=== PATIENT | female | born 1950 | race Two or more races ===

== ENCOUNTER 2020-05-17 08:48 | Outpatient (REF) | payer MEDICARE, SELFPAY ==
[2020-05-17 09:44] LABS: Alanine Aminotransferase 17 U/L (0-31); Albumin Level 4.3 g/dL (3.5-5.0); Alkaline Phosphatase 97 U/L (39-117); Anion Gap 10 (12-20); Aspartate Amino Transferase 22 U/L (5-31); Bilirubin Total 0.9 mg/dL (0.0-1.0); Blood Urea Nitrogen 25 mg/dL (9-16); Calcium 9.1 mg/dL (8.4-10.2); Carbon Dioxide 29 mmol/L (22-29); Chloride 104 mmol/L (96-108); Cholesterol 158 mg/dL; Estimated Glomerular Filt Rate > 60; Glucose Fasting 97 mg/dL (60-99); HDL Cholesterol 57 mg/dL; LDL Cholesterol Calculated 83 mg/dl; Potassium 4.1 mmol/L (3.3-5.1); Sodium 139 mmol/L (135-145); Total Protein 6.8 g/dL (6.5-8.0); Triglycerides 92 mg/dL
[2020-05-17 10:06] LABS: TSH reflex Free T4 0.95 uIU/mL (0.32-4.0)
== END 2020-05-17 08:49 | disposition home or self-care (01) ==
LOC: HO.LAB 08:48
PROVIDERS: PCP Internal Medicine; Visit Provider Internal Medicine
DX: E03.9 Hypothyroidism, unspecified (principal); E78.5 Hyperlipidemia, unspecified; E78.00 Pure hypercholesterolemia, unspecified
CPT/HCPCS: 36415; 80053; 80061; 84443

== ENCOUNTER → 2020-06-19 11:56 | Outpatient (BNVA) | payer MEDICARE, SELFPAY | PROVIDERS: PCP Internal Medicine; Visit Provider Nurse Practitioner Gerontology | DX: E03.9 Hypothyroidism, unspecified (principal) | CPT/HCPCS: 99212 ==

== ENCOUNTER 2020-06-27 11:45 | Outpatient (REF) | payer MEDICARE, SELFPAY ==
--- NOTE | ~2020-06-27 | MM_ITS ---
EXAMINATION: MM SCREENING DIGITAL BREAST TOMOSYNTHESIS, BILATERAL CLINICAL INFORMATION: Screening. Asymptomatic. The lifetime risk of breast cancer based on the Tyrer-Cuzick Model is 3%. COMPARISON: Mammography: 11/09/2018, 10/31/2018, 09/19/2017 (new baseline). TECHNIQUE: Digital breast tomosynthesis is performed in both the craniocaudal and mediolateral oblique views along with computer-aided detection (CAD). Synthesized 2D images are generated from the tomosynthesis. FINDINGS: There are scattered areas of fibroglandular density (ACR BI-RADS breast composition Category b). There are no significant masses, abnormal calcifications, or other abnormalities. Parenchymal pattern is similar to prior exams. No developing density. The skin contours are smooth. No significant changes. MM/MM tomosynthesis screening BI IMPRESSION: No mammographic evidence of malignancy. ASSESSMENT: BI-RADS 1: Negative RECOMMENDATION: Routine annual mammography screening. This patient's information was entered into a reminder system with a target due date for their next mammogram.
== END 2020-06-27 11:46 | disposition home or self-care (01) ==
LOC: HO.MAMMO 11:45
PROVIDERS: PCP Internal Medicine; Visit Provider Internal Medicine
DX: Z12.31 Encounter for screening mammogram for malignant neoplasm of breast (principal)
CPT/HCPCS: 77063; 77067

== ENCOUNTER 2020-09-09 08:45 | Outpatient (REF) | payer MEDICARE, OTHER, SELFPAY ==
--- NOTE | ~2020-09-09 | US_ITS ---
EXAMINATION: US ABDOMEN COMPLETE CLINICAL INFORMATION: Abdominal pain. COMPARISON: Previous exam August 2018 TECHNIQUE: Real-time imaging of the abdominal viscera. FINDINGS: PANCREAS: Not well visualized due to bowel gas. ABDOMINAL AORTA: The proximal, mid, and distal segments are normal in caliber. INFERIOR VENA CAVA: Visualized portions are normal. LIVER: Normal. The liver is normal in size. The liver contour is normal. Parenchymal echogenicity is normal. No focal hepatic lesion. There is no intrahepatic biliary duct dilatation seen. GALLBLADDER: Normal. The gallbladder is physiologically distended without evidence of stones, sludge, polyps, wall thickening or pericholecystic fluid. COMMON BILE DUCT: Not well visualized. RIGHT KIDNEY: Normal. No hydronephrosis. No renal calculi or focal parenchymal lesions. The kidney measures 8.7 cm in maximum dimension. LEFT KIDNEY: Normal. No hydronephrosis. No renal calculi or focal parenchymal lesions. The kidney measures 7.7 cm in maximum dimension. SPLEEN: Normal. The spleen measures 7.1 cm in maximum dimension. FREE FLUID: None. US/US abdomen complete IMPRESSION: Limited visualization of the pancreas and common bile duct. Otherwise unremarkable exam.
== END 2020-09-09 08:46 | disposition home or self-care (01) ==
LOC: HO.US 08:45
PROVIDERS: Visit Provider Internal Medicine
DX: R10.9 Unspecified abdominal pain (principal)
CPT/HCPCS: 76700

== ENCOUNTER 2021-01-13 08:24 | Outpatient (REF) | payer MEDICARE, MEDICAID, SELFPAY ==
[2021-01-13 08:41] LABS: MANUAL DIFF FLAG NO
[2021-01-13 09:21] LABS: Basophils Percent Auto 0.6 % (0-2); Eosinophils Absolute Auto 0.2 X10*3/uL (0.0-0.4); Eosinophils Percent Auto 3.1 % (0-4); Hematocrit 44.8 % (37.0-47.0); Hemoglobin 14.4 g/dl (12.0-16.0); Imm Gran Abs Auto 0.03 X10*3/uL (0.00-0.03); Imm Gran Pct Auto 0.5 % (0.0-0.4); Lymphocytes Absolute Auto 3.3 X10*3/uL (1.2-4.9); Lymphocytes Percent Auto 52.3 % (20-40); Mean Corpuscular HGB Conc 32.1 g/dl (31.0-35.0); Mean Corpuscular Hemoglobin 25.5 pg (27.0-33.0); Mean Corpuscular Volume 79.4 fL (80.0-98.0); Mean Platelet Volume 10.6 fL (9.4-12.3); Monocytes Absolute Auto 0.5 X10*3/uL (0.1-1.2); Monocytes Percent Auto 7.6 % (2-11); Neutrophils Absolute Auto 2.3 x10*3/uL (2.0-8.3); Neutrophils Percent Auto 35.9 % (45-73); Platelet Count 295 X10*3/uL (160-400); Red Blood Count 5.64 X10*6/uL (4.20-5.50); White Blood Count 6.4 X10*3/uL (4.8-10.8)
[2021-01-13 09:58] LABS: Alanine Aminotransferase 22 U/L (0-31); Albumin Level 4.1 g/dL (3.5-5.0); Alkaline Phosphatase 86 U/L (39-117); Anion Gap 11 (12-20); Aspartate Amino Transferase 25 U/L (5-31); Blood Urea Nitrogen 22 mg/dL (9-16); Calcium 9.7 mg/dL (8.4-10.2); Carbon Dioxide 27 mmol/L (22-29); Chloride 105 mmol/L (96-108); Cholesterol 157 mg/dL; Estimated Glomerular Filt Rate > 60; Glucose Fasting 95 mg/dL (60-99); HDL Cholesterol 62 mg/dL; LDL Cholesterol Calculated 83 mg/dl; Potassium 4.3 mmol/L (3.3-5.1); Sodium 139 mmol/L (135-145); Total Protein 6.5 g/dL (6.5-8.0); Triglycerides 64 mg/dL
[2021-01-13 10:10] LABS: Free T4 (Free Thyroxine) 1.13 ng/dL (0.71-1.85); Thyroid Stimulating Hormone 2.02 uIU/mL (0.32-4.0)
[2021-01-17 14:56] LABS: Vitamin D 25-OH, D2 <4 ng/mL; Vitamin D 25-OH, D3 30 ng/mL; Vitamin D 25-OH, Total 30 ng/mL (30-100)
== END 2021-01-13 08:25 | disposition home or self-care (01) ==
LOC: HO.LAB 08:24
PROVIDERS: Nurse Practitioner Gerontology; PCP Internal Medicine; Visit Provider Internal Medicine
DX: E03.9 Hypothyroidism, unspecified (principal); D64.9 Anemia, unspecified; J30.9 Allergic rhinitis, unspecified; E55.9 Vitamin D deficiency, unspecified; E78.00 Pure hypercholesterolemia, unspecified; E78.5 Hyperlipidemia, unspecified
CPT/HCPCS: 36415; 80053; 80061; 82306; 84439; 84443; 85025

== ENCOUNTER 2021-01-16 09:53 | Outpatient (REF) | payer MEDICARE, MEDICAID, SELFPAY ==
--- NOTE | ~2021-01-16 | XR_ITS ---
EXAMINATION: XR SINUSES CLINICAL INFORMATION: Chronic sinusitis COMPARISON: CT 02/27/2019 TECHNIQUE: 4 views of the paranasal sinuses. FINDINGS: There appears to be partial opacification of the left maxillary sinus, possibly associated with mucous retention cyst. There is also partial opacification of the right sphenoid sinus. Paranasal sinuses appear otherwise clear without air-fluid levels. No fractures are identified. No radiodense foreign bodies. XR/XR sinus min 3V IMPRESSION: Possible mucous retention cyst of the left maxillary sinus. Partial opacification of the right sphenoid sinus, likely similar to previous CT. The paranasal sinuses appear otherwise clear.
== END 2021-01-16 09:54 | disposition home or self-care (01) ==
LOC: HO.XRAY 09:53
PROVIDERS: PCP Internal Medicine; Visit Provider Internal Medicine
DX: J32.9 Chronic sinusitis, unspecified (principal)
CPT/HCPCS: 70220

== ENCOUNTER 2021-02-17 10:19 | Outpatient (REF) | payer MEDICARE, MEDICAID, SELFPAY ==
--- NOTE | ~2021-02-17 | MM_ITS ---
EXAMINATION: BONE DENSITOMETRY CLINICAL INDICATION: Asymptomatic menopausal state. COMPARISON: None (current study represents initial baseline exam). TECHNIQUE: Using a [employer] DXA System (software version: 13.1) manufactured by [employer], dual-energy x-ray absorptiometry was performed of the lumbar spine and left hip. The images are of good technical quality. Summary results are attached. FINDINGS: AP SPINE L1-L4: BMD 0.930 g/cm2, Z-score -0.1, T-score -2.1, osteopenia. LEFT FEMUR, NECK: BMD 0.732 g/cm2, Z-score -0.4, T-score -2.2, osteopenia. LEFT FEMUR, TOTAL: BMD 0.851 g/cm2, Z-score 0.4, T-score -1.2, osteopenia. IDENTIFIED RISK FACTORS: Menopause, glucocorticoids (chronic). HISTORY OF FRACTURE: None listed. MEDICATIONS: None listed. MM/XR DEXA axial skeleton IMPRESSION: 1. DIAGNOSIS: Osteopenia based on the lowest T-score value of -2.2 in the femoral neck applying World Health Organization criteria. 2. 10-YEAR FRACTURE RISK PREDICTION, FRAX: Major osteoporotic fracture (clinical spine, forearm, hip or shoulder) 7.4%. Hip fracture 1.5%. 3. Treatment Recommendations: NOF guidelines recommend consideration for treatment in postmenopausal women and men age 50 and older presenting with the following: -A hip or vertebral (clinical or morphometric) fracture. -T-score less than or equal to -2.5 at the femoral neck or spine after appropriate evaluation to exclude secondary causes. -Low bone mass at the hip or spine and a 10-year fracture probability by FRAX of greater than or equal to 3% for hip fracture or greater than or equal to 20% for major osteoporotic fracture based on the [place] adapted WHO algorithm. 4. Other Recommendations: All treatment decisions require clinical judgment and consideration of individual patient factors, including patient preferences, comorbidities, previous drug use, risk factors not captured in the FRAX model (e.g. frailty, falls, vitamin D deficiency, increased bone turnover, interval significant decline in bone density) and possible under or overestimation of fracture risk by FRAX. Additional medical evaluation for secondary cause of low bone mineral density may be appropriate. FUTURE SCAN RECOMMENDATION: People with diagnosed cases of osteoporosis or at high risk for fracture should have regular bone mineral density tests. For patients eligible for Medicare, routine testing is allowed once every 2 years. The testing frequency can be increased to one year for patients who have rapidly progressing disease, those who are receiving or discontinuing medical therapy to restore bone mass, or have additional risk factors.
== END 2021-02-17 10:20 | disposition home or self-care (01) ==
LOC: HO.MAMMO 10:19
PROVIDERS: Visit Provider Internal Medicine
DX: Z13.820 Encounter for screening for osteoporosis (principal); Z78.0 Asymptomatic menopausal state; Z79.52 Long term (current) use of systemic steroids
CPT/HCPCS: 77080

== ENCOUNTER → 2021-04-24 09:21 | Outpatient (REF) | payer MEDICARE, MEDICAID, SELFPAY ==
--- NOTE | 2021-04-24 09:25 | CA_ITS ---
Transthoracic Echocardiogram Patient (Last, First, Middle): Dayl Sethi, Gender: Female Date of : 1950 Age: 71 Procedure Date: 04/24/2021 Procedure Type: Transthoracic Echocardiogram Location: OP Height: 149.86 cm Weight: 55.79 kg BSA: 1.50 m2 Heart Rate: bpm BP: 130 / 75 mmHg Transplant Rn: SHAWN Referring MD: Shane Navarro MD Porter Head: Roland Gonzalez MD Symptoms: I36.1 - Nonrheumatic tricuspid (valve) insufficiency Study Quality: Good ECG Rhythm: Sinus Conclusions: - 1. Normal LV systolic function with impaired relaxation filling pattern 2. Mild mitral regurgitation 3. Normal RV systolic pressure 4. No pericardial effusion Findings Left Ventricle Normal left ventricular size, thickness, and systolic function. The visually estimated ejection fraction is between 60-65%. Spectral Doppler is indicative of an impaired relaxation filling pattern. E/E prime ratio is between 8 and 15 consistent with indeterminate filling pressures. measured peak global endocardial longitudinal strain is -17.3%, within normal limits Right Ventricle Normal right ventricular cavity size and systolic function. Atria Both atria are normal in size. There is no evidence of interatrial shunt. Aortic Valve Normal aortic valve structure and function. There is no aortic valve stenosis. There is no aortic valve regurgitation. Mitral Valve There is mild anterior and posterior mitral leaflet thickening. There is mild mitral valve regurgitation. There is no mitral valve stenosis. Pulmonic Valve The pulmonic valve was not well visualized. Tricuspid Valve Normal tricuspid valve structure. There is trace tricuspid valve regurgitation. The right ventricular systolic pressure is normal. The right ventricular systolic pressure is 23 mmHg. Normal right atrial pressure. There is no evidence of pulmonary hypertension. Great Vessels All visible segments of the aorta are normal in size. The pulmonary artery was not well visualized. Venous The inferior vena cava is normal in size and collapses greater than 50% with inspiration. Pericardium/Pleural There is no evidence of pericardial effusion. Prior Study Comparison No significant change compared to prior study dated: 03/20/2019. Measurements 2D Linear Measurements IVSd: 0.82 0.6-0.9/0.6-1.0 cm LVIDd: 3.77 3.9-5.3/4.2-5.9 cm LVIDd Index: 2.51 2.4-3.2/2.2-3.1 cm/m2 LVIDs: 2.67 2.0-3.6 cm LVPWd: 0.83 0.7-1.1 cm LA Diam: 3.30 2.7-3.8/3.0-4.0 cm LAIDs Index: 2.20 1.5-2.3 cm/m2 LV Mass: 109.31 67-162/88-224 g LV Mass Index: 72.88 43-95/49-115 g/m2 LVOT Diam: 2.00 3.0+(-)1.3 cm 2D Systolic Function EF 4C: 67.50 >55% EF 2C: 59.00 >55% EF BiP: 64.70 >55% Mitral Valve MV Pk E: 0.78 MV PK A: 0.96 MV Decel Time: 244.00 E/A: 0.80 E'Lateral: 9.14 E'Medial: 5.44 E/E' Med: 14.40 E/E' Lat: 8.60 PHT: 72.00 MVA PHT: 3.06 Decel [place]: 3.21 Aortic Valve AoV Pk Elio: 1.35 AoV Mn Elio: 0.89 AoV VTI: 0.31 AoV Pk Grad: 7.00 Aov Mn Grad: 4.00 REYMUNDO Cont.VTI: 2.33 LVOT LVOT Pk Elio: 0.92 LVOT Mn Elio: 0.61 LVOT VTI: 0.23 LVOT Pk Grad: 3.00 LVOT Mn Grad: 2.00 LVOT Diam: 2.00 LVOT Area: 3.14 Diastolic Function MV Pk E: 0.78 MV Pk A: 0.96 E/A: 0.80 E'Medial: 5.44 E/E' Med: 14.40 E' Laterial: 9.14 E/E' Lat: 8.60 Right Ventricle TAPSE (mm): 1.96 TVS' Elio: 10.30 Tricuspid Valve TR Pk Elio: 2.24 TR Pk Grad: 20.00 RA Press: 3.00 RVSP: 23.00 Great Vessels Aorta Sinus of Valsalva: 2.86 2.0-3.[address] [place]: 1.97 1.7-3.4 cm Ao Asc: 2.80 2.1-3.4 cm Ao Arch: 3.20 Updated in Other Vendor System with Status of Final Roland Gonzalez MD electronically signed on 04/26/2021 10:19:14 AM with status of Final
== END ==
LOC: HO.CARD 09:21
PROVIDERS: PCP Internal Medicine; Visit Provider Internal Medicine
DX: I36.1 Nonrheumatic tricuspid (valve) insufficiency (principal)
CPT/HCPCS: 93306

== ENCOUNTER → 2021-04-30 13:02 | Outpatient (BNVA) | payer MEDICARE, MEDICAID, SELFPAY | PROVIDERS: PCP Internal Medicine; Referring Provider Internal Medicine; Visit Provider Internal Medicine | DX: I34.0 Nonrheumatic mitral (valve) insufficiency (principal) | CPT/HCPCS: 93005; 99212 ==

== ENCOUNTER 2021-06-01 08:10 | Outpatient (REF) | payer MEDICARE, MEDICAID, SELFPAY ==
[2021-06-01 09:09] LABS: Alanine Aminotransferase 21 U/L (0-31); Albumin Level 4.1 g/dL (3.5-5.0); Alkaline Phosphatase 83 U/L (39-117); Anion Gap 9 (12-20); Aspartate Amino Transferase 25 U/L (5-31); Blood Urea Nitrogen 19 mg/dL (9-16); Calcium 9.6 mg/dL (8.4-10.2); Carbon Dioxide 28 mmol/L (22-29); Chloride 106 mmol/L (96-108); Cholesterol 143 mg/dL; Estimated Glomerular Filt Rate > 60; Glucose Fasting 90 mg/dL (60-99); HDL Cholesterol 62 mg/dL; LDL Cholesterol Calculated 72 mg/dl; Potassium 4.4 mmol/L (3.3-5.1); Sodium 139 mmol/L (135-145); Total Protein 6.5 g/dL (6.5-8.0); Triglycerides 47 mg/dL
[2021-06-01 09:28] LABS: Thyroid Stimulating Hormone 1.52 uIU/mL (0.32-4.0)
== END 2021-06-01 08:11 | disposition home or self-care (01) ==
LOC: HO.LAB 08:10
PROVIDERS: PCP Internal Medicine; Visit Provider Internal Medicine
DX: E78.5 Hyperlipidemia, unspecified (principal); E03.9 Hypothyroidism, unspecified; H81.13 Benign paroxysmal vertigo, bilateral
CPT/HCPCS: 36415; 80053; 80061; 84443

== ENCOUNTER 2021-06-06 11:21 | Emergency (ER) | payer MEDICARE, MEDICAID, SELFPAY ==
--- NOTE | ~2021-06-06 | XR_ITS ---
EXAMINATION: XR SOFT TISSUE NECK CLINICAL INDICATION: Anterior neck pain. COMPARISON: None TECHNIQUE: 2 views of the soft tissue neck were obtained. FINDINGS: Soft tissue films of the neck demonstrate a normal larynx, pharynx and upper trachea. No soft tissue swelling or opaque foreign body is demonstrated. Partially visualized cervical spine shows multilevel degenerative spondylosis at mid to lower cervical spine. XR/XR soft tissue neck IMPRESSION: Unremarkable radiographic appearance of the soft tissue neck. Incidental note is made of multilevel degenerative spondylosis at mid to lower cervical spine.
[2021-06-06 11:38] VITALS: BP 139/76; PULSE 78; RESP 20; TEMP 36.5; O2SAT 99; BMI 24.2
--- NOTE | 2021-06-06 13:27 | ED_ITS ---
HPI - General Adult General Chief complaint: General Medical Stated complaint: Thyroid problems Time Seen by Provider: 06/06/21 12:52 Source: patient Mode of arrival: ambulatory Limitations: no limitations History of Present Illness HPI narrative: this is a 71 years old female with history of thyroid disease presented to the emergency department complaining of anterior neck pain, denies any difficult to swallow denies any stridor , she can eat well, has no fever no chills no other complaints Onset (ago): day(s) (1) Location: neck Radiation: non-radiation Severity: mild Quality: burning Pain Consistency: constant Relieving factors: none Associated symptoms: denies other symptoms Related Data Home Medications Medication Instructions Recorded Confirmed aspirin 81 mg tablet,delayed 81 mg PO DAILY 02/05/20 06/03/21 release (Adult Aspirin Regimen) vitamins-lipotropics 200 mg-100 mg tab PO 04/30/21 06/03/21 tablet (Lipo-Flavonoid Plus) Previous Rx's Medication Instructions Recorded pravastatin 20 mg tablet 20 mg PO DAILY 90 Days #90 tab 11/13/20 Synthroid 50 mcg tablet 50 mcg PO DAILY #30 tab NS 11/26/20 (levothyroxine) fluticasone propionate 50 1 spray INTRANASAL DAILY 10 Days 12/30/20 mcg/actuation nasal #150 ml spray,suspension (Flonase Allergy Relief) meclizine 25 mg tablet 25 mg PO TID 90 Days #270 tab 01/15/21 Allergies Allergy/AdvReac Type Severity Reaction Status Date / Time Penicillins [PENICILLINS] Allergy Intermediate syncope Verified 06/03/21 13:09 Review of Systems Constitutional: Constitutional: Reports no additional constitutional complaints ENT: Reports system reviewed and no additional complaints, except as documented Cardiovascular: Cardiovascular: Reports no additional cardiovascular complaints Respiratory: Respiratory: Reports no additional respiratory complaints Integumentary/Breasts: Skin/Breast: Reports system reviewed and no additional complaints, except as docu PMFSH Past Medical History Medical History Abdominal pain Allergic rhinitis Anxiety Anxiety BPPV (benign paroxysmal positional vertigo) Chronic sinusitis Hypothyroidism Long-term use of aspirin therapy Mild depression Poor circulation Postmenopausal Pure hypercholesterolemia Sinusitis Surgical History History of 3 sections History of bilateral cataract extraction History of mastoidectomy Family History Family History Father No problems noted. Mother Vaginal cancer Brother Cancer Sister Skin cancer Son No problems noted. Son No problems noted. Daughter No problems noted. Social History Social History Housing: Apartment Alcohol intake: never Patient Tobacco Use Status: Never used Tobacco e-Cigarette/Vaping Use: Never Used Second Hand Smoke Exposure: No Advance Directives: No Advance Directives Information Provided: No service: No Current occupational status: retired Cognitive needs: No Hearing needs: No Vision needs: No Physical Exam ED Vital Signs: Vital Signs - 24 hr 06/06/21 11:38 Temperature 97.7 F Pulse Rate 78 Respiratory Rate 20 Blood Pressure 139/76 Pulse Oximetry 99 BMI result Body Mass Index 24.2 Const General: cooperative, healthy appearing, comfortable and no acute distress Nutritional Appearance: average body habitus and well nourished HENAR Head: Yes normal to inspection and Yes No palpable skull fracture present Ears: hearing grossly normal bilaterally General nose exam: Normal external nose present and Normal nares present Face and sinus: Yes normal facial exam Mouth: Normal oral and palatal mucosa present Throat: Yes posterior oropharynx normal Neck Neck: Yes normal visual inspection, Yes full ROM and Yes no lymphadenopathy Lymphatic: no lymphadenopathy noted Chest Chest palpation & inspection: normal inspection of the chest Resp Effort & Inspection: normal respiratory effort Auscultation: clear to auscultation bilaterally Cardio Jugular venous distension: no JVD Rate: regular rate Rhythm: regular rhythm GI Inspection: Yes normal to inspection Palpation (GI): Soft to palpation, not firm and nontender Auscultation: normal bowel sounds General: Yes no CVA tenderness Back/Spine/Pelvis Back: no CVA tenderness Course Course Course Narrative: I re-examined the patient this time she is doing much better, x-rays negative labs are salvador,l she can be discharged home and follow-up with primary care physician Reevaluation(s) Reevaluation #1: Asyntomatic 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7 (2-11) % Eos % (Auto) 0.4 (0-4) % Baso % (Auto) 0.6 (0-2) % Lymph # (Auto) 2.2 (1.2-4.9) X10*3/uL [place] # (Auto) 0.5 (0.1-1.2) X10*3/uL Eos # (Auto) 0.0 (0.0-0.4) X10*3/uL Baso # (Auto) 0.1 (0.0-0.2) X10*3/uL Abs Immat Gran (auto) 0.02 (0.00-0.03) X10*3/uL Absolute Neuts (auto) 5.0 (2.0-8.3) x10*3/uL Absolute Nucleated RBC 0.000 (0.0-0.012) X10*3/uL Nucleated RBC % (auto) 0.0 (0.0-0.2) /100WBC Sodium 137 (135-145) mmol/L Potassium 4.5 (3.3-5.1) mmol/L Chloride 102 (96-108) mmol/L Carbon Dioxide 29 (22-29) mmol/L Anion Gap 11 L (12-20) BUN 20 H (9-16) mg/dL Creatinine 0.83 (0.5-1.4) mg/dL Estim Creat Clear Calc 48.1 Estimated GFR > 60 Random Glucose 98 (60-115) mg/dL Calcium 10.0 (8.4-10.2) mg/dL Total Bilirubin 1.3 H (0.0-1.0) mg/dL AST 24 (5-31) U/L ALT 19 (0-31) U/L Alkaline Phosphatase 88 (39-117) U/L Total Protein 7.2 (6.5-8.0) g/dL Albumin 4.6 (3.5-5.0) g/dL Imaging Data soft tissue neck: Radiologist's impression: CLINICAL INDICATION: Anterior neck pain. COMPARISON: None TECHNIQUE: 2 views of the soft tissue neck were obtained.? FINDINGS: Soft tissue films of the neck demonstrate a normal larynx, pharynx and upper trachea. No soft tissue swelling or opaque foreign body is demonstrated. Partially visualized cervical spine shows multilevel degenerative spondylosis at mid to lower cervical spine. XR/XR soft tissue neck IMPRESSION: Unremarkable radiographic appearance of the soft tissue neck. Incidental note is made of multilevel degenerative spondylosis at mid to lower cervical spine. Dictated By: Debora Cook MD Signed By: <Electronically signed by Debora Cook MD in OV> 06/06/21 1349 DD/ 1333 TD/TT:? Foreign Language Interpreter: PK Discharge Plan Discharge Clinical Impression: Neck pain Patient Disposition: Home, Self-Care Instructions: Neck Pain (ED) Prescriptions: No Action pravastatin 20 mg tablet 20 mg PO DAILY 90 Days Qty: 90 2RF levothyroxine [Synthroid] 50 mcg tablet 50 mcg PO DAILY Qty: 30 11RF meclizine 25 mg tablet 25 mg PO TID 90 Days Qty: 270 1RF aspirin [Adult Aspirin Regimen] 81 mg tablet,delayed release (DR/EC) 81 mg PO DAILY 0RF fluticasone propionate [Flonase Allergy Relief] 50 mcg/actuation spray,suspension 1 spray intranasal DAILY 10 Days Qty: 150 0RF Rx Instructions: administer into each nostril Lipo-Flavonoid Plus 200-100 mg tablet PO 0RF Referrals: Terry Hastings [Physician] - 2 days Interventions: LWBS Worksheet Last Done: 06/06/21 12:57
[2021-06-06 14:05] LABS: MANUAL DIFF FLAG NO
[2021-06-06 14:07] LABS: Basophils Absolute Auto 0.1 X10*3/uL (0.0-0.2); Basophils Percent Auto 0.6 % (0-2); Eosinophils Percent Auto 0.4 % (0-4); Hematocrit 45.8 % (37.0-47.0); Hemoglobin 14.9 g/dl (12.0-16.0); Imm Gran Abs Auto 0.02 X10*3/uL (0.00-0.03); Imm Gran Pct Auto 0.3 % (0.0-0.4); Lymphocytes Absolute Auto 2.2 X10*3/uL (1.2-4.9); Lymphocytes Percent Auto 27.9 % (20-40); Mean Corpuscular HGB Conc 32.5 g/dl (31.0-35.0); Mean Corpuscular Hemoglobin 25.7 pg (27.0-33.0); Mean Platelet Volume 10.1 fL (9.4-12.3); Monocytes Absolute Auto 0.5 X10*3/uL (0.1-1.2); Monocytes Percent Auto 6.7 % (2-11); Neutrophils Percent Auto 64.1 % (45-73); Platelet Count 255 X10*3/uL (160-400); Red Cell Distribution Width 14.3 % (11.0-16.0); White Blood Count 7.8 X10*3/uL (4.8-10.8)
[2021-06-06 14:35] LABS: Alanine Aminotransferase 19 U/L (0-31); Albumin Level 4.6 g/dL (3.5-5.0); Alkaline Phosphatase 88 U/L (39-117); Anion Gap 11 (12-20); Aspartate Amino Transferase 24 U/L (5-31); Bilirubin Total 1.3 mg/dL (0.0-1.0); Blood Urea Nitrogen 20 mg/dL (9-16); Carbon Dioxide 29 mmol/L (22-29); Chloride 102 mmol/L (96-108); Creatinine Clr Calc Pharmacy 48.1; Estimated Glomerular Filt Rate > 60; Glucose Random 98 mg/dL (60-115); Potassium 4.5 mmol/L (3.3-5.1); Sodium 137 mmol/L (135-145); Total Protein 7.2 g/dL (6.5-8.0)
[2021-06-06 14:56] LABS: Thyroid Stimulating Hormone 0.82 uIU/mL (0.32-4.0)
[2021-06-06 15:11] VITALS: BP 134/70; PULSE 77; RESP 19; O2SAT 98
== END 2021-06-06 15:12 | disposition home or self-care (01) ==
PROVIDERS: Emergency Provider Emergency Medicine; PCP Internal Medicine
DX: M54.2 Cervicalgia (principal); Z79.899 Other long term (current) drug therapy; Z79.82 Long term (current) use of aspirin
CPT/HCPCS: 36415; 70360; 80053; 84443; 85025; 99283

== ENCOUNTER → 2021-06-16 08:13 | Outpatient (BNVA) | payer MEDICARE, SELFPAY | PROVIDERS: PCP Internal Medicine; Visit Provider Nurse Practitioner Gerontology | DX: E03.9 Hypothyroidism, unspecified (principal); Z79.899 Other long term (current) drug therapy | CPT/HCPCS: 99212 ==

== ENCOUNTER 2021-06-29 09:05 | Outpatient (REF) | payer MEDICARE, MEDICAID, SELFPAY ==
--- NOTE | ~2021-06-29 | MM_ITS ---
EXAMINATION: MM SCREENING DIGITAL BREAST TOMOSYNTHESIS, BILATERAL CLINICAL INFORMATION: Screening. Asymptomatic. The lifetime risk of breast cancer based on the Tyrer-Cuzick Model is 4%. COMPARISON: Mammography: 06/27/2020, 11/09/2018, 10/31/2018, 09/19/2017 (new baseline) TECHNIQUE: Digital breast tomosynthesis is performed in both the craniocaudal and mediolateral oblique views along with computer-aided detection (CAD). Synthesized 2D images are generated from the tomosynthesis. FINDINGS: There are scattered areas of fibroglandular density (ACR BI-RADS breast composition Category b). There are no significant masses, abnormal calcifications, or other abnormalities. Parenchymal pattern is similar to prior exams. No developing density or architectural abnormality. Skin contours are smooth. MM/MM tomosynthesis screening BI IMPRESSION: No mammographic evidence of malignancy. ASSESSMENT: BI-RADS 1: Negative RECOMMENDATION: Routine annual mammography screening. This patient's information was entered into a reminder system with a target due date for their next mammogram.
== END 2021-06-29 09:06 | disposition home or self-care (01) ==
LOC: HO.MAMMO 09:05
PROVIDERS: Visit Provider Internal Medicine
DX: Z12.31 Encounter for screening mammogram for malignant neoplasm of breast (principal)
CPT/HCPCS: 77063; 77067

== ENCOUNTER 2021-06-29 10:10 | Emergency (ER) | payer MEDICARE, OTHER, SELFPAY ==
[2021-06-29 11:21] VITALS: BP 175/70; PULSE 80; RESP 18; TEMP 36.4; O2SAT 99; BMI 23.8
== END 2021-06-29 18:48 | disposition left against medical advice (07) ==
LOC: HO.ED 18:47
PROVIDERS: Emergency Provider Emergency Medicine
DX: R07.89 Other chest pain (principal); M25.562 Pain in left knee; M25.561 Pain in right knee; R51.9 Headache, unspecified
CPT/HCPCS: 99281

== ENCOUNTER → 2021-07-14 13:19 | Outpatient (BNVA) | payer MEDICARE, MEDICAID, SELFPAY | PROVIDERS: PCP Internal Medicine; Visit Provider Surgery Vascular Surgery | DX: M79.606 Pain in leg, unspecified (principal) | CPT/HCPCS: 99202 ==

== ENCOUNTER 2021-08-04 10:00 | Outpatient (RCR) | payer MEDICARE, OTHER, SELFPAY ==
[2021-07-21 10:07] VITALS: BP 140/80
--- NOTE | 2021-07-21 12:44 | MHC.PT.EP ---
[facility] [place] Office [place] Office [place] Office [address] Farhat Collins [address] [phone] F: [phone] F: [phone] F: [phone] F: [phone] Physical Therapy Plan of Care Date of Evaluation: Date of Surgery: Diagnosis: BPPV, B Assessment: 71 y/o F referred to PT with BPPV, B. She reports 'vertigo' for several years. Describes dizziness as the floor moves and her head moving; everything moves around me; It is like spinning. The dizziness is always there and constant, she cannot think of aggravating factors. She reports imaging has been negative in the past but unclear on what type of w/u she has had previously. She has also had a recent fall one month ago. Examination shows normal saccades/ smooth pursuits, normal seated VBI, static balance on/off foam was WNL however noted increase in pt anxiety reporting nausea and fear, DGI was not completed and unable to assess for BPPV due to time constraints. Phone park interpreter utilized. At this time, will complete evaluation and then complete POC. Recommend PT for 2 more visits to assess for BPPV and for hypofunction. Frequency and Duration: The patient will be seen 2x/week for 2 weeks Short Term Goals: Assess for BPPV Director Process Improvement Goals: Pt will be (-) for nystagmus of reports of vertigo in all diagnostic directions B to resolutions of BPPV in 4 weeks Tolerate position changes without complaints vertigo to improve safety and return to pre-onset level Pt to be able to functionally move in all planes without provocation of dizziness and return to PLOF in 4 weeks Pt to be educated on sx and indications to return to therapy when needed in 4 weeks -Eliminate BPPV in order to reduce risk of falls Treatment Plan: Modalities to reduce pain, spasms and effusion. Manual therapy to restore motion and function. Therapeutic exercise to improve strength and flexibility. Neuromuscular re-education for posture and balance. Therapeutic activities to return to functional activities of daily living. Electronically signed by: Jennifer Haider PT Please sign and return to therapist. Thank you for your referral.
--- NOTE | 2021-09-08 12:03 | MHC.PT.DC ---
[facility] [place] Office [place] Office [place] Office [address] Farhat Collins [address] [phone] F: [phone] F: [phone] F: [phone] F: [phone] Physical Therapy Discharge Report Diagnosis: BPPV, B Date of Surgery: Date of Evaluation: 07/21/21 Date of Discharge: 09/08/21 Treatments to Date: 3 Cancellations to Date: 0 No Shows to Date: 0 Discharge Status: Recommend MD Follow-up Discharge Summary: Pt grandson present to assist with interpreting and pt requests this therapist call MD as no one calls her back. Most of session spent seated in supported chair, but pt would have intermittent waves of dizziness (my head is moving) while static sitting. Re-checked oculomotor and was WNL, no increase in sx. With VOR, pt needed significant cues to perform correctly but eventually able to maintain focus on target but increase in dizziness. Dizziness episodes would last 5 sec - 5 minutes throughout session. Pt agreed to BPPV assessment however with supine position (head on 2 pillows) pt became increasinly anxious and wanted to return to seated position. In sitting, pt holding on firmly to therapist and cues for breathing. No nystagmus seen and pt reports feeling better after 5 minutes wtih cool compress. States she is afraid of the dizziness and it makes her nervous/ anxious. Upon leaving, pt reports feeling better and left with her grandson ambulating. However grandson returns and states pt dizzy again in waiting room. Pt given water, cool compresses and vitals taken (see above). She reports dizziness, no nausea but also reports anxious. She declines ED, however did take w/c down to entrance of hospital. Dizziness etiology unclear as pt unclear historian and increased anxiety with all testing; will place call to Dr. Hall office re pt concerns and wonder if she would benefit from imaging of cervical spine and/or brain. Electronically signed by: Jennifer Haider PT Please sign and return to therapist. Thank you for your referral.
== END 2021-09-08 12:04 | disposition home or self-care (01) ==
LOC: HO.PT 10:00
PROVIDERS: PCP Internal Medicine; Visit Provider Internal Medicine
DX: H81.13 Benign paroxysmal vertigo, bilateral (principal)
CPT/HCPCS: 95992; 97112; 97162

== ENCOUNTER → 2021-09-07 11:00 | Outpatient (BNVA) | payer MEDICARE, MEDICAID, SELFPAY | PROVIDERS: PCP Internal Medicine; Visit Provider Physician Assistant | DX: Z12.11 Encounter for screening for malignant neoplasm of colon (principal) | CPT/HCPCS: 99202 ==

== ENCOUNTER 2021-09-22 15:01 | Outpatient (REF) | payer MEDICARE, MEDICAID, SELFPAY ==
--- NOTE | ~2021-09-22 | MR_ITS ---
EXAMINATION: MR BRAIN WITHOUT AND WITH CONTRAST CLINICAL INFORMATION: Vertigo, tinnitus, and deafness. COMPARISON: Head CT 02/21/2017. TECHNIQUE: Multiplanar, multisequence imaging of the brain was performed before and after the intravenous administration of 5 mL of Gadavist. FINDINGS: The inner ear structures including the cochlea, vestibules, and semicircular canals exhibit preserved CSF signal intensity with no pathologic enhancement. The vestibular aqueducts are not enlarged. Cranial nerves VII and VIII complexes are normal in morphology. No enhancing cerebellopontine angle/retrocochlear lesion. There is no intracranial mass or abnormal intracranial enhancement. There is no acute infarction. There is no intracranial hemorrhage or extra axial collection. The ventricles, sulci, and basilar cisterns are normal in size and configuration. Mild scattered foci of T2/FLAIR hyperintensity are seen within the cerebral white matter. The orbital contents appear normal. There is moderate inflammatory change within the right sphenoid sinus. MR/MR head/brain wo/w con IMPRESSION: - No vestibular schwannoma or retrocochlear lesion. - No mass lesion, acute infarction, or abnormal intracranial enhancement. - Moderate inflammatory changes in the right sphenoid sinus.
== END 2021-09-22 15:02 | disposition home or self-care (01) ==
LOC: HO.MRI 15:01
PROVIDERS: Visit Provider Psychiatry & Neurology Neurology
DX: R42 Dizziness and giddiness (principal); H93.19 Tinnitus, unspecified ear; H91.90 Unspecified hearing loss, unspecified ear
CPT/HCPCS: 70553; A9585

== ENCOUNTER 2021-10-02 07:59 | Outpatient (REF) | payer MEDICARE, MEDICAID, SELFPAY ==
[2021-10-02 09:22] LABS: Thyroid Stimulating Hormone 2.03 uIU/mL (0.32-4.0)
== END 2021-10-02 08:00 | disposition home or self-care (01) ==
LOC: HO.LAB 07:59
PROVIDERS: Nurse Practitioner Gerontology; PCP Internal Medicine; Visit Provider Internal Medicine
DX: E03.9 Hypothyroidism, unspecified (principal)
CPT/HCPCS: 36415; 84443

== ENCOUNTER 2021-10-29 10:09 | Emergency (ER) | payer MEDICARE, SELFPAY ==
--- NOTE | ~2021-10-29 | XR_ITS ---
EXAMINATION: XR CHEST CLINICAL INFORMATION: Dizziness COMPARISON: 03/19/2017 TECHNIQUE: Frontal view of the chest was obtained. FINDINGS: No significant abnormality is noted involving the heart, lungs, mediastinum, bony thorax or soft tissues. XR/XR chest 1V IMPRESSION: Unremarkable examination.
--- NOTE | ~2021-10-29 | CT_ITS ---
EXAMINATION: CT HEAD WITHOUT CONTRAST CLINICAL INFORMATION: Dizziness COMPARISON: MRI head from 09/22/2021. Head CT from 02/21/2017. TECHNIQUE: Contiguous axial imaging was performed from the skull base to vertex without intravenous administration of contrast. This CT examination was performed using dose optimization techniques as appropriate, variously including the following: *Automated exposure control *Adjustment of mA and/or kV according to patient size (this includes techniques or standardized protocols for targeted exams where dose is matched to indication/reason for exam; i.e. extremities or head) *Use of iterative reconstruction technique DLP: 526 mGy-cm FINDINGS: No intracranial hemorrhage, extra-axial fluid collection, focal mass effect or midline shift. The mallory-white matter differentiation is maintained. No evidence of an acute major vascular territory infarction. 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 The brainstem and cerebellum are unremarkable. The white matter changes of mild microangiopathy were better depicted on the brain MRI of 09/22/2021. Surgical changes from prior right mastoidectomy. The left mastoid air cells and bilateral middle ear cavities are well aerated. Chronic mucoperiosteal thickening of the right sphenoid sinus. The orbits and globes remain symmetric. The temporomandibular joints are unremarkable. CT/CT head/brain wo IV con IMPRESSION: * No acute intracranial pathology compared to 09/22/2021. * Chronic right sphenoid sinusitis.
[2021-10-29 10:14] VITALS: BP 158/76; BP 184/90; PULSE 90; PULSE 94; RESP 18; TEMP 36.8; O2SAT 99; BMI 22.2
--- NOTE | 2021-10-29 10:46 | ECG_ITS ---
Test Reason : vertigo Blood Pressure : / mmHG Vent. Rate : 075 BPM Atrial Rate : 075 BPM P-R Int : 144 ms QRS Dur : 076 ms QT Int : 388 ms P-R-T Axes : 036 051 054 degrees QTc Int : 433 ms Normal sinus rhythm Normal ECG When compared with ECG of 10-AUG-2016 23:31, No significant change was found Referred By: Kanwal Acevedo Electronically Signed By:CUCO SUÁREZ
--- NOTE | 2021-10-29 10:57 | ED.DIZZY ---
HPI - Dizziness General Chief Complaint: Dizziness Stated Complaint: DIZZINESS W/DIFF AMB PE REMS Time Seen by Provider: 10/29/21 10:30 Source: patient Mode of arrival: ambulatory Limitations: language barrier ([place] Speaking) History of Present Illness HPI Narrative: 71-year-old female with a past medical history of benign paroxysmal positional vertigo currently on meclizine p.r.n. reports she did not take this morning, anxiety disorder, depression, hypothyroidism, chronic sinusitis, and hyperlipidemia who is presenting to the ER with her son at bedside with complaints of sudden onset of dizziness while she was driving dropping off her son at an appointment prior to arrival. She reports that she turned her head to the left and since then she has been having dizziness. She reports that this is worse than her normal dizziness. She reports that it is worse when she stands up or turns her head. She feels like she is spinning. She reports she intermittently has episodes of vertigo this is why she does not take the meclizine daily only p.r.n. she reports she recently had an MRI due to her dizziness on 09/22/2021 and she reports it was within normal limits per the patient. She denies any fevers, chills, headaches, change in vision, ear drainage, sore throat, nausea/vomiting, jaw pain, paresthesias, chest pain, shortness of breath, dyspnea on exertion, orthopnea, palpitations, paresthesias, abdominal pain, back pain, dysuria, hematuria, diarrhea, abnormal vaginal discharge, black or bloody stools, lower extremity edema or calf tenderness, recent travel or recent falls, others with similar symptoms or any other symptoms complaints or concerns at this time. MD elicited complaint: dizziness Pertinent past history: inner ear problems Onset (ago): hour(s) (started [id number] [employer]) Timing: sudden onset Severity: moderate Description: sense of movement and difficulty walking Context: change in body position History of similar symptoms: Yes Exacerbating factors: movement/ambulation, change in body position, exertion and standing Relieving factors: remaining still and rest Associated symptoms: nasal congestion (chronic per patient ) and ear discomfort (chronic right ear pain ) Related Data Home Medications Medication Instructions Recorded Confirmed aspirin 81 mg tablet,delayed 81 mg PO DAILY 02/05/20 10/05/21 release (Adult Aspirin Regimen) Previous Rx's Medication Instructions Recorded fluticasone propionate 50 1 spray intranasal DAILY 10 days 12/30/20 mcg/actuation nasal #150 mL spray,suspension (Flonase Allergy Relief) meclizine 25 mg tablet 25 mg PO TID 90 days #270 tabs 01/15/21 Synthroid 50 mcg tablet 50 mcg PO DAILY #90 tabs 06/16/21 (levothyroxine) pravastatin 20 mg tablet 20 mg PO DAILY 90 days #90 tabs 08/09/21 bisacodyl 5 mg tablet,delayed 10 mg PO ONCE colonoscopy prep 1 09/07/21 release (Dulcolax (bisacodyl)) day #2 tabs polyethylene glycol 3350 17 238 g PO ONCE 1 day #238 grams 09/07/21 gram/dose oral powder (Miralax) doxycycline monohydrate 100 mg 100 mg PO BID 10 days #20 tabs 10/29/21 tablet lorazepam 0.5 mg tablet (Ativan) 0.5 mg PO DAILY PRN anxiety #10 10/29/21 tabs Allergies Allergy/AdvReac Type Severity Reaction Status Date / Time Penicillins [PENICILLINS] Allergy Intermediate syncope Verified 10/05/21 09:26 Review of Systems Review of Systems: Constitutional : No Fever, No Chills, No Night Sweats, No Fatigue, No Malaise ENT/Mouth : No Ear Pain, No Nasal Congestion, No Sinus Pain, No sore throat, No Rhinorrhea Eyes: No Eye Pain, No Swelling, No Redness, No Foreign Body, No Discharge, No Vision Changes Cardiovascular : No Chest Pain, No SOB, No Dyspnea on Exertion, No Orthopnea, No Palpitations Respiratory : No Cough, No Sputum, No Wheezing, No Dyspnea Gastrointestinal : No Nausea, No Vomiting, No Diarrhea, No Constipation, No abdominal Pain, No Hematochezia, No Melena Genitourinary : No Dysuria, No Urinary Frequency, No Urinary Incontinence, No Urgency, No Flank Pain Musculoskeletal : No joint pain, No Myalgias Skin : No lacerations Neuro : +Dizziness, No Focal weakness, no general weakness, No Numbness, No Paresthesias, No Loss of Consciousness, No Dizziness, No Headache Yes all other systems are reviewed and are negative [facility] Past Medical History Attestation statement: The following information was validated with the patient. Source: old records reviewed, obtained from family and nursing notes reviewed Medical History Abdominal pain Allergic rhinitis Anxiety Anxiety BPPV (benign paroxysmal positional vertigo) Chronic sinusitis Hypothyroidism Long-term use of aspirin therapy Mild depression Poor circulation Postmenopausal Pure hypercholesterolemia Sinusitis Surgical History History of 3 sections History of bilateral cataract extraction History of esophagogastroduodenoscopy (EGD) History of mastoidectomy Family History Family History Father No problems noted. Mother Vaginal cancer Brother Cancer Sister Skin cancer Son No problems noted. Son No problems noted. Daughter No problems noted. Social History Social History Housing: Apartment Alcohol intake: never Patient Tobacco Use Status: Never used Tobacco e-Cigarette/Vaping Use: Never Used Second Hand Smoke Exposure: No Advance Directives: No Advance Directives Information Provided: No service: No Current occupational status: retired Cognitive needs: No Hearing needs: No Vision needs: Yes Physical Exam Vital Signs: Vital Signs: Last Vital Signs Temp 98.2 F 10/29/21 10:14 Pulse 90 10/29/21 12:03 Resp 16 10/29/21 12:00 BP 198/84 H 10/29/21 12:03 Pulse Ox 96 10/29/21 12:00 O2 Del Method 10/29/21 12:00 BMI result Body Mass Index 22.2 Vital signs have been reviewed as normal and appeared to be correct. Blood pressure 158/76. Heart rate normal. Respiration rate normal. Temperature normal. Oxygen saturation normal. Appearance: Alert. Oriented X3. No acute distress. Head: Normal external exam. Normocephalic. Atraumatic. Able to rotate head bilaterally. Eyes: PERRLA. EOMI. No nystagmus noted. Conjunctiva and sclera normal. Eyelids normal. Corneal reflex normal. ENT: EAC normal. TM's Normal. Hearing normal. Pharynx normal. Uvula midline. tongue midline. Moist mucous membranes. No trismus noted. No drooling noted. No muffled voice noted. No nystagmus noted. Neck: Normal inspection. Neck supple. FROM. No adenopathy. Trachea midline. Thyroid Normal. No meningeal signs. No neck mass noted. CVS: Normal heart rate and rhythm. Heart sound normal. No murmurs noted. Pulses normal throughout. Respiratory: No respiratory distress. Painless inspiration. Breath sounds normal. No wheezes/rales/rhonchi noted. Chest nontender. No accessory muscle usage noted or decreased air movement noted. Abdomen: Soft and nontender. Bowel sounds normal in all 4 quadrants. No distention noted. No organomegaly noted. No visible injury noted. Back: No CVA tenderness. Full range of motion noted. Skin: Skin warm and dry. Normal skin color. Normal skin turgor. No rashes/lesions/lacerations noted. Extremities: No lower extremity edema. Extremities exhibit normal range of motion. Extremities nontender. Able to shrug shoulders bilaterally and keep up against resistance. Neuro: Oriented X 3. No motor deficit. No sensory deficit. Reflexes normal. Moving all extremities. No focal motor deficits. Cranial nerves II-XI intact bilaterally. Facial strength normal. Normal cognition. Speech normal. Gait normal. Strength 5/5 throughout. No pronator drift. No tremor noted. No fasciculations noted. No rigidity noted. Muscle tone normal throughout. No asterixis noted. [id number] test normal. Heel to lala test normal. Tandem gait normal. Does not sway with eyes open. Romberg test negative. Rapid alternating movement upper extremity normal. Rapid alternating movement lower extremity normal. Hand drop from overhead Misses face. NIHSS score 0. Course Course Course Narrative: 10:45am - 71-year-old female with a past medical history of benign paroxysmal positional vertigo currently on meclizine p.r.n. reports she did not take this morning, anxiety disorder, depression, hypothyroidism, chronic sinusitis, and hyperlipidemia who is presenting to the ER with her son at bedside with complaints of sudden onset of dizziness while she was driving dropping off her son at an appointment prior to arrival. She reports that she turned her head to the left and since then she has been having dizziness. She reports that this is worse than her normal dizziness. She reports that it is worse when she stands up or turns her head. She feels like she is spinning. She reports she intermittently has episodes of vertigo this is why she does not take the meclizine daily only p.r.n. she reports she recently had an MRI due to her dizziness on 09/22/2021 and she reports it was within normal limits per the patient. On exam patient is alert and oriented x3. Not in any acute distress. No focal neuro deficits are noted. Not a tPA candidate as patient has non disabling symptoms. She has a normal steady gait without any assistive devices although reports she feels very dizzy when she is ambulating. Plan: Labs, EKG, CT scan of brain without contrast, orthostatic vitals, COVID swab, UA. Provide a L of IV fluids, 50 mg of meclizine and 4 mg of Zofran and re-evaluate. Reevaluation(s) Reevaluation #1: - patient mild baseline anemia similar compared to prior. Potassium 5.3. BUN 23. Otherwise all other labs are within normal limits. UA within normal limits no evidence of UTI. Patient negative for COVID. - CT scan of brain/cervical spine without contrast revealed chronic changes such as chronic right sphenoid sinusitis otherwise no other acute processes. Similar compared to MRI on 09/22/2021. - chest x-ray within normal limits no acute processes noted. - when I reviewed the patient's MRI on 09/22/2021 it revealed chronic changes no acute processes and there was no evidence of any blockages. Therefore not consistent with TIA versus CVA today. - patient's blood pressure went from 175/74 supine to 198/84 standing with orthostatic vitals therefore negative for orthostatics. - patient blood pressure elevated to 198/84 after a L of IV fluids. I recheck the patient's blood pressure after a little while from the IV fluids and given the Ativan and her blood pressure is now back at 160/76. She reports her dizziness is completely resolved. Will DC home with antibiotics for her chronic sinusitis and instructions return if any new or worsening symptoms follow up with primary care provider. Patient with daughter at bedside understand agree this plan. Time: 12:45 [facility] - Dizziness Medical Records Attestation: I reviewed the patient's medical records. Lab Data Attestation: I reviewed the patient's lab results. Result diagrams: 10/29/21 11:24 10/29/21 11:24 Labs: Lab Results 10/29/21 10/29/21 10/29/21 Range/Units 11:24 11:24 11:24 WBC 8.2 (4.8-10.8) X10*3/uL RBC 5.68 H (4.20-5.50) X10*6/uL Hgb 14.6 (12.0-16.0) g/dl Hct 44.4 (37.0-47.0) % MCV 78.2 L (80.0-98.0) fL MCH 25.7 L (27.0-33.0) pg MCHC 32.9 (31.0-35.0) g/dl RDW 15.3 (11.0-16.0) % Plt Count 251 (160-400) X10*3/uL MPV 10.5 (9.4-12.3) fL Immature Gran % (Auto) 0.5 H (0.0-0.4) % Neut % (Auto) 68.5 (45-73) % Lymph % (Auto) 23.3 (20-40) % [place] % (Auto) 6.0 (2-11) % Eos % (Auto) 1.1 (0-4) % Baso % (Auto) 0.6 (0-2) % Lymph # (Auto) 1.9 (1.2-4.9) X10*3/uL [place] # (Auto) 0.5 (0.1-1.2) X10*3/uL Eos # (Auto) 0.1 (0.0-0.4) X10*3/uL Baso # (Auto) 0.1 (0.0-0.2) X10*3/uL Abs Immat Gran (auto) 0.04 H (0.00-0.03) X10*3/uL Absolute Neuts (auto) 5.6 (2.0-8.3) x10*3/uL Absolute Nucleated RBC 0.000 (0.0-0.012) X10*3/uL Nucleated RBC % (auto) 0.0 (0.0-0.2) /100WBC PT 10.5 (10.0-13.1) SEC INR 0.9 (0.9-1.1) Sodium 142 (135-145) mmol/L Potassium 5.3 H (3.3-5.1) mmol/L Chloride 106 (96-108) mmol/L Carbon Dioxide 27 (22-29) mmol/L Anion Gap 14 (12-20) BUN 23 H (9-16) mg/dL Creatinine 0.93 (0.5-1.4) mg/dL Estim Creat Clear Calc 38.9 Estimated GFR 60 Random Glucose 106 (60-115) mg/dL Calcium 10.0 (8.4-10.2) mg/dL Magnesium 2.1 (1.6-2.6) mg/dL Total Bilirubin 0.9 (0.0-1.0) mg/dL AST 24 (5-31) U/L ALT 20 (0-31) U/L Alkaline Phosphatase 93 (39-117) U/L Troponin I High Sens (<3.5-17.0) ng/L Total Protein 6.8 (6.5-8.0) g/dL Albumin 4.3 (3.5-5.0) g/dL Urine Color Urine Appearance Urine pH (5.0-9.0) Ur Specific [place] (1.005-1.025) Urine Protein (Neg-Trace) mg/dL Urine Glucose (UA) (Negative) mg/dL Urine Ketones (Negative) mg/dL Urine Blood (Negative) Urine Nitrite (Negative) Ur Leukocyte Esterase (Negative) COVID-19 (FARHAD) (Negative) COVID-19 Clin Com Influenza Type A (PCR) Influenza Type B (PCR) RSV RNA Qual (PCR) SARS-CoV-2 RNA (RT-PCR) 10/29/21 10/29/21 10/29/21 Range/Units 11:24 11:24 11:24 WBC (4.8-10.8) X10*3/uL RBC (4.20-5.50) X10*6/uL Hgb (12.0-16.0) g/dl Hct (37.0-47.0) % MCV (80.0-98.0) fL MCH (27.0-33.0) pg MCHC (31.0-35.0) g/dl RDW (11.0-16.0) % Plt Count (160-400) X10*3/uL MPV (9.4-12.3) fL Immature Gran % (Auto) (0.0-0.4) % Neut % (Auto) (45-73) % Lymph % (Auto) (20-40) % [place] % (Auto) (2-11) % Eos % (Auto) (0-4) % Baso % (Auto) (0-2) % Lymph # (Auto) (1.2-4.9) X10*3/uL [place] # (Auto) (0.1-1.2) X10*3/uL Eos # (Auto) (0.0-0.4) X10*3/uL Baso # (Auto) (0.0-0.2) X10*3/uL Abs Immat Gran (auto) (0.00-0.03) X10*3/uL Absolute Neuts (auto) (2.0-8.3) x10*3/uL Absolute Nucleated RBC (0.0-0.012) X10*3/uL Nucleated RBC % (auto) (0.0-0.2) /100WBC PT (10.0-13.1) SEC INR (0.9-1.1) Sodium (135-145) mmol/L Potassium (3.3-5.1) mmol/L Chloride (96-108) mmol/L Carbon Dioxide (22-29) mmol/L Anion Gap (12-20) BUN (9-16) mg/dL Creatinine (0.5-1.4) mg/dL Estim Creat Clear Calc Estimated GFR Random Glucose (60-115) mg/dL Calcium (8.4-10.2) mg/dL Magnesium (1.6-2.6) mg/dL Total Bilirubin (0.0-1.0) mg/dL AST (5-31) U/L ALT (0-31) U/L Alkaline Phosphatase (39-117) U/L Troponin I High Sens < 3.5 (<3.5-17.0) ng/L Total Protein (6.5-8.0) g/dL Albumin (3.5-5.0) g/dL Urine Color Urine Appearance Urine pH (5.0-9.0) Ur Specific [place] (1.005-1.025) Urine Protein (Neg-Trace) mg/dL Urine Glucose (UA) (Negative) mg/dL Urine Ketones (Negative) mg/dL Urine Blood (Negative) Urine Nitrite (Negative) Ur Leukocyte Esterase (Negative) COVID-19 (FARHAD) Negative (Negative) COVID-19 Clin Com See Note Influenza Type A (PCR) Cancelled Influenza Type B (PCR) Cancelled RSV RNA Qual (PCR) Cancelled SARS-CoV-2 RNA (RT-PCR) Cancelled 10/29/21 Range/Units 12:29 WBC (4.8-10.8) X10*3/uL RBC (4.20-5.50) X10*6/uL Hgb (12.0-16.0) g/dl Hct (37.0-47.0) % MCV (80.0-98.0) fL MCH (27.0-33.0) pg MCHC (31.0-35.0) g/dl RDW (11.0-16.0) % Plt Count (160-400) X10*3/uL MPV (9.4-12.3) fL Immature Gran % (Auto) (0.0-0.4) % Neut % (Auto) (45-73) % Lymph % (Auto) (20-40) % [place] % (Auto) (2-11) % Eos % (Auto) (0-4) % Baso % (Auto) (0-2) % Lymph # (Auto) (1.2-4.9) X10*3/uL [place] # (Auto) (0.1-1.2) X10*3/uL Eos # (Auto) (0.0-0.4) X10*3/uL Baso # (Auto) (0.0-0.2) X10*3/uL Abs Immat Gran (auto) (0.00-0.03) X10*3/uL Absolute Neuts (auto) (2.0-8.3) x10*3/uL Absolute Nucleated RBC (0.0-0.012) X10*3/uL Nucleated RBC % (auto) (0.0-0.2) /100WBC PT (10.0-13.1) SEC INR (0.9-1.1) Sodium (135-145) mmol/L Potassium (3.3-5.1) mmol/L Chloride (96-108) mmol/L Carbon Dioxide (22-29) mmol/L Anion Gap (12-20) BUN (9-16) mg/dL Creatinine (0.5-1.4) mg/dL Estim Creat Clear Calc Estimated GFR Random Glucose (60-115) mg/dL Calcium (8.4-10.2) mg/dL Magnesium (1.6-2.6) mg/dL Total Bilirubin (0.0-1.0) mg/dL AST (5-31) U/L ALT (0-31) U/L Alkaline Phosphatase (39-117) U/L Troponin I High Sens (<3.5-17.0) ng/L Total Protein (6.5-8.0) g/dL Albumin (3.5-5.0) g/dL Urine Color Yellow Urine Appearance Clear Urine pH 6.5 (5.0-9.0) Ur Specific [place] <= 1.005 (1.005-1.025) Urine Protein Negative (Neg-Trace) mg/dL Urine Glucose (UA) Negative (Negative) mg/dL Urine Ketones Negative (Negative) mg/dL Urine Blood Negative (Negative) Urine Nitrite Negative (Negative) Ur Leukocyte Esterase Negative (Negative) COVID-19 (FARHAD) (Negative) COVID-19 Clin Com Influenza Type A (PCR) Influenza Type B (PCR) RSV RNA Qual (PCR) SARS-CoV-2 RNA (RT-PCR) Imaging Data Chest x-ray: Attestation: I personally reviewed and interpreted this imaging study as follows: Radiologist's impression: FINDINGS: No significant abnormality is noted involving the heart, lungs, mediastinum, bony thorax or soft tissues. XR/XR chest 1V IMPRESSION: Unremarkable examination. CT scan - head: Attestation: I personally reviewed and interpreted this imaging study as follows: Radiologist's impression: FINDINGS: No intracranial hemorrhage, extra-axial fluid collection, focal mass effect or midline shift. The mallory-white matter differentiation is maintained. No evidence of an acute major vascular territory infarction. 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 The brainstem and cerebellum are unremarkable. The white matter changes of mild microangiopathy were better depicted on the brain MRI of 09/22/2021. Surgical changes from prior right mastoidectomy. The left mastoid air cells and bilateral middle ear cavities are well aerated. Chronic mucoperiosteal thickening of the right sphenoid sinus. The orbits and globes remain symmetric. The temporomandibular joints are unremarkable. ? CT/CT head/brain wo IV con IMPRESSION: *? No acute intracranial pathology compared to 09/22/2021. *? Chronic right sphenoid sinusitis. MRI of brain on 09/22/2021: Attestation: I personally reviewed and interpreted this imaging study as follows: Radiologist's impression: FINDINGS: The inner ear structures including the cochlea, vestibules, and semicircular canals exhibit preserved CSF signal intensity with no pathologic enhancement. The vestibular aqueducts are not enlarged. Cranial nerves VII and VIII complexes are normal in morphology. No enhancing cerebellopontine angle/retrocochlear lesion. There is no intracranial mass or abnormal intracranial enhancement. There is no acute infarction.? There is no intracranial hemorrhage or extra axial collection. The ventricles, sulci, and basilar cisterns are normal in size and configuration. Mild scattered foci of T2/FLAIR hyperintensity are seen within the cerebral white matter. The orbital contents appear normal. There is moderate inflammatory change within the right sphenoid sinus. MR/MR head/brain wo/w con IMPRESSION: - No vestibular schwannoma or retrocochlear lesion. - No mass lesion, acute infarction, or abnormal intracranial enhancement. - Moderate inflammatory changes in the right sphenoid sinus. ECG Data Attestation: I personally reviewed and interpreted this ECG as follows: ECG interpretation date: 10/29/21 ECG interpretation time: 11:07 Interpretation: Normal sinus rhythm with ventricular rate of 75 with a normal SD interval normal QRS duration normal QT/QTC interval. No acute ischemic change are noted. Similar when compared to prior EKG 08/10/2016. Critical Care Time Critical Care Time Critical Care Time: Yes Total Critical Care Time: 60 Attestation: I personally attest to this time spent taking care of the patient Discharge Plan Discharge Clinical Impression: BPPV (benign paroxysmal positional vertigo), Chronic sinusitis Patient Disposition: Home, Self-Care Instructions: Sinusitis (ED), Benign Paroxysmal Positional Vertigo (ED) Prescriptions: New doxycycline monohydrate 100 mg tablet 100 mg PO BID 10 Days Qty: 20 0RF lorazepam [Ativan] 0.5 mg tablet 0.5 mg PO DAILY PRN (Reason: anxiety ) Qty: 10 0RF No Action pravastatin 20 mg tablet 20 mg PO DAILY 90 Days Qty: 90 2RF meclizine 25 mg tablet 25 mg PO TID 90 Days Qty: 270 1RF aspirin [Adult Aspirin Regimen] 81 mg tablet,delayed release (DR/EC) 81 mg PO DAILY fluticasone propionate [Flonase Allergy Relief] 50 mcg/actuation spray,suspension 1 spray intranasal DAILY 10 Days Qty: 150 0RF Rx Instructions: administer into each nostril levothyroxine [Synthroid] 50 mcg tablet 50 mcg PO DAILY Qty: 90 3RF Rx Instructions: Dispense as written. Brand name medically necessary. No substitutions. bisacodyl [Dulcolax (bisacodyl)] 5 mg tablet,delayed release (DR/EC) 10 mg PO ONCE 1 Days Qty: 2 0RF Rx Instructions: Take 2 tablets by mouth at 12:00pm the day before your procedure. polyethylene glycol 3350 [Miralax] 17 gram/dose powder 238 g PO ONCE 1 Days Qty: 238 0RF Rx Instructions: Take as directed by mouth the day before your procedure. Referrals: Shania Hancock MD [Primary Care Provider] - 2 days Print Language: Luxembourgish
[2021-10-29] MEDS: 0.9 % Sodium Chloride 1,000 ML 999 ML IVCONT (11:25)
[2021-10-29] MEDS: Meclizine HCl 25 MG TABLET 50 MG PO (11:29)
[2021-10-29] MEDS: Ondansetron ODT 4 MG TAB.RAPDIS TRANSLINGU (11:29)
--- NOTE | 2021-10-29 11:30 | PC.NURSE ---
alert, skin wpd, nad, medicated for dizziness, ct complete, family at bedside
[2021-10-29 11:44] LABS: MANUAL DIFF FLAG NO
[2021-10-29 11:47] LABS: Basophils Absolute Auto 0.1 X10*3/uL (0.0-0.2); Basophils Percent Auto 0.6 % (0-2); Eosinophils Absolute Auto 0.1 X10*3/uL (0.0-0.4); Eosinophils Percent Auto 1.1 % (0-4); Hematocrit 44.4 % (37.0-47.0); Hemoglobin 14.6 g/dl (12.0-16.0); Imm Gran Abs Auto 0.04 X10*3/uL (0.00-0.03); Imm Gran Pct Auto 0.5 % (0.0-0.4); Lymphocytes Absolute Auto 1.9 X10*3/uL (1.2-4.9); Lymphocytes Percent Auto 23.3 % (20-40); Mean Corpuscular HGB Conc 32.9 g/dl (31.0-35.0); Mean Corpuscular Hemoglobin 25.7 pg (27.0-33.0); Mean Corpuscular Volume 78.2 fL (80.0-98.0); Mean Platelet Volume 10.5 fL (9.4-12.3); Monocytes Absolute Auto 0.5 X10*3/uL (0.1-1.2); Neutrophils Absolute Auto 5.6 x10*3/uL (2.0-8.3); Neutrophils Percent Auto 68.5 % (45-73); Platelet Count 251 X10*3/uL (160-400); Red Blood Count 5.68 X10*6/uL (4.20-5.50); Red Cell Distribution Width 15.3 % (11.0-16.0); White Blood Count 8.2 X10*3/uL (4.8-10.8)
[2021-10-29 11:57] LABS: INTERNATIONAL NORM RATIO 0.9 (0.9-1.1); Prothrombin Time 10.5 SEC (10.0-13.1)
[2021-10-29 12:00] VITALS: BP 175/74; PULSE 75; PULSE 85; RESP 16; O2SAT 96
[2021-10-29 12:02] VITALS: BP 186/82; PULSE 93
[2021-10-29 12:02] LABS: Alanine Aminotransferase 20 U/L (0-31); Albumin Level 4.3 g/dL (3.5-5.0); Alkaline Phosphatase 93 U/L (39-117); Anion Gap 14 (12-20); Aspartate Amino Transferase 24 U/L (5-31); Bilirubin Total 0.9 mg/dL (0.0-1.0); Blood Urea Nitrogen 23 mg/dL (9-16); Carbon Dioxide 27 mmol/L (22-29); Chloride 106 mmol/L (96-108); Creatinine Clr Calc Pharmacy 38.9; Estimated Glomerular Filt Rate 60; Glucose Random 106 mg/dL (60-115); Magnesium 2.1 mg/dL (1.6-2.6); Potassium 5.3 mmol/L (3.3-5.1); Sodium 142 mmol/L (135-145); Total Protein 6.8 g/dL (6.5-8.0)
[2021-10-29 12:03] VITALS: BP 198/84; PULSE 90
[2021-10-29 12:08] LABS: Troponin-I High Sensitivity < 3.5 ng/L (<3.5-17.0)
[2021-10-29 12:16] LABS: COVID-19 Test Negative (Negative); IDNOW Serial# 16C4AD1C
[2021-10-29 12:40] LABS: Appearance Urine Clear; Color Urine Yellow; Glucose Urine UA Negative (Negative); Leukocyte Esterase Urine Negative (Negative); Nitrite Urine Negative (Negative); PH 6.5 (5.0-9.0); Specific Gravity - Urine <= 1.005 (1.005-1.025); Urine Blood Negative (Negative); Urine Ketones Negative (Negative); Urine Protein Negative (Neg-Trace)
[2021-10-29] MEDS: LORazepam 0.5 MG TABLET PO (12:47)
== END 2021-10-29 13:12 | disposition home or self-care (01) ==
PROVIDERS: Physician Assistant Medical; Emergency Provider Emergency Medicine; PCP Internal Medicine
DX: H81.11 Benign paroxysmal vertigo, right ear (principal); J32.9 Chronic sinusitis, unspecified; Z20.822 Contact with and (suspected) exposure to COVID-19; Z79.899 Other long term (current) drug therapy
CPT/HCPCS: 0241U; 36415; 70450; 71045; 80053; 81003; 83735; 84484; 85025; 85610; 87635; 93005; 96360; 99284

== ENCOUNTER 2021-12-03 09:07 | Outpatient (REF) | payer MEDICARE, SELFPAY ==
[2021-12-03 11:21] LABS: Alanine Aminotransferase 19 U/L (0-31); Albumin Level 4.4 g/dL (3.5-5.0); Alkaline Phosphatase 94 U/L (39-117); Anion Gap 14 (12-20); Aspartate Amino Transferase 23 U/L (5-31); Bilirubin Total 0.9 mg/dL (0.0-1.0); Blood Urea Nitrogen 18 mg/dL (9-16); Calcium 9.9 mg/dL (8.4-10.2); Carbon Dioxide 28 mmol/L (22-29); Chloride 103 mmol/L (96-108); Cholesterol 164 mg/dL; Estimated Glomerular Filt Rate > 60; Glucose Fasting 87 mg/dL (60-99); HDL Cholesterol 68 mg/dL; LDL Cholesterol Calculated 85 mg/dl; Potassium 4.9 mmol/L (3.3-5.1); Sodium 140 mmol/L (135-145); Total Protein 6.8 g/dL (6.5-8.0); Triglycerides 58 mg/dL
[2021-12-03 11:44] LABS: Thyroid Stimulating Hormone 1.08 uIU/mL (0.32-4.0)
== END 2021-12-03 09:08 | disposition home or self-care (01) ==
LOC: HO.LAB 09:07
PROVIDERS: PCP Internal Medicine; Visit Provider Internal Medicine
DX: E03.9 Hypothyroidism, unspecified (principal); E78.5 Hyperlipidemia, unspecified; E78.00 Pure hypercholesterolemia, unspecified
CPT/HCPCS: 36415; 80053; 80061; 84443

== ENCOUNTER 2021-12-24 12:17 | Outpatient (REF) | payer MEDICARE, MEDICAID, SELFPAY ==
[2021-12-24 12:52] LABS: Binax Internal Control QC Valid; Binax Now Covid-19 Ag Negative (Negative)
== END 2021-12-24 12:18 | disposition home or self-care (01) ==
LOC: HO.HMGCLDS 12:17
PROVIDERS: PCP Internal Medicine
DX: J02.9 Acute pharyngitis, unspecified (principal); Z20.822 Contact with and (suspected) exposure to COVID-19
CPT/HCPCS: 87811; C9803

== ENCOUNTER 2022-01-26 09:11 | Outpatient (REF) | payer MEDICARE, MEDICAID, SELFPAY ==
[2022-01-26 11:33] LABS: Alanine Aminotransferase 20 U/L (0-31); Albumin Level 3.9 g/dL (3.5-5.0); Alkaline Phosphatase 86 U/L (39-117); Anion Gap 11 (12-20); Aspartate Amino Transferase 25 U/L (5-31); Bilirubin Total 0.6 mg/dL (0.0-1.0); Blood Urea Nitrogen 16 mg/dL (9-16); Calcium 9.2 mg/dL (8.4-10.2); Carbon Dioxide 26 mmol/L (22-29); Chloride 109 mmol/L (96-108); Cholesterol 123 mg/dL; Estimated Glomerular Filt Rate > 60; Glucose Random 88 mg/dL (60-115); HDL Cholesterol 41 mg/dL; LDL Cholesterol Calculated 72 mg/dl; Potassium 4.4 mmol/L (3.3-5.1); Sodium 142 mmol/L (135-145); Total Protein 6.1 g/dL (6.5-8.0); Triglycerides 52 mg/dL
== END 2022-01-26 09:12 | disposition home or self-care (01) ==
LOC: HO.LAB 09:11
PROVIDERS: PCP Internal Medicine; Visit Provider Internal Medicine
DX: Z00.00 Encounter for general adult medical examination without abnormal findings (principal); E87.5 Hyperkalemia; E78.5 Hyperlipidemia, unspecified
CPT/HCPCS: 36415; 80053; 80061

== ENCOUNTER → 2022-03-18 11:00 | Outpatient (BNVA) | payer MEDICARE, MEDICAID, SELFPAY | PROVIDERS: PCP Internal Medicine; Visit Provider Physician Assistant | DX: Z12.11 Encounter for screening for malignant neoplasm of colon (principal); H91.90 Unspecified hearing loss, unspecified ear | CPT/HCPCS: 99212 ==

== ENCOUNTER → 2022-05-24 08:58 | Outpatient (BNVA) | payer MEDICARE, MEDICAID, SELFPAY | PROVIDERS: PCP Internal Medicine; Visit Provider Physician Assistant | DX: Z53.20 Procedure and treatment not carried out because of patient's decision for unspecified reasons (principal) | CPT/HCPCS: 99212 ==

== ENCOUNTER → 2022-05-28 13:33 | Outpatient (BNVA) | payer MEDICARE, MEDICAID, SELFPAY | PROVIDERS: PCP Internal Medicine; Visit Provider Student in an Organized Health Care Education/Training Program | DX: M19.041 Primary osteoarthritis, right hand (principal); M19.042 Primary osteoarthritis, left hand; M19.071 Primary osteoarthritis, right ankle and foot; M19.072 Primary osteoarthritis, left ankle and foot; Z79.82 Long term (current) use of aspirin | CPT/HCPCS: 99202 ==

== ENCOUNTER 2022-06-14 07:12 | Outpatient (REF) | payer MEDICARE, MEDICAID, SELFPAY ==
--- NOTE | ~2022-06-14 | XR_ITS ---
EXAMINATION: XR WRIST, LEFT XR HAND, LEFT CLINICAL INFORMATION: Primary osteoarthritis; pain without injury. COMPARISON: None available. TECHNIQUE: PA, lateral, and oblique views of the left wrist and PA, lateral, and oblique views of the left hand FINDINGS: Bony mineralization is normal. There is mild to moderate osteoarthritic change of the interphalangeal joint of the thumb and of the second through fifth proximal and distal interphalangeal joints. The proximal and distal carpal rows are intact. No fracture or dislocation is seen. There is no bony erosive change. There is no focal soft tissue swelling, gas or foreign body. XR/XR hand wrist LT IMPRESSION: There are are multi-focal mild to moderate osteoarthritic changes of the fingers, as detailed. No fracture or dislocation is seen. There is no abnormal bone erosion.
--- NOTE | ~2022-06-14 | XR_ITS ---
EXAMINATION: XR FOOT, BILATERAL CLINICAL INFORMATION: Bilateral toe pain. COMPARISON: None available. TECHNIQUE: 3 views of each foot. FINDINGS: LEFT: Bone alignment is normal. No fracture or dislocation. There is mild osteoarthritis at the IP joints, particularly the DIP joint of the 2nd and 3rd toes. Joint spaces are otherwise normal. Small calcaneal spur at the Achilles tendon insertion. There are radiopaque soft tissue densities over the nailbed of the 1st and 2nd toes. RIGHT: Bone alignment is normal. No fracture or dislocation. Osteoarthritis at the IP joints, greatest in the 3rd and 4th toes. Joint spaces are otherwise normal. Small calcaneal spur at the Achilles tendon insertion. Radiopaque density over the nailbed of the 1st toe. XR/XR foot RT min 3V IMPRESSION: Arthritis at the IP joints of the toes.
--- NOTE | ~2022-06-14 | XR_ITS ---
EXAMINATION: XR HAND/WRIST, RIGHT CLINICAL INFORMATION: Primary osteoarthritis; pain without injury. COMPARISON: Right finger radiographs dated 05/25/2018. TECHNIQUE: PA, lateral, and oblique views of the right hand and wrist. FINDINGS: Bony alignment and mineralization are normal. There is a mild ulnar positive variance. There is mild peripheral osteophyte formation of the interphalangeal joint of the thumb. There is moderate peripheral osteophyte formation of the second distal interphalangeal joint. There is marked degenerative change of the fourth and fifth interphalangeal joints, with central erosions noted. There is mild osteoarthritic change of the third and fifth proximal interphalangeal joints. There is mild ulnar deviation noted at the third proximal interphalangeal joint. No fracture or dislocation is seen. The proximal and distal carpal rows are intact. No focal soft tissue swelling, gas or foreign body is seen. XR/XR hand wrist RT IMPRESSION: There are osteoarthritic changes of the right hand. These changes are most severe of the fourth and fifth distal interphalangeal joints, where there are central erosions noted. This raises the possibility of erosive osteoarthritis, psoriasis and rheumatoid arthritis. Please correlate clinically.
--- NOTE | ~2022-06-14 | XR_ITS ---
EXAMINATION: XR FOOT, BILATERAL CLINICAL INFORMATION: Bilateral toe pain. COMPARISON: None available. TECHNIQUE: 3 views of each foot. FINDINGS: LEFT: Bone alignment is normal. No fracture or dislocation. There is mild osteoarthritis at the IP joints, particularly the DIP joint of the 2nd and 3rd toes. Joint spaces are otherwise normal. Small calcaneal spur at the Achilles tendon insertion. There are radiopaque soft tissue densities over the nailbed of the 1st and 2nd toes. RIGHT: Bone alignment is normal. No fracture or dislocation. Osteoarthritis at the IP joints, greatest in the 3rd and 4th toes. Joint spaces are otherwise normal. Small calcaneal spur at the Achilles tendon insertion. Radiopaque density over the nailbed of the 1st toe. XR/XR foot LT min 3V IMPRESSION: Arthritis at the IP joints of the toes.
== END 2022-06-14 07:13 | disposition home or self-care (01) ==
LOC: HO.XRAY 07:12
PROVIDERS: PCP Internal Medicine; Visit Provider Student in an Organized Health Care Education/Training Program
DX: M19.071 Primary osteoarthritis, right ankle and foot (principal); M19.072 Primary osteoarthritis, left ankle and foot; M19.041 Primary osteoarthritis, right hand; M19.042 Primary osteoarthritis, left hand
CPT/HCPCS: 73110; 73130; 73630

== ENCOUNTER 2022-07-15 08:32 | Outpatient (REF) | payer MEDICARE, SELFPAY ==
[2022-07-15 10:34] LABS: Alanine Aminotransferase 25 U/L (0-31); Alkaline Phosphatase 89 U/L (39-117); Anion Gap 12 (12-20); Aspartate Amino Transferase 25 U/L (5-31); Bilirubin Total 1.2 mg/dL (0.0-1.0); Blood Urea Nitrogen 22 mg/dL (9-16); Calcium 9.7 mg/dL (8.4-10.2); Carbon Dioxide 27 mmol/L (22-29); Chloride 107 mmol/L (96-108); Estimated Glomerular Filt Rate > 60; Glucose Fasting 81 mg/dL (60-99); Potassium 5.1 mmol/L (3.3-5.1); Sodium 141 mmol/L (135-145); Total Protein 6.5 g/dL (6.5-8.0)
== END 2022-07-15 08:33 | disposition home or self-care (01) ==
LOC: HO.LAB 08:32
PROVIDERS: PCP Internal Medicine; Visit Provider Internal Medicine
DX: Z00.00 Encounter for general adult medical examination without abnormal findings (principal)
CPT/HCPCS: 36415; 80053

== ENCOUNTER 2022-07-21 12:38 | Outpatient (REF) | payer MEDICARE, SELFPAY ==
--- NOTE | ~2022-07-21 | MM_ITS ---
EXAMINATION: MM SCREENING DIGITAL BREAST TOMOSYNTHESIS, BILATERAL CLINICAL INFORMATION: Screening. Asymptomatic. The lifetime risk of breast cancer based on the Tyrer-Cuzick Model is 4%. COMPARISON: Mammography: 06/29/2021, 06/27/2020, 11/09/2018, 10/31/2018 TECHNIQUE: Digital breast tomosynthesis is performed in both the craniocaudal and mediolateral oblique views along with computer-aided detection (CAD). Synthesized 2D images are generated from the tomosynthesis. FINDINGS: There are scattered areas of fibroglandular density (ACR BI-RADS breast composition Category b). There is fine fibronodular parenchymal pattern, right breast stable from prior studies. No developing density or architectural abnormality or abnormal. The bilateral axilla and skin contours are unremarkable. Left CC view demonstrates fine calcifications posterior outer breast 11 cm from nipple. No definite grouped calcifications on MLO view suggesting possible superimposed digital processing artifact pseudocalcification. The left CC view also has an asymmetric density anterior breast just medial to midline 3.7 cm from nipple likely summation artifact or incompletely compressed glandular tissue. Patient will be recalled for additional imaging. MM/MM tomosynthesis screening BI IMPRESSION: Left: -Question fine calcifications posterior outer breast CC view, 11 cm from nipple on view versus superimposed digital processing artifact pseudocalcification. -Small asymmetric density anterior breast just medial to midline CC view, suspect summation artifact or incompletely compressed glandular tissue. Right: -No mammographic evidence of malignancy. ASSESSMENT: BI-RADS 0: Incomplete - Need Additional Imaging Evaluation RECOMMENDATION: 1. Additional views left breast (magnification CC, magnification ML, spot CC). 2. Targeted ultrasound if warranted after review of the additional views. 3. Radiology department staff will contact the patient for additional imaging. This patient's information was entered into a reminder system with a target due date for their next mammogram.
== END 2022-07-21 12:39 | disposition home or self-care (01) ==
LOC: HO.MAMMO 12:38
PROVIDERS: PCP Internal Medicine; Visit Provider Internal Medicine
DX: Z12.31 Encounter for screening mammogram for malignant neoplasm of breast (principal)
CPT/HCPCS: 77063; 77067

== ENCOUNTER 2022-08-05 13:24 | Outpatient (REF) | payer MEDICARE, SELFPAY ==
--- NOTE | ~2022-08-05 | MM_ITS ---
EXAMINATION: MM DIAGNOSTIC DIGITAL BREAST TOMOSYNTHESIS, LEFT CLINICAL INFORMATION: Recall from screening for 2 separate findings left breast: Fine calcifications posterior outer, and small asymmetric density central anterior breast. COMPARISON: Prior mammography exams including most recent 07/21/2022. TECHNIQUE: Digital breast tomosynthesis is performed. 2D images are generated from the tomosynthesis. The following views are obtained: Spot CC, rolled CC x2; magnification CC, magnification ML x2. FINDINGS: There are scattered areas of fibroglandular density (ACR BI-RADS breast composition Category b). The additional views for the asymmetric density demonstrate no persistent parenchymal asymmetry is no developing density or architectural abnormality from prior exams. Finding is considered to have been summation artifact as suspected. Additional magnification views for the fine calcifications suggested a few probable vascular calcifications posterior outer left breast. Calcifications will be reassessed again in 6 months to include magnification views. Results are discussed with the patient at time of visit, using an slot machine repairer. MM/MM tomosynthesis added views L IMPRESSION: -Calcifications: Probable benign calcifications posterior outer left breast, possibly vascular. -Density: Additional views anterior breast show no persistent asymmetric density, resolved. ASSESSMENT: BI-RADS 3: Probably Benign RECOMMENDATION: Diagnostic left mammography in 6 months to include magnification views. This patient's information was entered into a reminder system with a target due date for their next mammogram.
== END 2022-08-05 13:25 | disposition home or self-care (01) ==
LOC: HO.MAMMO 13:24
PROVIDERS: PCP Internal Medicine; Visit Provider Internal Medicine
DX: R92.2 Inconclusive mammogram (principal)
CPT/HCPCS: 77061; 77065

== ENCOUNTER 2022-08-09 08:12 | Outpatient (REF) | payer MEDICARE, SELFPAY ==
[2022-08-09 10:24] LABS: Thyroid Stimulating Hormone 1.87 uIU/mL (0.32-4.0)
== END 2022-08-09 08:13 | disposition home or self-care (01) ==
LOC: HO.LAB 08:12
PROVIDERS: PCP Internal Medicine; Visit Provider Internal Medicine
DX: F41.9 Anxiety disorder, unspecified (principal)
CPT/HCPCS: 36415; 84443

== ENCOUNTER 2022-08-09 10:00 | Outpatient (RCR) | payer MEDICARE, SELFPAY ==
--- NOTE | 2022-07-13 13:44 | MHC.OT.EP ---
[address] [phone] Occupational Therapy Plan of Care Patient Name: Daly Sethi Date of Evaluation: 07/13/22 Diagnosis: Bilateral hand arthritis Pain Location: Pain in bilateral hands, mostly middle fingers at PIP joints Pain Score: 8 Pain Scale Used: Numeric (0 - 10) Aggravating Factors: Forceful grasp Alleviating Factors: Heat, cold, Tylenol Assessment: Pt is a 72 y/o female referred to OT for bilateral hand OA. Pt presents with decreased hand strength, pain limiting function and arthritic changes in DIP/PIP joints. A 54% limitation is reported per the Quick DASH assessment. Pt. would benefit from skilled OT services to address noted barriers and assist in return to PLOF. Frequency and Duration: The patient will be seen 2x/wk for 4 weeks Short Term Goals: IND with joint protection and activity modification techniques Pt. will be educated on AE for increased ease with ADL's/IADL's IND with thermal modalities for pain mgt Care Home Goals: Pain free with BALDs/IADL's IND with HEP Improve B gross grasp strength by 5# each Treatment Plan: Therapeutic Exercise Therapeutic Activity Home Exercise Program Splinting Patient Education Edema Control Ultrasound Paraffin Fluidotherapy MHP Joint Mobilization Soft Tissue Mobilization Electronically Signed By: Alisha Sandoval MS OTR/L Please Sign and return to therapist. Thank you once again for your referral.
--- NOTE | 2022-08-09 11:36 | MHC.OT.DC ---
[address] [phone] F: [phone] Occupational Therapy Discharge Note Patient Name: Daly Sethi Provider: Zoie Panda Diagnosis: Bilateral hand arthritis Date of Surgery: Date of Evaluation: 07/13/22 Date of Discharge: 08/09/22 Treatments to Date: 7 Cancellations to Date: No Shows to Date: Discharge Status: Achieved Goals Improved Function Discharge Summary: Pt reports low pain at right MF and SF with mopping and heavy activity. Pt is indep with joint protection and HEP. Junior Php Developer strength is improved. Decreased jt effusion noted at right MF PIPj and SF DIPj Goals met Electronically Signed By: Afshan Owens OT CHT CLT Reviewed/agree with student documentation: Therapist: Please Sign and return to therapist, thank you for your referral.
== END 2022-08-09 11:37 | disposition home or self-care (01) ==
LOC: HO.OT 10:00
PROVIDERS: Visit Provider Student in an Organized Health Care Education/Training Program
DX: M19.041 Primary osteoarthritis, right hand (principal); M19.042 Primary osteoarthritis, left hand
CPT/HCPCS: 97018; 97035; 97110; 97165; 97760

== ENCOUNTER 2022-10-11 08:24 | Outpatient (AMB) | payer MEDICARE, MEDICAID, SELFPAY ==
--- NOTE | 2022-10-11 08:28 | MHC.PC.OV ---
Vital Signs 10/11/22 08:30 Height 4 ft 11 in Weight 120 lb BMI 24.2 BP 126/68 Blood Pressure Location Lt brachial Position Sitting Intake Visit Reasons: Physical Exam Intake Note: Patient here for a physical exam, sinusitis Family And Marriage Counsellor Required: No Accompanied by: Self / Same As Patient Allergies Penicillins [PENICILLINS] Allergy (Intermediate, Verified 10/11/22 08:39) syncope Medication List - Last Reconciled 10/11/22 by Shania Howell MD acetaminophen ER (Tylenol Arthritis Pain) 1,300 mg (2 x 650 mg) PO Q12H PRN aspirin (Adult Aspirin Regimen) 81 mg PO DAILY diclofenac sodium 1% 2 grams topical QID meclizine 25 mg PO TID 90 days pravastatin 20 mg PO DAILY 90 days Synthroid (levothyroxine) 50 mcg PO DAILY NS Tobacco use date assessed: 10/11/22 Fall risk assessment: No Falls in past year Last assessed Fall Risk: 10/11/22 Dental Screening Dental Screen Date: 10/11/22 Did you have a dental visit in the last 12 months?: Yes Did you have a dental problem in the last 6 months where you did not have access to dental care?: No Was dental information given to patient?: Patient has dentist HPI HPI Comments History of Present Illness Details This is a 72-year-old female that comes for her physical exam. Last mammogram was July 2022. Had Cologuard are 2022 which was negative. No need for Pap smears due to age. No chest pain or shortness of breath. Compliant with medications. PFSH Medical History Abdominal pain Allergic rhinitis Anxiety Anxiety BPPV (benign paroxysmal positional vertigo) (~03/2021) Chronic sinusitis Colon cancer screening declined [place] (hard of hearing) Hypothyroidism Long-term use of aspirin therapy Mild depression Pharyngitis Poor circulation Postmenopausal Pure hypercholesterolemia Sinusitis Surgical History History of 3 sections History of bilateral cataract extraction History of esophagogastroduodenoscopy (EGD) History of mastoidectomy Family History Father No problems noted. Mother Vaginal cancer Brother Cancer Sister Skin cancer Son No problems noted. Son No problems noted. Daughter No problems noted. 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 1. Little interest or pleasure in doing things: several days 2. Feeling down, depressed, or hopeless: several days 3. Trouble falling or staying asleep, or sleeping too much: not at all 4. Feeling tired or having little energy: several days 5. Poor appetite or overeating: not at all 6. Feeling bad about yourself - or that you are a failure or have let yourself or your family down: not at all 7. Trouble concentrating on things, such as reading the newspaper or watching television: not at all 8. Moving or speaking so slowly that other people could have noticed. Or the opposite - being so fidgety or restless that you have been moving around a lot more than usual: not at all 9. Thoughts that you would be better off or of hurting yourself in some way: not at all Total score: 3 Depression Screening Interpretation: Positive Depression Screening Follow-up: Existing condition 68442 - PHQ-9 Billing: Yes Source: Developed by Drs. Kalen Herring, Cristiana Garcia, Boyd Hubbard and colleagues, with an educational obinna from [employer]. Thrive Questionnaire Date Thrive assessed: 10/11/22 I am a: Patient What is your living situation today?: I have a steady place to live Within the past 12 months, did the food you bought not last and you didn't have the money to get more?: Never true Within the past 12 months, did you worry whether your food would run out before you got money to buy more?: Never true Do you have trouble paying for medicines?: No Do you have trouble getting transportation to medical appointments?: No Do you have trouble paying your heating and electricity bill?: No Do you have trouble taking care of your child, family member or friend?: No Do you have trouble with day-to-day activities such as bathing, preparing meals, shopping, managing finances, etc.?: No Are you currently unemployed and looking for a job?: No Are you interested in more education?: No Please select the resources that you would like help with: None Currently or been in a relationship where the following occur: no concerns reported AUDIT C Alcohol Use Questionnaire (AUDIT-C) 1. How often do you have a drink containing alcohol?: Never Total Score: 0 Score Reviewed/Action Taken: No JORDAN-7 AMB Questionnaire JORDAN-7 Date JORDAN - 7 assessed: 10/11/22 Feeling nervous, anxious, or on edge: 0 = Not at all Not being able to stop or control worryin = Not at all Worrying too much about different things: 0 = Not at all Trouble relaxin = Not at all Being so restless that it is hard to sit still: 0 = Not at all Becoming easily annoyed or irritable: 0 = Not at all Feeling afraid as if something awful might happen: 0 = Not at all Total JORDAN-7 score (0-4 normal; 5-9 mild; 10-14 moderate; 15-21 severe): 0 Source: Developed by Drs. Kalen Herring, Cristiana Garcia, Boyd Hubbard and colleagues, with an educational obinna from [employer]. JORDAN-7 Assessment Billing JORDAN-7 Assessment Tool: JORDAN-7 Assessment 76277 Review of Systems Const All systems reviewed & are unremarkable except as noted in HPI and below Eyes Reports no additional complaints, Denies change in vision and Denies other visual disturbances Card Denies chest pain at rest, Denies chest pain with activity, Denies edema, Denies irregular heart rhythm, Denies claudication, Denies dyspnea, Denies dyspnea on exertion, Denies orthopnea, Denies paroxysmal nocturnal dyspnea and Denies slow heart rate Resp Denies cough, Denies dyspnea and Denies dyspnea on exertion GI Denies abdominal pain, Denies change in bowel habits, Denies excessive flatus, Denies nausea and Denies vomiting Denies urinary incontinence, Denies urinary hesitancy and Denies urinary urgency Musc Denies abnormal gait, Denies atrophy, Denies deformity and Denies limited range of motion Skin/Breast Denies bleeding lesions, Denies changing lesions and Denies rash Neuro Denies abnormal gait, Denies behavioral changes, Denies confusion and Denies lack of coordination Psych Denies behavioral changes and Denies confusion Physical exam (Primary Care) Vital Signs: Last Vital Signs BP 126/68 10/11/22 08:30 BMI result Body Mass Index 24.2 Tobacco/Smoking Status: Tobacco use Status Tobacco use date assessed 10/11/22 10/11/22 08:35 Patient Tobacco Use Status Never used Tobacco 10/11/22 08:35 e-Cigarette/Vaping Use Never Used 10/11/22 08:35 PHQ-9: PHQ-9 Score PHQ-9: Total score 3 10/11/22 08:45 Depression Screening Interpretation: Positive Depression Screening Follow-up: Existing condition Thrive Assessment: Date of Thrive Assessment Date Thrive assessed 10/11/22 10/11/22 08:35 Currently or been in a relationship where the following occur: no concerns reported Const General: No confusion Orientation/consciousness: patient oriented x3 and No confusion HENMT Head: Yes normal to inspection, Yes normocephalic and Yes atraumatic Ears: external ears normal and hearing grossly impaired Eyes General: appearance normal, both eyes and all related structures Eyelids: Yes eyelids normal Conjunctivae: conjunctivae normal Neck Neck: Yes normal visual inspection and Yes supple Resp Effort & Inspection: normal respiratory effort Auscultation: clear to auscultation bilaterally Cardio Jugular venous distension: no JVD Rate: regular rate Rhythm: regular rhythm Heart sounds: S1 normal heart sound present and S2 normal heart sound present GI Inspection: Yes normal to inspection Palpation (GI): Soft to palpation and nontender Auscultation: normal bowel sounds Skin General skin exam: no rashes or lesions noted Neuro General: patient oriented x3, no focal motor deficits and No confusion Extrem General: Yes full ROM Psych Appearance: grossly normal Assessment and Plan Assessment & Plan (1) Physical exam: Code(s): Z00.00 - Encounter for general adult medical examination without abnormal findings Plan: Repeat in a year. Orders: Orders Comprehensive Harrison. Panel Fast Today Z00.00 - Encounter for general adult medical examination without abnormal findings IRON PROFILE Today D64.9 - Anemia, unspecified Lipid Panel Today E78.5 - Hyperlipidemia, unspecified Thyroid Stimulating Hormone Today E03.9 - Hypothyroidism, unspecified Complete Blood Count Auto Diff Today D64.9 - Anemia, unspecified Referrals Speech and Hearing Referral H91.90 - Unspecified hearing loss, unspecified ear Coding Level of Care Code Est Pt Prev Care 40-64y(32232) Diagnoses Physical exam Z00.00 Additional Codes JORDAN-7 Assessment Billing - JORDAN-7 Assessment Tool: JORDAN-7 Assessment 45794 ([id number]) Time Spent (min) 33
[2022-10-11 08:30] VITALS: BP 126/68; BMI 24.2
== END 2022-10-11 08:48 | disposition home or self-care (01) ==
PROVIDERS: PCP Internal Medicine; Visit Provider Internal Medicine
DX: Z00.00 Encounter for general adult medical examination without abnormal findings (principal)
CPT/HCPCS: 99397

== ENCOUNTER 2022-11-30 09:37 | Outpatient (AMB) | payer MEDICARE, MEDICAID, SELFPAY ==
[2022-11-30 09:41] VITALS: BP 144/72; PULSE 78; TEMP 36.3; O2SAT 97; BMI 25.1
--- NOTE | 2022-11-30 09:41 | MHC.OFFVIS ---
Intake Vital Signs 11/30/22 09:41 Height 4 ft 11 in Weight 124 lb 1.924 oz BMI 25.1 BP 144/72 H Blood Pressure Location Rt brachial Position Sitting Pulse 78 Pulse Source Pulse Oximeter Temp 97.3 F Temp Source Skin Pulse Oximetry (%) 97 Intake Visit Reasons: hand OA Intake Note: Pt presents today for follow up and x-ray results. Managing OA with tylenol and diclofenac gel. Did OT about 6 sessions and was told she did not need further treatment, doing home exercises. States diclofenac provided relief, requesting refill Clinical Researcher Required: Yes Clinical Researcher Name: Flora [id number] Accompanied by: Self / Same As Patient Allergies Penicillins [PENICILLINS] Allergy (Intermediate, Verified 11/30/22 09:48) syncope Medication List - Last Reconciled 11/30/22 by Zoie Panda MD acetaminophen ER (Tylenol Arthritis Pain) 1,300 mg (2 x 650 mg) PO Q12H PRN aspirin (Adult Aspirin Regimen) 81 mg PO DAILY cetirizine 10 mg (10 mL) PO DAILY PRN 30 days diclofenac sodium 1% 2 grams topical QID meclizine 25 mg PO TID 90 days pravastatin 20 mg PO DAILY 90 days Synthroid (levothyroxine) 50 mcg PO DAILY NS HPI HPI Comments History of Present Illness Details 72-year-old female with bilateral hand OA returns for follow-up. Did OT about 6 sessions and was told she did not need further treatment, doing home exercises. States diclofenac provided relief, requesting refill. She was using it 3 times a day. States that her symptoms are little worse now that it is getting colder. Initial history: 72-year-old female presents for pain and deformity of her fingers and pain of her toes. She has noticed pain in her fingers for the last 4 years. She has pain and morning stiffness lasting 5-10 minutes. She does not take anything for the pain. She also has pain in her toes. She is unaware of any family history of autoimmune rheumatic disease. No history of psoriasis. [facility] Medical History Colon cancer screening declined [place] (hard of hearing) Pharyngitis Poor circulation Postmenopausal Chronic sinusitis Anxiety Abdominal pain BPPV (benign paroxysmal positional vertigo) (~03/2021) Anxiety Mild depression Sinusitis Long-term use of aspirin therapy Pure hypercholesterolemia Allergic rhinitis Hypothyroidism Surgical History History of esophagogastroduodenoscopy (EGD) History of bilateral cataract extraction History of mastoidectomy History of 3 sections Family History Father No problems noted. Mother Vaginal cancer Brother Cancer Sister Skin cancer Son No problems noted. Son No problems noted. Daughter No problems noted. 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 Cognitive needs: No Hearing needs: No Vision needs: Yes Review of Systems Musc Reports arthralgias Physical Exam Vital Signs: Last Vital Signs Temp 97.3 F 11/30/22 09:41 Pulse 78 11/30/22 09:41 BP 144/72 H 11/30/22 09:41 Pulse Ox 97 11/30/22 09:41 BMI result Body Mass Index 25.1 Const Other: A little hard of hearing General: cooperative, healthy appearing and comfortable Nutritional Appearance: average body habitus Orientation/consciousness: patient oriented x3 Limitations: no limitations HEENT Other: Hard of hearing Head: Yes normocephalic and Yes atraumatic Resp Effort & Inspection: normal respiratory effort and able to speak in complete sentences Neuro General: patient oriented x3 Extrem Other: Bilateral osteoarthritic changes of both hands with prominent Heberden's and Serge's nodes. Most prominent is the right 3rd Serge's nodes. Patient has Heberden's and Serge's nodes are tender to palpation No MCP swelling or tenderness. Negative MCP squeeze test bilaterally No elbow pain or swelling osteoarthritic changes of her toes bilaterally with tender PIP is in the DIPs. No MTP tenderness Results Reviewed Results Reviewed: XR/XR hand wrist LT IMPRESSION: There are are multi-focal mild to moderate osteoarthritic changes of the fingers, as detailed. No fracture or dislocation is seen. There is no abnormal bone erosion. XR/XR hand wrist RT IMPRESSION: There are osteoarthritic changes of the right hand. These changes are most severe of the fourth and fifth distal interphalangeal joints, where there are central erosions noted. This raises the possibility of erosive osteoarthritis, psoriasis and rheumatoid arthritis. Please correlate clinically. ? Assessment & Plan Assessment & Plan (1) Osteoarthritis of hands, bilateral: Code(s): M19.041 - Primary osteoarthritis, right hand; M19.042 - Primary osteoarthritis, left hand Qualifiers: Osteoarthritis type: primary Qualified Code(s): M19.041 - Primary osteoarthritis, right hand; M19.042 - Primary osteoarthritis, left hand Plan: This is a 72-year-old female with bilateral hand osteoarthritis returns for follow-up. Symptoms much better with hand OT. Voltaren gel helpful. Refilled. Follow-up in 1 year Plan I spent 16 minutes reviewing patient's chart, evaluating patient, counseling patient and documenting in the chart Medications: Refilled diclofenac sodium 1% apply to single elbow, wrist or hand; for hand includes palm/fingers/back of hand 2 grams topical QID 100 grams 5RF Coding Level of Care Code Est Pt Level 3 (53738) Diagnoses Primary osteoarthritis of both hands M19.041; M19.042 Osteoarthritis type: primary
== END 2022-11-30 09:59 | disposition home or self-care (01) ==
PROVIDERS: PCP Internal Medicine; Visit Provider Student in an Organized Health Care Education/Training Program
DX: M19.041 Primary osteoarthritis, right hand (principal); M19.042 Primary osteoarthritis, left hand
CPT/HCPCS: 99213

== ENCOUNTER → 2022-11-30 09:37 | Outpatient (BNVA) | payer MEDICARE, MEDICAID, SELFPAY | PROVIDERS: PCP Internal Medicine; Visit Provider Student in an Organized Health Care Education/Training Program | DX: M19.041 Primary osteoarthritis, right hand (principal); M19.042 Primary osteoarthritis, left hand | CPT/HCPCS: 99212 ==

== ENCOUNTER 2023-01-17 16:17 | Outpatient (AMB) | payer MEDICARE, MEDICAID, SELFPAY ==
--- NOTE | 2023-01-17 16:20 | A.OFFPC_ITS ---
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 Required: No Accompanied by: Self / Same As Patient Allergies Penicillins [PENICILLINS] Allergy (Intermediate, Verified 01/17/23 16:28) syncope Medication List - Last Reconciled 01/17/23 by Shania Howell MD acetaminophen ER (Tylenol Arthritis Pain) 1,300 mg (2 x 650 mg) PO Q12H PRN aspirin (Adult Aspirin Regimen) 81 mg PO DAILY cetirizine 10 mg (10 mL) PO DAILY PRN 30 days diclofenac sodium 1% 2 grams topical QID meclizine 25 mg PO TID 90 days pravastatin 20 mg PO DAILY 90 days Synthroid (levothyroxine) 50 mcg PO DAILY NS Tobacco use date assessed: 10/11/22 Fall risk assessment: No Falls in past year Last assessed Fall Risk: 01/17/23 Dental Screening Dental Screen Date: 01/17/23 Did you have a dental visit in the last 12 months?: Yes Did you have a dental problem in the last 6 months where you did not have access to dental care?: No Was dental information given to patient?: Patient has dentist HPI HPI Comments History of Present Illness Details This is a 72-year-old female with hypothyroidism, allergic rhinitis and pure hypercholesterolemia that comes today complaining of difficulty swallowing pills. This started few weeks ago. She is able to eat and drink. Has not been taking levothyroxine for the past 2 weeks. TSH will be order. Allergic rhinitis stable with antihistamines as needed. On statins for her cholesterol. [facility] Medical History (Updated 01/17/23 @ 16:33 by Shania Howell MD) Colon cancer screening declined [place] (hard of hearing) Pharyngitis Poor circulation Postmenopausal Chronic sinusitis Anxiety Abdominal pain BPPV (benign paroxysmal positional vertigo) (~03/2021) Anxiety Mild depression Sinusitis Long-term use of aspirin therapy Pure hypercholesterolemia Allergic rhinitis Hypothyroidism Surgical History History of esophagogastroduodenoscopy (EGD) History of bilateral cataract extraction History of mastoidectomy History of 3 sections Family History Father No problems noted. Mother Vaginal cancer Brother Cancer Sister Skin cancer Son No problems noted. Son No problems noted. Daughter No problems noted. 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 Kalen Herring, Cristiana Garcia, Boyd Hubbard and colleagues, with an educational obinna from [employer]. Review of Systems Const All systems reviewed & are unremarkable except as noted in HPI and below Eyes Reports no additional complaints, Denies change in vision and Denies other visual disturbances ENT Reports dysphagia Card Denies chest pain at rest, Denies chest pain with activity, Denies edema, Denies irregular heart rhythm, Denies claudication, Denies dyspnea, Denies dyspnea on exertion, Denies orthopnea, Denies paroxysmal nocturnal dyspnea and Denies slow heart rate Resp Denies cough, Denies dyspnea and Denies dyspnea on exertion GI Denies abdominal pain, Denies change in bowel habits, Reports dysphagia, Denies excessive flatus, Denies nausea and Denies vomiting Denies urinary incontinence, Denies urinary hesitancy and Denies urinary urgency Musc Denies abnormal gait, Denies atrophy, Denies deformity and Denies limited range of motion Skin/Breast Denies bleeding lesions, Denies changing lesions and Denies rash Neuro Denies abnormal gait and Denies lack of coordination Physical exam (Primary Care) Vital Signs: Last Vital Signs BP 136/80 01/17/23 16:21 BMI result Body Mass Index 24.8 Tobacco/Smoking Status: Tobacco use Status Tobacco use date assessed 10/11/22 01/17/23 16:24 Patient Tobacco Use Status Never used Tobacco 01/17/23 16:24 e-Cigarette/Vaping Use Never Used 12/04/23 16:24 Thrive Assessment: Date of Thrive Assessment Date Thrive assessed 10/11/22 01/17/23 16:24 Eyes General: appearance normal, both eyes and all related structures Eyelids: Yes eyelids normal Conjunctivae: conjunctivae normal Neck Neck: Yes normal visual inspection and Yes supple Resp Effort & Inspection: normal respiratory effort Auscultation: clear to auscultation bilaterally Cardio Jugular venous distension: no JVD Rate: regular rate Rhythm: regular rhythm Heart sounds: S1 normal heart sound present and S2 normal heart sound present Extrem General: Yes full ROM Office Procedures Flu Questionnaire Does the patient have a severe egg allergy?: No Immunizations flu vacc [id number] 6mos up(PF) 60 mcg(15 mcgx4)/0.5 mL IM syringe Performing Provider: Shania Howell MD Performing Location: [facility] Documented (not given) by: MCKENZIE Bains on 01/17/23 16:25 Reason Not Given: Patient Refused Assessment and Plan Assessment & Plan (1) Hypothyroidism: Code(s): E03.9 - Hypothyroidism, unspecified Qualifiers: Hypothyroidism type: unspecified Qualified Code(s): E03.9 - Hypothyroidism, unspecified Plan: Repeat TSH. Continue levothyroxine. (2) Pure hypercholesterolemia: Code(s): E78.00 - Pure hypercholesterolemia, unspecified Plan: Continue statins. (3) Allergic rhinitis: Code(s): J30.9 - Allergic rhinitis, unspecified Plan: Continue antihistamines as needed. (4) Pill dysphagia: Code(s): R13.10 - Dysphagia, unspecified Plan: Variance wall order. Orders: Orders Thyroid Stimulating Hormone Today E03.9 - Hypothyroidism, unspecified Influenza [id number] Immunization Today Z23 - Encounter for immunization [place] barium swallow Today R13.10 - Dysphagia, unspecified US thyroid Today E04.9 - Nontoxic goiter, unspecified Referrals Gastroenterology Referral R13.10 - Dysphagia, unspecified Coding Level of Care Code Est Pt Level 4 (54690) Diagnoses Hypothyroidism, unspecified type E03.9 Hypothyroidism type: unspecified Pure hypercholesterolemia E78.00 Allergic rhinitis J30.9 Pill dysphagia R13.10 Time Spent (min) 22
[2023-01-17 16:21] VITALS: BP 136/80; BMI 24.8
== END 2023-01-17 16:38 | disposition home or self-care (01) ==
PROVIDERS: PCP Internal Medicine; Visit Provider Internal Medicine
DX: E03.9 Hypothyroidism, unspecified (principal); E78.00 Pure hypercholesterolemia, unspecified; J30.9 Allergic rhinitis, unspecified; R13.10 Dysphagia, unspecified
CPT/HCPCS: 99214

== ENCOUNTER 2023-02-09 12:41 | Outpatient (REF) | payer MEDICARE, SELFPAY ==
--- NOTE | ~2023-02-09 | MM_ITS ---
EXAMINATION: MM DIAGNOSTIC DIGITAL BREAST TOMOSYNTHESIS, LEFT CLINICAL INFORMATION: 6 month (first) Follow-up left breast probably benign calcifications in the upper outer quadrant, middle to posterior depth. COMPARISON: Mammography: 08/05/2022, 07/21/2022, 06/29/2021, 06/27/2020. TECHNIQUE: Digital breast tomosynthesis is performed in the following views: 2-D spot magnification left CC and mediolateral views, full-field 3-D left cc view, and 3-D full-field left MLO view. FINDINGS: There are scattered areas of fibroglandular density (ACR BI-RADS breast composition Category b). Within the left breast, upper outer quadrant, there are unchanged vague appearing grouped smudgy calcifications, without any significant change in morphology or number since the prior examination. These remain probably benign, and six-month interval follow-up recommended to ensure stability, to include standard magnification views. No additional suspicious findings in the left breast. Parenchymal pattern is unchanged from priors. MM/MM tomosynthesis diagnostic LT IMPRESSION: There are no significant changes from prior study. Stable and unchanged calcifications left breast upper outer quadrant. Recommend additional 6 month follow-up standard magnification views left breast in 6 months to establish a one-year stability. ASSESSMENT: BI-RADS BI-RADS 3 - Probably benign finding(s) - 6 month follow-up suggested RECOMMENDATION: 6 Month F/U Results were provided to the patient at time of visit by the technologist. This patient's information was entered into a reminder system with a target due date for their next mammogram.
== END 2023-02-09 12:42 | disposition home or self-care (01) ==
LOC: HO.MAMMO 12:41
PROVIDERS: PCP Internal Medicine; Visit Provider Internal Medicine
DX: R92.1 Mammographic calcification found on diagnostic imaging of breast (principal)
CPT/HCPCS: 77061; 77065

== ENCOUNTER → 2023-02-09 13:00 | Outpatient (BNV) | payer MEDICARE, SELFPAY | PROVIDERS: PCP Internal Medicine; Visit Provider Radiology Diagnostic Radiology | DX: R92.1 Mammographic calcification found on diagnostic imaging of breast (principal) | CPT/HCPCS: 77061; 77065 ==

== ENCOUNTER 2023-02-10 13:04 | Outpatient (REF) | payer MEDICARE, SELFPAY ==
--- NOTE | ~2023-02-10 | US_ITS ---
EXAMINATION: US THYROID CLINICAL INFORMATION: Nontoxic goiter, unspecified COMPARISON: None. TECHNIQUE: Linear transducer grayscale and color Doppler examination with attention to the region of the thyroid. FINDINGS: SIZE: Measurements of the thyroid lobes and nodules are given in sagittal, anteroposterior and transverse dimensions respectively. Right Thyroid Lobe: 4.2 x 1.0 x 1.0 cm, volume 2.2 mL. Parenchyma: The gland echotexture is homogeneous. Thyroid vascularity is normal. Left Thyroid Lobe: 4.7 x 1.1 x 1.4 cm, volume 3.9 mL. Parenchyma: The gland echotexture is homogeneous. Thyroid vascularity is normal. Isthmus: 0.1 cm in maximum AP dimension. No focal thyroid nodule is seen. NODES: No lymphadenopathy is seen in the tissue surrounding the thyroid gland. US/US thyroid IMPRESSION: Nonenlarged thyroid gland with homogeneous echotexture and normal vascularity. No focal thyroid nodule.
== END 2023-02-10 13:05 | disposition home or self-care (01) ==
LOC: HO.US 13:04
PROVIDERS: PCP Internal Medicine; Visit Provider Internal Medicine
DX: E04.9 Nontoxic goiter, unspecified (principal)
CPT/HCPCS: 76536

== ENCOUNTER 2023-02-24 11:43 | Outpatient (AMB) | payer MEDICARE, SELFPAY ==
--- NOTE | 2023-02-24 11:47 | A.OFFVIS_ITS ---
Intake Vital Signs 02/24/23 11:50 Height 4 ft 11 in Weight 120 lb BMI 24.2 BP 142/63 H Blood Pressure Location Lt brachial Position Sitting Pulse 85 Intake Visit Reasons: dysphagia Intake Note: Patient follow up for dysphagia. Patient cc: chronic dysphagia with tablets and capsules and nighttime with reflex. Patient is deaf but will understand the sign language interpreter lips. Telemarketer Required: Yes Telemarketer Name: [place] Interpeter Accompanied by: Self / Same As Patient Allergies Penicillins [PENICILLINS] Allergy (Intermediate, Verified 02/24/23 11:47) syncope Medication List - Last Reconciled 02/24/23 by Latesha Nichole PA-C acetaminophen ER (Tylenol Arthritis Pain) 1,300 mg (2 x 650 mg) PO Q12H PRN aspirin (Adult Aspirin Regimen) 81 mg PO DAILY cetirizine 10 mg (10 mL) PO DAILY PRN 30 days diclofenac sodium 1% 2 grams topical QID doxycycline hyclate 100 mg PO BID 5 days meclizine 25 mg PO TID 90 days pravastatin 20 mg PO DAILY 90 days Synthroid (levothyroxine) 50 mcg PO DAILY NS HPI HPI Comments History of Present Illness Details A 73 y/o female seen last in May now referred with no problem- dysphagia to pills only not food or water-for the past couple months Appetite is good she has no issues with food or liquid she has nausea related to vertigo Thyroid U/S-she has not heard results Scheduled Barium Swallow for 04/01- Seen by us previously for Cologuard that was negative She has no vomiting, hematemesis, hematochezia fever chills PFSH Medical History Colon cancer screening declined [place] (hard of hearing) Pharyngitis Poor circulation Postmenopausal Chronic sinusitis Anxiety Abdominal pain BPPV (benign paroxysmal positional vertigo) (~03/2021) Anxiety Mild depression Sinusitis Long-term use of aspirin therapy Pure hypercholesterolemia Allergic rhinitis Hypothyroidism Surgical History History of esophagogastroduodenoscopy (EGD) History of bilateral cataract extraction History of mastoidectomy History of 3 sections Family History Father No problems noted. Mother Vaginal cancer Brother Cancer Sister Skin cancer Son No problems noted. Son No problems noted. Daughter No problems noted. 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 Cognitive needs: No Hearing needs: No Vision needs: Yes Review of Systems Const All systems reviewed & are unremarkable except as noted in HPI and below ENT Reports dysphagia GI Denies abdominal pain, Denies hematochezia, Denies change in bowel habits, Reports dysphagia, Denies dyspepsia, Denies heartburn, Denies nausea and Denies vomiting Physical Exam Vital Signs: Last Vital Signs Pulse 85 02/24/23 11:50 BP 142/63 H 02/24/23 11:50 BMI result Body Mass Index 24.2 [place]-lip read Const General: cooperative, healthy appearing, comfortable and no acute distress Orientation/consciousness: patient oriented x3 Limitations: language barrier and other limitations (Deafness) HEENT Ears: hearing grossly impaired Eyes Sclerae: sclerae normal Resp Effort & Inspection: normal respiratory effort and able to speak in complete sentences Auscultation: clear to auscultation bilaterally, no rales, no rhonchi and no wheezes Cardio Rate: regular rate Rhythm: regular rhythm Heart sounds: S1 normal heart sound present and S2 normal heart sound present Skin General skin exam: no rashes or lesions noted Neuro General: patient oriented x3 Extrem General: Yes full ROM Psych Appearance: grossly normal and well kempt Mental Status: mental status grossly normal Affect: normal affect Thought process: Normal thought process present Thought content: Normal thought content present Results Reviewed Results Reviewed: US/US thyroid IMPRESSION: Nonenlarged thyroid gland with homogeneous echotexture and normal vascularity. No focal thyroid nodule. Assessment & Plan Assessment & Plan (1) Pill dysphagia: Comment: Carefully take medications stay upright Code(s): R13.10 - Dysphagia, unspecified Plan: Await findings barium swallow that was ordered by PCP Will schedule EGD-r/o PUD, esophagitis other endoscopic findings to account for her sx Plan Follow through with barium swallow Schedule EGD, booking out, we will see her back prior to this for progress if not needed Orders: Orders EDG - GI Use Only Today R13.10 - Dysphagia, unspecified Patient Instructions: , eat slowly Chew Medications with plenty of fluids Follow through with barium swallow already scheduled by PCP Will follow-up with us prior to EGD Seen today with diplomatic interpreter/translator in person- Coding Level of Care Code New Pt Level 3 (90614) Diagnoses Pill dysphagia R13.10 Time Spent (min) 35 Comment diplomatic interpreter/translator, patient deaf
[2023-02-24 11:50] VITALS: BP 142/63; PULSE 85; BMI 24.2
== END 2023-02-24 13:46 | disposition home or self-care (01) ==
PROVIDERS: PCP Internal Medicine; Visit Provider Physician Assistant
DX: R13.10 Dysphagia, unspecified (principal)
CPT/HCPCS: 99214

== ENCOUNTER → 2023-02-24 11:43 | Outpatient (BNVA) | payer MEDICARE, SELFPAY | PROVIDERS: PCP Internal Medicine; Visit Provider Physician Assistant | DX: R13.10 Dysphagia, unspecified (principal) | CPT/HCPCS: 99212 ==

== ENCOUNTER 2023-04-01 08:37 | Outpatient (REF) | payer MEDICARE, SELFPAY ==
--- NOTE | ~2023-04-01 | FL_ITS ---
EXAMINATION: FL BARIUM SWALLOW CLINICAL INFORMATION: Dysphagia with pills only COMPARISON: None TECHNIQUE: Fluoroscopic air contrast upper GI examination was performed utilizing standard techniques with thin and thick barium and effervescent granules. Numerous spot images were obtained. FINDINGS: Lateral cine images of the oropharynx and hypopharynx demonstrate normal swallow mechanism with normal epiglottic inversion and soft palate elevation. No tracheal penetration, glottic or subglottic aspiration identified. No nasopharyngeal reflux present. Hypopharyngeal structures appear normal without evidence of mass or diverticulum. There was no significant cricopharyngeal achalasia. Dual and single contrast images of the esophagus demonstrate normal caliber, contour, and mucosal pattern. No evidence of stricture, mass, or ulcerations identified. Esophageal peristalsis was mildly disordered. The patient swallowed the barium tablet without any difficulty. The tablet passed into the stomach without any difficulty. No definite hiatus hernia. No significant gastroesophageal reflux was seen during the course of the examination and on reflux views. Incomplete evaluation of the stomach. FLUOROSCOPY TIME: 3 minutes 52 seconds Number of Spot Images: 3 Number of Cine: 9 DOSE AREA PRODUCT: 935 uGy-m2 (microgray-meter squared) FL/FL barium swallow IMPRESSION: 1. Mild to moderate esophageal dysmotility, otherwise normal esophagram. 13 mm barium tablet passed without difficulty. This procedure was performed by Danyel Burns PA-C, and supervised by Dr. Torres
== END 2023-04-01 08:38 | disposition home or self-care (01) ==
LOC: HO.XRAY 08:37
PROVIDERS: Visit Provider Internal Medicine
DX: R13.10 Dysphagia, unspecified (principal)
CPT/HCPCS: 74220

== ENCOUNTER → 2023-04-01 08:39 | Outpatient (BNV) | payer MEDICARE, SELFPAY | PROVIDERS: Visit Provider Physician Assistant Surgical | DX: R13.10 Dysphagia, unspecified (principal) | CPT/HCPCS: 74221 ==

== ENCOUNTER 2023-04-11 09:03 | Outpatient (REF) | payer MEDICARE, SELFPAY ==
[2023-04-11 09:24] LABS: MANUAL DIFF FLAG NO
[2023-04-11 09:51] LABS: Basophils Percent Auto 0.6 % (0-2); Eosinophils Absolute Auto 0.2 X10*3/uL (0.0-0.4); Eosinophils Percent Auto 2.5 % (0-4); Hemoglobin 14.9 g/dl (12.0-16.0); Imm Gran Abs Auto 0.01 X10*3/uL (0.00-0.03); Imm Gran Pct Auto 0.2 % (0.0-0.4); Lymphocytes Percent Auto 46.8 % (20-40); Mean Corpuscular HGB Conc 32.4 g/dl (31.0-35.0); Mean Corpuscular Hemoglobin 25.6 pg (27.0-33.0); Mean Corpuscular Volume 79.2 fL (80.0-98.0); Mean Platelet Volume 10.7 fL (9.4-12.3); Monocytes Absolute Auto 0.5 X10*3/uL (0.1-1.2); Neutrophils Absolute Auto 2.7 x10*3/uL (2.0-8.3); Neutrophils Percent Auto 41.9 % (45-73); Platelet Count 252 X10*3/uL (160-400); Red Blood Count 5.81 X10*6/uL (4.20-5.50); Red Cell Distribution Width 15.1 % (11.0-16.0); White Blood Count 6.5 X10*3/uL (4.8-10.8)
[2023-04-11 10:57] LABS: Alanine Aminotransferase 21 U/L (0-31); Albumin Level 4.1 g/dL (3.5-5.0); Alkaline Phosphatase 87 U/L (39-117); Anion Gap 9 (12-20); Aspartate Amino Transferase 24 U/L (5-31); Bilirubin Total 0.9 mg/dL (0.0-1.0); Blood Urea Nitrogen 26 mg/dL (9-16); Calcium 9.7 mg/dL (8.4-10.2); Carbon Dioxide 27 mmol/L (22-29); Chloride 108 mmol/L (96-108); Cholesterol 147 mg/dL (<200); Estimated Glomerular Filt Rate > 60; Glucose Fasting 93 mg/dL (60-99); HDL Cholesterol 58 mg/dL (>40); Iron 134 mcg/dL (30-160); LDL Cholesterol Calculated 76 mg/dL (<100); Percent Iron Saturation 43 % (15-50); Potassium 4.3 mmol/L (3.3-5.1); Sodium 140 mmol/L (135-145); Total Iron Binding Capacity 310 mcg/dL (228-428); Total Protein 6.8 g/dL (6.5-8.0); Triglycerides 65 mg/dL (<150); Unsaturated Iron Binding 176 ug/dL
[2023-04-11 11:11] LABS: Thyroid Stimulating Hormone 1.67 uIU/mL (0.32-4.0)
== END 2023-04-11 09:04 | disposition home or self-care (01) ==
LOC: HO.LAB 09:03
PROVIDERS: PCP Internal Medicine; Visit Provider Internal Medicine
DX: Z00.00 Encounter for general adult medical examination without abnormal findings (principal); E03.9 Hypothyroidism, unspecified; E78.5 Hyperlipidemia, unspecified; D64.9 Anemia, unspecified
CPT/HCPCS: 36415; 80053; 80061; 83540; 84443; 85025

== ENCOUNTER 2023-04-13 10:33 | Outpatient (AMB) | payer MEDICARE, MEDICAID, SELFPAY ==
--- NOTE | 2023-04-13 10:39 | A.OFFPC_ITS ---
Vital Signs 04/13/23 10:40 Height 4 ft 11 in Weight 123 lb BMI 24.8 BP 130/70 Blood Pressure Location Lt brachial Position Sitting Intake Visit Reasons: thyroid,lipids,dizziness Intake Note: Patient here for a follow up Thyroid, lipids, dizziness Job Service Specialist Required: No Accompanied by: Self / Same As Patient Allergies Penicillins [PENICILLINS] Allergy (Intermediate, Verified 04/13/23 10:57) syncope Medication List - Last Reconciled 04/13/23 by Shania Howell MD acetaminophen ER (Tylenol Arthritis Pain) 1,300 mg (2 x 650 mg) PO Q12H PRN aspirin (Adult Aspirin Regimen) 81 mg PO DAILY cetirizine 10 mg (10 mL) PO DAILY PRN 30 days diclofenac sodium 1% 2 grams topical QID meclizine 25 mg PO TID 90 days pravastatin 20 mg PO DAILY 90 days Synthroid (levothyroxine) 50 mcg PO DAILY NS Tobacco use date assessed: 04/13/23 Fall risk assessment: No Falls in past year Last assessed Fall Risk: 04/13/23 Dental Screening Dental Screen Date: 04/13/23 Did you have a dental visit in the last 12 months?: No Did you have a dental problem in the last 6 months where you did not have access to dental care?: No Was dental information given to patient?: Patient has dentist HPI HPI Comments History of Present Illness Details This is a 73-year-old female with mild depression in remission, pure hypercholesterolemia, hypothyroidism and allergic rhinitis that comes today for follow-up on her conditions. Had a barium swallow due to difficulty swallowing pills and has mild esophageal dysmotility. Will see Gastroenterology today for that matter. Depression is in remission. Cholesterol well controlled with statins. TSH normal. On cetirizine as needed for her allergic rhinitis. Has some eczema and would like to be referred to Dermatology. [facility] Medical History (Updated 04/13/23 @ 11:08 by Shania Howell MD) Colon cancer screening declined [place] (hard of hearing) Pharyngitis Poor circulation Postmenopausal Chronic sinusitis Anxiety Abdominal pain BPPV (benign paroxysmal positional vertigo) (~03/2021) Anxiety Mild depression Sinusitis Long-term use of aspirin therapy Pure hypercholesterolemia Allergic rhinitis Hypothyroidism Surgical History History of esophagogastroduodenoscopy (EGD) History of bilateral cataract extraction History of mastoidectomy History of 3 sections Family History Father No problems noted. Mother Vaginal cancer Brother Cancer Sister Skin cancer Son No problems noted. Son No problems noted. Daughter No problems noted. 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 1. Little interest or pleasure in doing things: not at all 2. Feeling down, depressed, or hopeless: not at all 3. Trouble falling or staying asleep, or sleeping too much: not at all 4. Feeling tired or having little energy: not at all 5. Poor appetite or overeating: not at all 6. Feeling bad about yourself - or that you are a failure or have let yourself or your family down: not at all 7. Trouble concentrating on things, such as reading the newspaper or watching television: not at all 8. Moving or speaking so slowly that other people could have noticed. Or the opposite - being so fidgety or restless that you have been moving around a lot more than usual: not at all 9. Thoughts that you would be better off or of hurting yourself in some way: not at all Total score: 0 Depression Screening Interpretation: Negative Depression Screening Done: Yes 94330 - PHQ-9 Billing: Yes Source: Developed by Drs. Kalen Herring, Cristiana Garcia, Boyd Hubbard and colleagues, with an educational obinna from [employer]. Thrive Questionnaire Date Thrive assessed: 04/13/23 I am a: Patient What is your living situation today?: I have a steady place to live Within the past 12 months, did the food you bought not last and you didn't have the money to get more?: Never true Within the past 12 months, did you worry whether your food would run out before you got money to buy more?: Never true Do you have trouble paying for medicines?: No Do you have trouble getting transportation to medical appointments?: No Do you have trouble paying your heating and electricity bill?: No Do you have trouble taking care of your child, family member or friend?: No Do you have trouble with day-to-day activities such as bathing, preparing meals, shopping, managing finances, etc.?: No Are you currently unemployed and looking for a job?: No Are you interested in more education?: No Please select the resources that you would like help with: None Currently or been in a relationship where the following occur: no concerns reported THRIVE Score: 0 AUDIT C Alcohol Use Questionnaire (AUDIT-C) 1. How often do you have a drink containing alcohol?: Never Total Score: 0 Score Reviewed/Action Taken: No JORDAN-7 AMB Questionnaire JORDAN-7 Date JORDAN - 7 assessed: 04/13/23 Feeling nervous, anxious, or on edge: 0 = Not at all Not being able to stop or control worryin = Not at all Worrying too much about different things: 0 = Not at all Trouble relaxin = Not at all Being so restless that it is hard to sit still: 0 = Not at all Becoming easily annoyed or irritable: 0 = Not at all Feeling afraid as if something awful might happen: 0 = Not at all Total JORDAN-7 score (0-4 normal; 5-9 mild; 10-14 moderate; 15-21 severe): 0 Source: Developed by Drs. Kalen Herring, Cristiana Garcia, Boyd Hubbard and colleagues, with an educational obinna from [employer]. JORDAN-7 Assessment Billing JORDAN-7 Assessment Tool: JORDAN-7 Assessment 62130 Review of Systems Const All systems reviewed & are unremarkable except as noted in HPI and below Eyes Reports no additional complaints, Denies change in vision and Denies other visual disturbances Card Denies chest pain at rest, Denies chest pain with activity, Denies edema, Denies irregular heart rhythm, Denies claudication, Denies dyspnea, Denies dyspnea on exertion, Denies orthopnea, Denies paroxysmal nocturnal dyspnea and Denies slow heart rate Resp Denies cough, Denies dyspnea and Denies dyspnea on exertion GI Denies abdominal pain, Denies change in bowel habits, Denies excessive flatus, Denies nausea and Denies vomiting Denies urinary incontinence, Denies urinary hesitancy and Denies urinary urgency Musc Denies abnormal gait, Denies atrophy, Denies deformity and Denies limited range of motion Skin/Breast Denies bleeding lesions, Denies changing lesions and Denies rash Neuro Denies abnormal gait and Denies lack of coordination Physical exam (Primary Care) Vital Signs: Last Vital Signs BP 130/70 04/13/23 10:40 BMI result Body Mass Index 24.8 Tobacco/Smoking Status: Tobacco use Status Tobacco use date assessed 04/13/23 04/13/23 10:50 Patient Tobacco Use Status Never used Tobacco 04/13/23 10:50 e-Cigarette/Vaping Use Never Used 04/13/23 10:50 PHQ-9: PHQ-9 Score PHQ-9: Total score 0 04/13/23 11:11 Depression Screening Interpretation: Negative Thrive Assessment: Date of Thrive Assessment Date Thrive assessed 04/13/23 04/13/23 10:50 Currently or been in a relationship where the following occur: no concerns reported Eyes General: appearance normal, both eyes and all related structures Eyelids: Yes eyelids normal Conjunctivae: conjunctivae normal Neck Neck: Yes normal visual inspection and Yes supple Resp Effort & Inspection: normal respiratory effort Auscultation: clear to auscultation bilaterally Cardio Jugular venous distension: no JVD Rate: regular rate Rhythm: regular rhythm Heart sounds: S1 normal heart sound present and S2 normal heart sound present Extrem General: Yes full ROM Assessment and Plan Assessment & Plan (1) Hypothyroidism: Code(s): E03.9 - Hypothyroidism, unspecified Qualifiers: Hypothyroidism type: unspecified Qualified Code(s): E03.9 - Hypothyroidism, unspecified Plan: Continue levothyroxine. (2) Pure hypercholesterolemia: Code(s): E78.00 - Pure hypercholesterolemia, unspecified Plan: Continue statins. (3) Allergic rhinitis: Code(s): J30.9 - Allergic rhinitis, unspecified Plan: Continue antihistamines as needed. (4) Mild depression: Code(s): F32.0 - Major depressive disorder, single episode, mild Plan: In remission. Orders: Orders Comprehensive [place]. Panel Fast 7 Months E78.00 - Pure hypercholesterolemia, unspecified Lipid Panel 7 Months E78.5 - Hyperlipidemia, unspecified Thyroid Stimulating Hormone 7 Months E03.9 - Hypothyroidism, unspecified Referrals Dermatology Referral L30.9 - Dermatitis, unspecified Coding Level of Care Code Est Pt Level 4 (03332) Diagnoses Hypothyroidism, unspecified type E03.9 Hypothyroidism type: unspecified Pure hypercholesterolemia E78.00 Allergic rhinitis J30.9 Mild depression F32.0 Additional Codes JORDAN-7 Assessment Billing - JORDAN-7 Assessment Tool: JORDAN-7 Assessment 45193 ([id number]) Time Spent (min) 22
[2023-04-13 10:40] VITALS: BP 130/70; BMI 24.8
== END 2023-04-13 11:07 | disposition home or self-care (01) ==
PROVIDERS: PCP Internal Medicine; Visit Provider Internal Medicine
DX: E03.9 Hypothyroidism, unspecified (principal); E78.00 Pure hypercholesterolemia, unspecified; J30.9 Allergic rhinitis, unspecified; F32.0 Major depressive disorder, single episode, mild
CPT/HCPCS: 99214

== ENCOUNTER 2023-04-13 13:05 | Outpatient (AMB) | payer MEDICARE, SELFPAY ==
--- NOTE | 2023-04-13 13:29 | A.OFFVIS_ITS ---
Intake Vital Signs 04/13/23 13:34 Height 4 ft 11 in Weight 123 lb 14.397 oz BMI 25.0 BP 166/86 H Blood Pressure Location Lt brachial Position Sitting Pulse 81 Intake Visit Reasons: BA Swallow Results Intake Note: Patient is seen in office for barium swallow results. Pt c/o: samara any concerns at the time of visit, here for results. Student Worker Required: No Accompanied by: Son Allergies Penicillins [PENICILLINS] Allergy (Intermediate, Verified 04/13/23 13:34) syncope Medication List - Last Reconciled 04/13/23 by Latesha Nichole PA-C acetaminophen ER (Tylenol Arthritis Pain) 1,300 mg (2 x 650 mg) PO Q12H PRN aspirin (Adult Aspirin Regimen) 81 mg PO DAILY cetirizine 10 mg (10 mL) PO DAILY PRN 30 days diclofenac sodium 1% 2 grams topical QID meclizine 25 mg PO TID 90 days pravastatin 20 mg PO DAILY 90 days Synthroid (levothyroxine) 50 mcg PO DAILY NS HPI HPI Comments History of Present Illness Details A 73 y/o female with mild dysphagia to pill- only synthroid-others are fine - she saw pcp today went to the mall- drank coffee BP up a little-feels fine Here with son-he is supportive Reviewed BS- questions answered Still want EGD- does not want to have it tomorrow- she wants an early appointment Appetite is good Bowels normal No nausea, vomiting, hematemesis, hematochezia fever chills PFSH Medical History Colon cancer screening declined [place] (hard of hearing) Pharyngitis Poor circulation Postmenopausal Chronic sinusitis Anxiety Abdominal pain BPPV (benign paroxysmal positional vertigo) (~03/2021) Anxiety Mild depression Sinusitis Long-term use of aspirin therapy Pure hypercholesterolemia Allergic rhinitis Hypothyroidism Surgical History History of esophagogastroduodenoscopy (EGD) History of bilateral cataract extraction History of mastoidectomy History of 3 sections Family History Father No problems noted. Mother Vaginal cancer Brother Cancer Sister Skin cancer Son No problems noted. Son No problems noted. Daughter No problems noted. 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 Cognitive needs: No Hearing needs: No Vision needs: Yes Review of Systems Const All systems reviewed & are unremarkable except as noted in HPI and below ENT Reports dysphagia (Levothyroxine only) GI Reports dysphagia (Levothyroxine only) Physical Exam Vital Signs: Last Vital Signs Pulse 81 04/13/23 13:34 BP 166/86 H 04/13/23 13:34 BMI result Body Mass Index 25.0 Const General: cooperative, healthy appearing, comfortable, no acute distress and anxious Orientation/consciousness: patient oriented x3 Limitations: language barrier and other limitations ([place]) Resp Effort & Inspection: normal respiratory effort and able to speak in complete sentences Neuro General: patient oriented x3 Extrem General: Yes full ROM Psych Appearance: grossly normal and well kempt Mental Status: mental status grossly normal Speech and movement: Normal speech and movement present and Clear speech present Affect: Anxious affect present Attitude: cooperative Thought process: Normal thought process present Thought content: Normal thought content present Insight: Good insight present (Psych) Judgement: Good judgement present (Psych) Results Reviewed Results Reviewed: 04/01/23 FL/FL barium swallow IMPRESSION: 1. Mild to moderate esophageal dysmotility, otherwise normal esophagram. 13 mm barium tablet passed without difficulty. Assessment & Plan Assessment & Plan (1) Pill dysphagia: Comment: Reviewed barium swallow, consider manometry if appropriate Will monitor Carefully take medications stay upright Code(s): R13.10 - Dysphagia, unspecified Plan: Review barium swallow Plan of care Plan Reschedule EGD Patient Instructions: Take medications with ample liquids Eat slowly chew well Reschedule EGD Coding Level of Care Code Est Pt Level 3 (24143) Diagnoses Pill dysphagia R13.10 Time Spent (min) 25 Comment Adult son interpret-declined H
[2023-04-13 13:34] VITALS: BP 166/86; PULSE 81; BMI 25.0
== END 2023-04-13 14:32 | disposition home or self-care (01) ==
PROVIDERS: PCP Internal Medicine; Visit Provider Physician Assistant
DX: R13.10 Dysphagia, unspecified (principal)
CPT/HCPCS: 99213

== ENCOUNTER → 2023-04-13 13:05 | Outpatient (BNVA) | payer MEDICARE, SELFPAY | PROVIDERS: PCP Internal Medicine; Visit Provider Physician Assistant | DX: R13.10 Dysphagia, unspecified (principal) | CPT/HCPCS: 99212 ==

== ENCOUNTER 2023-08-11 10:36 | Outpatient (REF) | payer MEDICARE, SELFPAY ==
--- NOTE | ~2023-08-11 | MM_ITS ---
EXAMINATION: MM DIAGNOSTIC DIGITAL BREAST TOMOSYNTHESIS, BILATERAL CLINICAL INFORMATION: 6 month (second) follow-up left breast probably benign calcifications in the upper outer quadrant, middle to posterior depth. Patient due for bilateral screening as well. COMPARISON: Mammography: 02/09/2023, 08/05/2022, 07/21/2022 (BI-RADS 0), 06/29/2021, 06/27/2020. TECHNIQUE: Digital breast tomosynthesis is performed in both the craniocaudal and mediolateral oblique views along with computer-aided detection (CAD). Synthesized 2D images are generated from the tomosynthesis. In addition to standard views, 2-D spot magnification left CC and ML views were obtained. FINDINGS: There are scattered areas of fibroglandular density (ACR BI-RADS breast composition Category b). Within the left breast, upper outer quadrant, there are unchanged vague appearing grouped smudgy calcifications, without any significant change in morphology or number since the prior examination. These remain probably benign, and 1 year follow-up recommended to ensure stability, to include standard magnification views. Right breast shows no suspicious findings. Parenchymal pattern of both breasts is unchanged from priors. MM/MM tomosynthesis diagnostic BI IMPRESSION: -There are no findings suspicious for malignancy in either breast. -Calcifications left breast upper outer quadrant are stable and unchanged. Recommend 1 year follow-up diagnostic magnification views left breast when the patient is due for bilateral screening. ASSESSMENT: BI-RADS BI-RADS 3 - Probably benign finding(s) - 12 month follow-up suggested RECOMMENDATION: 12 month diagnostic follow up Results were provided to the patient at time of visit by the technologist. This patient's information was entered into a reminder system with a target due date for their next mammogram.
== END 2023-08-11 10:37 | disposition home or self-care (01) ==
LOC: HO.MAMMO 10:36
PROVIDERS: PCP Internal Medicine; Visit Provider Internal Medicine
DX: R92.1 Mammographic calcification found on diagnostic imaging of breast (principal)
CPT/HCPCS: 77062; 77066

== ENCOUNTER → 2023-08-11 11:00 | Outpatient (BNV) | payer MEDICARE, SELFPAY | PROVIDERS: PCP Internal Medicine; Visit Provider Radiology Diagnostic Radiology | DX: R92.1 Mammographic calcification found on diagnostic imaging of breast (principal) | CPT/HCPCS: 77066; G0279 ==

== ENCOUNTER 2023-08-29 12:25 | Outpatient (AMB) | payer MEDICARE, SELFPAY ==
[2023-08-29 12:46] VITALS: BP 144/64; PULSE 74; O2SAT 98; BMI 24.5
--- NOTE | 2023-08-29 12:46 | MHC.PC.OV ---
Vital Signs 08/29/23 12:46 Height 4 ft 11 in Weight 121 lb 6 oz BMI 24.5 BP 144/64 H Blood Pressure Location Lt brachial Position Sitting Pulse 74 Pulse Source Pulse Oximeter Pulse Oximetry (%) 98 Oxygen Delivery Method Room Air Intake Visit Reasons: Vertigo/meds not working Certified Neurodiagnostic Technologist Required: No Accompanied by: Self / Same As Patient Allergies Penicillins [PENICILLINS] Allergy (Intermediate, Verified 08/29/23 12:59) syncope Medication List - Last Reconciled 08/29/23 by Shania Howell MD acetaminophen ER (Tylenol Arthritis Pain) 1,300 mg (2 x 650 mg) PO Q12H PRN aspirin (Adult Aspirin Regimen) 81 mg PO DAILY cetirizine 10 mg (10 mL) PO DAILY PRN 30 days diclofenac sodium 1% 2 grams topical QID meclizine 25 mg PO TID 90 days pravastatin 20 mg PO DAILY 90 days Synthroid (levothyroxine) 50 mcg PO DAILY NS Tobacco use date assessed: 04/13/23 Dental Screening Dental Screen Date: 04/13/23 HPI HPI Comments History of Present Illness Details This is a 73-year-old female with eczema, benign paroxysmal positional vertigo and mild major depression that comes today complaining of vertigo even with meclizine. I advised her to hold meclizine for awhile. She also has pill dysphagia and had an abnormal barium swallow and will have endoscopy next month. Eczema stable with creams as needed. Depression is in remission. No other acute complaint. No fever. [facility] Medical History (Updated 08/29/23 @ 13:39 by Shania Howell MD) Colon cancer screening declined [place] (hard of hearing) Pharyngitis Poor circulation Postmenopausal Chronic sinusitis Anxiety Abdominal pain BPPV (benign paroxysmal positional vertigo) (~03/2021) Anxiety Mild depression Sinusitis Long-term use of aspirin therapy Pure hypercholesterolemia Allergic rhinitis Hypothyroidism Surgical History History of esophagogastroduodenoscopy (EGD) History of bilateral cataract extraction History of mastoidectomy History of 3 sections Family History Father No problems noted. Mother Vaginal cancer Brother Cancer Sister Skin cancer Son No problems noted. Son No problems noted. Daughter No problems noted. 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 Kalen Herring, Cristiana Garcia, Boyd Hubbard and colleagues, with an educational obinna from [employer]. Review of Systems Const All systems reviewed & are unremarkable except as noted in HPI and below Card Denies chest pain at rest, Denies chest pain with activity, Denies edema, Denies irregular heart rhythm, Denies claudication, Denies dyspnea, Denies dyspnea on exertion, Denies orthopnea, Denies paroxysmal nocturnal dyspnea and Denies slow heart rate Resp Denies cough, Denies dyspnea and Denies dyspnea on exertion GI Denies abdominal pain, Denies change in bowel habits, Denies excessive flatus, Denies nausea and Denies vomiting Physical exam (Primary Care) Vital Signs: Last Vital Signs Pulse 74 08/29/23 12:46 BP 144/64 H 08/29/23 12:46 Pulse Ox 98 08/29/23 12:46 Oxygen Delivery Method Room Air 08/29/23 12:46 BMI result Body Mass Index 24.5 Tobacco/Smoking Status: Tobacco use Status Tobacco use date assessed 04/13/23 08/29/23 12:49 Patient Tobacco Use Status Never used Tobacco 08/29/23 12:49 e-Cigarette/Vaping Use Never Used 08/29/23 12:49 Thrive Assessment: Date of Thrive Assessment Date Thrive assessed 04/13/23 08/29/23 12:49 Resp Effort & Inspection: normal respiratory effort Auscultation: clear to auscultation bilaterally Cardio Jugular venous distension: no JVD Rate: regular rate Rhythm: regular rhythm Heart sounds: S1 normal heart sound present and S2 normal heart sound present Extrem General: Yes full ROM Assessment and Plan Assessment & Plan (1) BPPV (benign paroxysmal positional vertigo): Onset Date: ~03/2021 Code(s): H81.10 - Benign paroxysmal vertigo, unspecified ear Qualifiers: Laterality: right Qualified Code(s): H81.11 - Benign paroxysmal vertigo, right ear Plan: Hold meclizine. (2) Mild depression: Code(s): F32.0 - Major depressive disorder, single episode, mild Plan: In remission. (3) Eczema: Code(s): L30.9 - Dermatitis, unspecified Qualifiers: Eczema type: unspecified Qualified Code(s): L30.9 - Dermatitis, unspecified Plan: Continue steroid cream as needed. (4) Dysphagia: Code(s): R13.10 - Dysphagia, unspecified Qualifiers: Dysphagia type: unspecified Qualified Code(s): R13.10 - Dysphagia, unspecified Plan: follow-up with Gastroenterology. Endoscopy scheduled for September. Orders: Orders Thyroid Stimulating Hormone Today E03.9 - Hypothyroidism, unspecified Coding Level of Care Code Est Pt Level 4 (09305) Diagnoses Benign paroxysmal positional vertigo of right ear H81.11 Laterality: right Mild depression F32.0 Eczema, unspecified type L30.9 Eczema type: unspecified Dysphagia, unspecified type R13.10 Dysphagia type: unspecified Time Spent (min) 20
== END 2023-08-29 13:11 | disposition home or self-care (01) ==
PROVIDERS: PCP Internal Medicine; Visit Provider Internal Medicine
DX: H81.11 Benign paroxysmal vertigo, right ear (principal); F32.0 Major depressive disorder, single episode, mild; L30.9 Dermatitis, unspecified; R13.10 Dysphagia, unspecified
CPT/HCPCS: 99214

== ENCOUNTER 2023-09-19 08:25 | Day surgery (SDC) | payer MEDICARE, SELFPAY ==
[2023-09-16 06:41] VITALS: BMI 24.8
--- NOTE | 2023-09-16 09:48 | HO.ANESPROP2 ---
Documented by User: Jovita Allan NP 09/16/23 09:48 HPI - Anesthesia Eval Consult details Narrative: 73yo F for Upper Endoscopy PMFSH Active Problems Active Problems: All Active Problems Eczema (Acute) Goiter (Acute) Pill dysphagia (Acute) Dysphagia (Acute) Osteoarthritis of feet, bilateral (Acute) Osteoarthritis of hands, bilateral (Acute) Colon cancer screening declined (Acute) [place] (hard of hearing[place] (Acute) Polyarthralgia (Acute) Pharyngitis (Acute) Hospital discharge follow-up (Acute) Physical exam (Acute) Encounter for screening colonoscopy (Acute) Leg pain (Acute) Poor circulation (Acute) Non-rheumatic mitral regurgitation (Acute) Postmenopausal (Acute) Chronic sinusitis (Acute) Anxiety (Acute) Abdominal pain (Acute) BPPV (benign paroxysmal positional vertigo) (Acute ~03/2021) Anxiety (Acute) Mild depression (Acute) Sinusitis (Acute) Long-term use of aspirin therapy (Acute) Pure hypercholesterolemia (Acute) Allergic rhinitis (Acute) Hypothyroidism (Acute) Past Medical History Medical History Colon cancer screening declined [place] (hard of hearing) Pharyngitis Poor circulation Postmenopausal Chronic sinusitis Anxiety Abdominal pain BPPV (benign paroxysmal positional vertigo) (~03/2021) Anxiety Mild depression Sinusitis Long-term use of aspirin therapy Pure hypercholesterolemia Allergic rhinitis Hypothyroidism Family History Family History Father No problems noted. Mother Vaginal cancer Brother Cancer Sister Skin cancer Son No problems noted. Son No problems noted. Daughter No problems noted. Surgical History Surgical History History of esophagogastroduodenoscopy (EGD) History of bilateral cataract extraction History of mastoidectomy History of 3 sections Social History Social History Household Members: None Housing: Apartment Alcohol intake: never Patient Tobacco Use Status: Never used Tobacco e-Cigarette/Vaping Use: Never Used Second Hand Smoke Exposure: No Use of substances other than those prescribed or required for medical reasons: No Are you DNR?: No Advance Directives: No Advance Directives Information Provided: Yes service: No Current occupational status: previously employed and retired 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 Cognitive needs: No Hearing needs: No Vision needs: Yes Meds Allergies Allergy/AdvReac Type Severity Reaction Status Date / Time Penicillins [PENICILLINS] Allergy Intermediate syncope Verified 08/29/23 12:59 Home Medications ?Medication ?Instructions ?Recorded ?Confirmed ?Last Taken ?Type aspirin 81 mg tablet,delayed 81 mg PO DAILY 02/05/20 08/29/23 09/18/23 History release (Adult Aspirin Regimen) Exam Height,Weight and Vital Signs: Height 4 ft 11 in Weight 55.792 kg Assessment and Plan Assessment Anesthesia Assessment: Chart Reviewed Documented by User: Micheline Ramos MD 09/19/23 11:31 [facility] Past Medical History Medical History Colon cancer screening declined [place]hard of hearing) Pharyngitis Poor circulation Postmenopausal Chronic sinusitis Anxiety Abdominal pain BPPV (benign paroxysmal positional vertigo) (~03/2021) Anxiety Mild depression Sinusitis Long-term use of aspirin therapy Pure hypercholesterolemia Allergic rhinitis Hypothyroidism Family History Family History Father No problems noted. Mother Vaginal cancer Brother Cancer Sister Skin cancer Son No problems noted. Son No problems noted. Daughter No problems noted. Family history of problems with anesthesia: No Surgical History Surgical History History of esophagogastroduodenoscopy (EGD) History of bilateral cataract extraction History of mastoidectomy History of 3 sections History of Problems with Anesthesia: No Social History Social History Household Members: None Housing: Apartment Alcohol intake: never Patient Tobacco Use Status: Never used Tobacco e-Cigarette/Vaping Use: Never Used Second Hand Smoke Exposure: No Use of substances other than those prescribed or required for medical reasons: No Are you DNR?: No Advance Directives: No Advance Directives Information Provided: Yes service: No Current occupational status: previously employed and retired 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 Cognitive needs: No Hearing needs: No Vision needs: Yes Meds Allergies Allergy/AdvReac Type Severity Reaction Status Date / Time Penicillins [PENICILLINS] Allergy Intermediate syncope Verified 08/29/23 12:59 Home Medications ?Medication ?Instructions ?Recorded ?Confirmed ?Last Taken ?Type aspirin 81 mg tablet,delayed 81 mg PO DAILY 02/05/20 08/29/23 09/18/23 History release (Adult Aspirin Regimen) Exam Airway Mallampati Class: II TM Dist: >3cm Neck ROM: Limited Heart: rrr Lungs: cta Assessment and Plan Assessment Anesthesia Assessment: Anesthesia Plan Discussed Final Anesthetic Review Family History of Problems with Anesthesia: No History of Problems with Anesthesia: No NPO: Yes ASA Class: III Final Preanesthetic Review: No Changes in Pt Med Stat, Meds/Allgs Chart Reviewed, Consent Obtained/Reviewed and Anes Risks/Benef Reviewed Patient Risk: Intermediate Procedure Risk: Low Anesthetic Plan Anesthetic Plan: MAC: Disposition: Standard PACU
--- NOTE | 2023-09-19 09:44 | MHC.SHP ---
Pre-Procedural Eval Section A - 24 Hr Update-Section A only Date of Service: 09/19/23 The patient is an INPATIENT: No The patient has been examined within 24 hours of the surgical procedure. The History & Physical has been completed within 30 days and I have reviewed it.: No Section B - Complete if H&P > 30 days Chief Complaint: Dysphagia to pills Relevant Family History (Specify if Yes): No Relevant Social History: None Present Medications: see Short Stay Collaborative assessment Medical History: Significant History (Chronic sinusitis Anxiety Abdominal pain BPPV (benign paroxysmal positional vertigo) (~03/2021) Anxiety Mild depression Sinusitis Long-term use of aspirin therapy Pure hypercholesterolemia Allergic rhinitis Hypothyroidism) History of Previous Operations: Relevant previous surgery/procedure and date(s) (History of esophagogastroduodenoscopy (EGD) History of bilateral cataract extraction History of mastoidectomy History of 3 sections) Allergies: Allergies Allergy/AdvReac Type Severity Reaction Status Date / Time Penicillins [PENICILLINS] Allergy Intermediate syncope Verified 08/29/23 12:59 Review of Systems Sugical H&P ROS: Negative: Constitution, Cardiovascular and Respiratory and Yes, Specify: Gastrointestinal (dysphagia) Exam Surgical H&P Exam: Normal: Heart, Normal: Lungs, Normal: Extremities and Normal: Abdomen Plan Diagnosis/Plan: Unchanged I have reviewed the history and physical and performed a pertinent physical examination on my patient. No changes have occurred unless specified. Time Spent With Patient Time: Total time managing care of this patient today ____ minutes.
[2023-09-19 10:05] VITALS: BMI 23.9
[2023-09-19 10:18] VITALS: BP 178/66; PULSE 71; RESP 18; TEMP 36.4; O2SAT 99
[2023-09-19] MEDS: Lactated Ringers 1,000 ML 100 ML IVCONT (10:30)
--- NOTE | 2023-09-19 12:13 | W.PM.OPN ---
Operative Note Operative Note Date of Service: 09/19/23 Narrative: FLEXIBLE TRANSORAL UPPER GASTROINTESTINAL ENDOSCOPY WITH BIOPSIES Pre-op diagnosis: Dysphagia to pills Post-op diagnosis: Dysphagia, Multiple gastric ulcers, Gastritis, Endoscopist:? Blanca Valadez MD Anesthesia:?MAC UPPER ENDOSCOPY Consent: Indications for the procedure and potential complications of bleeding, perforation, reaction to medications and missed diagnosis were discussed with the patient and informed consent was obtained. Instrument: Olympus GIF H 190 mid size upper endoscope Monitoring: Vital signs and clinical assessment, continuous EKG monitoring, Pulse oximetry, Carbon Dioxide monitoring and blood pressure monitoring were done throughout the procedure. Procedure: The patient was placed in the left lateral decubitis position and pre-procedure medications were administered and a bite block was placed. The endoscope was inserted into the mouth and advanced under direct vision to the third part of duodenum. A careful inspection was made as the upper endoscope was withdrawn including a retroflexed examination of the proximal stomach; Findings and interventions are described below. Findings: Larynx: Normal Esophagus: GE junction at 35 cms. Mildly tortuous esophagus without stricture or ring. Stomach: Nodular appearing mucosa in the gastric body and antrum with patchy erytema - biopsied. Multiple 5-6 mm chronic appearing ulcers in the antrum and pre-pyloric area - biopsies were obtained. Grade 2 flap valve on retroflexed examination of the cardia. Duodenum: Normal bulb and descending duodenum Intervention: Biopsies as noted above Impression and Post Procedure Diagnosis: Endoscopy Findings: STOMACH: Nodular appearing mucosa in the gastric body and antrum with patchy erytema - biopsied. Multiple 5-6 mm chronic appearing ulcers in the antrum and pre-pyloric area - biopsies were obtained. Plan: Pt has a FU appointment on 10/03/23 with ROGER Vargas. Above findings were reviewed with the patient and relevant handouts were given and the discharge area. Pt advised to start Omeprazole 20 mg daily for gastric ulcers BIOPSIES SHOWED: A. Stomach, antrum, biopsy: - Antral-type mucosa with severe chronic active inflammation. - Positive for H pylori. B. Stomach, ulcer, biopsy: - Antral-type mucosa with severe chronic active inflammation, regenerative changes and fragment of ulcer. - Positive for H pylori. C. Stomach, body, biopsy: - Oxyntic mucosa with severe chronic active inflammation and patchy atrophy. - Positive for H pylori
[2023-09-19 12:15] VITALS: BP 107/54; PULSE 77; RESP 20; TEMP 36.1; O2SAT 97
[2023-09-19 12:30] VITALS: BP 141/68; PULSE 78; RESP 16; TEMP 36.1; O2SAT 96
== END 2023-09-19 12:59 | disposition home or self-care (01) ==
PROVIDERS: PCP Internal Medicine; Visit Provider Internal Medicine Gastroenterology
PROC: 0DJ08ZZ Inspection of Upper Intestinal Tract, Via Natural or Artificial Opening Endoscopic (ICD-10-PCS; CPT 43235; principal; 2023-09-19 10:10)
DX: R13.10 Dysphagia, unspecified (principal); K29.50 Unspecified chronic gastritis without bleeding; B96.81 Helicobacter pylori [H. pylori] as the cause of diseases classified elsewhere; K25.9 Gastric ulcer, unspecified as acute or chronic, without hemorrhage or perforation; J02.9 Acute pharyngitis, unspecified; J32.9 Chronic sinusitis, unspecified; J30.9 Allergic rhinitis, unspecified; E78.00 Pure hypercholesterolemia, unspecified; E03.9 Hypothyroidism, unspecified; H81.10 Benign paroxysmal vertigo, unspecified ear; F32.A Depression, unspecified; F41.9 Anxiety disorder, unspecified; Z79.82 Long term (current) use of aspirin; Z79.899 Other long term (current) drug therapy; Z88.0 Allergy status to penicillin
CPT/HCPCS: 43239; 88305; 88313; 88342; J2704

== ENCOUNTER 2023-10-03 13:46 | Outpatient (AMB) | payer MEDICARE, SELFPAY ==
[2023-10-03 13:54] VITALS: BP 170/74; PULSE 75; BMI 24.0
--- NOTE | 2023-10-03 13:54 | A.OFFVIS_ITS ---
Vital Signs 10/03/23 13:54 Height 4 ft 11 in Weight 119 lb 0.794 oz BMI 24.0 BP 170/74 H Blood Pressure Location Lt brachial Position Sitting Pulse 75 Intake Visit Reasons: EGD RESULTS Intake Note: Daly presents in the office as a follow up EGD. CC: no concerns today. Mutual Fund Sales Agent Required: Yes Mutual Fund Sales Agent Name: Son Allergies Penicillins [PENICILLINS] Allergy (Intermediate, Verified 10/03/23 13:56) syncope HPI Comments Details: 73 yr old f here for f/u Recent EGD with nodular mucosa, H pylori pos she has no trouble swallowing food or liquids but pills can get stuck no abdominal pain no nausea or vomiting no diarrhea no constipation EXAM: GENERAL: The patient is well developed and nontoxic. VITAL SIGNS:see workflow HEENT: Nonicteric sclerae, PERRLA, EOMI. Oropharynx clear. Moist mucous membranes. Conjunctivae appear well perfused. No thyroid mass. CHEST: Chest wall is nontender. HEART: Regular rate and rhythm without murmurs. LUNGS: Clear to auscultation bilaterally. ABDOMEN: Soft, positive bowel sounds, nontender, no organomegaly.no flank tenderness SKIN: No rash, no excessive bruising, petechiae, or purpura. NEUROLOGIC: Cranial nerves II-XII intact without motor/sensory deficit. Psych: normal affect a/P: 1/ H pylori gastritis-no major sx PLAN: 1/ commence quadruple therapy for H pylori --advised on SE, urea breath test 6 weeks after finishing ABX PFSH Medical History Colon cancer screening declined [place] (hard of hearing) Pharyngitis Poor circulation Postmenopausal Chronic sinusitis Anxiety Abdominal pain BPPV (benign paroxysmal positional vertigo) (~03/2021) Anxiety Mild depression Sinusitis Long-term use of aspirin therapy Pure hypercholesterolemia Allergic rhinitis Hypothyroidism Surgical History History of esophagogastroduodenoscopy (EGD) History of bilateral cataract extraction History of mastoidectomy History of 3 sections Family History Father No problems noted. Mother Vaginal cancer Brother Cancer Sister Skin cancer Son No problems noted. Son No problems noted. Daughter No problems noted. 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 Cognitive needs: No Hearing needs: No Vision needs: Yes Physical Exam Vital Signs: Last Vital Signs Pulse 75 10/03/23 13:54 BP 170/74 H 10/03/23 13:54 BMI result Body Mass Index 24.0 Assessment & Plan Assessment & Plan (1) Multiple gastric ulcers: Code(s): K25.9 - Gastric ulcer, unspecified as acute or chronic, without hemorrhage or perforation Category: Medical Plan: see above Medications: New metronidazole 500 mg PO TID 14 days 42 tabs 0RF bismuth subsalicylate 2 tabs PO QID 14 days 112 tabs 0RF tetracycline 500 mg PO Q6H 14 days 56 caps 0RF Coding Level of Care Code Est Pt Level 3 (71067) Diagnoses Multiple gastric ulcers K25.9
== END 2023-10-03 14:21 | disposition home or self-care (01) ==
PROVIDERS: PCP Internal Medicine; Visit Provider Internal Medicine Gastroenterology
DX: K25.9 Gastric ulcer, unspecified as acute or chronic, without hemorrhage or perforation (principal)
CPT/HCPCS: 99213

== ENCOUNTER → 2023-10-03 13:46 | Outpatient (BNVA) | payer MEDICARE, SELFPAY | PROVIDERS: PCP Internal Medicine; Visit Provider Internal Medicine Gastroenterology | DX: K25.9 Gastric ulcer, unspecified as acute or chronic, without hemorrhage or perforation (principal) | CPT/HCPCS: 99212 ==

== ENCOUNTER 2023-10-14 06:48 | Outpatient (REF) | payer MEDICARE, SELFPAY ==
[2023-10-14 07:47] LABS: Alanine Aminotransferase 26 U/L (0-31); Albumin Level 3.9 g/dL (3.5-5.0); Alkaline Phosphatase 79 U/L (39-117); Anion Gap 9 (12-20); Aspartate Amino Transferase 25 U/L (5-31); Bilirubin Total 0.6 mg/dL (0.0-1.0); Blood Urea Nitrogen 20 mg/dL (9-16); Calcium 9.8 mg/dL (8.4-10.2); Carbon Dioxide 29 mmol/L (22-29); Chloride 105 mmol/L (96-108); Cholesterol 124 mg/dL (<200); Estimated Glomerular Filt Rate > 60; Glucose Fasting 94 mg/dL (60-99); HDL Cholesterol 56 mg/dL (>40); LDL Cholesterol Calculated 59 mg/dL (<100); Potassium 4.2 mmol/L (3.3-5.1); Sodium 139 mmol/L (135-145); Total Protein 6.4 g/dL (6.5-8.0); Triglycerides 45 mg/dL (<150)
[2023-10-14 08:03] LABS: Thyroid Stimulating Hormone 3.37 uIU/mL (0.32-4.0)
== END 2023-10-14 06:49 | disposition home or self-care (01) ==
LOC: HO.LAB 06:48
PROVIDERS: PCP Internal Medicine; Visit Provider Internal Medicine
DX: E03.9 Hypothyroidism, unspecified (principal); E78.00 Pure hypercholesterolemia, unspecified; E78.5 Hyperlipidemia, unspecified
CPT/HCPCS: 36415; 80053; 80061; 84443

== ENCOUNTER 2023-10-18 08:21 | Outpatient (AMB) | payer MEDICARE, SELFPAY ==
--- NOTE | 2023-10-18 08:28 | MHC.PC.OV ---
Vital Signs 10/18/23 08:29 Height 4 ft 11 in Weight 118 lb BMI 23.8 BP 118/70 Blood Pressure Location Lt brachial Position Sitting Intake Visit Reasons: Annual exam Intake Note: Patient here for a physical exam Energy Risk Management Analyst Required: No Accompanied by: Self / Same As Patient Allergies Penicillins [PENICILLINS] Allergy (Intermediate, Verified 10/18/23 08:44) syncope Medication List - Last Reconciled 10/18/23 by Shania Howell MD acetaminophen ER (Tylenol Arthritis Pain) 1,300 mg (2 x 650 mg) PO Q12H PRN aspirin (Adult Aspirin Regimen) 81 mg PO DAILY bismuth subsalicylate 2 tabs PO QID 14 days cetirizine 10 mg (10 mL) PO DAILY PRN 30 days diclofenac sodium 1% 2 grams topical QID meclizine 25 mg PO TID 90 days metronidazole 500 mg PO TID 14 days omeprazole 20 mg PO BID pravastatin 20 mg PO DAILY 90 days Synthroid (levothyroxine) 50 mcg PO DAILY NS tetracycline 500 mg PO Q6H 14 days Tobacco use date assessed: 04/13/23 Fall risk assessment: No Falls in past year Last assessed Fall Risk: 10/18/23 Dental Screening Dental Screen Date: 10/18/23 Did you have a dental visit in the last 12 months?: Yes Did you have a dental problem in the last 6 months where you did not have access to dental care?: No Was dental information given to patient?: Patient has dentist HPI HPI Comments History of Present Illness Details This is a 73-year-old female that comes for her physical exam. Mammogram done 2023 was normal. Cologuard done 2022 was negative and next Cologuard should be 2025. No need for Pap smears due to age. Pneumonia vaccine done at 67 years old. She has family history of skin cancer and would like to see a software project manager. No chest pain or shortness on breath. [facility] Medical History (Updated 10/18/23 @ 09:01 by Shania Howell MD) Colon cancer screening declined [place] (hard of hearing) Pharyngitis Poor circulation Postmenopausal Chronic sinusitis Anxiety Abdominal pain BPPV (benign paroxysmal positional vertigo) (~03/2021) Anxiety Mild depression Sinusitis Long-term use of aspirin therapy Pure hypercholesterolemia Allergic rhinitis Hypothyroidism Surgical History History of esophagogastroduodenoscopy (EGD) History of bilateral cataract extraction History of mastoidectomy History of 3 sections Family History Father No problems noted. Mother Vaginal cancer Brother Cancer Sister Skin cancer Son No problems noted. Son No problems noted. Daughter No problems noted. 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 1. Little interest or pleasure in doing things: not at all 2. Feeling down, depressed, or hopeless: not at all 3. Trouble falling or staying asleep, or sleeping too much: not at all 4. Feeling tired or having little energy: not at all 5. Poor appetite or overeating: several days 6. Feeling bad about yourself - or that you are a failure or have let yourself or your family down: not at all 7. Trouble concentrating on things, such as reading the newspaper or watching television: not at all 8. Moving or speaking so slowly that other people could have noticed. Or the opposite - being so fidgety or restless that you have been moving around a lot more than usual: not at all 9. Thoughts that you would be better off or of hurting yourself in some way: not at all Total score: 1 Depression Screening Interpretation: Negative Depression Screening Done: Yes 95004 - PHQ-9 Billing: Yes Source: Developed by Drs. Kalen Herring, Cristiana Garcia, Boyd Hubbard and colleagues, with an educational obinna from [employer]. Thrive Questionnaire Date Thrive assessed: 10/18/23 I am a: Patient What is your living situation today?: I have a steady place to live Within the past 12 months, did the food you bought not last and you didn't have the money to get more?: Never true Within the past 12 months, did you worry whether your food would run out before you got money to buy more?: Never true Do you have trouble paying for medicines?: No Do you have trouble getting transportation to medical appointments?: No Do you have trouble paying your heating and electricity bill?: No Do you have trouble taking care of your child, family member or friend?: No Do you have trouble with day-to-day activities such as bathing, preparing meals, shopping, managing finances, etc.?: No Are you currently unemployed and looking for a job?: No Are you interested in more education?: No Please select the resources that you would like help with: None Currently or been in a relationship where the following occur: No concerns reported THRIVE Score: 0 AUDIT C Alcohol Use Questionnaire (AUDIT-C) 1. How often do you have a drink containing alcohol?: Never Total Score: 0 Score Reviewed/Action Taken: No JORDAN-7 AMB Questionnaire JORDAN-7 Date JORDAN - 7 assessed: 10/18/23 Feeling nervous, anxious, or on edge: 0 = Not at all Not being able to stop or control worryin = Not at all Worrying too much about different things: 0 = Not at all Trouble relaxin = Not at all Being so restless that it is hard to sit still: 0 = Not at all Becoming easily annoyed or irritable: 0 = Not at all Feeling afraid as if something awful might happen: 0 = Not at all Total JORDAN-7 score (0-4 normal; 5-9 mild; 10-14 moderate; 15-21 severe): 0 Source: Developed by Drs. Kalen Herring, Cristiana Garcia, Boyd Hubbard and colleagues, with an educational obinna from [employer]. JORDAN-7 Assessment Billing JORDAN-7 Assessment Tool: JORDAN-7 Assessment 45028 Review of Systems Const All systems reviewed & are unremarkable except as noted in HPI and below Card Denies chest pain at rest, Denies chest pain with activity, Denies edema, Denies irregular heart rhythm, Denies claudication, Denies dyspnea, Denies dyspnea on exertion, Denies orthopnea, Denies paroxysmal nocturnal dyspnea and Denies slow heart rate Resp Denies cough, Denies dyspnea and Denies dyspnea on exertion GI Denies abdominal pain, Denies change in bowel habits, Denies excessive flatus, Denies nausea and Denies vomiting Denies urinary incontinence, Denies urinary hesitancy and Denies urinary urgency Musc Denies abnormal gait, Denies atrophy, Denies deformity and Denies limited range of motion Skin/Breast Denies bleeding lesions, Denies changing lesions and Denies rash Neuro Denies abnormal gait, Denies behavioral changes and Denies lack of coordination Psych Denies behavioral changes Physical exam (Primary Care) Vital Signs: Last Vital Signs BP 118/70 10/18/23 08:29 BMI result Body Mass Index 23.8 Tobacco/Smoking Status: Tobacco use Status Tobacco use date assessed 04/13/23 10/18/23 08:34 Patient Tobacco Use Status Never used Tobacco 10/18/23 08:34 e-Cigarette/Vaping Use Never Used 10/18/23 08:34 PHQ-9: PHQ-9 Score PHQ-9: Total score 1 10/18/23 08:34 Depression Screening Interpretation: Negative Thrive Assessment: Date of Thrive Assessment Date Thrive assessed 10/18/23 10/18/23 08:34 Currently or been in a relationship where the following occur: No concerns reported [facility] Head: Yes normal to inspection, Yes normocephalic and Yes atraumatic Ears: external ears normal Eyes General: appearance normal, both eyes and all related structures Eyelids: Yes eyelids normal Conjunctivae: conjunctivae normal Neck Neck: Yes normal visual inspection and Yes supple Resp Effort & Inspection: normal respiratory effort Auscultation: clear to auscultation bilaterally Cardio Jugular venous distension: no JVD Rate: regular rate Rhythm: regular rhythm Heart sounds: S1 normal heart sound present and S2 normal heart sound present GI Inspection: Yes normal to inspection Palpation (GI): Soft to palpation and nontender Auscultation: normal bowel sounds Skin General skin exam: no rashes or lesions noted Neuro General: no focal motor deficits Extrem General: Yes full ROM Psych Appearance: grossly normal Assessment and Plan Assessment & Plan (1) Physical exam: Code(s): Z00.00 - Encounter for general adult medical examination without abnormal findings Plan: Repeat in a year. (2) Family history of skin cancer: Code(s): Z80.8 - Family history of malignant neoplasm of other organs or systems Plan: Referred to dermatology. Orders: Referrals Dermatology Referral Z80.8 - Family history of malignant neoplasm of other organs or systems Coding Level of Care Code Est Pt Level 3 (27061) Est Pt Prev Care >65y(12693) Diagnoses Physical exam Z00.00 Family history of skin cancer Z80.8 Additional Codes JORDAN-7 Assessment Billing - JORDAN-7 Assessment Tool: JORDAN-7 Assessment 29830 ([id number]) Time Spent (min) 30
[2023-10-18 08:29] VITALS: BP 118/70; BMI 23.8
== END 2023-10-18 08:58 | disposition home or self-care (01) ==
PROVIDERS: PCP Internal Medicine; Visit Provider Internal Medicine
DX: Z00.00 Encounter for general adult medical examination without abnormal findings (principal); Z80.8 Family history of malignant neoplasm of other organs or systems
CPT/HCPCS: 99397

== ENCOUNTER 2023-11-25 09:11 | Outpatient (AMB) | payer MEDICARE, SELFPAY ==
--- NOTE | 2023-11-25 09:54 | AM.OFFVISNUR ---
Intake Visit Reasons: H Pylori Allergies Penicillins [PENICILLINS] Allergy (Intermediate, Verified 10/18/23 08:44) syncope Nursing Note Patient presents for collection of H Pylori breath test. Patient has been fasting for 1 hour (nothing to eat, drink, no chewing gum or smoking) has not taken any antacid medication for at least 2 weeks and has no allergies to artificial sweeteners.?? Assessment & Plan Assessment & Plan (1) Multiple gastric ulcers: Code(s): K25.9 - Gastric ulcer, unspecified as acute or chronic, without hemorrhage or perforation Category: Medical Plan Patient presents for collection of H Pylori breath test. Patient has been fasting for 1 hour (nothing to eat, drink, no chewing gum or smoking) has not taken any antacid medication for at least 2 weeks and has no allergies to artificial sweeteners.???This test checks for an overgrowth of bacteria in your stomach. We all have bacteria but some may have more than others. It is treatable. if the test comes back negative there is nothing else to do. If the test result is positive we will treat you with 2 antibiotics and a medication to decrease the acid in your stomach (PPI) for 2 weeks. Two weeks after you have completed the treatment we will retest you to make sure the overgrowth has resolved. Orders: Orders H Pylori Breath Test Today Patient Instructions: Process for specimen collection and reason for testing was explained to the patient. Specimen collection. Patient instructed to take a deep breath and then exhale into the blue bag, filling it up as much as possible. Patient instructed to drink a mixture of water and the artificial sweetener with a straw. A 15 minute wait period was observed. Patient instructed to take a deep breath and then exhale into the pink bag, filling it up as much as possible.??
== END 2023-11-25 09:56 | disposition home or self-care (01) ==
PROVIDERS: PCP Internal Medicine; Visit Provider Internal Medicine Gastroenterology
DX: K25.9 Gastric ulcer, unspecified as acute or chronic, without hemorrhage or perforation (principal)

== ENCOUNTER 2023-11-25 09:11 | Outpatient (REF) | payer MEDICARE, SELFPAY ==
[2023-11-26 13:48] LABS: H Pylori Breath Test Negative (Negative)
== END 2023-11-25 09:12 | disposition home or self-care (01) ==
LOC: HO.LNP 09:11
PROVIDERS: PCP Internal Medicine; Visit Provider Internal Medicine Gastroenterology
DX: Z11.0 Encounter for screening for intestinal infectious diseases (principal); K25.9 Gastric ulcer, unspecified as acute or chronic, without hemorrhage or perforation
CPT/HCPCS: 83013; 99211

== ENCOUNTER 2023-12-01 09:36 | Outpatient (AMB) | payer MEDICARE, SELFPAY ==
--- NOTE | 2023-12-01 09:51 | A.OFFVIS_ITS ---
Vital Signs 12/01/23 10:00 Height 4 ft 11 in Weight 119 lb 0.794 oz BMI 24.0 BP 130/62 Blood Pressure Location Lt brachial Position Sitting Pulse 69 Pulse Source Pulse Oximeter Pulse Oximetry (%) 96 Oxygen Delivery Method Room Air Intake Visit Reasons: hand OA/CM Intake Note: Patient presents for hand OA. [employer] Required: Yes [employer] Language: Directional Survey Drafter Services: [employer] Offered & Declined Electric [employer] Cart Repairers Name: Khurram Sethi Information Interpreted: non-clinical & clinical Geographic Information System Analyst: Geographic Information System Analyst Present Accompanied by: Son Allergies Penicillins [PENICILLINS] Allergy (Intermediate, Verified 12/01/23 09:56) syncope Medication List - Last Reconciled 12/01/23 by Zoie Panda MD acetaminophen ER (Tylenol Arthritis Pain) 1,300 mg (2 x 650 mg) PO Q12H PRN aspirin (Adult Aspirin Regimen) 81 mg PO DAILY bismuth subsalicylate 2 tabs PO QID 14 days cetirizine 10 mg (10 mL) PO DAILY PRN 30 days diclofenac sodium 1% 2 grams topical QID meclizine 25 mg PO TID 90 days metronidazole 500 mg PO TID 14 days pravastatin 20 mg PO DAILY 90 days Synthroid (levothyroxine) 50 mcg PO DAILY NS tetracycline 500 mg PO Q6H 14 days HPI Comments Details: 73-year-old female with bilateral hand OA returns for follow-up. She is here with her son. She states that she used to have pain in the hands. Especially the middle fingers. She also states that she gets intermittent triggering of her fingers. She takes Tylenol once daily as needed for joint pains. She takes it about 3 times a week. She also states that she gets intermittent triggering of her fingers, usually in the morning. Initial history: 72-year-old female presents for pain and deformity of her fingers and pain of her toes. She has noticed pain in her fingers for the last 4 years. She has pain and morning stiffness lasting 5-10 minutes. She does not take anything for the pain. She also has pain in her toes. She is unaware of any family history of autoimmune rheumatic disease. No history of psoriasis. [facility] Medical History Colon cancer screening declined [place] (hard of hearing) Pharyngitis Poor circulation Postmenopausal Chronic sinusitis Anxiety Abdominal pain BPPV (benign paroxysmal positional vertigo) (~03/2021) Anxiety Mild depression Sinusitis Long-term use of aspirin therapy Pure hypercholesterolemia Allergic rhinitis Hypothyroidism Surgical History History of esophagogastroduodenoscopy (EGD) History of bilateral cataract extraction History of mastoidectomy History of 3 sections Family History Father No problems noted. Mother Vaginal cancer Brother Cancer Sister Skin cancer Son No problems noted. Son No problems noted. Daughter No problems noted. 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 Cognitive needs: No Hearing needs: No Vision needs: Yes Female Reproductive History Menstrual Total pregnancies: 3 Review of Systems Musc Reports arthralgias Physical Exam Vital Signs: Last Vital Signs Pulse 69 12/01/23 10:00 BP 130/62 12/01/23 10:00 Pulse Ox 96 12/01/23 10:00 Oxygen Delivery Method Room Air 12/01/23 10:00 BMI result Body Mass Index 24.0 Const General: cooperative, healthy appearing and comfortable Nutritional Appearance: average body habitus Orientation/consciousness: patient oriented x3 Limitations: no limitations HEENT Head: Yes normocephalic and Yes atraumatic Resp Effort & Inspection: normal respiratory effort and able to speak in complete sentences Neuro General: patient oriented x3 Extrem Other: Bilateral osteoarthritic changes of both hands with prominent Heberden's and Serge's nodes. Most prominent is the right 3rd Serge's nodes. Patient has Heberden's and Serge's nodes are tender to palpation No MCP swelling or tenderness. Negative MCP squeeze test bilaterally No elbow pain or swelling osteoarthritic changes of her toes bilaterally with tender PIP is in the DIPs. No MTP tenderness Results Reviewed Results Reviewed: XR/XR hand wrist LT IMPRESSION: There are are multi-focal mild to moderate osteoarthritic changes of the fingers, as detailed. No fracture or dislocation is seen. There is no abnormal bone erosion. XR/XR hand wrist RT IMPRESSION: There are osteoarthritic changes of the right hand. These changes are most severe of the fourth and fifth distal interphalangeal joints, where there are central erosions noted. This raises the possibility of erosive osteoarthritis, psoriasis and rheumatoid arthritis. Please correlate clinically. ? Assessment & Plan Assessment & Plan (1) Osteoarthritis of hands, bilateral: Code(s): M19.041 - Primary osteoarthritis, right hand; M19.042 - Primary osteoarthritis, left hand Category: Medical Qualifiers: Osteoarthritis type: primary Qualified Code(s): M19.041 - Primary osteoarthritis, right hand; M19.042 - Primary osteoarthritis, left hand Plan: This is a 73-year-old female with bilateral hand osteoarthritis returns for follow-up. Discussed nature of hand osteoarthritis and its management. I suggested using the Tylenol twice daily regularly. I suggested applying Voltaren gel on painful joints. Wear finger splints nightly in an attempt to improve triggering. Patient is not interested in going back to OT Follow-up in 1 year Plan I spent 16 minutes reviewing patient's chart, evaluating patient, counseling patient and documenting in the chart Medications: Refilled diclofenac sodium 1% apply to single elbow, wrist or hand; for hand includes palm/fingers/back of hand 2 grams topical QID 100 grams 5RF Coding Level of Care Code Est Pt Level 3 (87046) Diagnoses Primary osteoarthritis of both hands M19.041; M19.042 Osteoarthritis type: primary
[2023-12-01 10:00] VITALS: BP 130/62; PULSE 69; O2SAT 96; BMI 24.0
== END 2023-12-01 10:26 | disposition home or self-care (01) ==
PROVIDERS: PCP Internal Medicine; Visit Provider Student in an Organized Health Care Education/Training Program
DX: M19.041 Primary osteoarthritis, right hand (principal); M19.042 Primary osteoarthritis, left hand
CPT/HCPCS: 99213

== ENCOUNTER → 2023-12-01 09:36 | Outpatient (BNVA) | payer MEDICARE, SELFPAY | PROVIDERS: PCP Internal Medicine; Visit Provider Student in an Organized Health Care Education/Training Program | DX: M19.041 Primary osteoarthritis, right hand (principal); M19.042 Primary osteoarthritis, left hand | CPT/HCPCS: 99212 ==

== ENCOUNTER 2023-12-16 10:10 | Outpatient (AMB) | payer MEDICARE, SELFPAY ==
--- NOTE | 2023-12-16 10:15 | MHC.OFFVIS ---
Vital Signs 12/16/23 10:17 Height 4 ft 11 in Weight 114 lb 10.246 oz BMI 23.2 BP 140/56 H Blood Pressure Location Lt brachial Position Sitting Pulse 81 Intake Visit Reasons: 3 month follow up Intake Note: Daly presents in the office as a 3 month follow up. CC: She is not having any concerns at the moment! Sports Medicine [facility] Required: Yes Sports Medicine [employer] Name: Son Allergies Penicillins [PENICILLINS] Allergy (Intermediate, Verified 12/16/23 10:24) syncope HPI HPI 3 month follow up: Details: 73 yr old f here for f/u RECAP: EGD with nodular mucosa, H pylori pos was given quadruple therapy cologuard 2022--negative INTERIM: she has no trouble swallowing food just with her pills sometimes she finished her h pylori abx but not sure when-- repeat H pylori 11/24 neg but not sure iof this was too early no abdominal pain no nausea or vomiting no diarrhea no constipation EXAM: GENERAL: The patient is well developed and nontoxic. VITAL SIGNS:see workflow HEENT: Nonicteric sclerae, PERRLA, EOMI. Oropharynx clear. Moist mucous membranes. Conjunctivae appear well perfused. No thyroid mass. CHEST: Chest wall is nontender. HEART: Regular rate and rhythm without murmurs. LUNGS: Clear to auscultation bilaterally. ABDOMEN: Soft, positive bowel sounds, nontender, no organomegaly.no flank tenderness SKIN: No rash, no excessive bruising, petechiae, or purpura. NEUROLOGIC: Cranial nerves II-XII intact without motor/sensory deficit. Psych: normal affect a/P: 1/ H pylori gastritis-no major sx PLAN: 1/ repeat H pylori testing as unsure it is was > 4 weeks from finishing ABX if neg then can d/c from the GI office --if pos then re treat 2/ repeat cologuard by pcp 2025 or colonoscopy PFSH Medical History Colon cancer screening declined [place] (hard of hearing) Pharyngitis Poor circulation Postmenopausal Chronic sinusitis Anxiety Abdominal pain BPPV (benign paroxysmal positional vertigo) (~03/2021) Anxiety Mild depression Sinusitis Long-term use of aspirin therapy Pure hypercholesterolemia Allergic rhinitis Hypothyroidism Surgical History History of esophagogastroduodenoscopy (EGD) History of bilateral cataract extraction History of mastoidectomy History of 3 sections Family History Father No problems noted. Mother Vaginal cancer Brother Cancer Sister Skin cancer Son No problems noted. Son No problems noted. Daughter No problems noted. 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
[2023-12-16 10:17] VITALS: BP 140/56; PULSE 81; BMI 23.2
== END 2023-12-16 11:10 | disposition home or self-care (01) ==
LOC: HO.HGI 10:11
PROVIDERS: PCP Internal Medicine; Visit Provider Internal Medicine Gastroenterology
DX: K25.9 Gastric ulcer, unspecified as acute or chronic, without hemorrhage or perforation (principal)
CPT/HCPCS: 99213

== ENCOUNTER 2023-12-16 10:10 | Outpatient (REF) | payer MEDICARE, SELFPAY ==
[2023-12-17 10:18] LABS: H Pylori Breath Test Negative (Negative)
== END 2023-12-16 10:11 | disposition home or self-care (01) ==
LOC: HO.LAB 10:10
PROVIDERS: PCP Internal Medicine; Visit Provider Internal Medicine Gastroenterology
DX: K25.9 Gastric ulcer, unspecified as acute or chronic, without hemorrhage or perforation (principal)
CPT/HCPCS: 83013; 99212

== ENCOUNTER 2024-03-11 08:38 | Inpatient (IN) | payer MEDICARE, SELFPAY ==
--- NOTE | ~2024-03-11 | CT_ITS ---
CLINICAL HISTORY: rectal bleed CT abdomen and pelvis with contrast Comparison: US - US ABDOMEN COMPLETE - 09/09/20 09:08 EDT Findings: No consolidation or effusion. The gallbladder and solid organs are within normal limits. No renal stones. Severe thickening of the wall of the distal colon extending from the distal transverse colon to the mid descending colon. No obvious focus of active bleeding. No bowel obstruction. No pneumatosis or portal venous gas. Pelvic contents unremarkable. Normal appendix. No acute fracture. IMPRESSION: Severe colitis of a portion of the distal colon. This document has been electronically signed by: Mikayla Pak MD on 03/11/2024 18:30:25
[2024-03-11 09:00] VITALS: BP 174/65; PULSE 90; RESP 18; TEMP 36.8; O2SAT 98; BMI 24.1
[2024-03-11 09:34] LABS: MANUAL DIFF FLAG NO
[2024-03-11 09:35] LABS: Basophils Percent Auto 0.3 % (0-2); Eosinophils Absolute Auto 0.1 X10*3/uL (0.0-0.4); Eosinophils Percent Auto 0.9 % (0-4); Hemoglobin 14.6 g/dl (12.0-16.0); Imm Gran Abs Auto 0.02 X10*3/uL (0.00-0.03); Imm Gran Pct Auto 0.2 % (0.0-0.4); Lymphocytes Absolute Auto 2.7 X10*3/uL (1.2-4.9); Lymphocytes Percent Auto 30.8 % (20-40); Mean Corpuscular HGB Conc 33.2 g/dl (31.0-35.0); Mean Corpuscular Volume 78.3 fL (80.0-98.0); Mean Platelet Volume 9.5 fL (9.4-12.3); Monocytes Absolute Auto 0.6 X10*3/uL (0.1-1.2); Monocytes Percent Auto 7.4 % (2-11); Neutrophils Absolute Auto 5.2 x10*3/uL (2.0-8.3); Neutrophils Percent Auto 60.4 % (45-73); Platelet Count 280 X10*3/uL (160-400); Red Blood Count 5.62 X10*6/uL (4.20-5.50); Red Cell Distribution Width 14.2 % (11.0-16.0); White Blood Count 8.6 X10*3/uL (4.8-10.8)
[2024-03-11 09:59] LABS: Anion Gap 12 (12-20); Blood Urea Nitrogen 20 mg/dL (9-16); Calcium 9.2 mg/dL (8.4-10.2); Carbon Dioxide 20 mmol/L (22-29); Chloride 109 mmol/L (96-108); Creatinine Clr Calc Pharmacy 46.5; Estimated Glomerular Filt Rate > 60; Glucose Random 108 mg/dL (60-115); Potassium 4.4 mmol/L (3.3-5.1); Sodium 137 mmol/L (135-145)
--- OUTSIDE RECORDS SUMMARY | 2024-03-11 15:35 | XMS_ITS | Clinical Summary ---
Author Organization [facility] Address [address] [place] [address] Care Team Providers Care Hat Stock Laminating Machine Operator Name Role Phone Unavailable Primary Care Provider Unavailabl e Allergies Active Allergy Reactions Criticality Noted Date Comments Penicillins 03/17/2017 Medications Synthroid 50 MCG tablet Take 50 mcg by mouth in the morning. 03/08/2022 Active meclizine (Antivert) 25 MG tablet Take 25 mg by mouth 3 times daily. 04/18/2022 Active pravastatin (Pravachol) 20 MG tablet Take 20 mg by mouth in the morning. 04/28/2022 Active doxycycline (Vibramycin) 50 MG capsule Take 50 mg by mouth 2 times daily. 02/09/2022 Active Immunizations Name Administration Dates Next Due Influenza, High Dose Seasonal, Preservative Free 02/18/2017 Pneumococcal Conjugate PCV 13 02/18/2017 Tdap 02/22/2017 Social History Tobacco Use Types Packs/Day Years Used Date Smoking Tobacco: Never Smokeless Tobacco: Never Tobacco Cessation:Counseling Given: Not Answered Comments Unknown Sex and Gender Information Value Date Recorded Sex Assigned at Female 12/14/2021 10:32 AM EDT Legal Sex Female 10:32 AM EDT Gender Identity Female 12/14/2021 10:32 AM EDT Sexual Orientation Straight 12/14/2021 10 :32 AM EDT Last Filed Vital Signs Vital Sign Reading Time Taken Comments Blood Pressure 140/74 04/28/2023 10:33 AM EDT Pulse 64 05/25/2022 7:54 AM EDT Temperature - - Respiratory Rate - - Oxygen Saturation - - Inhaled Oxygen Concentration - - Weight - - Height - - Body Mass Index - - Plan of Treatment Health Maintenance Due Date Last Done Comments CT Colonography 1952 Colonoscopy 1952 Colorectal Cancer Screening 1952 Depression Screening 1952 FIT DNA/Cologuard 1952 FIT 1952 FOBT 1952 Lipid Panel 1952 SDOH Screening 1952 Sigmoidoscopy 1952 Alcohol/Substance Use Screening 1964 Hepatitis C Screening 02/04/1970 Mammogram 1992 Zoster Vaccines (1 of 2) 02/04/2002 Pneumococcal Vaccine: 65+ Years (2 of 2 - PPSV23 or PCV20) 02/18/2018 02/18/2017 COVID-19 Vaccine ( - 2023-2 5 season) 2023 Influenza Vaccine (#1) 2023 02/18/2017 Dental Oral Exam 10/30/2023 04/28/2023, 03/23/2022 Dental Prophylaxis 10/30/2023 04/28/2023, 05/25/2022 Tobacco Screening 04/27/2024 04/28/2023 Dental X-Ray: Bitewings 04/28/2024 04/28/19 24, 03/23/2022 Dental X-Ray: Full Mouth 03/24/2025 03/23/2022 RSV Patients and Patients Aged 60 years or older (1 - 1-dose 75+ series) 02/04/2027 DTaP/Tdap/Td Vaccines (2 - T d or Tdap) 02/22/2027 02/22/2017 HIB Vaccines Aged Out No longer eligi ble based on patient's age to complete this topic HPV Vaccines Aged Out No longer eligi ble based on patient's age to complete this topic Hepatitis A Vaccines Aged Out No long er eligible based on patient's age to complete this topic Hepatitis B Vaccines Aged Out No long er eligible based on patient's age to complete this topic IPV Vaccines Aged Out No longer eligi ble based on patient's age to complete this topic Meningococcal Vaccine Aged Out No romaine francis eligible based on patient's age to complete this topic RSV under 20 months Aged Out No longe r eligible based on patient's age to complete this topic Rotavirus Vaccines Aged Out No longer eligible based on patient's age to complete this topic Procedures Procedure Name Priority Date/Time Associated Diagnosis Comments PROPHYLAXIS - ADULT Routine 04/28/2023 1 1:00 AM EDT Encounter for dental examination Dental plaque BITEWINGS - 4 RADIOGRAPHIC IMAGES Routine 04/28/2023 11:00 AM EDT Encounter for dental examination Dental plaque PERIODIC ORAL EVALUATION - ESTABLISHED PATIENT Routine 04/28/2023 11:00 AM EDT Encounter for dental examination Dental plaque DIAGNOSTIC - DIAGNOSTIC IMAGING - INTRAORAL - COMPREHENSIVE SERIES OF RADIOGRAPHIC IMAGES Routine 03/23/2022 1:45 PM EST from Last 3 Months or Most Recently Relevant to Health Maintenance Insurance [facility] - HSN FULL (MEDICAID) * Guarantor: DALY ONTIVEROS Account Type Relation to Patient Date of Phone Billing Address Personal/Family [phone] [place] [address]
--- OUTSIDE RECORDS SUMMARY | 2024-03-11 15:35 | XMS_ITS | Encounter Summary ---
Author Organization [facility] Address [address] [place] [address] Care Team Providers Care Certified Court/Medical Interpreter Name Role Phone Unavailable Primary Care Provider Unavailabl e Encounter Details Date Type Department Care Team (Latest Contact Info) Description 08/22/2018 Abstract [facility] CONVERSIONS Dental, Provider, DDS Social History Tobacco Use Types Packs/Day Years Used Date Smoking Tobacco: Never Assessed Comments Unknown Sex and Gender Information Value Date Recorded Sex Assigned at Female 12/14/2021 10:32 AM EDT Legal Sex Female 10:32 AM EDT Gender Identity Female 12/14/2021 10:32 AM EDT Sexual Orientation Straight 12/14/2021 10 :32 AM EDT documented as of this encounter Plan of Treatment Not on file documented as of this encounter Visit Diagnoses Not on filedocumented in this encounter
--- OUTSIDE RECORDS SUMMARY | 2024-03-11 15:35 | XMS_ITS | Encounter Summary ---
Author Organization [facility] Address [address] [place] [address] Care Team Providers Care Lodging Facilities Attendant Name Role Phone Unavailable Primary Care Provider Unavailabl e Encounter Details Date Type Department Care Team (Latest Contact Info) Description 05/12/[address] [facility] CONVERSIONS Dental, Provider, DDS Social [...]
--- NOTE | 2024-03-11 16:03 | ED.GENADULT ---
HPI - General Adult General Chief complaint: General Medical Stated complaint: Rectal bleed Time Seen by Provider: 03/11/24 15:23 Source: patient and family (Son) Mode of arrival: ambulatory Limitations: no limitations History of Present Illness ED Provider: DR. Bustos HPI narrative: 74-year-old female came in with her son for evaluation of abdominal pain and rectal bleed since yesterday, no nausea, no vomiting, no fever, no chills, not taking anticoagulation just taking baby aspirin daily, no trauma to the abdomen, patient had multiple BMs since yesterday which all were bloody. Never had similar symptoms in the past. No CP, no SOB, no dizziness. Related Data Home Medications ?Medication ?Instructions ?Recorded ?Confirmed aspirin 81 mg tablet,delayed 81 mg PO DAILY 02/05/20 10/18/23 release (Adult Aspirin Regimen) Previous Rx's ?Medication ?Instructions ?Recorded acetaminophen 650 mg 1,300 mg (2 x 650 mg) PO Q12H PRN 05/28/22 tablet,extended release (Tylenol fever or pain #120 tabs Arthritis Pain) cetirizine 5 mg/5 mL oral solution 10 mg (10 mL) PO DAILY PRN allergy 02/03/23 symptoms 30 days #150 mL bismuth subsalicylate 262 mg 2 tab PO QID 14 days #112 tabs 10/03/23 chewable tablet pravastatin 20 mg tablet 20 mg PO DAILY 90 days #90 tabs 11/22/23 diclofenac sodium 1 % topical gel 2 g topical QID #100 grams 12/01/23 meclizine 25 mg tablet 25 mg PO TID 90 days #270 tabs 02/17/24 Synthroid 50 mcg tablet 50 mcg PO DAILY #90 tabs 02/23/24 (levothyroxine) Allergies Allergy/AdvReac Type Severity Reaction Status Date / Time Penicillins [PENICILLINS] Allergy Intermediate syncope Verified 03/11/24 09:00 Review of Systems Review of Systems: All other systems are reviewed and are negative Constitutional: Reports as per HPI and Reports no additional constitutional complaints Eyes: Reports as per HPI and Reports no additional eye complaints Reports system reviewed and no additional complaints, except as documented Cardiovascular: Reports as per HPI and Reports no additional cardiovascular complaints Respiratory: Reports as per HPI and Reports no additional respiratory complaints Gastrointestinal: Reports as per HPI and Reports no additional gastrointestinal complaints Genitourinary: Reports no additional female genitourinary complaints Musculoskeletal: Reports no additional musculoskeletal complaints Skin/Breast: Reports system reviewed and no additional complaints, except as docu Psychiatric: Reports no additional psychiatric complaints Endocrine: Reports no additional endocrine complaints Hematologic/Lymphatic: Reports no additional hematologic/lymphatic complaints Allergic/Immunologic: Reports no additional allergic/immunologic complaints Reports system reviewed and no additional complaints, except as documented and Reports Abnormal speech present [facility] Past Medical History Medical History Colon cancer screening declined [place] (hard of hearing) Pharyngitis Poor circulation Postmenopausal Chronic sinusitis Anxiety Abdominal pain BPPV (benign paroxysmal positional vertigo) (~03/2021) Anxiety Mild depression Sinusitis Long-term use of aspirin therapy Pure hypercholesterolemia Allergic rhinitis Hypothyroidism Surgical History History of esophagogastroduodenoscopy (EGD) History of bilateral cataract extraction History of mastoidectomy History of 3 sections Family History Family History Father No problems noted. Mother Vaginal cancer Brother Cancer Sister Skin cancer Son No problems noted. Son No problems noted. Daughter No problems noted. 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 Blood pressure elevated. Heart rate normal. Respiratory rate normal. Temperature normal. Oxygen saturation normal. Appearance: Alert. Oriented X3. No acute distress. Head: Normal external exam. Normocephalic. Atraumatic. No Vázquez signs noted. No raccoon eyes noted Eyes: PERRLA. EOMI. Conjunctiva and sclera normal. Eyelids normal. ENT: TM's Normal. Pharynx normal. Uvula midline. Moist mucous membranes. No trismus noted. No drooling noted. No muffled voice noted. Neck: Normal inspection. Neck supple. FROM. No adenopathy. Thyroid Normal. No meningeal signs. No neck mass noted. CVS: Normal heart rate and rhythm. Heart sound normal. No murmurs noted. Pulses normal throughout. Respiratory: No respiratory distress. Painless inspiration. Breath sounds normal. No wheezes/rales/rhonchi noted. Chest nontender. No accessory muscle usage noted or decreased air movement noted. Abdomen: Soft and nontender. Bowel sounds normal in all 4 quadrants. No distention noted. No organomegaly noted. No visible injury noted. Rectal exam: No external hemorrhoids visualized, no palpable internal hemorrhoids, stool positive for blood with hematochezia. Back: No CVA tenderness. Full range of motion noted. Skin: Skin warm and dry. Normal skin color. Normal skin turgor. No rashes/lesions/lacerations noted. Extremities: No lower extremity edema. Extremities exhibit normal range of motion. Extremities nontender. Neuro: Oriented X 3. Cranial nerve exam: II-XII are grossly intact No motor deficit. No sensory deficit. Reflexes normal. Course Reevaluation(s) Reevaluation #1: Hematochezia and GI bleed. Hemodynamically stable, stable CBC patient is actively bleeding, CT abdomen pelvis is showing severe colitis to the distal colon, will require admission for further GI consultation and serial CBCs. Time: 18:34 Medications Administered Discontinued Medications Generic Name Dose Route Start Last Admin Trade Name Freq PRN Reason Stop Dose Admin Sodium Chloride 1,000 mls @ 999 mls/hr 03/11/24 16:11 03/11/24 17:40 Ns IV 03/11/24 17:11 Infused .Q1H1M ONE Infusion Iohexol 100 ml 03/11/24 17:05 03/11/24 17:06 Iohexol 350 Mg/Ml 100 Ml Infus..Btl IV 03/11/24 17:06 70 ml ONCE ONE Administration Pantoprazole Sodium 40 mg 03/11/24 16:10 03/11/24 16:34 Pantoprazole Sodium 40 Mg/10 Ml Vial IVPUSH 03/11/24 16:11 40 mg ONCE ONE Administration Medical Decision Making Differential Diagnosis Differential Diagnoses: The differential diagnosis associated with the presentation includes (Colitis, diverticular disease, severe anemia, thrombocytopenia, coagulopathy.) Admission/Observation Consideration of admission/observation: Escalation of care including admission/observation considered Lab Data MDM Lab Attestation statement: I reviewed the patient's lab results. 03/11/24 09:31 03/11/24 09:30 Labs: Lab Results 03/11/24 03/11/24 03/11/24 Range/Units 09:30 09:31 16:08 WBC 8.6 (4.8-10.8) X10*3/uL RBC 5.62 H (4.20-5.50) X10*6/uL Hgb 14.6 (12.0-16.0) g/dl Hct 44.0 (37.0-47.0) % MCV 78.3 L (80.0-98.0) fL MCH 26.0 L (27.0-33.0) pg MCHC 33.2 (31.0-35.0) g/dl RDW 14.2 (11.0-16.0) % Plt Count 280 (160-400) X10*3/uL MPV 9.5 (9.4-12.3) fL Immature Gran % (Auto) 0.2 (0.0-0.4) % Neut % (Auto) 60.4 (45-73) % Lymph % (Auto) 30.8 (20-40) % [place] % (Auto) 7.4 (2-11) % Eos % (Auto) 0.9 (0-4) % Baso % (Auto) 0.3 (0-2) % Lymph # (Auto) 2.7 (1.2-4.9) X10*3/uL [place] # (Auto) 0.6 (0.1-1.2) X10*3/uL Eos # (Auto) 0.1 (0.0-0.4) X10*3/uL Baso # (Auto) 0.0 (0.0-0.2) X10*3/uL Abs Immat Gran (auto) 0.02 (0.00-0.03) X10*3/uL Absolute Neuts (auto) 5.2 (2.0-8.3) x10*3/uL Absolute Nucleated RBC 0.000 (0.0-0.012) X10*3/uL Nucleated RBC % (auto) 0.0 (0.0-0.2) /100WBC PT 11.6 (10.9-12.4) SEC INR 1.0 (0.9-1.1) Sodium 137 (135-145) mmol/L Potassium 4.4 (3.3-5.1) mmol/L Chloride 109 H (96-108) mmol/L Carbon Dioxide 20 L (22-29) mmol/L Anion Gap 12 (12-20) BUN 20 H (9-16) mg/dL Creatinine 0.82 (0.5-1.4) mg/dL Estim Creat Clear Calc 46.5 Estimated GFR > 60 Random Glucose 108 (60-115) mg/dL Calcium 9.2 D (8.4-10.2) mg/dL Stool Occult Blood POSITIVE (NEGATIVE) Blood Type O Positive Antibody Screen NEGATIVE Independent Interpretation I performed an independent interpretation of an: CT Scan (Abdomen and pelvis: Severe colitis of the distal colon.) Radiology Impression Discussion of test interpretation with radiology: I have reviewed the radiologist's reading. Discharge Plan Discharge Clinical Impression: Hematochezia Patient Disposition: Admitted As Inpatient Print Language: Ukrainian
[2024-03-11 16:17] LABS: OBS Int Ctl Valid YES; OBS1 POSITIVE (NEGATIVE)
[2024-03-11 16:21] LABS: Prothrombin Time 11.6 SEC (10.9-12.4)
--- NOTE | 2024-03-11 16:25 | PC.NURSE ---
This RN present with MD , who performed digital rectal exam; + hemeoccult slide with visible evelyne red blood on card; pt tolerated well; pt/family informed of results and pt to remain NPO at this time pending GI consult; IV access establ and labs drawn/sent
[2024-03-11 16:28] VITALS: BP 197/87; PULSE 86; RESP 16; TEMP 36.6; O2SAT 99
[2024-03-11] MEDS: Pantoprazole Sodium 40 MG/10 ML VIAL IVPUSH (16:34)
[2024-03-11] MEDS: 0.9 % Sodium Chloride 1,000 ML 999 ML IV (16:34)
[2024-03-11] MEDS: iohexoL 350 MG/ML 100 ML INFUS..BTL IV (17:06)
[2024-03-11 18:18] VITALS: BP 181/77; PULSE 100; RESP 16; TEMP 36.2; O2SAT 100
--- NOTE | 2024-03-11 19:31 | PM.IMHP ---
History of Present Illness Date of Service: 03/11/24 Attending physician on admission: Debra Farrell Chief Complaint: Rectal bleeding Daly Hickman is a 74 years old woman with past medical history significant for gastritis, dysphagia, hypothyroidism and hyperlipidemia presents to the emergency department complaining of 3 events of maroon colored stool that started yesterday. Last episode was this morning. She denied any associated abdominal pain, nausea or vomiting. She takes aspirin daily. Denied headache, palpitations, chest pain or shortness on breath. She did not report any acute urinary symptoms. She denies history of significant rectal bleeding. She also has history of PUD and hemorrhoids. She underwent an EGD (Sep 2023) and was found to have a multiple gastric ulcer, gastric and dysphagia. During this evaluation she was found to have H pylori. She denied history of colon cancer or having a colonoscopy (had cologuard - negative). Denied alcohol abuse, tobacco smoking or illicit drug use. She has a history of x3. In the ED mature stable vital signs. Dawn's and degree of hypertension, last BP is 181/77. Her hemoglobin this morning was 14.6 and hematocrit 44.0 in. Platelets are normal. INR is 1.0. There are no significant electrolyte imbalances except for degree of hyperchloremia. CO2 is 20 with normal anion gap. BUN is 20 and creatinine is 0.82. Abdominal IV contrast with IV contrast showed severe colitis of the distal colon. Review of Systems Review of Systems: All 12 systems were reviewed and normal except as noted in HPI. FORMERLY [facility], [facility] Medical History Colon cancer screening declined [place] (hard of hearing) Pharyngitis Poor circulation Postmenopausal Chronic sinusitis Anxiety Abdominal pain BPPV (benign paroxysmal positional vertigo) (~03/2021) Anxiety Mild depression Sinusitis Long-term use of aspirin therapy Pure hypercholesterolemia Allergic rhinitis Hypothyroidism Family History Father No problems noted. Mother Vaginal cancer Brother Cancer Sister Skin cancer Son No problems noted. Son No problems noted. Daughter No problems noted. Surgical History History of esophagogastroduodenoscopy (EGD) History of bilateral cataract extraction History of mastoidectomy History of 3 sections Social History Household Members: None Housing: Apartment Alcohol intake: never Patient Tobacco Use Status: Never used Tobacco Smoked in Last 30 Days: No e-Cigarette/Vaping Use: Never Used Second Hand Smoke Exposure: No Use of substances other than those prescribed or required for medical reasons: No Advance Directives: No Advance Directives Information Provided: No Do you have a plan to hurt others: No Plan service: No Current occupational status: previously employed and retired 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 Cognitive needs: No Hearing needs: No Vision needs: Yes Meds Allergies Allergy/AdvReac Type Severity Reaction Status Date / Time Penicillins [PENICILLINS] Allergy Intermediate syncope Verified 03/11/24 09:00 Active Medications: Current Medications Acetaminophen (Acetaminophen 325 Mg Tablet) 975 mg PO Q6H PRN PRN Reason: Pain, Mild 1-3,fever,headache Melatonin (Melatonin 3 Mg Tablet) 6 mg PO BEDTIME PRN PRN Reason: Insomnia Pantoprazole Sodium (Pantoprazole Sodium 40 Mg/10 Ml Vial) 40 mg IVPUSH BID [place] Sodium Chloride (0.9 % Sodium Chloride Flush 3 Ml Syringe) 3 ml IVFLUSH QSHIFT [facility] Home Medications ?Medication ?Instructions ?Recorded ?Confirmed ?Last Taken ?Type aspirin 81 mg tablet,delayed 81 mg PO DAILY 02/05/20 10/18/23 09/18/23 History release (Adult Aspirin Regimen) Physical Exam Vital Signs and Narrative: Vital Signs: Last Vital Signs Temp 97.2 F 03/11/24 18:18 Pulse 100 03/11/24 18:18 Resp 16 03/11/24 18:18 BP 181/77 H 03/11/24 18:18 Pulse Ox 100 03/11/24 18:18 O2 Del Method Room Air 03/11/24 18:18 BMI result Body Mass Index 24.1 Constitutional - Awake and Alert, No apparent distress. Pleasant. HEENT - PERRL, EOMI. Normal sclerae. Dry oral mucosa. Heart - RRR, No murmurs Lungs - Normal lung expansion, Normal respiratory effort, No respiratory distress, CTA bilaterally Abdomen - NT / ND; increased BS; No rebound or guarding Extremities - no calf tenderness bilaterally, no swelling Musculoskeletal - Normal inspection, normal ROM Skin - Warm/Dry. No pallor. No jaundice. Neurological - Alert & oriented x3, CN II-XII in tact, 5/5 strength BUE and BLE Psychological - Appropriate affect Results Labs 03/11/24 09:31 03/11/24 09:30 Labs: Laboratory Results - last 24 hr 03/11/24 03/11/24 03/11/24 09:30 09:31 16:08 MCV 78.3 L MCH 26.0 L MCHC 33.2 RDW 14.2 Plt Count 280 MPV 9.5 Immature Gran % (Auto) 0.2 Neut % (Auto) 60.4 Lymph % (Auto) 30.8 [place] % (Auto) 7.4 Eos % (Auto) 0.9 Baso % (Auto) 0.3 Lymph # (Auto) 2.7 [place] # (Auto) 0.6 Eos # (Auto) 0.1 Baso # (Auto) 0.0 Abs Immat Gran (auto) 0.02 Absolute Neuts (auto) 5.2 Absolute Nucleated RBC 0.000 Nucleated RBC % (auto) 0.0 PT 11.6 INR 1.0 Anion Gap 12 Estim Creat Clear Calc 46.5 Estimated GFR > 60 Random Glucose 108 Calcium 9.2 D Stool Occult Blood POSITIVE Blood Type O Positive Antibody Screen NEGATIVE Assessment and Plan (1) Colitis: Status: Acute (2) Hematochezia: Status: Acute Plan Daly Hickman is a 74 y/o woman with PMHx of multiple gastric ulcer, gastritis, H pylori infection and dysphagia admitted with: Hematochezia, likely diverticular bleeding, differential: Colitis PUD, polyps, masses or IV malformation. EGD Sep 2023 (dysphagia, multiple gastric ulcer, gastritis; Cologuard - negative). Admit to hospitalist service. NPO after midnight. Hold aspirin. Continue treatment with Protonix 40 mg IV twice daily. Continue to monitor H&H. Gastroenterology consult. Colitis. No evidence of infection. We will avoid antibiotics for now. Hypothyroidism. Continue levothyroxine. Hyperlipidemia. Continue statin. DVT prophylaxis: SCDs only (anticoagulant contraindicated due to active rectal bleeding). Code status: Full Patient will need hospitalization for at least 2 midnights for multiple events of rectal bleeding 3 evaluation. She will need continuous monitoring of H&H and evaluation by subspecialty. Quality Stroke Does the patient have a stroke diagnosis?: No VTE Prior VTE?: No VTE Risk Level:: Medical - moderate - high VTE Device Contraindication: N/A - Device Ordered VTE Drug Contraindication: Treatment Not Indicated
[2024-03-11 19:56] LABS: Alanine Aminotransferase 31 U/L (0-31); Albumin Level 3.8 g/dL (3.5-5.0); Alkaline Phosphatase 85 U/L (39-117); Aspartate Amino Transferase 43 U/L (5-31); Bilirubin Direct 0.2 mg/dL (0.0-0.5); Bilirubin Total 0.9 mg/dL (0.0-1.0); Total Protein 7.1 g/dL (6.5-8.0)
[2024-03-11 20:00] VITALS: BP 183/84; PULSE 84; RESP 16; TEMP 36.4; O2SAT 96
[2024-03-11 20:37] LABS: Hemoglobin 13.2 g/dl (12.0-16.0)
[2024-03-11 21:56] LABS: Appearance Urine Clear; Color Urine Yellow; Glucose Urine UA Negative (Negative); Leukocyte Esterase Urine Negative (Negative); Nitrite Urine Negative (Negative); PH 6.5 (5.0-9.0); Urine Blood Negative (Negative); Urine Ketones Negative (Negative); Urine Protein Negative (Neg-Trace)
[2024-03-12 05:32] VITALS: BP 139/76; PULSE 92; RESP 16; TEMP 37.1; O2SAT 97
[2024-03-12 06:38] LABS: MANUAL DIFF FLAG NO
[2024-03-12 06:55] LABS: Basophils Percent Auto 0.6 % (0-2); Eosinophils Absolute Auto 0.2 X10*3/uL (0.0-0.4); Eosinophils Percent Auto 2.2 % (0-4); Hematocrit 41.3 % (37.0-47.0); Hemoglobin 13.4 g/dl (12.0-16.0); Imm Gran Abs Auto 0.02 X10*3/uL (0.00-0.03); Imm Gran Pct Auto 0.3 % (0.0-0.4); Lymphocytes Percent Auto 41.2 % (20-40); Mean Corpuscular HGB Conc 32.4 g/dl (31.0-35.0); Mean Corpuscular Hemoglobin 25.6 pg (27.0-33.0); Mean Corpuscular Volume 78.8 fL (80.0-98.0); Monocytes Absolute Auto 0.6 X10*3/uL (0.1-1.2); Monocytes Percent Auto 8.2 % (2-11); Neutrophils Absolute Auto 3.4 x10*3/uL (2.0-8.3); Neutrophils Percent Auto 47.5 % (45-73); Platelet Count 255 X10*3/uL (160-400); Red Blood Count 5.24 X10*6/uL (4.20-5.50); Red Cell Distribution Width 14.2 % (11.0-16.0); White Blood Count 7.2 X10*3/uL (4.8-10.8)
[2024-03-12 07:19] LABS: Anion Gap 11 (12-20); Blood Urea Nitrogen 14 mg/dL (9-16); Calcium 8.9 mg/dL (8.4-10.2); Carbon Dioxide 23 mmol/L (22-29); Chloride 110 mmol/L (96-108); Creatinine Clr Calc Pharmacy 49.6; Estimated Glomerular Filt Rate > 60; Glucose Random 75 mg/dL (60-115); Magnesium 2.1 mg/dL (1.6-2.6); Potassium 4.3 mmol/L (3.3-5.1); Sodium 140 mmol/L (135-145)
--- NOTE | 2024-03-12 08:44 | PHA.MEDREC ---
Addendum entered by Keri Toribio RPh 03/12/24 09:08: reviewed by [facility]. Original Note: Pharmacy Consult ? Medication Reconciliation Pharmacy has completed the medication reconciliation. Spoke with patient and patient son at bedside and they were able to confirm the patients medications. Patient confirmed she is taking only Aspirin 81mg tabs once daily, Meclizine 25mg tabs one tab as needed for dizziness, Pravastatin 20mg once daily and Synthroid 50mg tabs once daily. The patient and patients son expressed their concerns with the patient getting the name brand Synthroid for her thyroid because the patient cannot take Levoythyroxine due to past reactions when taking the generic; patient son states he is able to bring it in if needed. Patient states she has not taken her Synthroid medication in 2 days and confirmed everything else yesterday morning.
[2024-03-12 10:15] VITALS: BP 149/57; PULSE 85; RESP 16; TEMP 36; O2SAT 95
[2024-03-12] MEDS: Pantoprazole Sodium 40 MG/10 ML VIAL IVPUSH ×2 (10:35→19:53)
--- NOTE | 2024-03-12 10:52 | P.PNIM_ITS ---
Subjective Subjective Date of Service: 03/12/24 Review of Systems Follow up diverticulitis no abd pain or bleeding noted Physical Exam 2 Vital Signs: Vital Signs: Last Vital Signs Temp 96.8 F 03/12/24 10:15 Pulse 85 03/12/24 10:15 Resp 16 03/12/24 10:15 BP 149/57 H 03/12/24 10:15 Pulse Ox 95 03/12/24 10:15 O2 Del Method Room Air 03/12/24 10:15 BMI result Body Mass Index 24.1 Appearing in no acute distress lung sounds are clear to auscultation heart regular rate rhythm, clear S1, S2 positive bowel sounds, abdomen is soft, nontender neuro patient is alert x3, no focal deficits Objective Data Active Medications Acetaminophen (Acetaminophen 325 Mg Tablet) 975 mg PO Q6H PRN PRN Reason: Pain, Mild 1-3,fever,headache Melatonin (Melatonin 3 Mg Tablet) 6 mg PO BEDTIME PRN PRN Reason: Insomnia Pantoprazole Sodium (Pantoprazole Sodium 40 Mg/10 Ml Vial) 40 mg IVPUSH BID [facility] Last Admin: 03/12/24 10:35 Dose: 40 mg Documented By: ELY Sodium Chloride (0.9 % Sodium Chloride Flush 3 Ml Syringe) 3 ml IVFLUSH QSHIFT [facility] Last Admin: 03/12/24 07:55 Dose: Not Given Documented By: CAROLYNN Non-Admin Reason: Previously Administered Labs 03/12/24 06:09 03/12/24 06:09 Labs: Laboratory Results - last 24 hr 03/11/24 03/11/24 03/11/24 09:30 16:08 21:50 MCV MCH MCHC RDW Plt Count MPV Immature Gran % (Auto) Neut % (Auto) Lymph % (Auto) [place] % (Auto) Eos % (Auto) Baso % (Auto) Lymph # (Auto) [place] # (Auto) Eos # (Auto) Baso # (Auto) Abs Immat Gran (auto) Absolute Neuts (auto) Absolute Nucleated RBC Nucleated RBC % (auto) PT 11.6 INR 1.0 Anion Gap Estim Creat Clear Calc Estimated GFR Random Glucose Calcium Magnesium Total Bilirubin 0.9 Direct Bilirubin 0.2 AST 43 H ALT 31 Alkaline Phosphatase 85 Total Protein 7.1 Albumin 3.8 Urine Color Yellow Urine Appearance Clear Urine pH 6.5 Ur Specific [place] 1.020 Urine Protein Negative Urine Glucose (UA) Negative Urine Ketones Negative Urine Blood Negative Urine Nitrite Negative Ur Leukocyte Esterase Negative Stool Occult Blood POSITIVE Blood Type O Positive Antibody Screen NEGATIVE 03/12/24 06:09 MCV 78.8 L MCH 25.6 L MCHC 32.4 RDW 14.2 Plt Count 255 MPV 10.0 Immature Gran % (Auto) 0.3 Neut % (Auto) 47.5 Lymph % (Auto) 41.2 H [place] % (Auto) 8.2 Eos % (Auto) 2.2 Baso % (Auto) 0.6 Lymph # (Auto) 3.0 [place] # (Auto) 0.6 Eos # (Auto) 0.2 Baso # (Auto) 0.0 Abs Immat Gran (auto) 0.02 Absolute Neuts (auto) 3.4 Absolute Nucleated RBC 0.000 Nucleated RBC % (auto) 0.0 PT INR Anion Gap 11 L Estim Creat Clear Calc 49.6 Estimated GFR > 60 Random Glucose 75 Calcium 8.9 Magnesium 2.1 Total Bilirubin Direct Bilirubin AST ALT Alkaline Phosphatase Total Protein Albumin Urine Color Urine Appearance Urine pH Ur Specific [place] Urine Protein Urine Glucose (UA) Urine Ketones Urine Blood Urine Nitrite Ur Leukocyte Esterase Stool Occult Blood Blood Type Antibody Screen Assessment and Plan (1) Colon cancer screening declined: Status: Acute Plan Daly Hickman is a 74 y/o woman with PMHx of multiple gastric ulcer, gastritis, H pylori infection and dysphagia admitted with: Hematochezia, likely diverticular bleeding Colitis PUD, polyps, masses or IV malformation. EGD Sep 2023 (dysphagia, multiple gastric ulcer, gastritis; Cologuard - negative). Hold aspirin. Continue treatment with Protonix 40 mg IV twice daily. Continue to monitor H&H. clear diet Gastroenterology consult> Colitis. No evidence of infection. avoid antibiotics for now. Hypothyroidism. Continue levothyroxine. Hyperlipidemia. Continue statin. DVT prophylaxis: SCDs only (anticoagulant contraindicated due to active rectal bleeding). Code status: Full Quality Stroke Does the patient have a stroke diagnosis?: No VTE Prior VTE?: No VTE Risk Level:: Medical - moderate - high VTE Device Contraindication: N/A - Device Ordered VTE Drug Contraindication: Treatment Not Indicated
--- NOTE | 2024-03-12 12:49 | MHC.CM.PN ---
IMM DELIVERED PT LIVES ALONE AND IS FUNCTIONALLY INDEPENDENT. NO SERVICES OR DME. [place] [facility] [place], NO SERVICES ANTICIPATED. FAMILY WILL TRANSPORT HOME. CM WILL CONTINUE TO FOLLOW FOR ANY CHANGE TO DC PLAN/NEEDS.
[2024-03-12 15:07] VITALS: BP 143/74; PULSE 71; RESP 18; TEMP 36.4; O2SAT 97
--- NOTE | 2024-03-12 17:21 | PM.GICN ---
History of Present Illness Data of Consult Service Date: 03/12/24 Primary Care Provider: Shania Howell MD HPI Reason for consult: colitis 74 year old woman with hx of gastritis, hypothyroidism and hyperlipidemia who I am seeing for assessment for rectal bleeding. Patient recalls eating pork, beans and rice evening before. Shortly after that she fresh red bloods per rectum. She had at least 3 other episodes of just blood, with minimal stool. She denied any associated abdominal pain, nausea or vomiting. She denies history of colon cancer or having had a colonoscopy (had cologuard - negative). Denied alcohol abuse, tobacco smoking or illicit drug use. She feels well and wants to go home. Vitals have been stable and HGB went from 14-->13 g/dl. CT imaging with descending colon colitis noted. Review of Systems Review of Systems: Constitutional : No Weight loss, No Fever, No Chills ENT/Mouth : No sore throat, No Rhinorrhea Eyes: No Swelling, No Redness Cardiovascular : No Chest Pain, No SOB, No Edema Respiratory : No Cough, No Sputum, No Wheezing Gastrointestinal : see HPI Genitourinary : NO Dysuria, No Urinary Frequency, No Hematuria, No Urgency Musculoskeletal : no joint pain, No Myalgias, No Joint Swelling Skin : No Skin Lesions, No rash Neuro : No Weakness, No Numbness, No Dizziness, No Headache Psych : No Anxiety/Panic, No Depression Heme/Lymph: No Bruising, No Lymphadenopathy Endocrine : No Polyuria, No Polydipsia All other systems reviewed and are negative. [facility] Past Medical History Medical History Colon cancer screening declined [place] of [place]) Pharyngitis Poor circulation Postmenopausal Chronic sinusitis Anxiety Abdominal pain BPPV (benign paroxysmal positional vertigo) (~03/2021) Anxiety Mild depression Sinusitis Long-term use of aspirin therapy Pure hypercholesterolemia Allergic rhinitis Hypothyroidism Family History Family History Father No problems noted. Mother Vaginal cancer Brother Cancer Sister Skin cancer Son No problems noted. Son No problems noted. Daughter No problems noted. 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 Meclizine HCl (Meclizine Hcl 25 Mg Tablet) 25 mg PO TID PRN PRN Reason: Dizziness Melatonin (Melatonin 3 Mg Tablet) 6 mg PO BEDTIME PRN PRN Reason: Insomnia Pantoprazole Sodium (Pantoprazole Sodium 40 Mg/10 Ml Vial) [address] [facility] Last Admin: 03/12/24 10:35 Dose: 40 mg Pravastatin Sodium (Pravastatin Sodium 20 Mg Tablet) [address] [facility] Sodium Chloride (0.9 % Sodium Chloride Flush 3 Ml Syringe) [address] [facility] Last Admin: 03/12/24 07:55 Dose: Not Given Home Medications ?Medication ?Instructions ?Recorded ?Confirmed ?Last Taken ?Type aspirin 81 mg tablet,delayed 81 mg PO DAILY 02/05/20 03/12/24 03/11/24 History release (Adult Aspirin Regimen) Synthroid 50 Mcg 50 mcg PO DAILY 03/12/24 03/12/24 03/10/24 History meclizine 25 mg tablet 25 mg PO TID PRN Dizziness 03/12/24 03/12/24 Unknown History Physical Exam Vital Signs: Vital Signs: Last Vital Signs Temp 97.5 F 03/12/24 15:07 Pulse 71 03/12/24 15:07 Resp 18 03/12/24 15:07 BP 143/74 H 03/12/24 15:07 Pulse Ox 97 03/12/24 15:07 O2 Del Method Room Air 03/12/24 15:07 BMI result Body Mass Index 24.1 EXAM: GENERAL: The patient is well developed and nontoxic. VITAL SIGNS:see workflow HEENT: Nonicteric sclerae, PERRLA, EOMI. Oropharynx clear. Moist mucous membranes. Conjunctivae appear well perfused. No thyroid mass. CHEST: Chest wall is nontender. HEART: Regular rate and rhythm without murmurs. LUNGS: Clear to auscultation bilaterally. ABDOMEN: Soft, positive bowel sounds, nontender, no organomegaly.no flank tenderness SKIN: No rash, no excessive bruising, petechiae, or purpura. NEUROLOGIC: Cranial nerves II-XII intact without motor/sensory deficit. Psych: normal affect Results Labs 03/12/24 06:09 03/12/24 06:09 Labs: Short CBC 03/11/24 03/12/24 Range/Units 20:16 06:09 WBC 7.2 (4.8-10.8) X10*3/uL Hgb 13.2 13.4 (12.0-16.0) g/dl Hct 40.0 41.3 (37.0-47.0) % Plt Count 255 (160-400) X10*3/uL BMP 03/12/24 06:09 Sodium 140 Potassium 4.3 Chloride 110 H Carbon Dioxide 23 BUN 14 Creatinine 0.77 Calcium 8.9 Liver Function 03/11/24 Range/Units 09:30 Total Bilirubin 0.9 (0.0-1.0) mg/dL Direct Bilirubin 0.2 (0.0-0.5) mg/dL AST 43 H (5-31) U/L ALT 31 (0-31) U/L Alkaline Phosphatase 85 (39-117) U/L Albumin 3.8 (3.5-5.0) g/dL Urine 03/11/24 Range/Units 21:50 Urine Color Yellow Urine Appearance Clear Urine pH 6.5 (5.0-9.0) Ur Specific [place] 1.020 (1.005-1.025) Urine Protein Negative (Neg-Trace) mg/dL Urine Glucose (UA) Negative (Negative) mg/dL Imaging CT scan - abdomen: Attestation: I personally reviewed and interpreted this imaging study as follows: (left sided colonic thickening) Assessment and Plan (1) Colitis: Status: Acute Plan 1/ Abn imaging with colitis, symptomatic with rectal bleeding, likely infectious, PLAN: 1/ Advance deit as tolerated 2/ If vitals stable, and bleeding stops then o/p 3/ if diarrhea then GI PCR panel 4/ if fever or toxic add antibiotic regimen Procedures Date of Service Date of Service: 03/13/24
[2024-03-12 19:16] VITALS: BP 148/76; PULSE 71; RESP 18; TEMP 36.2; O2SAT 95
[2024-03-12] MEDS: 0.9 % Sodium Chloride Flush 3 ML SYRINGE IVFLUSH (19:53)
[2024-03-13 04:00] VITALS: BP 140/70; PULSE 75; RESP 17; TEMP 37; O2SAT 96
[2024-03-13] MEDS: LEVOTHYROXINE 50 MCG 50 EACH PO (05:16)
[2024-03-13 08:00] VITALS: BP 136/73; PULSE 70; RESP 16; TEMP 36.2; O2SAT 99
[2024-03-13] MEDS: cefTRIAXone sodium 1 GM VIAL IVPUSH (10:32)
[2024-03-13] MEDS: 0.9 % Sodium Chloride Flush 3 ML SYRINGE IVFLUSH (10:32)
[2024-03-13] MEDS: Pravastatin Sodium 20 MG TABLET PO (10:33)
[2024-03-13] MEDS: Pantoprazole Sodium 40 MG/10 ML VIAL IVPUSH (10:33)
--- NOTE | 2024-03-13 10:38 | PM.DS ---
DS: Providers Provider Date of Service: 03/13/24 Date of admission: 03/11/24 19:27 Date of discharge: 03/13/24 Primary care physician: Shania Howell MD Consults: 03/11/24 19:31 Consult to Gastroenterology Routine Consulting Provider: Koby Sims Reason for consultation: Hematochezia Has provider been notified: No DS: Diagnosis Discharge Diagnosis (1) Colitis: Status: Acute DS: Summary Hospital Course Hospital Course: History and physical as per admitting provider. Daly Hickman is a 74 years old woman with past medical history significant for gastritis, dysphagia, hypothyroidism and hyperlipidemia presents to the emergency department complaining of 3 events of maroon colored stool that started yesterday. Last episode was this morning. She denied any associated abdominal pain, nausea or vomiting. She takes aspirin daily. Denied headache, palpitations, chest pain or shortness on breath. She did not report any acute urinary symptoms. She denies history of significant rectal bleeding. She also has history of PUD and hemorrhoids. She underwent an EGD (Sep 2023) and was found to have a multiple gastric ulcer, gastric and dysphagia. During this evaluation she was found to have H pylori. She denied history of colon cancer or having a colonoscopy (had cologuard - negative). Denied alcohol abuse, tobacco smoking or illicit drug use. She has a history of x3. In the ED mature stable vital signs. Dawn's and degree of hypertension, last BP is 181/77. Her hemoglobin this morning was 14.6 and hematocrit 44.0 in. Platelets are normal. INR is 1.0. There are no significant electrolyte imbalances except for degree of hyperchloremia. CO2 is 20 with normal anion gap. BUN is 20 and creatinine is 0.82. Abdominal IV contrast with IV contrast showed severe colitis of the distal colon. Hematochezia, secondary to infectious colitis. Treated with IV antibiotics initially as per Gastroenterology, home with 5 days of Levaquin. Patient will need to follow up with Gastroenterology in 6-8 weeks for colonoscopy. Do with IV Protonix, will be discharged with Prilosec. H&H has remained stable. Diet was advanced with no issue Hypothyroidism. Continue levothyroxine. Hyperlipidemia. Continue statin. Time Attestation Discharge Coordination Time (in mins): 40 Quality: Safe Use of Opioids Does Pt have an Active Cancer Diagnosis on the Problem List?: No Quality: Stroke Does the patient have a stroke diagnosis?: No Physical Exam Vital Signs: Vital Signs: Last Vital Signs Temp 97.2 F 03/13/24 08:00 Pulse 70 03/13/24 08:00 Resp 16 03/13/24 08:00 BP 136/73 03/13/24 08:00 Pulse Ox 99 03/13/24 08:00 O2 Del Method Room Air 03/13/24 08:00 BMI result Body Mass Index 24.1 Appearing in no acute distress head is normocephalic atraumatic eyes pupils are PERRLA sclera is anicteric mouth throat mucous membranes are intact and moist neck is supple no lymphadenopathy, no JVD noted lung sounds are clear to auscultation heart regular rate rhythm, clear S1, S2 positive bowel sounds, abdomen is soft, nontender neuro patient is alert x3, no focal deficits Discharge Plan Discharge Anticipated Discharge Date/Time: 03/13/24 10:33 Patient Disposition: Home, Self-Care Discharge Diagnosis: Hematochezia infectious colitis Referrals: Shania Hancock MD [Primary Care Provider] - 1 Week Discharge Medications: New levofloxacin 500 mg tablet 500 mg PO DAILY Qty: 5 0RF Prilosec 10 mg susp,delayed release for recon 20 mg PO DAILY Qty: 30 0RF Continued pravastatin 20 mg tablet 20 mg PO DAILY 90 Days Qty: 90 2RF meclizine 25 mg tablet 25 mg PO TID PRN (Reason: Dizziness) Synthroid 50 Mcg 50 mcg 50 mcg PO DAILY aspirin [Adult Aspirin Regimen] 81 mg tablet,delayed release (DR/EC) 81 mg PO DAILY Discharge Orders: Discharge Order (Routine); Ordered 03/13/24 Ordered By: Bing Pabon Diet: Advance to usual diet Activity on Discharge: As tolerated Stand Alone Forms: Patient Portal Discharge page Print Language: Uzbek Care Plan Goals: complete antibiotic course for 5 days Take prilosec daily to help protect against gastritis Health Concerns: Hematochezia infectious colitis Plan of Treatment: Follow up with primary care provider as needed Take all medications as needed Assessment: See discharge summary
--- NOTE | 2024-03-13 11:33 | MHC.CM.PN ---
DP: PT HAS BEEN MEDICALLY CLEARED FOR DC HOME, NO SERVICES. SON WILL TRANSPORT
[2024-03-13 12:00] VITALS: BP 138/68; PULSE 78; RESP 16; TEMP 36.2; O2SAT 97
--- NOTE | 2024-03-13 12:41 | P.PNGI_ITS ---
Subjective Subjective Date of Service: 03/13/24 Interval History: doing much better today no nausea no abdo pain ate food easily without worsening of sx no blood WA today Critical Care Time (minutes): 0 Physical Exam 2 Vital Signs: Vital Signs: Last Vital Signs Temp 97.1 F 03/13/24 12:00 Pulse 78 03/13/24 12:00 Resp 16 03/13/24 12:00 BP 138/68 03/13/24 12:00 Pulse Ox 97 03/13/24 12:00 O2 Del Method Room Air 03/13/24 12:00 BMI result Body Mass Index 24.1 EXAM: GENERAL: The patient is well developed and nontoxic. VITAL SIGNS:see workflow HEENT: Nonicteric sclerae, PERRLA, EOMI. Oropharynx clear. Moist mucous membranes. Conjunctivae appear well perfused. No thyroid mass. CHEST: Chest wall is nontender. HEART: Regular rate and rhythm without murmurs. LUNGS: Clear to auscultation bilaterally. ABDOMEN: Soft, positive bowel sounds, nontender, no organomegaly.no flank tenderness SKIN: No rash, no excessive bruising, petechiae, or purpura. NEUROLOGIC: Cranial nerves II-XII intact without motor/sensory deficit. Psych: normal affect Objective Data Labs 03/12/24 06:09 03/12/24 06:09 Procedures Date of Service Date of Service: 03/13/24 Progress Note: A&P Assessment and plan (1) Colitis: Status: Acute Plan 1/ colitis, prob infectious, seems well and stable HGB PLAN: 1/ o/p colonoscopy in 4-8 weeks or so Time Spent With Patient Time: Total time managing care of this patient today ____ minutes. Quality Stroke Does the patient have a stroke diagnosis?: No VTE Prior VTE?: No VTE Risk Level:: Medical - moderate - high VTE Device Contraindication: N/A - Device Ordered VTE Drug Contraindication: Treatment Not Indicated
== END 2024-03-13 12:42 | disposition home or self-care (01) | DRG 392 ==
LOC: HO.ED 16:10 → HO.EDOVER 19:38 → HO.S3 03-12 07:36
PROVIDERS: Admitting Provider Internal Medicine; Emergency Provider Emergency Medicine; PCP Internal Medicine; Visit Provider Nurse Practitioner Acute Care
DX: A09 Infectious gastroenteritis and colitis, unspecified (principal); K92.1 Melena; E03.9 Hypothyroidism, unspecified; E78.5 Hyperlipidemia, unspecified; Z79.82 Long term (current) use of aspirin; Z79.890 Hormone replacement therapy; Z79.899 Other long term (current) drug therapy
CPT/HCPCS: 36415; 74177; 80048; 80076; 81003; 82272; 83735; 85014; 85018; 85025; 85610; 86850; 86900; 86901; 99285; J0696; J2470; Q9967

== ENCOUNTER → 2024-03-11 16:01 | Outpatient (BNV) | payer MEDICARE, SELFPAY | PROVIDERS: Emergency Provider Emergency Medicine; PCP Internal Medicine; Visit Provider Radiology Diagnostic Radiology | DX: K62.5 Hemorrhage of anus and rectum (principal) | CPT/HCPCS: 74177 ==

== ENCOUNTER → 2024-03-11 19:27 | Outpatient (BNV) | payer MEDICARE, MEDICAID, SELFPAY | PROVIDERS: Admitting Provider Internal Medicine; Emergency Provider Emergency Medicine; PCP Internal Medicine; Visit Provider Internal Medicine | DX: K52.9 Noninfective gastroenteritis and colitis, unspecified (principal) | CPT/HCPCS: 99232; 99239 ==

== ENCOUNTER → 2024-03-11 19:27 | Outpatient (BNV) | payer MEDICARE, MEDICAID, SELFPAY | PROVIDERS: Admitting Provider Internal Medicine; Emergency Provider Emergency Medicine; PCP Internal Medicine; Visit Provider Internal Medicine Gastroenterology | DX: K52.9 Noninfective gastroenteritis and colitis, unspecified (principal) | CPT/HCPCS: 99223; 99232 ==

== ENCOUNTER 2024-03-23 10:38 | Outpatient (AMB) | payer MEDICARE, MEDICAID, SELFPAY ==
[2024-03-23 10:54] VITALS: BP 114/60; PULSE 84; TEMP 36.2; O2SAT 100; BMI 23.7
--- NOTE | 2024-03-23 10:54 | MHC.PC.OV ---
Vital Signs 03/23/24 10:54 Height 4 ft 11 in Weight 117 lb 8 oz BMI 23.7 BP 114/60 Blood Pressure Location Lt brachial Position Sitting Pulse 84 Pulse Source Pulse Oximeter Temp 97.1 F Temp Source Temporal Artery Scan Pulse Oximetry (%) 100 Oxygen Delivery Method Room Air Intake Visit Reasons: TCM [facility] [place] [facility] 03/13 hematochezia Photogrammetry Airplane Pilot Required: No Photogrammetry Airplane Pilot Name: Pt refused son will interpret Accompanied by: Son Allergies Penicillins [PENICILLINS] Allergy (Intermediate, Verified 03/23/24 10:59) syncope Tobacco use date assessed: 03/23/24 Fall risk assessment: No Falls in past year Last assessed Fall Risk: 03/23/24 Dental Screening Dental Screen Date: 03/23/24 Did you have a dental visit in the last 12 months?: No Did you have a dental problem in the last 6 months where you did not have access to dental care?: No Was dental information given to patient?: Patient has dentist [facility] TCM TCM Information Date of Discharge 03/13/24 Discharged From [facility] Interactive Contact Date (Reference documentation from this date) 03/14/24 HPI Comments History of Present Illness Details 74 y/o female patient who presents to the clinic for TCM. Her past medical history significant for gastritis, dysphagia, hypothyroidism and hyperlipidemia. She was admitted at [facility] [place] 03/11 and discharged home 03/13 due to Hematochezia secondary to infectious colitis . She also has history of PUD and hemorrhoids.She underwent an EGD (Sep 2023) and was found to have a multiple gastric ulcer, gastric and dysphagia. During this evaluation she was found to have H pylori. She denied history of colon cancer or having a colonoscopy (had cologuard - negative). Denied alcohol abuse, tobacco smoking or illicit drug use. Abdominal IV contrast with IV contrast showed severe colitis of the distal colon. Was Treated with IV antibiotics and discharged home with 5 days of Levaquin plus Prilosec. Patient will need to follow up with Gastroenterology in 6-8 weeks for colonoscopy. [facility]LY [facility] Medical History Colon cancer screening declined [place] (hard of hearing) Pharyngitis Poor circulation Postmenopausal Chronic sinusitis Anxiety Abdominal pain BPPV (benign paroxysmal positional vertigo) (~03/2021) Anxiety Mild depression Sinusitis Long-term use of aspirin therapy Pure hypercholesterolemia Allergic rhinitis Hypothyroidism Surgical History History of esophagogastroduodenoscopy (EGD) History of bilateral cataract extraction History of mastoidectomy History of 3 sections Family History Father No problems noted. Mother Vaginal cancer Brother Cancer Sister Skin cancer Son No problems noted. Son No problems noted. Daughter No problems noted. 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 1. Little interest or pleasure in doing things: not at all 2. Feeling down, depressed, or hopeless: not at all 3. Trouble falling or staying asleep, or sleeping too much: not at all 4. Feeling tired or having little energy: not at all 5. Poor appetite or overeating: not at all 6. Feeling bad about yourself - or that you are a failure or have let yourself or your family down: not at all 7. Trouble concentrating on things, such as reading the newspaper or watching television: not at all 8. Moving or speaking so slowly that other people could have noticed. Or the opposite - being so fidgety or restless that you have been moving around a lot more than usual: not at all 9. Thoughts that you would be better off or of hurting yourself in some way: not at all Total score: 0 Depression Screening Interpretation: Negative Depression Screening Done: Yes 15463 - PHQ-9 Billing: Yes Source: Developed by Drs. Kalen Herring, Cristiana Garcia, Boyd Hubbard and colleagues, with an educational obinna from [employer]. Thrive Questionnaire Date Thrive assessed: 03/23/24 JORDAN-7 AMB Questionnaire JORDAN-7 Date JORDAN - 7 assessed: 10/18/23 Source: Developed by Drs. Kalen Herring, Cristiana Garcia, Boyd Hubbard and colleagues, with an educational obinna from [employer]. Physical exam (Primary Care) Vital Signs: Last Vital Signs Temp 97.1 F 03/23/24 10:54 Pulse 84 03/23/24 10:54 BP 114/60 03/23/24 10:54 Pulse Ox 100 03/23/24 10:54 Oxygen Delivery Method Room Air 03/23/24 10:54 BMI result Body Mass Index 23.7 Tobacco/Smoking Status: Tobacco use Status Tobacco use date assessed 03/23/24 03/23/24 10:59 Patient Tobacco Use Status Never used Tobacco 03/23/24 10:58 e-Cigarette/Vaping Use Never Used 03/23/24 10:58 PHQ-9: PHQ-9 Score PHQ-9: Total score 0 03/23/24 10:59 Depression Screening Interpretation: Negative Thrive Assessment: Date of Thrive Assessment Date Thrive assessed 03/23/24 03/23/24 10:58 Coding Level of Care Code TCM Mod MDM <= 14 Days Diagnoses Hematochezia K92.1 Colitis K52.9 Additional Codes PHQ-9 - 50209 - PHQ-9 Billing: Yes ([id number]) Time Spent (min) 20 Assessment & Plan Assessment & Plan (1) Hematochezia: Code(s): K92.1 - Melena Plan: Placed referral to GI (2) Colitis: Code(s): K52.9 - Noninfective gastroenteritis and colitis, unspecified Plan: Completed Abx course Orders: Referrals Gastroenterology Referral K52.9 - Noninfective gastroenteritis and colitis, unspecified
--- OUTSIDE RECORDS SUMMARY | 2024-03-23 11:41 | XMS_ITS | Encounter Summary ---
Author Organization [employer] [facility] Address [address] [place] [address] Care Team Providers Care Research Executive Name Role Phone Unavailable Primary Care Provider Unavailabl e Encounter Details Date Type Department Care Team (Latest Contact Info) Description 08/22/[address] [facility] CONVERSIONS Dental, Provider, DDS Social [...]
--- OUTSIDE RECORDS SUMMARY | 2024-03-23 11:41 | XMS_ITS | Clinical Summary ---
Author Organization [employer] [facility] Address [address] [place] [address] Care Team Providers Care Publishing Editor Name Role Phone Unavailable Primary Care Provider [...] Vaccines (1 of 2) 02/04/2002 Pneumococcal Vaccine: 50+ Years (2 of 2 - PPSV23) 02/18/2018 02/18/2017 COVID-19 Vaccine ( - 2023-2 [...] Most Recently Relevant to Health Maintenance Insurance [facility] DENTAL - HSN FULL (MEDICAID) * Guarantor: DALY ONTIVEROS Account Type Relation to Patient Date of Phone Billing Address Personal/Family [address] [place] [address]
--- OUTSIDE RECORDS SUMMARY | 2024-03-23 11:41 | XMS_ITS | Encounter Summary ---
Author Organization [employer] [facility] Address [address] [place] [address] Care Team Providers Care Mine Superintendent Name Role Phone Unavailable Primary Care Provider Unavailabl e Encounter Details Date Type Department Care Team (Latest Contact Info) Description 05/12/2020 Abstract [facility] CONVERSIONS Dental, Provider, DDS Social History Tobacco [...]
== END 2024-03-23 11:34 | disposition home or self-care (01) ==
PROVIDERS: PCP Internal Medicine; Visit Provider Nurse Practitioner Family
DX: K92.1 Melena (principal); K52.9 Noninfective gastroenteritis and colitis, unspecified

== ENCOUNTER → 2024-03-23 10:38 | Outpatient (BNVA) | payer MEDICARE, SELFPAY | PROVIDERS: PCP Internal Medicine; Visit Provider Nurse Practitioner Family | DX: K92.1 Melena (principal); K52.9 Noninfective gastroenteritis and colitis, unspecified | CPT/HCPCS: 96127; 99495 ==

== ENCOUNTER 2024-04-16 10:28 | Outpatient (REF) | payer MEDICARE, MEDICAID, SELFPAY ==
[2024-04-16 12:53] LABS: Thyroid Stimulating Hormone 1.39 uIU/mL (0.32-4.0)
--- OUTSIDE RECORDS SUMMARY | 2024-04-16 13:16 | XMS_ITS | Clinical Summary ---
Author Organization [facility] Address [address] 7t [place] [address] Care Team Providers Care Data Quality Consultant Name Role Phone Unavailable Primary Care Provider [...] 2:30 PM EST Office Visit [facility] ADULT DENTAL [address] [place] [address] ErikMicky shahler [address] [place] [address] Health Maintenance Due Date Last Done Comments [...] Patient Date of Phone Billing Address Personal/Family [address] [place] [id number]
--- OUTSIDE RECORDS SUMMARY | 2024-04-16 13:16 | XMS_ITS | Encounter Summary ---
Author Organization [employer] [facility] Address [address] 7t [place] [address] Care Team Providers Care Automation Specialist Name Role Phone Unavailable Primary Care Provider Unavailabl e Encounter Details Date Type Department Care Team (Latest Contact Info) Description 05/12/2020 Abstract [facility] CONVERSIONS Dental, Provider, DDS Social History [...] Description 04/17/2024 2:30 PM EST Office Visit [facility] ADULT DENTAL [address] [place] [address] Cierra Hanley [address] [place] [address] documented as of this encounter Visit Diagnoses Not on filedocumented in this encounter
--- OUTSIDE RECORDS SUMMARY | 2024-04-16 13:16 | XMS_ITS | Encounter Summary ---
Author Organization [employer] [facility] Address [address] [place] [address] Care Team Providers Care Special Education Math Teacher Name Role Phone Unavailable Primary Care Provider Unavailabl e Encounter Details Date Type Department Care Team (Latest Contact Info) Description 08/22/[address] [facility] CONVERSIONS Dental, Provider, DDS Social History [...] 2:30 PM EST Office Visit [facility] ADULT DENTAL [address] [place] [address] Cierra Hanley [address] [place] [address] documented as of this encounter Visit Diagnoses Not on filedocumented in this encounter
== END 2024-04-16 10:29 | disposition home or self-care (01) ==
LOC: HO.LAB 10:28
PROVIDERS: PCP Internal Medicine; Visit Provider Internal Medicine
DX: E03.9 Hypothyroidism, unspecified (principal); J30.9 Allergic rhinitis, unspecified; E78.00 Pure hypercholesterolemia, unspecified; F41.9 Anxiety disorder, unspecified
CPT/HCPCS: 36415; 84443; 90471; 96127; 99212

== ENCOUNTER 2024-04-16 10:28 | Outpatient (AMB) | payer MEDICARE, MEDICAID, SELFPAY ==
--- NOTE | 2024-04-16 10:30 | MHC.PC.OV ---
Vital Signs 04/16/24 10:32 Height 4 ft 11 in Weight 117 lb BMI 23.6 BP 122/70 Blood Pressure Location Lt brachial Position Sitting Intake Visit Reasons: anxiety, thyroid Intake Note: Patient here for a follow up Anxiety, Thyroid, c/o rash on neck Encyclopedia Research Worker Required: Yes Encyclopedia Research Worker Language: Manager Transmission Name: Shania Howell MD Information Interpreted: non-clinical & clinical Accompanied by: Self / Same As Patient Allergies Penicillins [PENICILLINS] Allergy (Intermediate, Verified 04/16/24 10:44) syncope Medication List - Last Reconciled 04/16/24 by Shania Howell MD aspirin (Adult Aspirin Regimen) 81 mg PO DAILY meclizine 25 mg PO TID PRN pravastatin 20 mg PO DAILY 90 days [Synthroid 50 Mcg 50 mcg PO DAILY] Tobacco use date assessed: 03/23/24 Fall risk assessment: No Falls in past year Last assessed Fall Risk: 04/16/24 Dental Screening Dental Screen Date: 04/16/24 Did you have a dental visit in the last 12 months?: No Did you have a dental problem in the last 6 months where you did not have access to dental care?: No Was dental information given to patient?: Patient has dentist HPI HPI Comments History of Present Illness Details The patient is a 74-year-old female presenting with a follow-up visit for chronic conditions including anxiety disorder, hyperlipidemia, and hypothyroidism, as well as for recent rectal bleeding. Her hyperlipidemia is controlled with pravastatin, initially prescribed as precautionary for cardiac health. Her hypothyroidism treatment includes levothyroxine, and thyroid levels are scheduled for reassessment today. She reported severe rectal bleeding resulting in a hospital stay, during which a CT scan indicated significant colon inflammation with uncertain cause, no continuation of bleeding post-discharge, and no associated pain or fever. Her dermatitis located at the neck has been self-managed without success. Mild left ear discomfort is reported, with no prior self-treatment. [facility] Medical History (Updated 04/16/24 @ 12:00 by Shania Howell MD) Colon cancer screening declined [place] (hard of hearing) Pharyngitis Poor circulation Postmenopausal Chronic sinusitis Anxiety Abdominal pain BPPV (benign paroxysmal positional vertigo) (~03/2021) Anxiety Mild depression Sinusitis Long-term use of aspirin therapy Pure hypercholesterolemia Allergic rhinitis Hypothyroidism Surgical History History of esophagogastroduodenoscopy (EGD) History of bilateral cataract extraction History of mastoidectomy History of 3 sections Family History Father No problems noted. Mother Vaginal cancer Brother Cancer Sister Skin cancer Son No problems noted. Son No problems noted. Daughter No problems noted. 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 1. Little interest or pleasure in doing things: not at all 2. Feeling down, depressed, or hopeless: not at all 3. Trouble falling or staying asleep, or sleeping too much: not at all 4. Feeling tired or having little energy: not at all 5. Poor appetite or overeating: not at all 6. Feeling bad about yourself - or that you are a failure or have let yourself or your family down: not at all 7. Trouble concentrating on things, such as reading the newspaper or watching television: not at all 8. Moving or speaking so slowly that other people could have noticed. Or the opposite - being so fidgety or restless that you have been moving around a lot more than usual: not at all 9. Thoughts that you would be better off or of hurting yourself in some way: not at all Total score: 0 Depression Screening Interpretation: Negative Depression Screening Done: Yes 09012 - PHQ-9 Billing: Yes Source: Developed by Drs. Kalen Herring, Cristiana Garcia, Boyd Hubbard and colleagues, with an educational obinna from [employer]. Thrive Questionnaire Date Thrive assessed: 04/16/24 I am a: Patient What is your living situation today?: I have a steady place to live Within the past 12 months, did the food you bought not last and you didn't have the money to get more?: Never true Within the past 12 months, did you worry whether your food would run out before you got money to buy more?: Never true Do you have trouble paying for medicines?: No Do you have trouble getting transportation to medical appointments?: No Do you have trouble paying your heating and electricity bill?: No Do you have trouble taking care of your child, family member or friend?: No Do you have trouble with day-to-day activities such as bathing, preparing meals, shopping, managing finances, etc.?: No Are you currently unemployed and looking for a job?: No Are you interested in more education?: No Please select the resources that you would like help with: None Currently or been in a relationship where the following occur: No concerns reported THRIVE Score: 0 AUDIT C Alcohol Use Questionnaire (AUDIT-C) 1. How often do you have a drink containing alcohol?: Never Total Score: 0 Score Reviewed/Action Taken: No JORDAN-7 AMB Questionnaire JORDAN-7 Date JORDAN - 7 assessed: 04/16/24 Feeling nervous, anxious, or on edge: 1 = Several days Not being able to stop or control worryin = Not at all Worrying too much about different things: 0 = Not at all Trouble relaxin = Not at all Being so restless that it is hard to sit still: 0 = Not at all Becoming easily annoyed or irritable: 0 = Not at all Feeling afraid as if something awful might happen: 0 = Not at all Total JORDAN-7 score (0-4 normal; 5-9 mild; 10-14 moderate; 15-21 severe): 1 Source: Developed by Drs. Kalen Herring, Cristiana Garcia, Boyd Hubbard and colleagues, with an educational obinna from [employer]. JORDAN-7 Assessment Billing JORDAN-7 Assessment Tool: JORDAN-7 Assessment 10083 Review of Systems Const All systems reviewed & are unremarkable except as noted in HPI and below Card Denies chest pain at rest, Denies chest pain with activity, Denies edema, Denies irregular heart rhythm, Denies claudication, Denies dyspnea, Denies dyspnea on exertion, Denies orthopnea, Denies paroxysmal nocturnal dyspnea and Denies slow heart rate Resp Denies cough, Denies dyspnea and Denies dyspnea on exertion GI Denies abdominal pain, Denies change in bowel habits, Denies excessive flatus, Denies nausea and Denies vomiting Denies urinary incontinence, Denies urinary hesitancy and Denies urinary urgency Musc Denies atrophy, Denies deformity and Denies limited range of motion Skin/Breast Denies bleeding lesions, Denies changing lesions and Denies rash Physical exam (Primary Care) Vital Signs: Last Vital Signs BP 122/70 04/16/24 10:32 BMI result Body Mass Index 23.6 Tobacco/Smoking Status: Tobacco use Status Tobacco use date assessed 03/23/24 04/16/24 10:34 Patient Tobacco Use Status Never used Tobacco 04/16/24 10:34 e-Cigarette/Vaping Use Never Used 04/16/24 10:34 PHQ-9: PHQ-9 Score PHQ-9: Total score 0 04/16/24 11:02 Depression Screening Interpretation: Negative Thrive Assessment: Date of Thrive Assessment Date Thrive assessed 04/16/24 04/16/24 10:34 Currently or been in a relationship where the following occur: No concerns reported Resp Effort & Inspection: normal respiratory effort Auscultation: clear to auscultation bilaterally Cardio Jugular venous distension: no JVD Rate: regular rate Rhythm: regular rhythm Heart sounds: S1 normal heart sound present and S2 normal heart sound present Extrem General: Yes full ROM Office Procedures Flu Questionnaire Does the patient have a severe egg allergy?: No Immunizations Fluarix Triv [id number] (PF) 45 mcg (15 mcg x 3)/0.5 mL IM syringe Performing Provider: Shania Howell MD [facility] Documented (not given) by: MCKENZIE Bains on 04/16/24 11:02 Reason Not Given: Patient Refused Coding Level of Care Code Est Pt Level 4 (88973) Complex EM visit Add On G2211 Diagnoses Hypothyroidism, unspecified type E03.9 Hypothyroidism type: unspecified Allergic rhinitis J30.9 Pure hypercholesterolemia E78.00 Anxiety F41.9 Additional Codes PHQ-9 - 93394 - PHQ-9 Billing: Yes ([id number]) JORDAN-7 Assessment Billing - JORDAN-7 Assessment Tool: JORDAN-7 Assessment 67878 ([id number]) Time Spent (min) 21 Assessment & Plan Assessment & Plan (1) Hypothyroidism: Code(s): E03.9 - Hypothyroidism, unspecified Category: Medical Qualifiers: Hypothyroidism type: unspecified Qualified Code(s): E03.9 - Hypothyroidism, unspecified (2) Allergic rhinitis: Code(s): J30.9 - Allergic rhinitis, unspecified Category: Medical (3) Pure hypercholesterolemia: Code(s): E78.00 - Pure hypercholesterolemia, unspecified Category: Medical (4) Anxiety: Code(s): F41.9 - Anxiety disorder, unspecified Category: Medical Plan Thyroid function tests will be repeated today to evaluate hypothyroid status. Pravastatin therapy for hyperlipidemia continues as advised by cardiology. A gastroenterology consult is planned to delve into unresolved issues regarding the recent rectal bleeding and colon inflammation noted on the CT scan. Betamethasone cream will be prescribed for the neck dermatitis. The mild discomfort in the left ear will be symptomatically managed pending further need for intervention. A follow-up schedule will be arranged to monitor and reassess current conditions. Patient was informed and verbally consented to the use of an ambient scribe for clinic note documentation during this visit. During the visit, I discussed with the patient the ongoing management of her chronic conditions, emphasizing the necessity for reevaluation of thyroid function. I reviewed the circumstances surrounding her recent hospitalization due to rectal bleeding and the findings of colon inflammation. I outlined the importance of gastroenterologic follow-up including potential need for colonoscopy. We also explored options for managing her dermatitis through more effective topical treatments and addressed her ear discomfort conservatively. Follow-up strategy was detailed, ensuring her understanding of reasons for further tests and the necessity for ongoing monitoring of her conditions. Orders: Orders Thyroid Stimulating Hormone Today E03.9 - Hypothyroidism, unspecified Influenza [id number] Immunization Today Z23 - Encounter for immunization Referrals Gastroenterology Referral K52.9 - Noninfective gastroenteritis and colitis, unspecified Medications: New betamethasone valerate 0.1% 1 appl topical DAILY PRN 45 grams 0RF skin irritation 30 days Patient Instructions: - Have your thyroid level checked today; no need to fast for this test. - Continue taking pravastatin as prescribed unless directed otherwise. - Schedule a gastroenterology appointment for further evaluation. - Apply the prescribed betamethasone cream for dermatitis on the neck. - Report any recurrence of bleeding or new symptoms to the healthcare provider promptly. - Follow up with the office as discussed for reassessment and ongoing care coordination.
[2024-04-16 10:32] VITALS: BP 122/70; BMI 23.6
--- OUTSIDE RECORDS SUMMARY | 2024-04-16 12:10 | XMS_ITS | Encounter Summary ---
Author Organization [employer] [facility] Address [address] [place] [address] Care Team Providers Care Records Associate Name Role Phone Unavailable Primary Care Provider Unavailabl e Encounter Details Date Type Department Care Team (Latest Contact Info) Description 05/12/2020 Abstract [facility] CONVERSIONS Dental, Provider, DDS Social History [...] as of this encounter Plan of Treatment Upcoming Encounters Date Type Department Care Team (Late st Contact Info) Description 04/17/2024 2:30 PM EST Office Visit [facility]ULT DENT[facility] [address] [place] [address] Cierra Hanley [address] [place] [address] documented as of this encounter Visit Diagnoses Not on filedocumented in this encounter
--- OUTSIDE RECORDS SUMMARY | 2024-04-16 12:10 | XMS_ITS | Encounter Summary ---
Author Organization [employer] [facility] Address [address] [place] [address] Care Team Providers Care Mosaic Technician Name Role Phone Unavailable Primary Care Provider Unavailabl e Encounter Details Date Type Department Care Team (Latest Contact Info) Description 08/22/2018 Abstract [facility] CONVERSIONS Dental, Provider, DDS Social History [...] Description 04/17/2024 2:30 PM EST Office Visit [facility]ULT [facility]ENT[facility] [address] [place] [address] Cierra Hanley [address] [place] [address] documented as of this encounter Visit Diagnoses Not on filedocumented in this encounter
--- OUTSIDE RECORDS SUMMARY | 2024-04-16 12:10 | XMS_ITS | Clinical Summary ---
Author Organization [employer] [facility] Address [address] [place] [address] Care Team Providers Care Rn Sane Name Role Phone Unavailable Primary Care Provider [...] Mass Index - - Plan of Treatment Upcoming Encounters Date Type Department Care Team (Late st Contact Info) Description 04/17/2024 2:30 PM EST Office Visit [facility]ULT D[facility] [address] [place] [address] ErikMicky shahler [address] [place] [address] Health Maintenance Due Date Last Done Comments CT Colonography 1952 Colonoscopy 1952 Colorectal Cancer Screening 1952 Depression Screening 1952 FIT DNA/Cologuard 1952 FIT 1952 FOBT 1952 Lipid Panel 1952 SDOH Screening 1952 Sigmoidoscopy 1952 Alcohol/Substance Use Screening 1964 Hepatitis C Screening 02/04/1970 Mammogram 1992 Zoster Vaccines (1 of 2) 02/04/2002 Pneumococcal Vaccine: 50+ Years (2 of 2 - PPSV23) 02/18/2018 02/18/2017 COVID-19 Vaccine (1 - 2023-2 5 season) 2023 Influenza Vaccine [...] this topic Meningococcal Vaccine Aged Out No roamine francis eligible based on patient's age to [...] EDT Encounter for dental examination Dental plaque INTRAORAL - COMPLETE SERIES OF RADIOGRAPHIC IMAGES Routine 03/23/2022 1:45 PM EST from Last 3 Months or Most Recently Relevant to Health Maintenance Insurance DENTAL - HSN FULL (MEDICAID) * Guarantor: DALY ONTIVEROS Account Type Relation to Patient Date of Phone Billing Address Personal/Family [address] [place] [id number]
== END 2024-04-16 10:57 | disposition home or self-care (01) ==
PROVIDERS: PCP Internal Medicine; Visit Provider Internal Medicine
DX: E03.9 Hypothyroidism, unspecified (principal); J30.9 Allergic rhinitis, unspecified; E78.00 Pure hypercholesterolemia, unspecified; F41.9 Anxiety disorder, unspecified; Z23 Encounter for immunization

== ENCOUNTER 2024-05-01 11:43 | Outpatient (REF) | payer MEDICARE, MEDICAID, SELFPAY ==
[2024-05-01 13:57] LABS: Appearance Urine Clear; Color Urine Yellow; Glucose Urine UA Negative (Negative); Leukocyte Esterase Urine Large (3+) (Negative); Nitrite Urine Negative (Negative); PH 7.5 (5.0-9.0); UMIC TRIGGER UACC YES; Urine Blood Moderate (2+) (Negative); Urine Ketones Negative (Negative); Urine Protein Negative (Neg-Trace)
[2024-05-01 14:04] LABS: Bacteria Urine None Seen (None Seen); Hyaline Casts Urine 0-2 /LPF (0-2); RBC Urine >20 /HPF (0-2); Squamous Epithelial Cell Urine 0-2 /HPF (0-2); UACC Culture Trigger YES; WBC Urine >50 /HPF (0-5)
== END 2024-05-01 11:44 | disposition home or self-care (01) ==
LOC: HO.LAB 11:43
PROVIDERS: PCP Internal Medicine; Visit Provider Internal Medicine
DX: R30.0 Dysuria (principal)
CPT/HCPCS: 81001; 87086; 87088; 87186

== ENCOUNTER 2024-05-13 19:29 | Emergency (ER) | payer MEDICARE, MEDICAID, SELFPAY ==
--- NOTE | ~2024-05-13 | CT_ITS ---
CLINICAL HISTORY: chest pain, tachycardia, pos D-dimer - 703 CT angiography chest with contrast. 3D Postprocessing. Comparison: None Findings: The heart is normal size. RV/LV ratio is normal. The thoracic aorta is normal caliber. No pulmonary artery filling defects. The visualized thyroid and mediastinum are unremarkable. Tiny calcified granuloma in the right lung. Atelectasis. No significant pleural effusion or pneumothorax. The visualized upper abdomen is unremarkable. Osteopenia with diffuse multilevel spondylosis. IMPRESSION: No evidence of PE. This document has been electronically signed by: Felix Ivy MD on 05/13/2024 22:07:35
--- NOTE | ~2024-05-13 | XR_ITS ---
CLINICAL HISTORY: chest pain 2 view chest x-ray Comparison: CR/SR - XR CHEST 1V - 10/29/21 11:07 EDT Findings: The lungs are clear. Heart size is normal. No acute fracture. IMPRESSION: 1. No acute findings. This document has been electronically signed by: Felix Ivy MD on 05/13/2024 20:16:45
--- NOTE | 2024-05-13 19:32 | ECG_ITS ---
Test Reason : CHEST PAIN Blood Pressure : */* mmHG Vent. Rate : 121 BPM Atrial Rate : 121 BPM P-R Int : 130 ms QRS Dur : 76 ms QT Int : 310 ms P-R-T Axes : 21 35 38 degrees QTcB Int : 440 ms Sinus tachycardia Otherwise normal ECG When compared with ECG of 29-Oct-2021 11:07, Vent. rate has increased by 46 bpm Referred By: Heavenly Reich Electronically Signed By: STACI MATTSON
[2024-05-13 19:48] VITALS: BP 177/74; PULSE 125; RESP 20; TEMP 38.1; O2SAT 95; BMI 24.1
--- NOTE | 2024-05-13 19:49 | ED.CHESTPAIN ---
HPI - Chest Pain General Chief Complaint: Upper Respiratory Symptoms Stated Complaint: Chest pain , Fever, throat pain Time Seen by Provider: 05/13/24 20:30 History of Present Illness ED Provider: Tyrone VASQUEZ narrative: The patient is a 74-year-old woman who has been feeling unwell since evening, 3 days ago. Two days ago she went to an urgent care and tested positive for the flu. She has been having a sore throat and a sense of fever. She has also had a cough. Today she had some chest pain as well and came to the emergency room for evaluation. Related Data Home Medications ?Medication ?Instructions ?Recorded ?Confirmed Synthroid 50 Mcg 50 mcg PO DAILY 03/12/24 04/16/24 meclizine 25 mg tablet 25 mg PO TID PRN Dizziness 03/12/24 04/16/24 Previous Rx's ?Medication ?Instructions ?Recorded pravastatin 20 mg tablet 20 mg PO DAILY 90 days #90 tabs 11/22/23 betamethasone valerate 0.1 % 1 appl topical DAILY PRN skin 04/16/24 topical ointment irritation 30 days #45 grams ciprofloxacin HCl 250 mg tablet 250 mg PO BID 3 days #6 tabs 05/01/24 doxycycline monohydrate 100 mg 100 mg PO BID #14 caps 05/14/24 capsule Allergies Allergy/AdvReac Type Severity Reaction Status Date / Time Penicillins [PENICILLINS] Allergy Intermediate syncope Verified 05/13/24 19:49 Review of Systems Review of Systems: Yes all other systems are reviewed and are negative [facility] Past Medical History Medical History (Updated 05/14/24 @ 00:28 by Armani Hansen MD) Colon cancer screening declined [place] (hard of hearing) Pharyngitis Poor circulation Postmenopausal Chronic sinusitis Anxiety Abdominal pain BPPV (benign paroxysmal positional vertigo) (~03/2021) Anxiety Mild depression Sinusitis Long-term use of aspirin therapy Pure hypercholesterolemia Allergic rhinitis Hypothyroidism Surgical History History of esophagogastroduodenoscopy (EGD) History of bilateral cataract extraction History of mastoidectomy History of 3 sections Family History Family History Father No problems noted. Mother Vaginal cancer Brother Cancer Sister Skin cancer Son No problems noted. Son No problems noted. Daughter No problems noted. Social History Social History Household Members: None Household Members Other:: alone Housing: Apartment Do you presently have visiting nurse or other home services: No Alcohol intake: never Patient Tobacco Use Status: Never used Tobacco Smoked in Last 30 Days: No e-Cigarette/Vaping Use: Never Used Second Hand Smoke Exposure: No Use of substances other than those prescribed or required for medical reasons: No Advance Directives: Yes Advance Directives on File: Yes Advance Directives Date on File: 03/14/24 Do you have a plan to hurt others: No Plan service: No Current occupational status: previously employed and retired 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 She is very pleasant. She looks mildly unwell but not in acute distress. Orientation/consciousness: patient oriented x3 HEENT: Other: Face is symmetrical. There is some slight injection to the posterior pharynx. Airway is clear. Mucous membranes moist. Eyes: General: appearance normal, both eyes and all related structures Alignment and Position: alignment normal Conjunctivae: conjunctivae normal Pupils: Equal, round and reactive pupils present EOM: EOMs intact bilaterally Neck: Neck: Yes normal visual inspection, Yes full ROM, Yes no lymphadenopathy and Yes no JVD Resp: Effort & Inspection: normal respiratory effort Auscultation: clear to auscultation bilaterally Cardio: Rate: tachycardic Rhythm: regular rhythm Heart sounds: S1 normal heart sound present and S2 normal heart sound present GI: Other: The abdomen is soft and nontender Skin: Other: the skin is dry and unremarkable Neuro: General: patient oriented x3, moves all extremities, no focal motor deficits and CN's II-XI intact bilaterally Cranial nerves: Yes Equal, round and reactive pupils present Extrem: Other: no calf swelling or tenderness, no asymmetry, no edema. Course Course Course Narrative: This is an RME performed by Haim Reich CNP: Additional HPI, ROS, PE not included below will be deferred to primary provider. patient is a 74-year-old female who presents to the emergency department for evaluation of chest pain, sore throat, headache. Symptom onset 4 days ago, 3 days ago went to urgent care, tested positive for influenza. Reports that the chest pain and pain into her back is new which prompted their concern for evaluation tonight. Plan: CXR, EKG Medications Administered Discontinued Medications Generic Name Dose Route Start Last Admin Trade Name Freq PRN Reason Stop Dose Admin Acetaminophen 975 mg 05/13/24 20:10 05/13/24 20:22 Acetaminophen 325 Mg Tablet PO 05/13/24 20:11 975 mg ONCE ONE Administration Ceftriaxone Sodium 1 gm 05/13/24 21:57 05/13/24 22:44 Ceftriaxone Sodium 1 Gm Vial IVPUSH 05/13/24 21:58 1 gm ONCE ONE Administration Acetaminophen 1,000 mg in 100 mls @ 400 mls/hr 05/13/24 20:44 05/13/24 21:38 Ofirmev IV 05/13/24 20:58 Infused ONCE ONE Infusion Lactated Ringer's 500 mls @ 999 mls/hr 05/13/24 20:45 05/13/24 21:55 Lr IV 05/13/24 21:15 Infused .Q31M DARION Infusion Doxycycline Hyclate 100 mg/ 250 mls @ 166.67 mls/hr 05/13/24 21:58 05/14/24 00:15 Sodium Chloride IV 05/13/24 23:27 Infused ONCE ONE Infusion Iohexol 65 ml 05/13/24 21:49 05/13/24 21:50 Iohexol 350 Mg/Ml 100 Ml Infus..Btl IV 05/13/24 21:50 65 ml ONCE ONE Administration Medical Decision Making Medical Decision Making [facility] Narrative: The patient is a 74-year-old female who presents with flu-like symptoms that she has had for 3 days. Today she also had chest pains. She was quite tachycardic. Her EKG shows sinus tachycardia without signs of ischemia. Her chest x-ray is clear. She is testing positive for influenza B. she was significantly tachycardic which prompted me to consider the possibility of a pulmonary embolism. A D-dimer was sent that was elevated. A pulmonary angiogram was done which shows no PE. Additionally there was no definite infiltrate. The patient had had 13% band in the differential on her white blood count. Her white blood count total was normal at 5.1. The patient has a normal lactate. Given the bandemia I had ordered IV ceftriaxone and doxycycline expecting her to possibly have a pneumonia. Ultimately the patient seemed to feel considerably better after IV fluids and IV acetaminophen. Her tachycardia resolved. At that point I thought that her primary issue is probably her influenza. In case there is some degree of an occult pneumonia she will also be placed on doxycycline. She felt considerably better and was well enough for discharge. Lab Data 05/13/24 20:24 05/13/24 20:24 Labs: Lab Results 05/13/24 05/13/24 05/13/24 Range/Units 20:23 20:24 20:51 WBC 5.1 (4.8-10.8) X10*3/uL RBC 5.48 (4.20-5.50) X10*6/uL Hgb 14.2 (12.0-16.0) g/dl Hct 41.4 (37.0-47.0) % MCV 75.5 L (80.0-98.0) fL MCH 25.9 L (27.0-33.0) pg MCHC 34.3 (31.0-35.0) g/dl RDW 14.7 (11.0-16.0) % Plt Count 197 (160-400) X10*3/uL MPV 10.5 (9.4-12.3) fL Immature Gran % (Auto) Cancelled Neut % (Auto) Cancelled Lymph % (Auto) Cancelled Pike % (Auto) Cancelled Eos % (Auto) Cancelled Baso % (Auto) Cancelled Lymph # (Auto) Cancelled Pike # (Auto) Cancelled Eos # (Auto) Cancelled Baso # (Auto) Cancelled Abs Immat Gran (auto) Cancelled Absolute Neuts (auto) Cancelled Absolute Nucleated RBC 0.000 (0.0-0.012) X10*3/uL Nucleated RBC % (auto) 0.0 (0.0-0.2) /100WBC Neutrophils % (Manual) 78 H (45-73) % Band Neutrophils % 13 H (3-5) % Lymphocytes % (Manual) 6 L (20-40) % Monocytes % (Manual) 2 (2-11) % Basophils % (Manual) 1 (0-2) % Abs Neuts (Manual) 4.6 (2.0-8.3) X10*3/uL Lymphocytes # (Manual) 0.3 L (1.2-4.9) X10*3/uL Monocytes # (Manual) 0.1 (0.1-1.2) X10*3/uL Basophils # (Manual) 0.1 (0.0-0.2) X10*3/uL Toxic Vacuolation PRESENT Platelet Estimate NORMAL (NORMAL) Plt Morphology Comment NORMAL RBC Morphology NORMAL Smear Tech's Comments MANUAL DIFF D-Dimer High Sensitivty 703 NG/ML Hold Blue Top SEE NOTE Sodium 136 (135-145) mmol/L Potassium 3.8 (3.3-5.1) mmol/L Chloride 107 (96-108) mmol/L Carbon Dioxide 22 (22-29) mmol/L Anion Gap 11 L (12-20) BUN 24 H (9-16) mg/dL Creatinine 0.76 (0.5-1.4) mg/dL Estim Creat Clear Calc 50.2 Estimated GFR > 60 Random Glucose 146 H (60-115) mg/dL Lactic Acid 2.0 (0.5-2.0) mmol/L Calcium 8.7 (8.4-10.2) mg/dL Total Bilirubin 0.3 (0.0-1.0) mg/dL AST 33 H (5-31) U/L ALT 32 H (0-31) U/L Alkaline Phosphatase 89 (39-117) U/L Troponin I High Sens 2.9 (<3.5-17.0) ng/L C-Reactive Protein 1.27 H (< or = 0.50) mg/dL Total Protein 6.5 (6.5-8.0) g/dL Albumin 3.9 (3.5-5.0) g/dL Influenza Type A (PCR) NEGATIVE (Negative) Influenza Type B (PCR) POSITIVE A (Negative) RSV RNA Qual (PCR) NEGATIVE (Negative) SARS-CoV-2 RNA (RT-PCR) NEGATIVE (Negative) S. pyogenes GrpA CLAUDINE Negative (Negative) Discharge Plan Discharge Clinical Impression: Influenza B Patient Disposition: Home, Self-Care Instructions: Influenza (ED) Additional Instructions: you have tested positive for the flu today. Your other testing seems reassuring. The CAT scan of your chest does not show any blood clots in your lungs and there is no definite pneumonia. Nevertheless I have started you on a course of antibiotics. Please take the doxycycline 2 times a day as prescribed. Drink lot of fluids. Use acetaminophen and/or ibuprofen as needed for discomfort. please stay in touch with your regular doctor for additional advice as needed. Return to the emergency room if you feel significantly worse. Prescriptions: New doxycycline monohydrate 100 mg capsule 100 mg PO BID Qty: 14 0RF No Action pravastatin 20 mg tablet 20 mg PO DAILY 90 Days Qty: 90 2RF ciprofloxacin HCl 250 mg tablet 250 mg PO BID 3 Days Qty: 6 0RF meclizine 25 mg tablet 25 mg PO TID PRN (Reason: Dizziness) Synthroid 50 Mcg 50 mcg 50 mcg PO DAILY betamethasone valerate 0.1 % ointment 1 appl topical DAILY PRN (Reason: skin irritation) 30 Days Qty: 45 0RF Referrals: Shania Hancock MD [Primary Care Provider] - ( influenza) Interventions: ED Discharge Assessment Last Done: 05/14/24 01:28 Discharge Date/Time: 05/14/24 01:29 Print Language: Greek
[2024-05-13] MEDS: Acetaminophen 325 MG TABLET 975 MG PO (20:22)
[2024-05-13 20:29] VITALS: PULSE 120; RESP 17; TEMP 38.4; O2SAT 98
--- NOTE | 2024-05-13 20:31 | PC.NURSE ---
pt a&ox4, respirations even and unlabored, pt reports she was seen at urgent care recently and told she has the flu. pt reports increased fatigue and fevers of 105 at home. rectal temp obtained of 101.2, tachy on tele 118-120bpm. pt denies cp and sob. pt medicated per apr with PO tylenol crushed. 20G placed in left ac. provider aware of pt vs.
[2024-05-13 20:37] VITALS: PULSE 120; O2SAT 98
[2024-05-13 20:37] LABS: Hematocrit 41.4 % (37.0-47.0); Hemoglobin 14.2 g/dl (12.0-16.0); Mean Corpuscular HGB Conc 34.3 g/dl (31.0-35.0); Mean Corpuscular Hemoglobin 25.9 pg (27.0-33.0); Mean Corpuscular Volume 75.5 fL (80.0-98.0); Mean Platelet Volume 10.5 fL (9.4-12.3); Platelet Count 197 X10*3/uL (160-400); Red Blood Count 5.48 X10*6/uL (4.20-5.50); Red Cell Distribution Width 14.7 % (11.0-16.0); White Blood Count 5.1 X10*3/uL (4.8-10.8)
[2024-05-13 20:50] LABS: Alanine Aminotransferase 32 U/L (0-31); Albumin Level 3.9 g/dL (3.5-5.0); Alkaline Phosphatase 89 U/L (39-117); Anion Gap 11 (12-20); Aspartate Amino Transferase 33 U/L (5-31); Bilirubin Total 0.3 mg/dL (0.0-1.0); Blood Urea Nitrogen 24 mg/dL (9-16); Calcium 8.7 mg/dL (8.4-10.2); Carbon Dioxide 22 mmol/L (22-29); Chloride 107 mmol/L (96-108); Creatinine Clr Calc Pharmacy 50.2; Estimated Glomerular Filt Rate > 60; Glucose Random 146 mg/dL (60-115); Potassium 3.8 mmol/L (3.3-5.1); Sodium 136 mmol/L (135-145); Total Protein 6.5 g/dL (6.5-8.0)
[2024-05-13 20:54] LABS: SLIDE REVIEW MANUAL DIFF
[2024-05-13 20:57] LABS: Troponin-I High Sensitivity 2.9 ng/L (<3.5-17.0)
[2024-05-13 21:02] LABS: Neutrophils Percent Manual 78 % (45-73)
[2024-05-13 21:03] LABS: Basophils Abs Manual 0.1 X10*3/uL (0.0-0.2); Basophils Percent Manual 1 % (0-2); Lymphocytes Absolute Manual 0.3 X10*3/uL (1.2-4.9); Lymphocytes Percent Manual 6 % (20-40); Monocytes Absolute Manual 0.1 X10*3/uL (0.1-1.2); Monocytes Percent Manual 2 % (2-11); Neutrophils Absolute Manual 4.6 X10*3/uL (2.0-8.3)
[2024-05-13 21:04] LABS: IDNOW Serial# 55D5AD1C; Strep A Nucleic Acid Negative (Negative)
[2024-05-13 21:05] LABS: Band Neutrophils Percent 13 % (3-5); Platelet Estimate NORMAL (NORMAL); Platelet Morphology Comment NORMAL; RBC Morphology NORMAL; Toxic Vacuolation PRESENT
[2024-05-13 21:13] LABS: D Dimer High Sensitivity 703 NG/ML
[2024-05-13 21:14] LABS: Influenza A PCR NEGATIVE (Negative); Influenza B PCR POSITIVE (Negative); Resp Syncy Virus RNA Qual PCR NEGATIVE (Negative); SARS COV2 PCR INHOUSE NEGATIVE (Negative)
[2024-05-13 21:20] LABS: C Reactive Protein 1.27 mg/dL (< or = 0.50)
[2024-05-13] MEDS: Acetaminophen 1,000 MG/100 ML PIGGYBACK 400 MG IV (21:23)
[2024-05-13] MEDS: Lactated Ringers 500 ML 999 ML IV (21:23)
[2024-05-13] MEDS: iohexoL 350 MG/ML 100 ML INFUS..BTL 65 ML IV (21:50)
[2024-05-13 22:44] VITALS: BP 146/75; PULSE 92; RESP 18; TEMP 37.1; O2SAT 95
[2024-05-13] MEDS: cefTRIAXone sodium 1 GM VIAL IVPUSH (22:44)
[2024-05-13] MEDS: Doxycycline Hyclate 100 MG in 0.9 % Sodium Chloride 250 ML 166.67 MG IV (22:44)
[2024-05-13 22:46] VITALS: BP 138/73; PULSE 90; RESP 20; O2SAT 98
[2024-05-14 01:28] VITALS: BP 132/77; PULSE 88; RESP 18; TEMP 36.7; O2SAT 98
== END 2024-05-14 01:29 | disposition home or self-care (01) ==
PROVIDERS: Nurse Practitioner Family; Emergency Provider Emergency Medicine; PCP Internal Medicine
DX: J10.1 Influenza due to other identified influenza virus with other respiratory manifestations (principal); R07.9 Chest pain, unspecified; R00.0 Tachycardia, unspecified; R50.9 Fever, unspecified; Z79.899 Other long term (current) drug therapy
CPT/HCPCS: 0241U; 36415; 71046; 71275; 80053; 83605; 84484; 85007; 85027; 85379; 86140; 87040; 87651; 93005; 96361; 96365; 96366; 96375; 99285; J0131; J0696; J7120; Q9967

== ENCOUNTER → 2024-05-13 19:32 | Outpatient (BNV) | payer MEDICARE, MEDICAID, SELFPAY | PROVIDERS: Emergency Provider Emergency Medicine; PCP Internal Medicine; Visit Provider Internal Medicine | DX: R07.9 Chest pain, unspecified (principal); R00.0 Tachycardia, unspecified | CPT/HCPCS: 93010 ==

== ENCOUNTER → 2024-05-13 19:53 | Outpatient (BNV) | payer MEDICARE, MEDICAID, SELFPAY | PROVIDERS: Emergency Provider Emergency Medicine; PCP Internal Medicine; Visit Provider Radiology Diagnostic Radiology | DX: R07.9 Chest pain, unspecified (principal) | CPT/HCPCS: 71046; 71275 ==

== ENCOUNTER 2024-07-02 11:33 | Outpatient (AMB) | payer MEDICARE, MEDICAID, SELFPAY ==
--- NOTE | 2024-07-02 12:20 | A.OFFVIS_ITS ---
Vital Signs 07/02/24 12:22 Height 5 ft 1 in Weight 115 lb BMI 21.7 BP 160/70 H Blood Pressure Location Lt brachial Position Sitting Pulse 73 Pulse Oximetry (%) 98 Intake Visit Reasons: Gastroenteritis Intake Note: Patient follow up for Gastroenteritis Patient denies any GI issues. Warehouse Shift Supervisor Required: No Accompanied by: Son Allergies Penicillins [PENICILLINS] Allergy (Intermediate, Verified 07/02/24 12:18) syncope HPI HPI Gastroenteritis: Details: 74 yr old f here for f/u RECAP: EGD with nodular mucosa, H pylori pos was given quadruple therapy cologuard 2022--negative h pylori breath test x 2 she had admission 03/10 with suspected infectious colitis INTERIM: she has been well since d/c 02/2024 no abdominal pain no nausea or vomiting no diarrhea no constipation she has no issues with swallowing EXAM: GENERAL: The patient is well developed and nontoxic. VITAL SIGNS:see workflow HEENT: Nonicteric sclerae, PERRLA, EOMI. Oropharynx clear. Moist mucous membranes. Conjunctivae appear well perfused. No thyroid mass. CHEST: Chest wall is nontender. HEART: Regular rate and rhythm without murmurs. LUNGS: Clear to auscultation bilaterally. ABDOMEN: Soft, positive bowel sounds, nontender, no organomegaly.no flank tenderness SKIN: No rash, no excessive bruising, petechiae, or purpura. NEUROLOGIC: Cranial nerves II-XII intact without motor/sensory deficit. Psych: normal affect a/P: 1/ H pylori gastritis-no major sx--h pylori neg x 2 2/ colitis, cologuard neg but she is anxious due to this, no red flags PLAN: 1/ colonoscopy now, suprep, -- hx of colitis PFSH Medical History (Updated 05/15/24 @ 00:01 by Laly Angel) Colon cancer screening declined [place] (hard of hearing) Pharyngitis Poor circulation Postmenopausal Chronic sinusitis Anxiety Abdominal pain BPPV (benign paroxysmal positional vertigo) (~03/2021) Anxiety Mild depression Sinusitis Long-term use of aspirin therapy Pure hypercholesterolemia Allergic rhinitis Hypothyroidism Surgical History History of esophagogastroduodenoscopy (EGD) History of bilateral cataract extraction History of mastoidectomy History of 3 sections Family History Father No problems noted. Mother Vaginal cancer Brother Cancer Sister Skin cancer Son No problems noted. Son No problems noted. Daughter No problems noted. 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
[2024-07-02 12:22] VITALS: BP 160/70; PULSE 73; O2SAT 98; BMI 21.7
--- OUTSIDE RECORDS SUMMARY | 2024-07-02 12:23 | XMS_ITS | Encounter Summary ---
Author Organization [employer] [facility] Address [address] 7t [place] [address] Care Team Providers Care Interior Plant Caretaker Name Role Phone Unavailable Primary Care Provider Unavailabl e Encounter Details Date Type Department Care Team (Latest Contact Info) Description 05/12/2020 Abstract [facility] CONVERSIONS Dental, Provider, DDS Social History [...] Care Team (Late st Contact Info) Description 01/21/2025 8:00 AM EST Office Visit [facility] ADULT DENTAL [address] [place] [address] Divya Rebollar documented as of this encounter Visit Diagnoses Not on filedocumented in this encounter
--- OUTSIDE RECORDS SUMMARY | 2024-07-02 12:23 | XMS_ITS | Clinical Summary ---
Author Organization [employer] Address [address] [place] [address] Care Team Providers Care Talent Development Manager Name Role Phone Unavailable Primary Care Provider [...] by mouth 2 times daily. 02/09/2022 Active Active Problems Problem Noted Date Diagnosed Date Cough 03/17/2017 Acute suppurative otitis med ia without spontaneous rupture of ear drum 03/03/2017 Dyslipidemia 03/03/2017 Flushing 03/03/2017 Osteopenia 03/03/2017 Vertigo 03/03/2017 Hepatitis C antibody test positive 02/21/2017 Acquired hypothyroidism 02/18/2017 Essential hypertension 02/18/2017 History of right mastoidectomy 02/18/2017 Hyperlipidemia 02/18/2017 Encounters Date Type Department Care Team Description 06/08/2024 10:30 AM EDT Office Visit [facility] ADULT DENTAL [address] [place] [address] Reno Zelayamia, DDS Tooth sensitivity to cold (Primary Dx); Dental caries 05/03/2024 2:30 PM EDT Office Visit [facility] ADULT DENTAL [address] [place] [address] Oneill-Cardona, Kate, DDS Gingival recession, localized (Primary Dx); Encounter for dental examination; Bruxism 04/17/2024 2:30 PM EST Office Visit [facility] ADULT DENTAL [address] [place] [address] Cierra Hanley Dental calculus (Primary Dx); Dental plaque from Last 3 Months Immunizations Immunization Administration Dates Next Due Influenza, High Dose Seasonal, Preservative Free 02/18/2017 Pneumococcal Conjugate PCV 13 02/18/2017 Tdap 02/22/2017 Social History Tobacco Use Types Packs/Day Years Used Date Smoking Tobacco: Never Smokeless Tobacco: Never Tobacco Cessation:Counseling Given: Not Answered Alcohol Use Standard Drinks/Week Comments Never 0 (1 standard drink = 0.6 oz pur e alcohol) Comments Unknown Sex and Gender Information Value Date Recorded Sex Assigned at Female 12/14/2021 10:32 AM EDT Legal Sex Female 10:32 AM EDT Gender Identity Female 12/14/2021 10:32 AM EDT Sexual Orientation Straight 12/14/2021 10 :32 AM EDT Last Filed Vital Signs Vital Sign Reading Time Taken Comments Blood Pressure 130/78 04/17/2024 2:19 PM EST Pulse 64 05/25/2022 7:54 AM EDT Temperature - - Respiratory Rate - - Oxygen Saturation - - Inhaled Oxygen Concentration - - Weight - - Height - - Body Mass Index - - Plan of Treatment Upcoming Encounters Date Type Department Care Team (Late st Contact Info) Description 01/21/2025 8:00 AM EST Office Visit [facility] ADULT DENTAL [address] [place] [address] Divya Rebollar Health Maintenance Due Date Last Done Comments [...] 2023 Influenza Vaccine (#1) 2023 02/18/2017 Dental Prophylaxis 10/19/2024 04/17/2024, 04/28/2023, 05/25/2022 Dental Oral Exam 11/04/2024 05/03/2024, 04/28/2023, 03/23/2022 Dental X-Ray: Full Mouth 03/24/2025 03/23/2022 Dental X-Ray: Bitewings 04/18/2025 04/18/19, 04/28/2023, 03/23/2022 Tobacco Screening 05/03/2025 05/03/2024 RSV Patients and Patients Aged 60 years [...] patient's age to complete this topic Meningococcal B Vaccine Aged Out No l onger eligible based on patient's age to complete [...] Procedure Name Priority Date/Time Associated Diagnosis Comments CASE PRESENTATION, DETAILED AND EXTENSIVE TREATMENT PLANNING Routine 06/08/2024 10:30 AM EDT Tooth sensitivity to cold Dental caries CASE PRESENTATION, DETAILED AND EXTENSIVE TREATMENT PLANNING Routine 06/08/2024 10:30 AM EDT Tooth sensitivity to cold Dental caries 5 B(V) RESIN-BASED COMPOSITE - 1 SURF, POSTERIOR Routine 06/08/2024 10:30 AM EDT Tooth sensitivity to cold Dental caries CASE PRESENTATION, DETAILED AND EXTENSIVE TREATMENT PLANNING Routine 05/03/2024 2:30 PM EDT Gingival recession, localized Encounter for dental examination Bruxism PERIODIC ORAL EVALUATION - ESTABLISHED PATIENT Routine 05/03/2024 2:30 PM EDT Gingival recession, localized Encounter for dental examination Bruxism BITEWINGS - 3 RADIOGRAPHIC IMAGES Routine 04/17/2024 2:30 PM EST CASE PRESENTATION, DETAILED AND EXTENSIVE TREATMENT PLANNING Routine 04/17/2024 2:30 PM EST INTRAORAL - PERIAPICAL FIRST RADIOGRAPHIC IMAGE Routine 04/17/2024 2:30 PM EST ORAL HYGIENE INSTRUCTIONS Routine 04/17/2024 2:30 PM EST Dental calculus Dental plaque PROPHYLAXIS - ADULT Routine 04/17/2024 2 :30 PM EST Dental calculus Dental plaque INTRAORAL - COMPLETE SERIES OF RADIOGRAPHIC IMAGES Routine 03/23/2022 1:45 PM EST from Last 3 Months or Most Recently Relevant to Health Maintenance Insurance DENTAL - HSN FULL (MEDICAID) * Guarantor: DALY ONTIVEROS Account Type Relation to Patient Date of Phone Billing Address Personal/Family [address] [place], [place] [address] [place] [address] * Guarantor: Daly Ontiveros Account Type Relation to Patient Date of Phone Billing Address Personal/Family Self [facility] Alie Collins [address] [address]
--- OUTSIDE RECORDS SUMMARY | 2024-07-02 12:23 | XMS_ITS | Encounter Summary ---
Author Organization [facility] Address [address] [facility] 7t [place] [address] Care Team Providers Care Financial Cost Analyst Name Role Phone Unavailable Primary Care Provider Unavailabl e Encounter Details Date Type Department Care Team (Latest Contact Info) Description 08/22/2018 Abstract [facility] CONVERSIONS Dental, Provider, [...] Description 01/21/2025 8:00 AM EST Office Visit [facility] ADULT DENTAL [address] [place] [address] Divya Rebollar documented as of this encounter Visit Diagnoses Not on filedocumented in this encounter
== END 2024-07-02 14:31 | disposition home or self-care (01) ==
LOC: HO.HGI 11:34
PROVIDERS: PCP Internal Medicine; Visit Provider Internal Medicine Gastroenterology
DX: K52.9 Noninfective gastroenteritis and colitis, unspecified (principal)
CPT/HCPCS: 99213

== ENCOUNTER → 2024-07-02 11:33 | Outpatient (BNVA) | payer MEDICARE, MEDICAID, SELFPAY | PROVIDERS: PCP Internal Medicine; Visit Provider Internal Medicine Gastroenterology | DX: K52.9 Noninfective gastroenteritis and colitis, unspecified (principal) | CPT/HCPCS: 99212 ==

== ENCOUNTER 2024-08-02 06:23 | Day surgery (SDC) | payer MEDICARE, MEDICAID, SELFPAY ==
--- OUTSIDE RECORDS SUMMARY | 2024-07-02 14:24 | XMS_ITS | Clinical Summary ---
Author Organization [employer] Address [address] [facility] [address] [place] [address] Care Team Providers Care Deliverer Merchandise Name Role Phone Unavailable Primary Care Provider [...] Description 06/08/2024 10:30 AM EDT Office Visit [facility] ADULT DENTAL [address] [place] [address] Nathalie Kate, DDS Tooth sensitivity to cold (Primary Dx); Dental caries 05/03/2024 2:30 PM EDT Office Visit [facility] ADULT DENTAL [address] [place] [address] Oneill-Cardona, Kate, DDS Gingival recession, localized (Primary Dx); Encounter for dental examination; Bruxism 04/17/2024 2:30 PM EST Office Visit [facility] ADULT DENTAL [address] [place] [address] Cierra Hanley Dental calculus (Primary Dx); Dental [...] Description 01/21/2025 8:00 AM EST Office Visit [facility] ADULT DENTAL [address] [place] [address] Divya Rebollar Health Maintenance Due Date Last [...] Patient Date of Phone Billing Address Personal/Family [address] [place], [place] [address] [address] * Guarantor: Daly Ontiveros Account Type Relation to Patient Date of Phone Billing Address Personal/Family Self [facility] Alie Collins [address] [address]
--- OUTSIDE RECORDS SUMMARY | 2024-07-02 14:24 | XMS_ITS | Encounter Summary ---
Author Organization [employer] [facility] Address [address] [facility] [address] [place] [address] Care Team Providers Care Incendiaries Supervisor Name Role Phone Unavailable Primary Care Provider Unavailabl e Encounter Details Date Type Department Care Team (Latest Contact Info) Description 08/22/2018 Abstract [facility] CONVERSIONS Dental, Provider, DDS Social History [...] Description 01/21/2025 8:00 AM EST Office Visit [facility] ADULT DENTAL [address] [place] [address] Divya Rebollar documented as of this encounter Visit Diagnoses Not on filedocumented in this encounter
--- OUTSIDE RECORDS SUMMARY | 2024-07-02 14:24 | XMS_ITS | Encounter Summary ---
Author Organization [employer] [facility] Address [address] [facility] [address] [place] [address] Care Team Providers Care Auto Apprentice Mechanic Name Role Phone Unavailable Primary Care Provider Unavailabl e Encounter Details Date Type Department Care Team (Latest Contact Info) Description 05/12/2020 Abstract [facility] CONVERSIONS Dental, Provider, DDS Social [...] Description 01/21/2025 8:00 AM EST Office Visit [facility] ADULT DENTAL [address] [place] [address] Divya Rebollar documented as of this encounter Visit Diagnoses Not on filedocumented in this encounter
[2024-07-31 14:55] VITALS: BMI 21.7
--- NOTE | 2024-08-01 10:07 | HO.ANESPROP2 ---
Documented by User: Jovita Allan NP 08/01/24 10:08 HPI - Anesthesia Eval Consult details Narrative: 74yo F for Colonoscopy PMFSH Active Problems Active Problems: All Active Problems Family history of skin cancer (Acute) Multiple gastric ulcers (Acute) Eczema (Acute) Goiter (Acute) Pill dysphagia (Acute) Dysphagia (Acute) Osteoarthritis of feet, bilateral (Acute) Osteoarthritis of hands, bilateral (Acute) Polyarthralgia (Acute) Hospital discharge follow-up (Acute) Physical exam (Acute) Encounter for screening colonoscopy (Acute) Leg pain (Acute) Non-rheumatic mitral regurgitation (Acute) [place] (Acute) Pharyngitis (Acute) Poor circulation (Acute) Postmenopausal (Acute) Chronic sinusitis (Acute) Anxiety (Acute) Abdominal pain (Acute) BPPV (benign paroxysmal positional vertigo) (Acute ~03/2021) Anxiety (Acute) Sinusitis (Acute) Long-term use of aspirin therapy (Acute) Pure hypercholesterolemia (Acute) Allergic rhinitis (Acute) Hypothyroidism (Acute) Past Medical History Medical History (Updated 05/15/24 @ 00:01 by Laly Angel) Colon cancer screening declined [place] (hard of hearing) Pharyngitis Poor circulation Postmenopausal Chronic sinusitis Anxiety Abdominal pain BPPV (benign paroxysmal positional vertigo) (~03/2021) Anxiety Mild depression Sinusitis Long-term use of aspirin therapy Pure hypercholesterolemia Allergic rhinitis Hypothyroidism Family History Family History Father No problems noted. Mother Vaginal cancer Brother Cancer Sister Skin cancer Son No problems noted. Son No problems noted. Daughter No problems noted. Family history of problems with anesthesia: No Surgical History Surgical History (Updated 07/31/24 @ 15:00 by Lety Richards RN) History of esophagogastroduodenoscopy (EGD) (09/19/23) History of bilateral cataract extraction History of mastoidectomy History of 3 sections History of Problems with Anesthesia: No Social History Social History Household Members: None Household Members Other:: alone Housing: Apartment Do you presently have visiting nurse or other home services: No Alcohol intake: never Patient Tobacco Use Status: Never used Tobacco e-Cigarette/Vaping Use: Never Used Second Hand Smoke Exposure: No Advance Directives: No Advance Directives Information Provided: Yes Advance Directives Date on File: 03/14/24 service: No Current occupational status: previously employed and retired 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 Cognitive needs: No Hearing needs: No Vision needs: Yes Meds Allergies Allergy/AdvReac Type Severity Reaction Status Date / Time Penicillins (PENICILLINS) Allergy Intermediate syncope Verified 07/02/24 12:18 Home Medications ?Medication ?Instructions ?Recorded ?Confirmed ?Last Taken ?Type Synthroid 50 Mcg 50 mcg PO DAILY 03/12/24 04/16/24 03/10/24 History meclizine 25 mg tablet 25 mg PO TID PRN Dizziness 03/12/24 04/16/24 Unknown History aspirin 81 mg chewable tablet 81 mg PO DAILY 07/02/24 Unknown History (Aspirin Childrens) Exam Height,Weight and Vital Signs: Height 5 ft 1 in Weight 52.163 kg Assessment and Plan Assessment Anesthesia Assessment: Chart Reviewed Final Anesthetic Review Family History of Problems with Anesthesia: No History of Problems with Anesthesia: No Documented by User: Rosangela Dukes MD 08/02/24 07:04 [facility] Past Medical History Medical History (Updated 05/15/24 @ 00:01 by Laly Angel) Colon cancer screening declined [place] of [place]) Pharyngitis Poor circulation Postmenopausal Chronic sinusitis Anxiety Abdominal pain BPPV (benign paroxysmal positional vertigo) (~03/2021) Anxiety Mild depression Sinusitis Long-term use of aspirin therapy Pure hypercholesterolemia Allergic rhinitis Hypothyroidism Family History Family History Father No problems noted. Mother Vaginal cancer Brother Cancer Sister Skin cancer Son No problems noted. Son No problems noted. Daughter No problems noted. Surgical History Surgical History (Updated 07/31/24 @ 15:00 by Lety Richards RN) History of esophagogastroduodenoscopy (EGD) (09/19/23) History of bilateral cataract extraction History of mastoidectomy History of 3 sections Social History Social History Household Members: None Household Members Other:: alone Housing: Apartment Do you presently have visiting nurse or other home services: No Alcohol intake: never Patient Tobacco Use Status: Never used Tobacco e-Cigarette/Vaping Use: Never Used Second Hand Smoke Exposure: No Advance Directives: No Advance Directives Information Provided: Yes Advance Directives Date on File: 03/14/24 service: No Current occupational status: previously employed and retired 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 Cognitive needs: No Hearing needs: No Vision needs: Yes Meds Allergies Allergy/AdvReac Type Severity Reaction Status Date / Time Penicillins (PENICILLINS) Allergy Intermediate syncope Verified 07/02/24 12:18 Home Medications ?Medication ?Instructions ?Recorded ?Confirmed ?Last Taken ?Type Synthroid 50 Mcg 50 mcg PO DAILY 03/12/24 04/16/24 03/10/24 History meclizine 25 mg tablet 25 mg PO TID PRN Dizziness 03/12/24 04/16/24 Unknown History aspirin 81 mg chewable tablet 81 mg PO DAILY 07/02/24 Unknown History (Aspirin Childrens) Exam Airway Mallampati Class: I TM Dist: >3cm Neck ROM: Full Denture: Upper Assessment and Plan Assessment Anesthesia Assessment: Anesthesia Plan Discussed Final Anesthetic Review NPO: Yes ASA Class: II Final Preanesthetic Review: No Changes in Pt Med Stat, Meds/Allgs Chart Reviewed, Consent Obtained/Reviewed and Anes Risks/Benef Reviewed Patient Risk: Low Procedure Risk: Low Anesthetic Plan Anesthetic Plan: TIVA Disposition: Standard PACU
[2024-08-02 06:46] VITALS: BMI 22.3
[2024-08-02 07:03] VITALS: BP 163/68; PULSE 76; RESP 16; TEMP 36.3; O2SAT 97
[2024-08-02] MEDS: Lactated Ringers 1,000 ML 100 ML IVCONT (07:11)
--- NOTE | 2024-08-02 07:39 | P.HPSUR_ITS ---
Pre-Procedural Eval Section A - 24 Hr Update-Section A only Date of Service: 08/02/24 Section B - Complete if H&P > 30 days Chief Complaint: Noninfective gastroenteritis and colitis, unspecif Relevant Family History (Specify if Yes): No Relevant Social History: None Present Medications: see Short Stay Collaborative assessment Medical History: Significant History ( [place] (hard of hearing) Pharyngitis Poor circulation Postmenopausal Chronic sinusitis Anxiety Abdominal pain BPPV (benign paroxysmal positional vertigo) (~03/2021) Anxiety Mild depression Sinusitis Long-term use of aspirin therapy Pure hypercholesterolemia Allergic rhinitis Hypothyroidism) History of Previous Operations: Relevant previous surgery/procedure and date(s) (History of esophagogastroduodenoscopy (EGD) (09/19/23) History of bilateral cataract extraction History of mastoidectomy History of 3 sections) Allergies: Allergies Allergy/AdvReac Type Severity Reaction Status Date / Time Penicillins (PENICILLINS) Allergy Intermediate syncope Verified 07/02/24 12:18 Review of Systems Sugical H&P ROS: Negative: Constitution, Cardiovascular, Respiratory, Neurological, Psychiatric, Hem-Onc, Allergic/Immunologic, Gastrointestinal, Genitourinary, Musculoskeletal, Integumentary, Endocrine and Eyes/Ears/Nose/Throat Exam Surgical H&P Exam: Normal: HEENT, Normal: Heart, Normal: Lungs, Normal: Extremities, Normal: Abdomen, Normal: Skin and Normal: Neurological Plan Diagnosis/Plan: Unchanged I have reviewed the history and physical and performed a pertinent physical examination on my patient. No changes have occurred unless specified. Time Spent With Patient Time: Total time managing care of this patient today ____ minutes.
--- NOTE | 2024-08-02 07:56 | P.OPN-COLO_ITS ---
Colonoscopy Operative Note Operative Note Date of Service: 08/02/24 Narrative: Operative Information Procedure Description: Colonoscopy Indication: screening Anesthesia: MAC COLONOSCOPY Instrument: Olympus variable stiffness pediatric scope 190L Colonoscopy Monitoring: Vital signs and clinical assessment, continuous EKG monitoring, Pulse oximetry, Carbon Dioxide monitoring and blood pressure monitoring were done throughout the procedure. Colon withdrawal time was 7 minutes. Procedure: The patient was placed in the left lateral decubitis position and pre-procedure medications were administered. After a digital rectal examination of the ano-rectum, the video colonoscope was inserted into the rectum and advanced through the colon to the cecum/TI. The colonoscope was slowly withdrawn in a retrograde panoramic fashion and the colon mucosa was carefully examined including a retroflexed view of the rectum. Findings and interventions are described below. Procedure Difficulty: easy Findings: Terminal Ileum-normal Cecum:normal Ascending Colon: 5-7 mm sessile polyp removed with cold snare Transverse Colon -normal Descending Colon:normal Sigmoid Colon: normal Rectum: Retroflexion with small internal hemorrhoids seen, grade I, x 1 sessile polyp 3-5 mm removed with cold forceps Anorectum - normal Intervention: cold forceps, cold snare Colon preparation: [place] Bowel Preparation Scale Right colon; 3 Transverse colon: 3 Left colon; 3 (0 = Unprepared colon segment with mucosa not seen due to solid stool that cannot be cleared. 1 = Portion of mucosa of the colon segment seen, but other areas of the colon segment not well seen due to staining, residual stool and/or opaque liquid. 2 = Minor amount of residual staining, small fragments of stool and/or opaque liquid, but mucosa of colon segment seen well. 3 = Entire mucosa of colon segment seen well with no residual staining, small fragments of stool or opaque liquid) Impression and Post Procedure Diagnosis: colon polyps x 2 internal hemorrhoids Plan: High fiber diet leaflet Avoid straining at stool, epsom salts and sitz bath, anusol supps or cream Repeat Colonoscopy in 5-6 years or earlier if clinically indicated Above findings were reviewed with the patient and relevant handouts were provided if indicated.
[2024-08-02 08:05] VITALS: BP 106/46; PULSE 77; RESP 16; TEMP 37; O2SAT 99
[2024-08-02 08:15] VITALS: BP 116/64; PULSE 74; RESP 16; O2SAT 99
[2024-08-02 08:26] VITALS: BP 145/58; PULSE 66; RESP 18; O2SAT 99
== END 2024-08-02 09:20 | disposition home or self-care (01) ==
PROVIDERS: PCP Internal Medicine; Visit Provider Internal Medicine Gastroenterology
PROC: 0DJD8ZZ Inspection of Lower Intestinal Tract, Via Natural or Artificial Opening Endoscopic (ICD-10-PCS; CPT 45378; principal; 2024-08-02 07:30)
DX: K52.9 Noninfective gastroenteritis and colitis, unspecified (principal); D12.2 Benign neoplasm of ascending colon; K62.1 Rectal polyp; K64.0 First degree hemorrhoids; E78.00 Pure hypercholesterolemia, unspecified; E03.9 Hypothyroidism, unspecified; Z79.82 Long term (current) use of aspirin; Z79.02 Long term (current) use of antithrombotics/antiplatelets
CPT/HCPCS: 45385; 45380; 88305; J2003; J2704

== ENCOUNTER → 2024-08-02 06:23 | Outpatient (BNV) | payer MEDICARE, MEDICAID, SELFPAY | PROVIDERS: PCP Internal Medicine; Visit Provider Internal Medicine Gastroenterology | DX: Z12.11 Encounter for screening for malignant neoplasm of colon (principal); K63.5 Polyp of colon; K64.8 Other hemorrhoids | CPT/HCPCS: 45380; 45385 ==

== ENCOUNTER 2024-08-04 10:43 | Emergency (ER) | payer MEDICARE, MEDICAID, SELFPAY ==
--- NOTE | ~2024-08-04 | CT_ITS ---
CLINICAL HISTORY: hematuria CT abdomen and pelvis with contrast Comparison: CT - CT ABDOMEN PELVIS W IV CON - 08/04/24 11:54 EDT Findings: No consolidation or effusion. The liver, gallbladder, spleen, adrenal glands and pancreas are unremarkable. Minimal fullness of the right ureter. Tiny calcifications are present within the pelvis, for example on the right on axial 556/719. Several additional probable phleboliths are present. Kidneys, ureters and bladder are otherwise unremarkable. Uterus and adnexa are within normal limits. No bowel obstruction. Normal appendix. No free fluid, free air, abscess or adenopathy. No acute osseous finding. Impression: There is minimal fullness of the right ureter. Several tiny calculi are present within the pelvis. None of these are definitively intraureteral. There is no hydronephrosis. This document has been electronically signed by: Gage Suh MD on 08/04/2024 12:36:46
[2024-08-04 10:51] VITALS: BP 183/76; PULSE 81; RESP 16; TEMP 36.8; O2SAT 96; BMI 23.8
--- OUTSIDE RECORDS SUMMARY | 2024-08-04 11:06 | XMS_ITS | Encounter Summary ---
Author Organization [employer] [facility] Address [address] [facility] [address] [place] [address] Care Team Providers Care Transportation Logistics Internship Name Role Phone Unavailable Primary Care Provider Unavailabl e Encounter Details Date Type Department Care Team (Latest Contact Info) Description 08/22/2018 Abstract [facility] CONVERSIONS Dental, Provider, DDS Social [...] Description 01/21/2025 8:00 AM EST Office Visit [facility] ADULT DENTAL [address] [place] [address] Divya Rebollar documented as of this encounter Visit Diagnoses Not on filedocumented in this encounter
[2024-08-04 11:13] LABS: MANUAL DIFF FLAG NO
--- NOTE | 2024-08-04 11:14 | PC.NURSE ---
Pt denies pain/urinary frequency at this time; urine is pink on visual inspection; afebrile; reports seeing blood in urine this morning; denies hx of renal calculi
[2024-08-04 11:15] LABS: Basophils Absolute Auto 0.1 X10*3/uL (0.0-0.2); Basophils Percent Auto 0.5 % (0-2); Eosinophils Absolute Auto 0.1 X10*3/uL (0.0-0.4); Eosinophils Percent Auto 0.6 % (0-4); Hematocrit 42.5 % (37.0-47.0); Hemoglobin 14.4 g/dl (12.0-16.0); Imm Gran Abs Auto 0.02 X10*3/uL (0.00-0.03); Imm Gran Pct Auto 0.2 % (0.0-0.4); Lymphocytes Absolute Auto 2.6 X10*3/uL (1.2-4.9); Lymphocytes Percent Auto 26.3 % (20-40); Mean Corpuscular HGB Conc 33.9 g/dl (31.0-35.0); Mean Corpuscular Hemoglobin 25.7 pg (27.0-33.0); Mean Corpuscular Volume 75.8 fL (80.0-98.0); Mean Platelet Volume 9.9 fL (9.4-12.3); Monocytes Absolute Auto 0.6 X10*3/uL (0.1-1.2); Monocytes Percent Auto 6.1 % (2-11); Neutrophils Absolute Auto 6.6 x10*3/uL (2.0-8.3); Neutrophils Percent Auto 66.3 % (45-73); Platelet Count 265 X10*3/uL (160-400); Red Blood Count 5.61 X10*6/uL (4.20-5.50); Red Cell Distribution Width 14.7 % (11.0-16.0); White Blood Count 9.9 X10*3/uL (4.8-10.8)
[2024-08-04 11:27] LABS: Appearance Urine Clear; Color Urine Other
[2024-08-04 11:28] LABS: Glucose Urine UA Negative (Negative); Specific Gravity - Urine < 1.005 (1.005-1.025); Urine Blood Large (3+) (Negative); Urine Ketones Negative (Negative); Urine Protein 30 (1+) mg/dL (Neg-Trace)
[2024-08-04 11:29] LABS: Anion Gap 12 (12-20); Blood Urea Nitrogen 26 mg/dL (9-16); Calcium 9.4 mg/dL (8.4-10.2); Carbon Dioxide 24 mmol/L (22-29); Chloride 103 mmol/L (96-108); Creatinine Clr Calc Pharmacy 47.4; Estimated Glomerular Filt Rate > 60; Glucose Random 102 mg/dL (60-115); Leukocyte Esterase Urine Moderate (2+) (Negative); Nitrite Urine Negative (Negative); Potassium 3.9 mmol/L (3.3-5.1); Sodium 135 mmol/L (135-145); UMIC TRIGGER UACC YES
[2024-08-04 11:31] LABS: Bacteria Urine None Seen (None Seen); Hyaline Casts Urine 0-2 /LPF (0-2); RBC Urine >20 /HPF (0-2); Squamous Epithelial Cell Urine 0-2 /HPF (0-2); UACC Culture Trigger YES; WBC Urine >50 /HPF (0-5)
--- NOTE | 2024-08-04 11:40 | ED_ITS ---
HPI - Female Genitourinary General Chief complaint: Urogenital-Female Stated complaint: urinating blood Time Seen by Provider: 08/04/24 10:51 Source: patient and family (son) Mode of arrival: ambulatory Limitations: no limitations History of Present Illness ED Provider: PAT VALDEZ PA-C HPI Narrative: 74-year-old [place]-speaking female presents to the ED today with her son for evaluation of gross hematuria since this morning. No history of similar. Denies any tobacco use. Denies any other concerns at present. She is not on anticoagulation. She denies any fever, chills, abdominal pain, flank pain, dysuria, increased urinary frequency or urgency. Related Data Home Medications ?Medication ?Instructions ?Recorded ?Confirmed Synthroid 50 Mcg 50 mcg PO DAILY 03/12/2405/08 meclizine 25 mg tablet 25 mg PO TID PRN Dizziness 0 03/12/24 04/16/24 aspirin 81 mg chewable tablet 81 mg PO DAILY 07/02/24 (Aspirin Childrens) Previous Rx's ?Medication ?Instructions ?Recorded pravastatin 20 mg tablet 20 mg PO DAILY 90 days #90 t abs 11/22/23 betamethasone valerate 0.1 % 1 appl topical DAILY PRN skin 04/16/24 topical ointment irritation 30 days #45 grams ciprofloxacin HCl 250 mg tablet 250 mg PO BID 3 days # 6 tabs 05/01/24 doxycycline monohydrate 100 mg 100 mg PO BID #14 caps 05/14/24 capsule sodium,potassium,mag sulfates 17.5 See Rx Instructions PO .COMPLEX 07/02/24 gram-3.13 gram-1.6 gram oral soln #354 mL (Suprep Bowel Prep Kit) sodium,potassium,mag sulfates 17.5 See Rx Instructions PO .COMPLEX 07/24/24 gram-3.13 gram-1.6 gram oral soln colonoscopy prep #35 4 mL (Suprep Bowel Prep Kit) cefuroxime axetil 250 mg tablet 250 mg PO BID 7 days # 14 tabs 08/04/24 Allergies Allergy/AdvReac Type Severity Reaction Status Date / Time Penicillins (PENICILLINS) Allergy Intermediate syncope Verified 08/04/24 10:52 Review of Systems 2 Review of Systems: Constitutional: No fever, chills, fatigue, night sweats, weight changes ENT/Mouth: No ear pain, hearing loss, nasal congestion, sinus pain, rhinorrhea, sore throat Eyes: No eye pain, swelling, redness, vision changes, discharge Cardio: No chest pain, palpitations, HAN[place], orthopnea, peripheral edema Pulm: No SOB, cough, sputum, wheezing, dyspnea, hemoptysis GI: No nausea, vomiting, hematemesis, abdominal pain, diarrhea, constipation, hematochezia, melena : No irregular bleeding, dysuria, frequency, urgency, hesitancy, hematuria, flank pain, urinary flow changes, urinary incontinence or retention, +hematuria MSK: No back pain, neck pain, joint pain, myalgias Skin: No lesions, rashes Neuro: No weakness, numbness, paresthesias, LOC, dizziness, headache Psych: No anxiety/panic, depression, SI/HI, AH/VH All other systems reviewed and are negative. [facility] Past Medical History Attestation statement: The following information was validated with the patient. Source: old records reviewed and nursing notes reviewed Medical History Colon cancer screening declined [place] (hard of hearing) Pharyngitis Poor circulation Postmenopausal Chronic sinusitis Anxiety Abdominal pain BPPV (benign paroxysmal positional vertigo) (~03/2021) Anxiety Mild depression Sinusitis Long-term use of aspirin therapy Pure hypercholesterolemia Allergic rhinitis Hypothyroidism Surgical History History of esophagogastroduodenoscopy (EGD) (09/19/23) History of bilateral cataract extraction History of mastoidectomy History of 3 sections Family History Family History Father No problems noted. Mother Vaginal cancer Brother Cancer Sister Skin cancer Son No problems noted. Son No problems noted. Daughter No problems noted. 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 Skin: Warm, dry, intact. No rashes or lesions. Head: Normocephalic, atraumatic. EENT: Hearing is intact b/l. Conjunctiva clear. Sclera is anicteric. PERRLA. EOM intact. Moist mucous membranes.? Cardiac: Chest wall symmetric. RRR. Lungs: Normal respiratory effort without accessory muscle use. CTA bilaterally. Abdomen: Soft, non-tender, non-distended. No rebound tenderness or guarding. Positive BS x4. no cvat. Back: No midline spinous or paraspinal tenderness. No step off deformity. Ext: Upper and lower extremities atraumatic, without tenderness, deformity, swelling or erythema. Neuro: AOx3. Normal speech. Ambulating with steady gait Course Course Course Narrative: 1400 -- CBc without leukocytosis or left shift. no anemia, h&h stable. chemistry without acute electrolyte abnormality requiring intervention. renal function around baseline. CT abdomen/pelvis shows minimal fullness of the right ureter with several tiny calculi present within the pelvis however none of these are definitively intraureteral. No evidence of hydronephrosis. Urine is light pink in color. There is large urine blood, >20 rbcs, moderate leukocyte esterase and over 50 urine WBCs. No urine bacteria seen. > on re-evaluation, patient is still asymptomatic. No complaints at present other than hematuria. She has been treated with 1 L of fluids. > will treat with Ceftin for UTI. She has an allergy to penicillin. First dose given in the ED today, patient tolerated well. No reaction noted. Will send script to pharmacy. > I spoke with urologist, Dr. Hamilton who agrees with management. patient and son will be following up with him outpatient. Referral provided. > Patient has remained stable throughout ED visit today. Discussed worrisome signs and symptoms and when to return to the ED. All questions answered at this time. Patient is agreeable with disposition and stable for discharge. Medications Administered Discontinued Medications Generic Name Dose Route Start Last Admin Trade Name Carisa PRN Reason Stop Dose Admin Cefuroxime Axetil 250 mg 08/04/24 13:16 08/04/24 13:33 Cefuroxime Axetil 250 Mg Tablet PO 08/04/24 13:17 250 mg ONCE ONE Administration Sodium Chloride 1,000 mls @ 999 mls/hr 08/04/24 11:45 08/04/24 13:34 Ns IV 08/04/24 12:45 Infused .Q1H1M DARION Infusion Iohexol 100 ml 08/04/24 12:04 08/04/24 12:05 Iohexol 350 Mg/Ml 100 Ml Infus..Btl IV 08/04/24 12:05 85 ml ONCE ONE Administration Medical Decision Making Medical Decision Making [facility] Narrative: 74-year-old [place]-speaking female presents to the ED today with her son for evaluation of gross hematuria since this morning. Patient is hypertensive, vitals otherwise WNL. She is nontoxic-appearing and in no acute distress. Lying comfortably on exam bed. Her abdomen is soft, nondistended, nontender to palpation, no rebound or guarding. Active bowel sounds x4. No CVAT bilaterally. Differential diagnosis includes urinary tract infection, renal colic, nephrolithiasis, pyelonephritis, bladder cancer, bladder stone, anemia, electrolyte abnormality, dehydration Plan for labs, UA, CT, re-evaluation Differential Diagnosis Differential Diagnoses: The differential diagnosis associated with the presentation includes As above Admission/Observation Not indicated Lab Data [facility] Lab Attestation statement: I reviewed the patient's lab results. As above 08/04/24 11:08 08/04/24 11:08 Labs: Lab Results 08/04/24 Range/Units 11:08 WBC 9.9 (4.8-10.8) X10*3/uL RBC 5.61 H (4.20-5.50) X10*6/uL Hgb 14.4 (12.0-16.0) g/dl Hct 42.5 (37.0-47.0) % MCV 75.8 L (80.0-98.0) fL MCH 25.7 L (27.0-33.0) pg MCHC 33.9 (31.0-35.0) g/dl RDW 14.7 (11.0-16.0) % Plt Count 265 D (160-400) X10*3/uL MPV 9.9 (9.4-12.3) fL Immature Gran % (Auto) 0.2 (0.0-0.4) % Neut % (Auto) 66.3 (45-73) % Lymph % (Auto) 26.3 (20-40) % [place] % (Auto) 6.1 (2-11) % Eos % (Auto) 0.6 (0-4) % Baso % (Auto) 0.5 (0-2) % Lymph # (Auto) 2.6 (1.2-4.9) X10*3/uL [place] # (Auto) 0.6 (0.1-1.2) X10*3/uL Eos # (Auto) 0.1 (0.0-0.4) X10*3/uL Baso # (Auto) 0.1 (0.0-0.2) X10*3/uL Abs Immat Gran (auto) 0.02 (0.00-0.03) X10*3/uL Absolute Neuts (auto) 6.6 (2.0-8.3) x10*3/uL Absolute Nucleated RBC 0.000 (0.0-0.012) X10*3/uL Nucleated RBC % (auto) 0.0 (0.0-0.2) /100WBC Sodium 135 (135-145) mmol/L Potassium 3.9 (3.3-5.1) mmol/L Chloride 103 (96-108) mmol/L Carbon Dioxide 24 (22-29) mmol/L Anion Gap 12 (12-20) BUN 26 H (9-16) mg/dL Creatinine 0.80 (0.5-1.4) mg/dL Estim Creat Clear Calc 47.4 Estimated GFR > 60 Random Glucose 102 (60-115) mg/dL Calcium 9.4 D (8.4-10.2) mg/dL Urine Color Other A Urine Appearance Clear Urine pH 6.0 (5.0-9.0) Ur Specific [place] < 1.005 L (1.005-1.025) Urine Protein 30 (1+) H (Neg-Trace) mg/dL Urine Glucose (UA) Negative (Negative) mg/dL Urine Ketones Negative (Negative) mg/dL Urine Blood Large (3+) H (Negative) Urine Nitrite Negative (Negative) Ur Leukocyte Esterase Moderate (2+) H (Negative) Urine RBC >20 H (0-2) /HPF Urine WBC >50 H (0-5) /HPF Ur Squamous Epith Cells 0-2 (0-2) /HPF Urine Bacteria None Seen (None Seen) Hyaline Casts 0-2 (0-2) /LPF Independent Interpretation I performed an independent interpretation of an: CT Scan Interpretation: CT scan without obstructing renal stone Radiology Impression Discussion of test interpretation with radiology: I have reviewed the radiologist's reading. Radiologist Impression: Procedure(s): CT abdomen pelvis w IV con Accession Number(s): [id number] cc: Pat Valdez; Shania Hancock MD~ Report Number: [id number]: Total DLP = 397.00 mGy-cm CLINICAL HISTORY: hematuria CT abdomen and pelvis with contrast Comparison: CT - CT ABDOMEN PELVIS W IV CON - 08/04/24 11:54 EDT Findings: No consolidation or effusion. The liver, gallbladder, spleen, adrenal glands and pancreas are unremarkable. Minimal fullness of the right ureter. Tiny calcifications are present within the pelvis, for example on the right on axial 556/719. Several additional probable phleboliths are present. Kidneys, ureters and bladder are otherwise unremarkable. Uterus and adnexa are within normal limits. No bowel obstruction. Normal appendix. No free fluid, free air, abscess or adenopathy. No acute osseous finding. Impression: There is minimal fullness of the right ureter. Several tiny calculi are present within the pelvis. None of these are definitively intraureteral. There is no hydronephrosis. This document has been electronically signed by: Gage Suh MD on 08/04/2024 12:36:46 Independent Historian Clinical information obtained from an independent historian. History obtained from or confirmed by: Other (Son) External Record Review External record reviewed: Inpatient record Prescription Management I considered prescription management with: Antibiotic (Ceftin) Social Determinants Patient?s care significantly limited by Social Determinants of Health including: Other Social Determinant of Health Critical Care Time Critical Care Time Critical Care Time: No Discharge Plan Discharge Clinical Impression: Urinary tract infection Patient Disposition: Home, Self-Care Instructions: Urinary Tract Infection in Women (ED) Additional Instructions: Your blood work is reassuring. Your urine today is positive for infection. The CT scan of your abdomen/pelvis shows normal bladder, some fullness to your right ureter with suspected stones within the kidney itself. Ceftin is an antibiotic that has been sent to your pharmacy. Take this as prescribed and do not miss any doses. You must complete the entire course of antibiotics. If you do not, there is a risk of the infection coming back or worsening. You received your 1st dose in the ED today. Take your next dose tonight. As discussed, you need to follow up with Urology. I have provided you with a referral. Call them to establish care. They will not call you.? Follow up with your primary care provider as needed. If you develop a fever or new/ worsening symptoms call 911 or come back to the ER for further evaluation. Prescriptions: New cefuroxime axetil 250 mg tablet 250 mg PO BID 7 Days Qty: 14 0RF No Action pravastatin 20 mg tablet 20 mg PO DAILY 90 Days Qty: 90 2RF ciprofloxacin HCl 250 mg tablet 250 mg PO BID 3 Days Qty: 6 0RF sodium,potassium,mag sulfates [Suprep Bowel Prep Kit] 17.5-3.13-1.6 gram recon soln See Rx Instructions PO .COMPLEX Qty: 354 0RF Rx Instructions: DILUTE each bottle with 16oz of water; drink first bottle 4pm evening before procedure AND second bottle at 10pm; follow each bottle with at least 32 oz.of water within 1 hour after each bottle meclizine 25 mg tablet 25 mg PO TID PRN (Reason: Dizziness) Synthroid 50 Mcg 50 mcg 50 mcg PO DAILY doxycycline monohydrate 100 mg capsule 100 mg PO BID Qty: 14 0RF betamethasone valerate 0.1 % ointment 1 appl topical DAILY PRN (Reason: skin irritation) 30 Days Qty: 45 0RF aspirin [Aspirin Childrens] 81 mg tablet,chewable 81 mg PO DAILY sodium,potassium,mag sulfates [Suprep Bowel Prep Kit] 17.5-3.13-1.6 gram recon soln See Rx Instructions PO .COMPLEX Qty: 354 0RF Rx Instructions: DILUTE; drink 1/2 at 6-8 pm and half at 11 PM- 1AM Referrals: [facility] [Provider Group, Urology] Referral Note: painless hematuria Shania Hancock MD [Primary Care Provider, Internal Medicine] Interventions: ED Discharge Assessment Last Done: 08/04/24 14:13 Discharge Date/Time: 08/04/24 14:15 Print Language: [place]
[2024-08-04 12:00] VITALS: BP 169/78; PULSE 78; RESP 14; TEMP 36.6; O2SAT 100
[2024-08-04] MEDS: iohexoL 350 MG/ML 100 ML INFUS..BTL IV (12:05)
[2024-08-04] MEDS: 0.9 % Sodium Chloride 1,000 ML 999 ML IV (12:39)
[2024-08-04] MEDS: cefuroxime axetiL 250 MG TABLET PO (13:33)
[2024-08-04 14:13] VITALS: BP 156/82; PULSE 76; RESP 16; TEMP 36.5; O2SAT 96
== END 2024-08-04 14:15 | disposition home or self-care (01) ==
PROVIDERS: Physician Assistant Medical; Emergency Provider Emergency Medicine; PCP Internal Medicine
DX: N39.0 Urinary tract infection, site not specified (principal); R31.0 Gross hematuria; N20.0 Calculus of kidney
CPT/HCPCS: 36415; 74177; 80048; 81001; 85025; 87086; 96360; 99284; Q9967

== ENCOUNTER → 2024-08-04 11:43 | Outpatient (BNV) | payer MEDICARE, MEDICAID, SELFPAY | PROVIDERS: Emergency Provider Emergency Medicine; PCP Internal Medicine; Visit Provider Radiology Vascular & Interventional Radiology | DX: N21.9 Calculus of lower urinary tract, unspecified (principal) | CPT/HCPCS: 74177 ==

== ENCOUNTER 2024-08-10 09:23 | Outpatient (REF) | payer MEDICARE, MEDICAID, SELFPAY ==
--- NOTE | ~2024-08-10 | MM_ITS ---
EXAMINATION: MM DIAGNOSTIC DIGITAL BREAST TOMOSYNTHESIS, BILATERAL CLINICAL INFORMATION: Two-year follow-up for faint calcifications in the upper outer left breast. COMPARISON: Mammography: Comparison is made with relevant prior exams. TECHNIQUE: Digital breast mammography with tomosynthesis is performed in both the craniocaudal and mediolateral oblique views along with computer-aided detection (CAD). FINDINGS: There are scattered areas of fibroglandular density (ACR BI-RADS breast composition Category b). Right: There are no significant masses, abnormal calcifications, or other abnormalities. Left: Faint punctate calcifications in the upper outer left breast were not significantly changed on prior magnification views dating back for 2 years and therefore benign. No suspicious masses or other abnormal findings. Results are provided to the patient at time of visit by the technologist. MM/MM tomosynthesis diagnostic BI IMPRESSION: Right: Negative. Left: Faint punctate calcifications in the upper outer left breast are not significantly changed from prior magnification views dating back for 2 years and therefore benign. ASSESSMENT: BI-RADS BI-RADS 2 - Benign Findings RECOMMENDATION: 1 year F/U This patient's information was entered into a reminder system with a target due date for their next mammogram. Electronically signed by: Unique Marti DO 08/10/2024 10:10 AM EDT
--- OUTSIDE RECORDS SUMMARY | 2024-08-10 09:46 | XMS_ITS | Encounter Summary ---
Author Organization [employer] [facility] Address [address] [place] [address] Care Team Providers Care Outside Contractor Sales Name Role Phone Unavailable Primary Care Provider Unavailabl e Encounter Details Date Type Department Care Team (Latest Contact Info) Description 08/22/2018 Abstract [facility] CONVERSIONS Dental, [...] 01/21/2025 8:00 AM EST Office Visit [facility] ADULT DENTAL [address] [place] [address] Divya Rebollar documented as of this encounter Visit Diagnoses Not on filedocumented in this encounter
== END 2024-08-10 09:24 | disposition home or self-care (01) ==
LOC: HO.MAMMO 09:23
PROVIDERS: PCP Internal Medicine; Visit Provider Internal Medicine
DX: R92.1 Mammographic calcification found on diagnostic imaging of breast (principal)
CPT/HCPCS: 77062; 77066

== ENCOUNTER → 2024-08-10 09:30 | Outpatient (BNV) | payer MEDICARE, MEDICAID, SELFPAY | PROVIDERS: PCP Internal Medicine; Visit Provider Internal Medicine | DX: N64.89 Other specified disorders of breast (principal) | CPT/HCPCS: 77066; G0279 ==

== ENCOUNTER 2024-08-13 07:54 | Outpatient (AMB) | payer MEDICARE, MEDICAID, SELFPAY ==
--- NOTE | 2024-08-13 07:54 | A.OFFVIS_ITS ---
Intake Visit Reasons: hematuria/kidney stone Intake Note: New Patient is present for kidney stones , hematuria Urology Rx:none Blood Thinners:asprin Imaging completed: 08/04/24 Printed Circuit Board Designer Required: Yes Printed Circuit Board Designer Services: Printed Circuit Board Designer Present Printed Circuit Board Designer Name: Marco Crespo Accompanied by: Self / Same As Patient Allergies Penicillins (PENICILLINS) Allergy (Intermediate, Verified 08/13/24 08:40) syncope Medication List - Last Reconciled 08/13/24 by DELISA Sanders- aspirin (Aspirin Childrens) 81 mg PO DAILY meclizine 25 mg PO TID PRN pravastatin 20 mg PO DAILY 90 days [Synthroid 50 Mcg 50 mcg PO DAILY] HPI Comments Details: Daly is a 74-year-old Divehi-speaking female patient of Dr. Hall. She has a past medical history of chronic sinusitis, anxiety, benign paroxysmal positional vertigo, depression, allergic rhinitis, hypercholesteremia, and hypothyroidism. She presents to the office today as a new patient for nephrolithiasis. In discussion with the patient today she reports having seeked emergency room care services for a urinary tract infection and nephrolithiasis at which recommendations were made for urology referral for further assessment evaluation. In review of patient's chart it appears CT of the abdomen and pelvis with IV contrast was performed and these results were reviewed and communicated with the patient today. 08/08 there is minimal fullness of the right ureter. Several tiny calculi are present within the pelvis. None of these are definitively intraureteral. There is no hydronephrosis bilaterally per radiology report. She reports UTI like symptoms and pain she had been experiencing has since subsided. She denies any previous history and or surgical intervention for nephrolithiasis. When asked she reports to be drinking approximately 60-80 oz of water daily. She reports shortly after her colonoscopy she started experiencing UTI like symptoms. She denies any previous history of urinary tract infections in the past. In review of patient's chart it appears urine culture 05/08 Citrobacter freundii. We discussed at length potential causes of nephrolithiasis as well as urinary tract infection patient experienced. We discussed obtaining 24 hour urine for further assessment evaluation as well as imaging for surveillance monitoring. She denies urinary urgency, urinary frequency, incontinence, nocturia, hematuria, dysuria, foul smelling urine, changes to urinary stream, flank pain, fever, and or chills. She is happy with her current voiding parameters. All questions were answered. She otherwise offers no other issues or concerns at this time. Plan The patient is advised to increase her water intake to 60 ounces per day to prevent the kidney stones from growing larger. A 24-hour urine collection will be conducted to assess her hydration status and determine if dietary factors are contributing to stone formation. Follow-up with an ultrasound is planned to monitor kidney stones. Patient was informed and verbally consented to the use of an ambient scribe for clinic note documentation during this visit. Discussion Notes I discussed with the patient nephrolithiasis which were identified during a recent hospital visit. I emphasized the importance of increasing water intake in relation to nephrolithiasis as well as overall health and well-being. I recommended a 24-hour urine collection to better understand her hydration status and dietary contributions to stone formation. We plan to follow up with an ultrasound to monitor the stones' size. I assured her that she can contact our office if she experiences any issues urologically. PFS Medical History Colon cancer screening declined [place] (hard of hearing) Pharyngitis Poor circulation Postmenopausal Chronic sinusitis Anxiety Abdominal pain BPPV (benign paroxysmal positional vertigo) (~03/2021) Anxiety Mild depression Sinusitis Long-term use of aspirin therapy Pure hypercholesterolemia Allergic rhinitis Hypothyroidism Surgical History History of esophagogastroduodenoscopy (EGD) (09/19/23) History of bilateral cataract extraction History of mastoidectomy History of 3 sections Family History Father No problems noted. Mother Vaginal cancer Brother Cancer Sister Skin cancer Son No problems noted. Son No problems noted. Daughter No problems noted. 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 Cognitive needs: No Hearing needs: No Vision needs: Yes Review of Systems Const All systems reviewed & are unremarkable except as noted in HPI and below Physical Exam Const General: cooperative, healthy appearing, comfortable, no acute distress, well developed, alert and awake Nutritional Appearance: average body habitus Orientation/consciousness: patient oriented x3 Limitations: language barrier HEENT Head: Yes normal to inspection, Yes normocephalic and Yes atraumatic Ears: hearing grossly normal bilaterally Eyes General: appearance normal, both eyes and all related structures Neck Neck: Yes normal visual inspection and Yes trachea midline Chest Chest palpation & inspection: normal inspection of the chest Resp Effort & Inspection: normal respiratory effort and able to speak in complete sentences Cardio Rate: regular rate GI Inspection: Yes normal to inspection General: Yes no CVA tenderness Back/Spine/Pelvis Back: no CVA tenderness Skin General skin exam: no rashes or lesions noted Neuro General: patient oriented x3 Extrem General: Yes normal to inspection Psych Appearance: grossly normal and well kempt Mental Status: mental status grossly normal Speech and movement: Normal speech and movement present and Clear speech present Affect: normal affect Attitude: cooperative Thought process: Normal thought process present Thought content: Normal thought content present Insight: Fair insight present (Psych) Judgement: Fair judgement present (Psych) Results AMB Urinalysis, Automated UA Leukoctes 0 Dai/uL Last Edit by Isabella Singleton MA on 08/13/24 10:05 UA Nitrite Negative Last Edit by Isabella Singleton MA on 08/13/24 10:05 UA Urobilinogen 0.2 mg/dL Last Edit by Isabella Singleton MA on 08/13/24 10:05 UA Protein 0 mg/dL Last Edit by Isabella Singleton MA on 08/13/24 10:05 UA pH 6.0 Last Edit by Isabella Singleton MA on 08/13/24 10:05 UA Blood 0 Nick/uL Last Edit by Isabella Singleton MA on 08/13/24 10:05 UA Specific [place] 1.010 Last Edit by Isabella Singleton MA on 08/13/24 10:05 UA Ketone Negative Last Edit by Isabella Singleton MA on 08/13/24 10:05 UA Bilirubin 0 mg/dL Last Edit by Isabella Singleton MA on 08/13/24 10:05 UA Glucose 0 mg/dL Last Edit by Isabella Singleton MA on 08/13/24 10:05 Results Reviewed Results Reviewed: Laboratory Last Values Urine pH (Auto) 6.0 08/13/24 09:33 Specific [place] (Auto) 1.010 08/13/24 09:33 Urine Protein (Auto) 0 mg/dL 08/13/24 09:33 Glucose (UA)(Auto) 0 mg/dL 08/13/24 09:33 Urine Ketones (Auto) Negative 08/13/24 09:33 Urine Blood (Auto) 0 Nick/uL 08/13/24 09:33 Urine Nitrite (Auto) Negative 08/13/24 09:33 Urine Bilirubin (Auto) 0 mg/dL 08/13/24 09:33 Urine Urobilinogen (Auto) 0.2 mg/dL 08/13/24 09:33 Leukocyte Esterase (Auto) 0 Dai/uL 08/13/24 09:33 Date of Service: 08/04/24 Procedure(s): CT abdomen pelvis w IV con Findings: No consolidation or effusion. The liver, gallbladder, spleen, adrenal glands and pancreas are unremarkable. Minimal fullness of the right ureter. Tiny calcifications are present within the pelvis, for example on the right on axial 556/719. Several additional probable phleboliths are present. Kidneys, ureters and bladder are otherwise unremarkable. Uterus and adnexa are within normal limits. No bowel obstruction. Normal appendix. No free fluid, free air, abscess or adenopathy. No acute osseous finding. Impression: There is minimal fullness of the right ureter. Several tiny calculi are present within the pelvis. None of these are definitively intraureteral. There is no hydronephrosis. Assessment & Plan Assessment & Plan (1) Nephrolithiasis: Code(s): N20.0 - Calculus of kidney Category: Medical Plan In office urinalysis results reviewed with the patient today; as noted above. She currently denies any bothersome urinary issues. She reports be happy with current voiding parameters. Will obtain Litholink in ultrasound in 3 months. We discussed at length potential causes of nephrolithiasis as well as urinary tract infection; we discussed further treatment options and risks and benefits of these treatment options. We discussed the importance of adequate hydration relation to urinary tract infection as well as nephrolithiasis. We discussed adding 1 oz of lemon juice to water daily. Follow-up in 3-4 months with imaging and Litholink to be completed prior; or sooner with any issues, concerns, and or questions. Orders: Orders URORISK Today N20.0 - Calculus of kidney US renal BI 3 Months N20.0 - Calculus of kidney AMB Urinalysis Automated Today Z13.9 - Encounter for screening, unspecified Patient Instructions: The patient had an opportunity to ask questions regarding the treatment plan. All questions were answered. Physical exam, labs, and imaging were discussed and reviewed in detail. As well as risks, benefits, and discussion of treatment choices. No major barriers to understanding were identified. The patient expressed understanding and agreement with the above treatment plan. The patient was made aware they should contact our office by phone for worsening of their current condition, the appearance of new symptoms, or with any questions or concerns. Compliance is encouraged with any medications and follow up testing that is ordered. It is a privilege to be allowed the opportunity to participate in? your urological care.? Again, if you have any questions or concerns If you have any questions or concerns please do not hesitate to contact me. The office is [phone]. This note is constructed using voice recognition software. While every effort has been made to ensure accuracy french edge operator errors may have been included. Yours sincerely, BA Sanders Coding Level of Care Code New Pt Level 3 (87247) Diagnoses Nephrolithiasis N20.0
--- OUTSIDE RECORDS SUMMARY | 2024-08-13 07:57 | XMS_ITS | Encounter Summary ---
Author Organization [facility] Address [address] [place] [address] Care Team Providers Care Junior Mechanical Engineer Name Role Phone Unavailable Primary Care Provider Unavailabl e Encounter Details Date Type Department Care Team (Latest Contact Info) Description 08/22/2018 Abstract [facility] CONVERSIONS Dental, Provider, DDS Social [...] Description 01/21/2025 8:00 AM EST Office Visit [facility] [address] [place] [address] Divya Rebollar documented as of this encounter Visit Diagnoses Not on filedocumented in this encounter
== END 2024-08-13 08:46 | disposition home or self-care (01) ==
LOC: HO.HUSH 07:54
PROVIDERS: PCP Internal Medicine; Visit Provider Nurse Practitioner Family
DX: Z13.9 Encounter for screening, unspecified (principal); N20.0 Calculus of kidney
CPT/HCPCS: 99203

== ENCOUNTER → 2024-08-13 07:54 | Outpatient (BNVA) | payer MEDICARE, MEDICAID, SELFPAY | PROVIDERS: PCP Internal Medicine; Visit Provider Nurse Practitioner Family | DX: N20.0 Calculus of kidney (principal) | CPT/HCPCS: 81003; 99202 ==

== ENCOUNTER 2024-08-14 09:36 | Outpatient (AMB) | payer MEDICARE, MEDICAID, SELFPAY ==
--- NOTE | 2024-08-14 09:44 | A.OFFPC_ITS ---
Vital Signs 08/14/24 09:45 Height 4 ft 11 in Weight 121 lb BMI 24.4 BP 132/70 Blood Pressure Location Lt brachial Position Sitting Pulse 78 Pulse Source Pulse Oximeter Pulse Oximetry (%) 97 Oxygen Delivery Method Room Air Intake Visit Reasons: [place] [facility] eye lift surgery 08/20 Assembly Press Operator Required: No Accompanied by: Self / Same As Patient Allergies Penicillins (PENICILLINS) Allergy (Intermediate, Verified 08/14/24 09:58) syncope Medication List - Last Reconciled 08/14/24 by Shania Howell MD aspirin (Aspirin Childrens) 81 mg PO DAILY meclizine 25 mg PO TID PRN pravastatin 20 mg PO DAILY 90 days [Synthroid 50 Mcg 50 mcg PO DAILY] Tobacco use date assessed: 03/23/24 Fall risk assessment: No Falls in past year Last assessed Fall Risk: 08/14/24 Dental Screening Dental Screen Date: 04/16/24 HPI HPI Comments History of Present Illness Details The patient is a 74-year-old female presenting with bilateral upper eyelid blepharoplasty and eye lift scheduled for August 20 of this year. She had an EKG done at the ER back in April of this year, which was normal, and blood work done less than a month ago, including CBC and CMP, was also normal. The patient denies any chest pain or dyspnea. She has a history of nephrolithiasis, which is followed by urology, and multiple gastric ulcers, which are followed by gastroenterology. The patient also has hypothyroidism, with the last TSH being normal. She has undergone mastoidectomy, endoscopy, and colonoscopy without complications. The patient is medically clear for the eyelid surgery scheduled next week, with no medical contraindications. By RCRI, she is class 1 with a 0.4% risk of cardiac complications during surgery. [facility] Medical History (Updated 08/14/24 @ 20:27 by Shania Howell MD) Colon cancer screening declined [place] (hard of hearing) Pharyngitis Poor circulation Postmenopausal Chronic sinusitis Anxiety Abdominal pain BPPV (benign paroxysmal positional vertigo) (~03/2021) Anxiety Mild depression Sinusitis Long-term use of aspirin therapy Pure hypercholesterolemia Allergic rhinitis Hypothyroidism Surgical History History of esophagogastroduodenoscopy (EGD) (09/19/23) History of bilateral cataract extraction History of mastoidectomy History of 3 sections Family History Father No problems noted. Mother Vaginal cancer Brother Cancer Sister Skin cancer Son No problems noted. Son No problems noted. Daughter No problems noted. 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 Kalen Herring, Cristiana Garcia, Boyd Hubbard and colleagues, with an educational obinna from [employer] Review of Systems Const All systems reviewed & are unremarkable except as noted in HPI and below Card Denies chest pain at rest, Denies chest pain with activity, Denies edema, Denies irregular heart rhythm, Denies claudication, Denies dyspnea, Denies dyspnea on exertion, Denies orthopnea, Denies paroxysmal nocturnal dyspnea and Denies slow heart rate Resp Denies cough, Denies dyspnea and Denies dyspnea on exertion Physical exam (Primary Care) Vital Signs: Last Vital Signs Pulse 78 08/14/24 09:45 BP 132/70 08/14/24 09:45 Pulse Ox 97 08/14/24 09:45 Oxygen Delivery Method Room Air 08/14/24 09:45 BMI result Body Mass Index 24.4 Tobacco/Smoking Status: Tobacco use Status Tobacco use date assessed 03/23/24 08/14/24 09:54 Patient Tobacco Use Status Never used Tobacco 08/14/24 09:54 e-Cigarette/Vaping Use Never Used 08/14/24 09:54 Thrive Assessment: Date of Thrive Assessment Date Thrive assessed 03/23/24 08/14/24 09:54 Resp Effort & Inspection: normal respiratory effort Auscultation: clear to auscultation bilaterally Cardio Jugular venous distension: no JVD Rate: regular rate Rhythm: regular rhythm Heart sounds: S1 normal heart sound present and S2 normal heart sound present Extrem General: Yes full ROM Coding Level of Care Code Est Pt Level 4 (20869) Complex EM visit Add On G2211 Diagnoses Pre-op evaluation Z01.818 Blurry vision, bilateral H53.8 Pure hypercholesterolemia E78.00 Anxiety F41.9 Hypothyroidism, unspecified type E03.9 Hypothyroidism type: unspecified Nephrolithiasis N20.0 Multiple gastric ulcers K25.9 Time Spent (min) 22 Assessment & Plan Assessment & Plan (1) Pre-op evaluation: Code(s): Z01.818 - Encounter for other preprocedural examination Category: Medical (2) Blurry vision, bilateral: Code(s): H53.8 - Other visual disturbances Category: Medical (3) Pure hypercholesterolemia: Code(s): E78.00 - Pure hypercholesterolemia, unspecified Category: Medical (4) Anxiety: Code(s): F41.9 - Anxiety disorder, unspecified Category: Medical (5) Hypothyroidism: Code(s): E03.9 - Hypothyroidism, unspecified Category: Medical Qualifiers: Hypothyroidism type: unspecified Qualified Code(s): E03.9 - Hypothyroidism, unspecified (6) Nephrolithiasis: Code(s): N20.0 - Calculus of kidney Category: Medical (7) Multiple gastric ulcers: Code(s): K25.9 - Gastric ulcer, unspecified as acute or chronic, without hemorrhage or perforation Category: Medical Plan The patient is scheduled for bilateral upper eyelid blepharoplasty on August 20. She has been medically cleared for the procedure, with no contraindications noted. Her recent EKG and blood work, including CBC and CMP, were normal, supporting her surgical clearance. By RCRI, she is class 1 with a 0.4% risk of cardiac complications during surgery, indicating a low risk for the procedure. Patient was informed and verbally consented to the use of an ambient scribe for clinic note documentation during this visit. Orders: Orders Vitamin B12 and Folate Today E53.8 - Deficiency of other specified B group vitamins Vitamin D 25-OH Total Today E55.9 - Vitamin D deficiency, unspecified Lipid Panel Today E78.00 - Pure hypercholesterolemia, unspecified, E78.5 - Hyperlipidemia, unspecified Thyroid Stimulating Hormone Today E03.9 - Hypothyroidism, unspecified Comprehensive [place]. Panel Fast Today E78.00 - Pure hypercholesterolemia, unspecified
[2024-08-14 09:45] VITALS: BP 132/70; PULSE 78; O2SAT 97; BMI 24.4
--- OUTSIDE RECORDS SUMMARY | 2024-08-14 10:24 | XMS_ITS | Encounter Summary ---
Author Organization [facility] Address [address] [place] [address] Care Team Providers Care Software Applications Architect Name Role Phone Unavailable Primary Care Provider Unavailabl e Encounter Details Date Type Department Care Team (Latest Contact Info) Description 08/22/2018 Abstract [facility] CONVERSIONS Dental, Provider, DDS Social History Tobacco [...] Description 01/21/2025 8:00 AM EST Office Visit [facility] [address] [place] [address] Divya Rebollar documented as of this encounter Visit Diagnoses Not on filedocumented in this encounter
== END 2024-08-14 10:12 | disposition home or self-care (01) ==
LOC: HO.HMCH 09:37
PROVIDERS: PCP Internal Medicine; Visit Provider Internal Medicine
DX: Z01.818 Encounter for other preprocedural examination (principal); H53.8 Other visual disturbances; E78.00 Pure hypercholesterolemia, unspecified; F41.9 Anxiety disorder, unspecified; E03.9 Hypothyroidism, unspecified; N20.0 Calculus of kidney; K25.9 Gastric ulcer, unspecified as acute or chronic, without hemorrhage or perforation

== ENCOUNTER → 2024-08-14 09:36 | Outpatient (BNVA) | payer MEDICARE, MEDICAID, SELFPAY | PROVIDERS: PCP Internal Medicine; Visit Provider Internal Medicine | DX: Z01.818 Encounter for other preprocedural examination (principal); H53.8 Other visual disturbances; E78.00 Pure hypercholesterolemia, unspecified; F41.9 Anxiety disorder, unspecified; E03.9 Hypothyroidism, unspecified; N20.0 Calculus of kidney; K25.9 Gastric ulcer, unspecified as acute or chronic, without hemorrhage or perforation | CPT/HCPCS: 99212 ==

== ENCOUNTER 2024-10-20 07:21 | Outpatient (REF) | payer MEDICARE, OTHER, SELFPAY ==
--- OUTSIDE RECORDS SUMMARY | 2024-10-19 10:30 | XMS_ITS | Encounter Summary ---
Author Organization [employer] Address [address] [facility] [address] [place] [address] Care Team Providers Care Aluminum Boat Assembly Supervisor Name Role Phone Unavailable Primary Care Provider Unavailabl e Reason for Visit * Reason Comments [place] Encounter Details Date Type Department Care Team (Late st Contact Info) Description 10/19/2024 10:30 AM EDT Office Visit [facility] ADULT DENTAL [address] [place] [address] Kate Zelaya DDS [address] [place] [address] Dental caries (Primary Dx); Need for full [...] for crown prep on tooth #6) Location: [facility] Tooth: #6 Procedure: [place] and Post & Core Verified the above with patient, export sales assistant, and provider. Confirmed via patient's chart, intraorally and by radiographs. Credit Control Manager: not applicable Chief Complaint Patient presents with [place] Medical Hx: Vitals: Blood pressure 132/68. Medications, [...] Phosphoric Acid Etch Quinonez: I-Quinonez Core: Filtek [place] Flowable Composite Occlusion checked with articulating paper and adjustments made as needed. Core smoothed and polished. [place] Preparation: Prepared tooth for: Ceramic crown Gingival [...] alert, oriented, and in stable condition. NV: [place] delivery aide: Tara Melgoza Dentist: Kate Zelaya DDS documented in this encounter Plan of Treatment Upcoming Encounters Date Type Department Care Team (Late st Contact Info) Description 11/07/2024 11:00 AM EDT Office Visit [facility] ADULT DENTAL [address] [place] [address] Kate Zelaya DDS [address] [place] [address] 01/21/2025 8:00 AM EST Office Visit [facility] ADULT DENTAL [address] [place] [address] Divya Rebollar Scheduled Orders Name Type Priority [...]
--- OUTSIDE RECORDS SUMMARY | 2024-10-20 07:24 | XMS_ITS | Clinical Summary ---
Author Organization [employer] Address [address] [facility] [address] [place] [address] Care Team Providers Care Time Lock Expert Name Role Phone Unavailable Primary Care Provider [...] by mouth 2 times daily. 02/09/2022 Active acetaminophen (Tylenol 8 Hour) 650 MG ER tablet Take 1 tablet (650 mg) by mouth every 8 (eight) hours if needed for mild pain. Do not crush, chew, or split. 5 tablet 09/17/2024 Active Active Problems Problem Noted Date Diagnosed Date Gingival recession, localized 09/17/2024 Open fracture of tooth 09/17/2024 Cough 03/17/2017 Acute suppurative otitis med ia without spontaneous rupture of ear drum 03/03/2017 Dyslipidemia 03/03/2017 Flushing 03/03/2017 Osteopenia 03/03/2017 Vertigo 03/03/2017 Hepatitis C antibody test positive 02/21/2017 Acquired hypothyroidism 02/18/2017 Essential hypertension 02/18/2017 History of dental examination 02/18/2017 Hyperlipidemia 02/18/2017 Encounters Date Type Department Care Team Description 10/19/2024 10:30 AM EDT Office Visit [facility] ADULT DENTAL [address] [place] [address] Kate Zelaya DDS Dental caries (Primary Dx); Need for full coverage dental crown 09/18/2024 1:00 PM EDT Office Visit [facility] ADULT DENTAL [address] [facility] [place] [address] Jerson Mariee DDS History of dental examination (Primary Dx) 09/18/2024 Telephone [facility] ADULT DENTAL [address] [place] [address] Kate Zelaya DDS 09/17/2024 10:00 AM EDT Office Visit [facility] ADULT DENTAL [address] [facility] [place] [address] Jerson Mariee DDS Gingival recession, localized (Primary Dx); Open fracture of tooth, initial encounter 08/16/2024 1:00 PM EDT Office Visit [facility] ADULT DENTAL [address] [place] [address] WyolaAlanis alaniz Missing teeth, acquired (Primary Dx) from Last 3 Months Immunizations Immunization Administration [...] Pressure 132/68 10/19/2024 10:13 AM EDT Pulse 70 09/17/2024 9:54 AM EDT Temperature - - Respiratory Rate - - Oxygen Saturation - - Inhaled Oxygen Concentration - - Weight - - Height - - Body Mass Index - - Plan of Treatment Upcoming Encounters Date Type Department Care Team (Late st Contact Info) Description 11/07/2024 11:00 AM EDT Office Visit [facility] ADULT DENTAL [address] [place] [address] Kate Zelaya, DDS [address] [place] [address] 01/21/2025 8:00 AM EST Office Visit [facility] ADULT DENTAL [address] [facility] [place] [address] Divya Rebollar Health Maintenance Due Date Last [...] COVID-19 Vaccine (1 - 2023-2 5 season) 2024 Influenza Vaccine (#1) 2024 02/18/2017 Dental Prophylaxis 10/19/2024 04/17/2024, 04/28/2023, 05/25/2022 Dental Oral Exam 11/04/2024 05/03/2024, 04/28/2023, 03/23/2022 Dental X-Ray: Bitewings 04/18/2025 04/18/19 25, 04/28/2023, 03/23/2022 Tobacco Screening 10/19/2025 10/19/2024 RSV Patients and Patients Aged 60 years or older (1 - 1-dose 75+ series) 02/04/2027 DTaP/Tdap/Td Vaccines (2 - T d or Tdap) 02/22/2027 02/22/2017 Dental X-Ray: Full Mouth 08/18/2027 025, 03/23/2022 HIB Vaccines Aged Out No longer eligi [...] caries Need for full coverage dental crown CROWN PREP Routine 10/19/2024 10:30 AM EDT Dental caries Need for full coverage dental crown RE-EVAL - POST-OP OFFICE VISIT Routine 09/18/2024 1:00 PM EDT 5 EXTRACTION, ERUPTED TOOTH OR EXPOSED ROOT (ELEVATION/FORCEPS REMOVAL) Routine 09/17/2024 10:00 AM EDT Gingival recession, localized LIMITED ORAL EVALUATION - PROBLEM FOCUSED Routine 09/17/2024 10:00 AM EDT CASE PRESENTATION, DETAILED AND EXTENSIVE TREATMENT PLANNING Routine 09/17/2024 10:00 AM EDT INTRAORAL - PERIAPICAL EACH ADDITIONAL RADIOGRAPHIC IMAGE Routine 09/17/2024 10:00 AM EDT INTRAORAL - PERIAPICAL FIRST RADIOGRAPHIC IMAGE Routine 09/17/2024 10:00 AM EDT INTRAORAL - PERIAPICAL EACH ADDITIONAL RADIOGRAPHIC IMAGE Routine 09/17/2024 10:00 AM EDT INTRAORAL - PERIAPICAL EACH ADDITIONAL RADIOGRAPHIC IMAGE Routine 09/17/2024 10:00 AM EDT INTRAORAL - PERIAPICAL FIRST RADIOGRAPHIC IMAGE Routine 09/17/2024 10:00 AM EDT PANORAMIC RADIOGRAPHIC IMAGE Routine 08/16/2024 1:00 PM EDT CASE PRESENTATION, DETAILED AND EXTENSIVE TREATMENT PLANNING Routine 08/16/2024 1:00 PM EDT PERIODIC ORAL EVALUATION - ESTABLISHED PATIENT Routine 05/03/2024 2:30 PM EDT Gingival recession, localized Encounter for dental examination Bruxism PROPHYLAXIS - ADULT Routine 04/17/2024 2 :30 PM EST Dental calculus Dental plaque BITEWINGS - 3 RADIOGRAPHIC IMAGES Routine 04/17/2024 2:30 PM EST from Last 3 Months or Most Recently Relevant to Health Maintenance Insurance DENTAL - HSN FULL (MEDICAID) * Guarantor: DALY ONTIVEROS Account Type Relation to Patient Date of Phone Billing Address Personal/Family [address] [place] [address]
--- OUTSIDE RECORDS SUMMARY | 2024-10-20 07:24 | XMS_ITS | Encounter Summary ---
Author Organization [employer] Address [address] [facility] [address] [place] [address] Care Team Providers Care Lotteries Agent Name Role Phone Unavailable Primary Care Provider Unavailabl e Encounter Details Date Type Department Care Team (Late st Contact Info) Description 09/18/2024 Telephone [facility] ADULT DENTAL [address] [place] [address] Kate Zelaya DDS [address] [place] [address] Social History Tobacco Use Types Packs/Day Years [...] AM EDT documented as of this encounter Miscellaneous Notes * Telephone Encounter - Nova Coffey - 09/18/2024 8:30 AM EDT UNABLE TO POST COVERAGE MH PORTAL DOWN documented in this encounter Plan of Treatment Upcoming Encounters Date Type Department Care Team (Late Contact Info) Description 11/07/2024 11:00 AM EDT Office Visit [facility] ADULT DENTAL [address] [place] [address] Kate Zelaya DDS [address] [place] [address] 01/21/2025 8:00 AM EST Office Visit [facility] ADULT DENTAL [address] [place] [address] Divya Rebollar documented as of this encounter Visit Diagnoses Not on filedocumented in this encounter
--- OUTSIDE RECORDS SUMMARY | 2024-10-20 07:24 | XMS_ITS | Encounter Summary ---
Author Organization [employer] [facility] Address [address] [facility] [address] [place] [address] Care Team Providers Care Architectural Practice Manager Name Role Phone Unavailable Primary Care Provider Unavailabl e Encounter Details Date Type Department Care Team (Latest Contact Info) Description 08/22/2018 Abstract [facility] CONVERSIONS Dental, Provider, DDS Social [...] Description 11/07/2024 11:00 AM EDT Office Visit [facility] ADULT DENTAL [address] [place] [address] Kate Zelaya, DDS [address] [place] [address] 01/21/2025 8:00 AM EST Office Visit [facility] ADULT DENTAL [address] [place] [address] Divya Rebollar documented as of this encounter Visit Diagnoses Not on filedocumented in this encounter
--- OUTSIDE RECORDS SUMMARY | 2024-10-20 07:24 | XMS_ITS | Encounter Summary ---
Author Organization [employer] [facility] Address [address] [facility] [address] [place] [address] Care Team Providers Care Painter And Decorator Apprentice Name Role Phone Unavailable Primary Care Provider Unavailabl e Encounter Details Date Type Department Care Team (Latest Contact Info) Description 05/12/2020 Abstract [facility] CONVERSIONS Dental, Provider, DDS Social [...] Upcoming Encounters Date Type Department Care Team ( st Contact Info) Description 11/07/2024 11:00 AM EDT Office Visit [facility] ADULT DENTAL [address] [place] [address] Nino-CardonaReno cardozamia, DDS [address] [place] [address] 01/21/2025 8:00 AM EST Office Visit [facility] ADULT DENTAL [address] [place] [address] Divya Rebollar documented as of this encounter Visit Diagnoses Not on filedocumented in this encounter
[2024-10-20 08:57] LABS: Alanine Aminotransferase 25 U/L (0-31); Albumin Level 4.4 g/dL (3.5-5.0); Alkaline Phosphatase 99 U/L (39-117); Anion Gap 11 (12-20); Aspartate Amino Transferase 28 U/L (5-31); Blood Urea Nitrogen 31 mg/dL (9-16); Calcium 9.4 mg/dL (8.4-10.2); Carbon Dioxide 26 mmol/L (22-29); Chloride 105 mmol/L (96-108); Cholesterol 179 mg/dL (<200); Estimated Glomerular Filt Rate > 60; HDL Cholesterol 62 mg/dL (>40); Potassium 4.4 mmol/L (3.3-5.1); Sodium 138 mmol/L (135-145); Total Protein 7.0 g/dL (6.5-8.0); Triglycerides 94 mg/dL (<150)
[2024-10-20 09:01] LABS: Thyroid Stimulating Hormone 1.69 uIU/mL (0.32-4.0)
[2024-10-20 09:17] LABS: Folate 9.3 ng/mL (> or = 4.0); Vitamin B12 684 pg/mL (200-900)
== END 2024-10-20 07:22 | disposition home or self-care (01) ==
LOC: HO.LAB 07:21
PROVIDERS: PCP Internal Medicine; Visit Provider Internal Medicine
DX: E53.8 Deficiency of other specified B group vitamins (principal); E78.00 Pure hypercholesterolemia, unspecified; E03.9 Hypothyroidism, unspecified; E55.9 Vitamin D deficiency, unspecified
CPT/HCPCS: 36415; 80053; 80061; 82306; 82607; 82746; 84443

== ENCOUNTER 2024-10-22 10:08 | Outpatient (AMB) | payer MEDICARE, MEDICAID, SELFPAY ==
--- OUTSIDE RECORDS SUMMARY | 2024-10-19 10:30 | XMS_ITS | Encounter Summary ---
Author Organization [facility] Address [address] [place] [address] Care Team Providers Care Feed Adviser Name Role Phone Unavailable Primary Care Provider Unavailabl e Reason for Visit * Reason Comments [place] Encounter Details Date Type Department Care Team (Late st Contact Info) Description 10/19/2024 10:30 AM EDT Office Visit [facility] [address] [place] [address] Kate Zelaya DDS [address] [place] [address] Dental caries (Primary Dx); Need for full coverage dental crown Social History Tobacco Use Types Packs/Day Years Used Date Smoking Tobacco: Never Smokeless Tobacco: Never Alcohol Use Standard Drinks/Week Comments Never 0 (1 standard drink = 0.6 oz pur e alcohol) Comments Unknown Sex and Gender Information Value Date Recorded Sex Assigned at Female 12/14/2021 10:32 AM EDT Legal Sex Female 10:32 AM EDT Gender Identity Female 12/14/2021 10:32 AM EDT Sexual Orientation Straight 12/14/2021 10 :32 AM EDT documented as of this encounter Last Filed Vital Signs Vital Sign [place] Time Taken Comments Blood Pressure 132/68 10/19/2024 10:13 AM EDT Pulse - - Temperature - - Respiratory Rate - - Oxygen Saturation - - Inhaled Oxygen Concentration - - Weight - - Height - - Body Mass Index - - documented in this encounter Progress Notes * Kate Zelaya DDS - 10/19/2024 10:30 AM EDT Patient ID: Daly Burgos is a 74 y.o. female. Time Out: Timeout Date: 10/19/24, Timeout Time: 1013 (Time out for crown prep on tooth #6) Location: [facility] Tooth: #6 Procedure: [place] and Post & Core Verified the above with patient, music assistant, and provider. Confirmed via patient's chart, intraorally and by radiographs. Handicapped Teacher: not applicable Chief Complaint Patient presents with [place] Medical Hx: Vitals: Blood pressure 132/68. Medications, Med Hx reviewed with patient and updated in chart. Consent Obtained: The risks, benefits, indications, potential complications, and alternatives were explained to the patient and informed consent was obtained with good understanding. Treatment Provided: Dental procedures in this visit D2700.1 - CROWN PREP (Completed) Service provider: Kate Zelaya DDS Billing provider: Kate Zelaya DDS [id number] - CORE BUILDUP, INCL ANY PINS WHEN REQ 6 (Completed) Service provider: Kate Zelaya DDS Billing provider: Kate Zelaya DDS [id number] - CASE PRESENTATION, DETAILED AND EXTENSIVE TREATMENT PLANNING (Completed) Service provider: Kate Zelaya DDS Billing provider: Kate Zelaya DDS Topical: 20% Benzocaine Anesthesia: 2% Lidocaine (Xylocaine) w/ 1:100,000 epinephrine Number of Cartridges: 1 Injection Type: Buccal infiltration, Palatal infiltration, Anterior superior alveolar nerve block, and Nasopalatine nerve block Confirmed profound anesthesia. Isolation: cotton rolls and high speed suction Core Build Up: Etch: 37% Phosphoric Acid Etch Quinonez: I-Quinonez Core: Filtek [place] Flowable Composite Occlusion checked with articulating paper and adjustments made as needed. Core smoothed and polished. [place] Preparation: Prepared tooth for: Ceramic crown Gingival Retraction: Traxodent and Retraction cap Final Impression taken with: Paradigm Heavy & Light Body Bite Registration taken with: Tamekarint VPS and Triple tray Provisional fabricated with: Paradigm Temp Material and cemented with: TempBond Shade: A3 Lab used: [facility] Lab Due Date: 11/02/2024 POI given to patient with instructions for homecare, to avoid sticky or crunchy foods, and to call if temp crown becomes dislodged. All questions answered. Patient tolerated procedure well, and was discharged alert, oriented, and in stable condition. NV: [place] director of labor and delivery: Tara Melgoza Dentist: Kate Zelaya DDS documented in this encounter Plan of Treatment Upcoming Encounters Date Type Department Care Team (Late st Contact Info) Description 11/07/2024 11:00 AM EDT Office Visit [facility] [address] [place] [address] Kate Zelaya DDS [address] [place] [address] 01/21/2025 8:00 AM EST Office Visit [facility] [address] [place] [address] Divya Rebollar Scheduled Orders Name Type Priority Associated Diagnoses Orde r Schedule DENTAL LAB FIXED Dental Routine Ordered: 10/19/2024 documented as of this encounter Procedures Procedure Name Priority Date/Time Associated Diagnosis Comments CROWN PREP Routine 10/19/2024 10:30 AM EDT Dental caries Need for full coverage dental crown 6 CORE BUILDUP, INCL ANY PINS WHEN REQ Routine 10/19/2024 10:30 AM EDT Dental caries Need for full coverage dental crown CASE PRESENTATION, DETAILED AND EXTENSIVE TREATMENT PLANNING Routine 10/19/2024 10:30 AM EDT Dental caries Need for full coverage dental crown documented in this encounter Visit Diagnoses Diagnosis Dental caries- Primary Unspecified dental caries Need for full coverage dental crown documented in this encounter
--- NOTE | 2024-10-22 10:17 | MHC.PC.OV ---
Intake Visit Reasons: Annual Exam Intake Note: Patient is here today for a physical. [employer] Teacher Required: No General Internist And Physician Leader: Not Required per policy Accompanied by: Self / Same As Patient Allergies Penicillins (PENICILLINS) Allergy (Intermediate, Verified 10/22/24 10:18) syncope Tobacco use date assessed: 03/23/24 Dental Screening Dental Screen Date: 04/16/24 PFSH Medical History Colon cancer screening declined [facility] (hard of hearing) Pharyngitis Poor circulation Postmenopausal Chronic sinusitis Anxiety Abdominal pain BPPV (benign paroxysmal positional vertigo) (~03/2021) Anxiety Mild depression Sinusitis Long-term use of aspirin therapy Pure hypercholesterolemia Allergic rhinitis Hypothyroidism Surgical History History of esophagogastroduodenoscopy (EGD) (09/19/23) History of bilateral cataract extraction History of mastoidectomy History of 3 sections Family History Father No problems noted. Mother Vaginal cancer Brother Cancer Sister Skin cancer Son No problems noted. Son No problems noted. Daughter No problems noted. 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 1. Little interest or pleasure in doing things: not at all 2. Feeling down, depressed, or hopeless: not at all 3. Trouble falling or staying asleep, or sleeping too much: not at all 4. Feeling tired or having little energy: not at all 5. Poor appetite or overeating: not at all 6. Feeling bad about yourself - or that you are a failure or have let yourself or your family down: not at all 7. Trouble concentrating on things, such as reading the newspaper or watching television: not at all 8. Moving or speaking so slowly that other people could have noticed. Or the opposite - being so fidgety or restless that you have been moving around a lot more than usual: not at all 9. Thoughts that you would be better off or of hurting yourself in some way: not at all Total score: 0 Depression Screening Interpretation: Negative Depression Screening Done: Yes Source: Developed by Drs. Kalen Herring, Cristiana Garcia, Boyd Hubabrd and colleagues, with an educational obinna from [employer]. Thrive Questionnaire Date Thrive assessed: 03/23/24 JORDAN-7 AMB Questionnaire JORDAN-7 Date JORDAN - 7 assessed: 04/16/24 Source: Developed by Drs. Kalen Herring, Cristiana Garcia, Boyd Hubbard and colleagues, with an educational obinna from [employer]. Physical exam (Primary Care) Tobacco/Smoking Status: Tobacco use Status Tobacco use date assessed 03/23/24 08/14/24 09:54 Patient Tobacco Use Status Never used Tobacco 08/14/24 09:54 e-Cigarette/Vaping Use Never Used 08/14/24 09:54 Depression Screening Interpretation: Negative Thrive Assessment: Date of Thrive Assessment Date Thrive assessed 03/23/24 08/14/24 09:54 Coding
[2024-10-22 10:18] VITALS: BP 136/68; PULSE 76; O2SAT 98; BMI 25.1
--- NOTE | 2024-10-22 10:21 | AM.OFFVISMDC ---
Intake Vital Signs 10/22/24 10:18 10/22/24 10:26 Height 4 ft 11 in Weight 124 lb 8 oz BMI 25.1 25.1 BP 136/68 Blood Pressure Location Lt brachial Position Sitting Pulse 76 Pulse Source Pulse Oximeter Pulse Oximetry (%) 98 Oxygen Delivery Method Room Air Intake Visit Reasons: Annual Exam Policy Writer Typist Required: No Accompanied by: Self / Same As Patient Allergies Penicillins (PENICILLINS) Allergy (Intermediate, Verified 10/22/24 10:37) syncope Medication List - Last Reconciled 10/22/24 by Shania Howell MD aspirin (Aspirin Childrens) 81 mg PO DAILY meclizine 25 mg PO TID PRN pravastatin 20 mg PO DAILY 90 days [Synthroid 50 Mcg 50 mcg PO DAILY] HPI HPI Comments History of Present Illness Details The patient is a 74-year-old female presenting with a Medicare wellness exam. Her preventative care is up to date, including a pneumonia vaccine and Tdap vaccine administered in 2017, with the next Tdap due in 2022. She underwent a mammogram in July of this year, which returned benign results. 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 The patient has a history of cataract surgery, which has improved her vision. Her thyroid function is reported as normal, and she is currently on medications including aspirin, meclizine, pravastatin, and Synthroid. She reports a recent weight gain despite maintaining her usual routine and diet, attributing reduced outdoor walking to poor air quality. The patient remains physically active, walking 2 to 2.5 miles daily, although less than her previous 4 to 5 miles. 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 Mother Vaginal cancer Brother Cancer Sister Skin cancer Son No problems noted. Son No problems noted. Daughter No problems noted. 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 Cognitive needs: No Hearing needs: No Vision needs: Yes Questionnaire Medicare Wellness Checkup [age] What gender do you identify with?: female During the past 4 weeks, how much have you been bothered by emotional problems such as feeling anxious, depressed, irritable, sad or downhearted, and blue?: moderately During the past 4 weeks, has your physical & emotional health limited your social activities with family, friends, neighbors, or groups?: slightly During the past 4 weeks, how much bodily pain have you generally had?: moderate pain During the past 4 weeks, was someone available to help you if you needed & wanted help?: yes, as much as I wanted During the past 4 weeks, what was the hardest physical activity you could do for at least 2 minutes?: moderate Can you get to places out of walking distance without help? (For eg., can you travel alone on buses, taxis or drive your car?): Yes Can you go shopping for groceries or clothes without someone's help?: Yes Can you prepare your own meals?: Yes Can you do your housework without help?: Yes Because of any health problems, do you need the help of another person with your personal care needs such as eating, bathing, dressing or getting around the house?: No Can you handle your own money without help?: Yes During the past 4 weeks, how would you rate your health in general?: very good During the past 4 weeks how have things been going for you?: pretty well Are you having difficulties driving your car?: no Do you always fasten your seat belt when you are in a car?: yes, sometimes During past 4 weeks, have you been bothered by the following: never: Sexual problems?, Trouble eating well? and Problems using the telephone?, seldom: Teeth or denture problems? and Tiredness or fatigue? and often: Falling or dizzy when standing up Have you fallen 2 or more times in the past year?: No Are you afraid of falling?: Yes Are you a smoker?: no During the past 4 weeks, how many drinks of wine, beer, or other alcoholic beverages did you have?: no alcohol at all Do you exercise for about 20 minutes 3 or more times a week?: yes, some of the time Have you been given information to help with the following?: no: Hazards in your house that might hurt you? and no: Keeping track of your medications? How often do you have trouble taking medicines the way you have been told to take them?: I do not have to take medicine How confident are you that you can control & manage most of your health problems?: very confident What is your race?: White Mini Mental State Exam (MMSE) Orientation What is the (year) (season) (date) (day) (month)?: year, season, date, day and month Where are we (state) (county) (town or city) (hospital) (floor)?: state, county, town or city, hospital/clinic and floor Registration Name of 3 unrelated objects clearly and slowly, then ask patient to repeat all 3 of them. (1st repeat determines score. Make sure they can repeat all three): object 1, object 2 and object 3 Attention & Calculation (CHOOSE ONE) Spell WORLD backwards (DLROW): 5 letters Recall Ask patient to repeat the 3 items from question #3.: object 1, object 2 and object 3 Language Show patient a wristwatch & ask what it is. Repeat for pencil.: watch Ask the patient to 'take a piece of paper with their right hand' 'fold paper in half' 'place paper on floor': take paper in right hand, fold paper in half and place paper on floor Print the sentence 'CLOSE YOUR EYES' on a piece. If patient actually closes eyes then score.: followed written direction Give patient a blank piece of paper & ask to write a sentence. Score if it contains a noun & verb.: sentence contains subject and verb Score Score: 27 Activity of Daily Living Bathing - sponge bath, tub bath or shower: receives no assistance (gets in/out by self, if usual bathing means Dressing - getting clothes from closets & drawers, including inner/outer garments & fasteners.: gets clothes & gets completely dressed without help Toileting - going to the 'toilet room' for urine/bowel elimination & cleaning self/arranging clothes: goes to toilet room, cleans self, arranges clothes without help Transfer: moves in & out of bed and chair without help (may use support object) Continence: controls urination/bowel movements completely by self Feeding: feeds self without help Total Score: 0 Information obtained from: patient Using telephone: independent Traveling: independent Shopping: independent Preparing meals: independent Housework: independent Taking medicine: independent Managing money: independent PHQ-9 Over the last 2 weeks, how often have you been bothered by any of the following problems? 1. Little interest or pleasure in doing things: not at all 2. Feeling down, depressed, or hopeless: not at all 3. Trouble falling or staying asleep, or sleeping too much: not at all 4. Feeling tired or having little energy: several days 5. Poor appetite or overeating: not at all 6. Feeling bad about yourself - or that you are a failure or have let yourself or your family down: not at all 7. Trouble concentrating on things, such as reading the newspaper or watching television: not at all 8. Moving or speaking so slowly that other people could have noticed. Or the opposite - being so fidgety or restless that you have been moving around a lot more than usual: not at all 9. Thoughts that you would be better off or of hurting yourself in some way: not at all Total score: 1 Depression Screening Interpretation: Negative Depression Screening Done: Yes 65189 - PHQ-9 Billing: Yes Source: Developed by Drs. Kalen Herring, Cristiana Garcia, Boyd Hubbard and colleagues, with an educational obinna from [employer]. Review of Systems Const All systems reviewed & are unremarkable except as noted in HPI and below Card Denies chest pain at rest, Denies chest pain with activity, Denies edema, Denies irregular heart rhythm, Denies claudication, Denies dyspnea, Denies dyspnea on exertion, Denies orthopnea, Denies paroxysmal nocturnal dyspnea and Denies slow heart rate Resp Denies cough, Denies dyspnea and Denies dyspnea on exertion GI Denies abdominal pain, Denies change in bowel habits, Denies excessive flatus, Denies nausea and Denies vomiting Physical Exam Vital Signs: Last Vital Signs Pulse 76 10/22/24 10:18 BP 136/68 10/22/24 10:18 Pulse Ox 98 10/22/24 10:18 Oxygen Delivery Method Room Air 10/22/24 10:18 BMI result Body Mass Index 25.1 HEENT Ears: hearing grossly impaired bilaterally Resp Effort & Inspection: normal respiratory effort Auscultation: clear to auscultation bilaterally Cardio Jugular venous distension: no JVD Rate: regular rate Rhythm: regular rhythm Heart sounds: S1 normal heart sound present and S2 normal heart sound present Neuro Romberg Test: Negative Extrem General: Yes full ROM Assessment & Plan Assessment & Plan (1) Encounter for Medicare annual wellness exam: Code(s): Z00.00 - Encounter for general adult medical examination without abnormal findings Plan Plan Patient was informed and verbally consented to the use of an ambient scribe for clinic note documentation during this visit. 1. Encounter for general adult medical examination without abnormal findings Z00.00 The patient had a mammogram in July, which returned benign results, indicating no immediate concerns. 2. Preventative Care: Colonoscopy A colonoscopy was performed this year, identifying dual melanoma and a hyperplastic polyp, necessitating ongoing surveillance. 3. Preventative Care: Vaccinations Including Pneumonia And Tdap The patient is up to date with her pneumonia and Tdap vaccinations, with the next Tdap due in 2022. Needs DEXA scan. The patient reports a recent weight gain despite maintaining her usual routine and diet, with reduced outdoor walking due to poor air quality. Continued monitoring of weight and lifestyle adjustments may be necessary. Orders: Orders Thyroid Stimulating Hormone 4 Months E03.9 - Hypothyroidism, unspecified XR DEXA axial skeleton Today Z78.0 - Asymptomatic menopausal state Quality Reporting (2019) Depression/Bipolar (159/160/161/177) PHQ-9: Total score: 1 Coding Level of Care Code Medicare First (G0438) Diagnoses Encounter for Medicare annual wellness exam Z00.00 CPT Codes Advance Care Planning - Advance Care Planning discussion: On file, no changes ([id number]) Advance Care Planning - Time spent: 1-15 minutes, on File ([id number]) Additional Codes PHQ-9 - 94522 - PHQ-9 Billing: Yes ([id number]) Time Spent (min) 35 Advance Care Planning Advance Care Planning discussion: On file, no changes Date of discussion: 10/22/24 Who was present: patient and me Forms completed: Health Care Proxy Time spent: 1-15 minutes, on File Actual minutes spent: 2 Did not discuss due to Cultural/Spiritual beliefs: Yes
[2024-10-22 10:26] VITALS: BMI 25.1
--- OUTSIDE RECORDS SUMMARY | 2024-10-22 12:01 | XMS_ITS | Encounter Summary ---
Author Organization [employer] Address [address] [facility] [address] [place] [address] Care Team Providers Care Assistant Front Office Manager Name Role Phone Unavailable Primary Care Provider Unavailabl e Encounter Details Date Type Department Care Team (Late st Contact Info) Description 09/18/2024 Telephone [facility] ADULT DENTAL [address] [place] [address] Kate Zelaya DDS [address] [place] [address] Social History Tobacco Use Types Packs/Day Years [...] 11/07/2024 11:00 AM EDT Office Visit [facility] ADULT D[facility]AL [address] [place] [address] Kate Zealya DDS [address] [place] [address] 01/21/2025 8:00 AM EST Office Visit [facility] ADULT DENTAL [address] [place] [address] Divya Rebollar documented as of this encounter Visit Diagnoses Not on filedocumented in this encounter
--- OUTSIDE RECORDS SUMMARY | 2024-10-22 12:01 | XMS_ITS | Encounter Summary ---
Author Organization [email or web address] [facility] Address [address] [facility] [address] [place] [address] Care Team Providers Care Meter Repair Shop Supervisor Name Role Phone Unavailable Primary Care Provider Unavailabl e Encounter Details Date Type Department Care Team (Latest Contact Info) Description 05/12/2020 Abstract [facility] CONVERSIONS Dental, Provider, DDS Social History [...] Description 11/07/2024 11:00 AM EDT Office Visit [facility] ADULT DENTAL [address] [place] [address] Nino-CardonaKate cardoza, DDS [address] [place] [address] 01/21/2025 8:00 AM EST Office Visit [facility] ADULT DENTAL [address] [place] [address] Divya Rebollar documented as of this encounter Visit Diagnoses Not on filedocumented in this encounter
--- OUTSIDE RECORDS SUMMARY | 2024-10-22 12:01 | XMS_ITS | Clinical Summary ---
Author Organization [employer] Address [address] [facility] [address] [place] [address] Care Team Providers Care Canteen Manager Name Role Phone Unavailable Primary Care [...] Description 10/19/2024 10:30 AM EDT Office Visit [facility] ADULT DENTAL [address] [place] [address] Kate Zelaya DDS Dental caries (Primary Dx); Need for full coverage dental crown 09/18/2024 1:00 PM EDT Office Visit [facility] ADULT DENTAL [address] [place] [address] Jerson Mariee DDS History of dental examination (Primary Dx) 09/18/[address] [facility] ADULT DENTAL [address] [place] [address] Kate Zelaya DDS 09/17/2024 10:00 AM EDT Office Visit [facility] ADULT DENTAL [address] [place] [address] Jerson Mariee DDS Gingival recession, localized (Primary Dx); Open fracture of tooth, initial encounter 08/16/2024 1:00 PM EDT Office Visit [facility] ADULT DENTAL [address] [place] [address] WhitingAlanis alaniz Missing teeth, acquired (Primary Dx) from [...] Description 11/07/2024 11:00 AM EDT Office Visit [facility] ADULT DENTAL [address] [place] [address] Kate Zelaya, DDS [address] [place] [address] 01/21/2025 8:00 AM EST Office Visit [facility] ADULT DENTAL [address] [place] [address] Divya Rebollar Health Maintenance Due Date Last [...] Phone Billing Address Personal/Family [address] [place] [address]
--- OUTSIDE RECORDS SUMMARY | 2024-10-22 12:01 | XMS_ITS | Encounter Summary ---
Author Organization [employer] [facility] Address [address] [facility] [address] [place] [address] Care Team Providers Care Advanced Practice Rn Name Role Phone Unavailable Primary Care Provider Unavailabl e Encounter Details Date Type Department Care Team (Latest Contact Info) Description 08/22/2018 Abstract [facility] CONVERSIONS Dental, Provider, DDS Social History Tobacco [...] Description 11/07/2024 11:00 AM EDT Office Visit [facility] ADULT DENTAL [address] [place] [address] Kate Zelaya, DDS [address] [place] [address] 01/21/2025 8:00 AM EST Office Visit [facility] ADULT DENTAL [address] [place] [address] Divya Rebollar documented as of this encounter Visit Diagnoses Not on filedocumented in this encounter
== END 2024-10-22 10:54 | disposition home or self-care (01) ==
LOC: HO.HMCH 10:09
PROVIDERS: PCP Internal Medicine; Visit Provider Internal Medicine
DX: Z00.00 Encounter for general adult medical examination without abnormal findings (principal)

== ENCOUNTER → 2024-10-22 10:08 | Outpatient (BNVA) | payer MEDICARE, SELFPAY | PROVIDERS: PCP Internal Medicine; Visit Provider Internal Medicine | DX: Z00.00 Encounter for general adult medical examination without abnormal findings (principal); E03.9 Hypothyroidism, unspecified; Z78.0 Asymptomatic menopausal state | CPT/HCPCS: 96127 ==

== ENCOUNTER 2024-11-12 09:42 | Outpatient (REF) | payer MEDICARE, SELFPAY ==
--- OUTSIDE RECORDS SUMMARY | 2024-11-07 11:00 | XMS_ITS | Encounter Summary ---
Author Organization [employer] [facility] Address [address] [facility] [address] [place] [address] Care Team Providers Care Weaver [employer] Name Role Phone Unavailable Primary Care Provider Unavailabl e Reason for Visit * Reason Comments crown insert #6 Encounter Details Date Type Department Care Team ([facility] st Contact Info) Description 11/07/2024 11:00 AM EDT Office Visit [facility] ADULT DENTAL [address] [place] [address] Kate Zelaya DDS [address] [place] [address] Dental caries (Primary Dx); Need for full [...] AM EDT documented as of this encounter Progress Notes * Kate Zelaya DDS - 11/07/2024 11:00 AM EDT Patient ID: Daly Burgos is a 74 y.o. female. Time Out: Timeout Date: 11/07/24, Timeout Time: 1054 (crown insert #6) Location: [facility] Tooth: #6 Procedure: Angustura delivery Verified the above with patient, assistant center director, and provider. Confirmed via patient's chart, intraorally and by radiographs. Grocery Caddy: not applicable Chief Complaint Patient presents with crown insert #6 Medical Hx: Vitals: There were no vitals taken for this visit. Medications, Med Hx reviewed with patient and updated in chart. Consent Obtained: The risks, benefits, indications, potential complications, and alternatives were explained to the patient and informed consent was obtained with good understanding. Treatment Provided: Dental procedures in this visit [id number] - CROWN - PORCELAIN/CERAMIC 6 (Completed) Service provider: Kate Zelaya DDS Billing provider: Kate Zelaya DDS [id number] - INTRAORAL - PERIAPICAL FIRST RADIOGRAPHIC IMAGE (Completed) Service provider: Kate Zelaya DDS Billing provider: Kate Zelaya DDS [id number] - CASE PRESENTATION, DETAILED AND EXTENSIVE TREATMENT PLANNING (Completed) Service provider: Kaet Zelaya DDS Billing provider: Kate Zelaya DDS Isolation: cotton rolls and high speed suction Removed Provisional and cleaned excess cement, pumiced tooth as needed. Tried on final voodoo Verified interproximal contacts and margins BW taken to confirm margins and contacts Occlusion adjusted as needed Tooth Treatment: 37% Phosphoric Acid Etch and Freight Separator applied Cemented with: Relyx Unicem Cleaned excess cement, flossed Patient satisfied with comfort and esthetics. POI given. Patient discharged alert, oriented, and in stable condition NV: Periodic exam Universal Grinder Operator: Tena Leone Dentist: Kate Zelaya DDS documented in this encounter Plan of Treatment Upcoming Encounters Date Type Department Care Team (Late st Contact Info) Description 01/21/2025 8:00 AM EST Office Visit [facility] ADULT DENTAL [address] [place] [address] Divya Rebollar Scheduled Orders Name Type Priority Associated Diagnoses Orde r Schedule BITE REGISTRATION Dental Routine 1 Occur rences starting 11/07/2024 WAX TRY IN Dental Routine 1 Occurrences starting 11/07/2024 documented as of this encounter Procedures Procedure Name Priority Date/Time Associated Diagnosis Comments INTRAORAL - PERIAPICAL FIRST RADIOGRAPHIC IMAGE Routine 11/07/2024 11:00 AM EDT Dental caries Need for full coverage dental crown 6 CROWN - PORCELAIN/CERAMIC Routine 11/07/2024 11:00 AM EDT Dental caries Need for full coverage dental crown CASE PRESENTATION, DETAILED AND EXTENSIVE TREATMENT PLANNING Routine 11/07/2024 11:00 AM EDT Dental caries Need for full coverage dental crown documented in this encounter Visit Diagnoses Diagnosis Dental caries- Primary Unspecified dental caries Need for full coverage dental crown documented in this encounter
--- NOTE | ~2024-11-12 | MM_ITS ---
EXAMINATION: DXA BONE DENSITY AXIAL HISTORY: Z78.0 - Asymptomatic menopausal state TECHNIQUE: [employer] Dual energy absorptiometry (DEXA) of the lumbar spine, total left hip, and femoral neck was performed. COMPARISON: Comparison is made with the prior examination dated 02/17/2021. FINDINGS: The bone mineral density of the lumbar spine is 0.954 g/cm2, corresponding to a T-score of -1.9, and a Z-score of 0.2. This is indicative of osteopenia. This represents a BMD change of 2.6% compared to the prior exam. This is not statistically significant. The bone mineral density of the left total hip is 0.873 g/cm2, corresponding to a T-score of -1.1, and a Z-score of 0.8. This is indicative of osteopenia. This represents a BMD change of 2.6% compared to the prior exam. This is not statistically significant. The bone mineral density of the left femoral neck is 0.785 g/cm2, corresponding to a T-score of -1.8, and a Z-score of 0.2. This is indicative of osteopenia. This represents a BMD change of 7.2% compared to the prior exam. FRACTURE RISK: The FRAX index suggests a ten year probability of major osteoporotic fracture of 6.1%, and of hip fracture 1.2%. MM/XR DEXA axial skeleton IMPRESSION: Based on bone mineral density, and according to World Health Organization (WHO) criteria, the diagnosis is consistent with osteopenia. Statistically, 68% of repeat scans fall within 1 SD (+/- 0.010 g/cm2 for AP spine L1-L4) and 1 SD (+/- 0.012 g/cm2 for femur total) FRAX is a trademark of the [employer] for Metabolic Bone Disease, a World Health Organization (WHO) Collaborating Center. Electronically signed by: Kalen Doe MD 11/12/2024 10:25 AM EDT
--- OUTSIDE RECORDS SUMMARY | 2024-11-12 10:33 | XMS_ITS | Encounter Summary ---
Author Organization [employer] [facility] Address [address] [facility] [address] [place] [address] Care Team Providers Care Molder Pipe Covering Name Role Phone Unavailable Primary Care Provider Unavailabl e Encounter Details Date Type Department Care Team (Latest Contact Info) Description 08/22/2018 Abstract [facility] CONVERSIONS Dental, Provider, DDS Social History Tobacco [...] Care Team ( st Contact Info) Description 01/21/2025 8:00 AM EST Office Visit [facility] ADULT DENTAL [address] [place] [address] Divya Rebollar documented as of this encounter Visit Diagnoses Not on filedocumented in this encounter
--- OUTSIDE RECORDS SUMMARY | 2024-11-12 10:33 | XMS_ITS | Encounter Summary ---
Author Organization [employer] [facility] Address [address] [facility] [address] [place] [address] Care Team Providers Care Ed Teacher Name Role Phone Unavailable Primary Care Provider Unavailabl e Encounter Details Date Type Department Care Team (Late Contact Info) Description 09/18/2024 Telephone [facility] ADULT DENTAL [address] [place] [address] Kate Zelaya DDS [address] [place], [place] [phone] Social History Tobacco Use Types Packs/Day Years [...] Department Care Team (Late Contact Info) Description 01/21/2025 8:00 AM EST Office Visit [facility] ADULT DENTAL [address] [place] [address] Divya Rebollar documented as of this encounter Visit Diagnoses Not on filedocumented in this encounter
--- OUTSIDE RECORDS SUMMARY | 2024-11-12 10:33 | XMS_ITS | Encounter Summary ---
Author Organization [employer] [facility] Address [address] [facility] [address] [place] [address] Care Team Providers Care Historical Manuscripts Curator Name Role Phone Unavailable Primary Care Provider Unavailabl e Encounter Details Date Type Department Care Team (Latest Contact Info) Description 05/12/2020 Abstract [facility] CONVERSIONS Dental, Provider, DDS Social History [...] Description 01/21/2025 8:00 AM EST Office Visit [facility] ADULT DENTAL [address] [place] [address] Divya Rebollar documented as of this encounter Visit Diagnoses Not on filedocumented in this encounter
--- OUTSIDE RECORDS SUMMARY | 2024-11-12 10:34 | XMS_ITS | Clinical Summary ---
Author Organization [employer] Address [address] [facility] 7t [place] [address] Care Team Providers Care Vice Chancellor Name Role Phone Unavailable Primary Care Provider [...] Encounters Date Type Department Care Team Description 11/07/2024 11:00 AM EDT Office Visit [facility] ADULT [facility] [address] [place] [address] Kate Zelaya DDS Dental caries (Primary Dx); Need for full coverage dental crown 10/19/2024 10:30 AM EDT Office Visit [facility]ULT [facility] [address] [place] [address] Kate Zelaya DDS Dental caries (Primary Dx); Need for full coverage dental crown 09/18/2024 1:00 PM EDT Office Visit [facility]ULT [facility] [address] [place] [address] Jerson Mariee DDS History of dental examination (Primary Dx) 09/18/2024 Telephone [facility]ULT [facility] [address] [place] [address] Kate Zelaya DDS 09/17/2024 10:00 AM EDT Office Visit [facility]ULT [facility] [address] [place] [address] Jerson Mariee DDS Gingival recession, localized (Primary Dx); Open fracture of tooth, initial encounter 08/16/2024 1:00 PM EDT Office Visit [facility]ULT [facility] [address] [place] [address] PaytonAlanis Missing teeth, acquired (Primary Dx) from Last [...] Description 01/21/2025 8:00 AM EST Office Visit [facility] [address] [facility] [place] [address] Divya Rebollar Health Maintenance Due Date Last [...] 04/18/2025 04/18/19 25, 04/28/2023, 03/23/2022 Tobacco Screening 11/07/2025 11/07/2024 RSV Patients and Patients Aged 60 years [...] caries Need for full coverage dental crown INTRAORAL - PERIAPICAL FIRST RADIOGRAPHIC IMAGE Routine [...] DENTAL - HSN FULL (MEDICAID) * Guarantor: ANIYAH ONTIVEROS Account Type Relation to Patient Date of Phone Billing Address Personal/Family [address] [place] [address]
== END 2024-11-12 09:43 | disposition home or self-care (01) ==
LOC: HO.MAMMO 09:42
PROVIDERS: PCP Internal Medicine; Visit Provider Internal Medicine
DX: Z13.820 Encounter for screening for osteoporosis (principal); Z78.0 Asymptomatic menopausal state
CPT/HCPCS: 77080

== ENCOUNTER → 2024-11-12 10:00 | Outpatient (BNV) | payer MEDICARE, MEDICAID, SELFPAY | PROVIDERS: PCP Internal Medicine; Visit Provider Radiology Diagnostic Radiology | DX: E28.39 Other primary ovarian failure (principal) | CPT/HCPCS: 77080 ==

== ENCOUNTER 2024-11-13 09:10 | Outpatient (REF) | payer MEDICARE, SELFPAY ==
--- NOTE | ~2024-11-13 | US_ITS ---
CLINICAL HISTORY: N20.0 - Calculus of kidney US of kidneys Comparison: CT/SR - CT ABDOMEN PELVIS W IV CON - 08/04/24 11:57 EDT Findings: Bilateral kidneys are mildly small, right kidney measures 8.1 cm in length, left kidney 8.3 cm in length. No apparent cortical thinning, renal parenchyma is normal in echogenicity. No hydronephrosis, calculus or mass. There is mild right pelviectasis. Junctional parenchymal defect noted in the left kidney lower interpolar region. No abnormal vascular flow of bilateral kidneys. Impression: No nephrolithiasis. This document has been electronically signed by: Janice Kwan MD on 11/14/2024 11:36:32
--- OUTSIDE RECORDS SUMMARY | 2024-11-13 09:55 | XMS_ITS | Encounter Summary ---
Author Organization [employer] [facility] Address [address] [facility] 7t [place] [address] Care Team Providers Care Play Reader Name Role Phone Unavailable Primary Care Provider Unavailabl e Encounter Details Date Type Department Care Team (Late Contact Info) Description 09/18/2024 Telephone [facility] ADULT DENTAL [address] [place] [address] Kate Zelaya DDS [address] [place], [place] [phone] Social History Tobacco Use Types Packs/Day Years [...] 8:00 AM EST Office Visit [facility] ADULT DENTAL [address] [place] [address] Divya Rebollar documented as of this encounter Visit Diagnoses Not on filedocumented in this encounter
--- OUTSIDE RECORDS SUMMARY | 2024-11-13 09:55 | XMS_ITS | Encounter Summary ---
Author Organization [employer] [facility] Address [address] [facility] 7t [place] [address] Care Team Providers Care Transportation Engineering Technician Name Role Phone Unavailable Primary Care Provider Unavailabl e Encounter Details Date Type Department Care Team (Latest Contact Info) Description 05/12/2020 Abstract [facility] CONVERSIONS Dental, Provider, DDS Social History [...] [facility] ADULT D[facility] [address] [place] [address] Divya Rebollar documented as of this encounter Visit Diagnoses Not on filedocumented in this encounter
--- OUTSIDE RECORDS SUMMARY | 2024-11-13 09:55 | XMS_ITS | Encounter Summary ---
Author Organization [email or web address] [facility] Address [address] [facility] 7t [place] [address] Care Team Providers Care Rouge Sifter And Miller Name Role Phone Unavailable Primary Care Provider Unavailabl e Encounter Details Date Type Department Care Team (Latest Contact Info) Description 08/22/2018 Abstract [facility] CONVERSIONS Dental, Provider, DDS Social [...] Description 01/21/2025 8:00 AM EST Office Visit [facility] ADULT DENTAL [address] [place] [address] Divya Rebollar documented as of this encounter Visit Diagnoses Not on filedocumented in this encounter
--- OUTSIDE RECORDS SUMMARY | 2024-11-13 09:55 | XMS_ITS | Clinical Summary ---
Author Organization [employer] Address [address] [facility] 7t [place] [address] Care Team Providers Care Heating And Air Conditioning Mechanic Name Role Phone Unavailable Primary Care [...] Description 11/07/2024 11:00 AM EDT Office Visit [facility] [facility] ADULT D[facility] [address] [place] [address] Kate Zelaya DDS Dental caries (Primary Dx); Need for full coverage dental crown 10/19/2024 10:30 AM EDT Office Visit [facility] ADULT D[facility] [address] [place] [address] Kate Zelaya DDS Dental caries (Primary Dx); Need for full coverage dental crown 09/18/2024 1:00 PM EDT Office Visit [facility] ADULT D[facility] [address] [place] [address] Jerson Mariee DDS History of dental examination (Primary Dx) 09/18/2024 Telephone [facility] ADULT D[facility] [address] [place] [address] Kate Zelaya DDS 09/17/2024 10:00 AM EDT Office Visit [facility] ADULT D[facility] [address] [place] [address] Jerson Mariee DDS Gingival recession, localized (Primary Dx); Open fracture of tooth, initial encounter 08/16/2024 1:00 PM EDT Office Visit [facility] ADULT DENT[facility] [address] [place] [address] PaytonAlanis Missing teeth, acquired (Primary Dx) from [...] 8:00 AM EST Office Visit [facility] [place] [address] Divya Rebollar Health Maintenance Due Date Last [...] of Phone Billing Address Personal/Family [address] [place] [address]
== END 2024-11-13 09:11 | disposition home or self-care (01) ==
LOC: HO.US 09:10
PROVIDERS: PCP Internal Medicine; Visit Provider Nurse Practitioner Family
DX: N20.0 Calculus of kidney (principal)
CPT/HCPCS: 76775

== ENCOUNTER → 2024-11-13 09:12 | Outpatient (BNV) | payer MEDICARE, MEDICAID, SELFPAY | PROVIDERS: PCP Internal Medicine; Visit Provider Radiology Diagnostic Radiology | DX: N20.0 Calculus of kidney (principal) | CPT/HCPCS: 76775 ==

== ENCOUNTER 2024-11-28 14:16 | Outpatient (AMB) | payer MEDICARE, MEDICAID, SELFPAY ==
[2024-11-28 14:37] VITALS: BP 140/72; PULSE 75; TEMP 36.3; O2SAT 97; BMI 26.1
--- NOTE | 2024-11-28 14:37 | A.OFFPC_ITS ---
Vital Signs 11/28/24 14:37 Height 4 ft 11 in Weight 129 lb 2 oz BMI 26.1 BP 140/72 H Blood Pressure Location Lt brachial Position Sitting Pulse 75 Pulse Source Pulse Oximeter Temp 97.3 F Temp Source Temporal Artery Scan Pulse Oximetry (%) 97 Oxygen Delivery Method Room Air Intake Visit Reasons: sinuses/ears blocked Accompanied by: Son Allergies Penicillins (PENICILLINS) Allergy (Intermediate, Verified 11/28/24 14:40) syncope Medication List - Last Reconciled 11/28/24 by Prudencio Arias MD aspirin (Aspirin Childrens) 81 mg PO DAILY azithromycin 250 mg PO DAILY 9 days meclizine 25 mg PO TID PRN mometasone 50 mcg/actuation (Nasonex 24hr Allergy) 2 sprays intranasal DAILY pravastatin 20 mg PO DAILY 90 days [Synthroid 50 Mcg 50 mcg PO DAILY] Tobacco use date assessed: 11/28/24 Fall risk assessment: No Falls in past year Last assessed Fall Risk: 11/28/24 Dental Screening Dental Screen Date: 11/28/24 Did you have a dental visit in the last 12 months?: Yes Did you have a dental problem in the last 6 months where you did not have access to dental care?: No Was dental information given to patient?: Patient has dentist HPI HPI Comments History of Present Illness Details The patient is a 74-year-old female presenting with sinusitis and ear sensitivity. She reports a history of sinusitis with symptoms of nasal congestion and pressure. The symptoms have been persistent and bothersome. She also experiences ear sensitivity, which may be related to her sinus issues. Antibiotics have been prescribed previously for these symptoms. [facility] Medical History Colon cancer screening declined [place] (hard of hearing) Pharyngitis Poor circulation Postmenopausal Chronic sinusitis Anxiety Abdominal pain BPPV (benign paroxysmal positional vertigo) (~03/2021) Anxiety Mild depression Sinusitis Long-term use of aspirin therapy Pure hypercholesterolemia Allergic rhinitis Hypothyroidism Surgical History History of esophagogastroduodenoscopy (EGD) (09/19/23) History of bilateral cataract extraction History of mastoidectomy History of 3 sections Family History Father No problems noted. Mother Vaginal cancer Brother Cancer Sister Skin cancer Son No problems noted. Son No problems noted. Daughter No problems noted. 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 1. Little interest or pleasure in doing things: not at all 2. Feeling down, depressed, or hopeless: not at all 3. Trouble falling or staying asleep, or sleeping too much: not at all 4. Feeling tired or having little energy: several days 5. Poor appetite or overeating: not at all 6. Feeling bad about yourself - or that you are a failure or have let yourself or your family down: not at all 7. Trouble concentrating on things, such as reading the newspaper or watching television: not at all 8. Moving or speaking so slowly that other people could have noticed. Or the opposite - being so fidgety or restless that you have been moving around a lot more than usual: not at all 9. Thoughts that you would be better off or of hurting yourself in some way: not at all Total score: 1 Source: Developed by Drs. Kalen Herring, Cristiana Garcia, Boyd Hubbard and colleagues, with an educational obinna from [employer]. Thrive Questionnaire Date Thrive assessed: 03/23/24 I am a: Patient What is your living situation today?: I have a steady place to live Within the past 12 months, did the food you bought not last and you didn't have the money to get more?: Never true Within the past 12 months, did you worry whether your food would run out before you got money to buy more?: Never true Do you have trouble paying for medicines?: No Do you have trouble getting transportation to medical appointments?: No Do you have trouble paying your heating and electricity bill?: No Do you have trouble taking care of your child, family member or friend?: No Do you have trouble with day-to-day activities such as bathing, preparing meals, shopping, managing finances, etc.?: No Are you currently unemployed and looking for a job?: No Are you interested in more education?: No Please select the resources that you would like help with: None Currently or been in a relationship where the following occur: No concerns reported THRIVE Score: 0 AUDIT C Alcohol Use Questionnaire (AUDIT-C) 1. How often do you have a drink containing alcohol?: Never 3. How often do you have six or more drinks on one occasion?: Never Total Score: 0 JORDAN-7 AMB Questionnaire JORDAN-7 Date JORDAN - 7 assessed: 04/16/24 Feeling nervous, anxious, or on edge: 0 = Not at all Not being able to stop or control worryin = Not at all Worrying too much about different things: 0 = Not at all Trouble relaxin = Not at all Being so restless that it is hard to sit still: 0 = Not at all Becoming easily annoyed or irritable: 0 = Not at all Feeling afraid as if something awful might happen: 0 = Not at all Total JORDAN-7 score (0-4 normal; 5-9 mild; 10-14 moderate; 15-21 severe): 0 Source: Developed by Drs. Kalen Herring, Cristiana Garcia, Boyd Hubbard and colleagues, with an educational obinna from [employer]. Review of Systems Const Details: Positives besides what was mentioned in HPI are in BOLD Constitutional: No Weight Change, No Fever, No Chills, No Night Sweats, No Fatigue, No Malaise ENT/Mouth: No Hearing Changes, No Ear Pain, No Nasal Congestion, No Sinus Pain, No Hoarseness, No sore throat, No Rhinorrhea, No Swallowing Difficulty Eyes: No Eye Pain, No Swelling, No Redness, No Foreign Body, No Discharge, No Vision Changes Cardiovascular: No Chest Pain, No SOB, No PND, No Dyspnea on Exertion, No Orthopnea, No Claudication, No Edema, No Palpitations Respiratory: No Cough, No Sputum, No Wheezing, No Smoke Exposure, No Dyspnea Gastrointestinal: No Nausea, No Vomiting, No Diarrhea, No Constipation, No Pain, No Heartburn, No Anorexia, No Dysphagia, No Hematochezia, No Melena, No Flatulence, No Jaundice Genitourinary: No Dysmenorrhea, No DUB, No Dyspareunia, No Dysuria, No Urinary Frequency, No Hematuria, No Urinary Incontinence, No Urgency, No Flank Pain, No Urinary Flow Changes, No Hesitancy Musculoskeletal: No Arthralgias, No Myalgias, No Joint Swelling, No Joint Stiffness, No Back Pain, No Neck Pain, No Injury History Skin: No Skin Lesions, No Pruritis, No Hair Changes, No Breast/Skin Changes, No Nipple Discharge Neuro: No Weakness, No Numbness, No Paresthesias, No Loss of Consciousness, No Syncope, No Dizziness, No Headache, No Coordination Changes, No Recent Falls Psych: No Anxiety/Panic, No Depression, No Insomnia, No Personality Changes, No Delusions, No Rumination, No SI/HI/AH/VH, No Social Issues, No Memory Changes, No Violence/Abuse Hx., No Eating Concerns Heme/Lymph: No Bruising, No Bleeding, No Transfusions History, No Lymphadenopathy Endocrine: No Polyuria, No Polydipsia, No Temperature Intolerance Physical exam (Primary Care) Vital Signs: Last Vital Signs Temp 97.3 F 11/28/24 14:37 Pulse 75 11/28/24 14:37 BP 140/72 H 11/28/24 14:37 Pulse Ox 97 11/28/24 14:37 Oxygen Delivery Method Room Air 11/28/24 14:37 BMI result Body Mass Index 26.1 Tobacco/Smoking Status: Tobacco use Status Tobacco use date assessed 11/28/24 11/28/24 14:41 Patient Tobacco Use Status Never used Tobacco 11/28/24 14:41 e-Cigarette/Vaping Use Never Used 11/28/24 14:41 PHQ-9: PHQ-9 Score PHQ-9: Total score 1 11/28/24 14:41 Thrive Assessment: Date of Thrive Assessment Date Thrive assessed 03/23/24 11/28/24 14:41 Currently or been in a relationship where the following occur: No concerns reported Const Other: Pertinent findings are in BOLD GENERAL APPEARANCE NAD, activity normal for age, well developed/ well nourished, no cyanosis, pallor, or diaphoresis. EYES lids/conjunctiva normal. EARS/NOSE/THROAT Mucous membranes moist, nares normal, lips/teeth normal uvula midline without oral pharyngeal erythema, exudate or swelling TMs normal bilaterally. No lymphangitis/lymphedema. HEAD/NECK normocephalic atraumatic, no facial trauma, neck is supple. RESPIRATORY respiratory effort normal, speaks in full sentences, no tripod position, no accessory muscle use. Lungs clear to auscultation without rhonchi, wheezes, rales CARDIAC Regular rate and rhythm, no edema. ABDOMINAL Soft, ND/NT. No evidence of fluid wave. No pulsatile masses on exam, rebound tenderness, Ulloa sign or pain over Mcburney's point. MUSCLES/EXTREMITIES No abnormal range of motion, no swelling. SKIN Warm, pink and dry. No rashes, dermatoses, petechiae or lesions. NEUROLOGICAL Speech is clear and appropriate. Normal level of consciousness. Gait and coordination are normal. 5/5 strength in all extremities. PSYCH Normal mood and affect. Judgement/competence is appropriate Throat erythema, no infection in ears. Right ear with no ear drum. Coding Level of Care Code Est Pt Level 3 (06301) Diagnoses Acute recurrent sinusitis, unspecified location J01.91 Sinusitis location: unspecified location Chronicity: acute Recurrence: recurrent Assessment & Plan Assessment & Plan (1) Sinusitis: Code(s): J32.9 - Chronic sinusitis, unspecified Category: Medical Qualifiers: Sinusitis location: unspecified location Chronicity: acute Recurrence: recurrent Qualified Code(s): J01.91 - Acute recurrent sinusitis, unspecified Plan: - Prescribed azithromycin 250 mg for 8 days, with 2 pills on the first day followed by 1 pill daily. - She has appointment with ENT on 12/11. - Flonase. - Continue Zyrtec. Plan I discussed with the patient the plan to manage her sinusitis with azithromycin and the importance of following up with an ENT specialist for further evaluation. We also reviewed her allergy history and its potential impact on her current symptoms. Medications: New azithromycin start on day 2 of therapy 250 mg PO DAILY 9 tabs 0RF 9 days mometasone 50 mcg/actuation (Nasonex 24hr Allergy) administer into each nostril 2 sprays intranasal DAILY 17 grams 0RF
--- OUTSIDE RECORDS SUMMARY | 2024-11-28 18:02 | XMS_ITS | Encounter Summary ---
Author Organization [employer] [facility] Address [address] [facility] 7t [place] [address] Care Team Providers Care Stenographic Court Reporter Name Role Phone Unavailable Primary Care Provider Unavailabl e Encounter Details Date Type Department Care Team (Latest Contact Info) Description 05/12/2020 Abstract [facility] CONVERSIONS Dental, Provider, DDS Social History [...] Description 01/21/2025 8:00 AM EST Office Visit [facility] ADULT DENTAL [address] [place] [address] Divya Rebollar documented as of this encounter Visit Diagnoses Not on filedocumented in this encounter
--- OUTSIDE RECORDS SUMMARY | 2024-11-28 18:02 | XMS_ITS | Clinical Summary ---
Author Organization [employer] Address [address] [facility] 7t [place] [address] Care Team Providers Care Flight Surgeon Name Role Phone Unavailable Primary Care Provider [...] Description 11/07/2024 11:00 AM EDT Office Visit [facility] ADULT DENTAL [address] [place] [address] Kate Zelaya DDS Dental caries (Primary Dx); Need for full coverage dental crown 10/19/2024 10:30 AM EDT Office Visit [facility] ADULT DENTAL [address] [place] [address] Kate Zelaya DDS Dental caries (Primary Dx); Need for full coverage dental crown 09/18/2024 1:00 PM EDT Office Visit [facility] ADULT DENTAL [address] [place] [address] Jerson Mariee DDS History of dental examination (Primary Dx) 09/18/2024 Telephone [facility] ADULT DENTAL [address] [place] [address] Kate Zelaya DDS 09/17/2024 10:00 AM EDT Office Visit [facility] ADULT DENTAL [address] [place] [address] Jerson Mariee DDS Gingival recession, localized (Primary Dx); Open fracture of tooth, initial encounter from Last 3 Months Immunizations Immunization Administration [...] Description 01/21/2025 8:00 AM EST Office Visit [facility] ADULT DENTAL [address] [place] [address] RebollarDivya Health Maintenance Due Date Last Done Comments [...] COVID-19 Vaccine ( - 2023-2 5 season) 2024 Influenza Vaccine [...] RADIOGRAPHIC IMAGE Routine 08/16/2024 1:00 PM EDT PERIODIC ORAL [...] Phone Billing Address Personal/Family [address] [place] [address]
--- OUTSIDE RECORDS SUMMARY | 2024-11-28 18:02 | XMS_ITS | Encounter Summary ---
Author Organization [employer] [facility] Address [address] [facility] 7t [place] [address] Care Team Providers Care Manager Hiv Name Role Phone Unavailable Primary Care Provider Unavailabl e Encounter Details Date Type Department Care Team (Late Contact Info) Description 09/18/2024 Telephone [facility] ADULT DENTAL [address] [place] [address] Kate Zelaya DDS [address] [place], [place] [phone] Social History Tobacco Use Types Packs/Day Years [...] Description 01/21/2025 8:00 AM EST Office Visit [facility] ADULT DENTAL [address] [place] [address] Divya Rebollar documented as of this encounter Visit Diagnoses Not on filedocumented in this encounter
--- OUTSIDE RECORDS SUMMARY | 2024-11-28 18:02 | XMS_ITS | Encounter Summary ---
Author Organization [employer] [facility] Address [address] [facility] [address]t [place] [address] Care Team Providers Care Mine Inspector Name Role Phone Unavailable Primary Care Provider Unavailabl e Encounter Details Date Type Department Care Team (Latest Contact Info) Description 08/22/2018 Abstract [facility] CONVERSIONS Dental, Provider, DDS Social History Tobacco [...] 8:00 AM EST Office Visit [facility] ADULT DENTAL [address] [place] [address] Divya Rebollar documented as of this encounter Visit Diagnoses Not on filedocumented in this encounter
== END 2024-11-28 15:43 | disposition home or self-care (01) ==
LOC: HO.HMCH 14:17
PROVIDERS: PCP Internal Medicine; Visit Provider Internal Medicine
DX: J01.91 Acute recurrent sinusitis, unspecified (principal)

== ENCOUNTER → 2024-11-28 14:16 | Outpatient (BNVA) | payer MEDICARE, MEDICAID, SELFPAY | PROVIDERS: PCP Internal Medicine; Visit Provider Internal Medicine | DX: J01.91 Acute recurrent sinusitis, unspecified (principal) | CPT/HCPCS: 96127; 99212 ==

== ENCOUNTER 2024-12-13 08:17 | Outpatient (REF) | payer MEDICARE, MEDICAID, SELFPAY | END 2024-12-13 08:18 | disposition home or self-care (01) | LOC: HO.LAB 08:17 | PROVIDERS: PCP Internal Medicine; Visit Provider Nurse Practitioner Family | DX: N20.0 Calculus of kidney (principal); N39.0 Urinary tract infection, site not specified; Z79.82 Long term (current) use of aspirin | CPT/HCPCS: 81003; 87086; 99212 ==

== ENCOUNTER 2024-12-13 08:17 | Outpatient (AMB) | payer MEDICARE, MEDICAID, SELFPAY ==
--- NOTE | 2024-12-13 08:19 | MHC.OFFVIS ---
Intake Visit Reasons: 4m/US/Litholink Intake Note: Patient is present for 4M/US/LITHOLINK Urology Medication:NONE Antibiotic Allergy:PENICILLINS Blood Thinner:ASPIRIN Music Composition Teacher Required: Yes Music Composition Teacher Services: Music Composition Teacher Present Music Composition Teacher Name: Florin Minor Allergies Penicillins (PENICILLINS) Allergy (Intermediate, Verified 12/13/24 09:11) syncope Medication List - Last Reconciled 12/13/24 by DANIELA SandersP- aspirin (Aspirin Childrens) 81 mg PO DAILY meclizine 25 mg PO TID PRN pravastatin 20 mg PO DAILY 90 days [Synthroid 50 Mcg 50 mcg PO DAILY] HPI Comments Details: Daly is a 74-year-old Luxembourgish-speaking female patient of Dr. Hall. She has a past medical history of chronic sinusitis, anxiety, benign paroxysmal positional vertigo, depression, allergic rhinitis, hypercholesteremia, and hypothyroidism. She presents to the office today for follow-up. Of note, patient was seen approximately 4 months ago as a new patient for nephrolithiasis at which time a Litholink and renal ultrasound were ordered and performed. These results were reviewed and communicated with the patient today. Litholink 11/08 noted urine volume of 3710 ml. We did discuss low urine citrate and adding 1 oz of lemon juice to water daily. Sodium urine was mildly elevated at 146 we did discuss reduction in p.o. sodium intake. Recent renal imaging 11/08 noted bilateral kidneys are mildly small. No apparent cortical thinning. No hydronephrosis, calculi, or renal masses noted bilaterally per radiology report. She denies having had any bothersome urinary issues or concerns since her last office visit here. She continues to attempt to drink plenty of water daily. She denies any previous history and or surgical intervention for nephrolithiasis. In review of patient's chart it appears urine culture 05/08 Citrobacter freundii. We discussed at length potential causes of nephrolithiasis as well as urinary tract infection patient experienced. She denies urinary urgency, urinary frequency, incontinence, nocturia, hematuria, dysuria, foul smelling urine, changes to urinary stream, flank pain, fever, and or chills. She is happy with her current voiding parameters. In office urinalysis results reviewed with the patient today. All questions were answered. She otherwise offers no other issues or concerns at this time. PFSH Medical History Colon cancer screening declined [place] (hard of hearing) Pharyngitis Poor circulation Postmenopausal Chronic sinusitis Anxiety Abdominal pain BPPV (benign paroxysmal positional vertigo) (~03/2021) Anxiety Mild depression Sinusitis Long-term use of aspirin therapy Pure hypercholesterolemia Allergic rhinitis Hypothyroidism Surgical History History of esophagogastroduodenoscopy (EGD) (09/19/23) History of bilateral cataract extraction History of mastoidectomy History of 3 sections Family History Father No problems noted. Mother Vaginal cancer Brother Cancer Sister Skin cancer Son No problems noted. Son No problems noted. Daughter No problems noted. 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 Cognitive needs: No Hearing needs: No Vision needs: Yes Review of Systems Const All systems reviewed & are unremarkable except as noted in HPI and below Physical Exam Const General: cooperative, healthy appearing, comfortable, no acute distress, well developed, alert and awake Nutritional Appearance: average body habitus Orientation/consciousness: patient oriented x3 Limitations: language barrier HEENT Head: Yes normal to inspection, Yes normocephalic and Yes atraumatic Ears: hearing grossly normal bilaterally Eyes General: appearance normal, both eyes and all related structures Neck Neck: Yes normal visual inspection and Yes trachea midline Chest Chest palpation & inspection: normal inspection of the chest Resp Effort & Inspection: normal respiratory effort and able to speak in complete sentences Cardio Rate: regular rate GI Inspection: Yes normal to inspection General: Yes no CVA tenderness Back/Spine/Pelvis Back: no CVA tenderness Skin General skin exam: no rashes or lesions noted Neuro General: patient oriented x3 Extrem General: Yes normal to inspection Psych Appearance: grossly normal and well kempt Mental Status: mental status grossly normal Speech and movement: Normal speech and movement present and Clear speech present Affect: normal affect Attitude: cooperative Thought process: Normal thought process present Thought content: Normal thought content present Insight: Fair insight present (Psych) Judgement: Fair judgement present (Psych) Results AMB Urinalysis, Automated UA Leukoctes 0 Dai/uL Last Edit by DARRELL Junior on 12/13/24 08:32 UA Nitrite Negative Last Edit by Freddie Roberts CCM on 12/13/24 08:32 UA Urobilinogen 0.2 mg/dL Last Edit by DARRELL Junior on 12/13/24 08:32 UA Protein 0 mg/dL Last Edit by DARRELL Junior on 12/13/24 08:32 UA pH 6.0 Last Edit by Freddie Roberts CCM on 12/13/24 08:32 UA Blood 25 Nick/uL Last Edit by DARRELL Junior on 12/13/24 08:32 UA Specific [place] 1.015 Last Edit by Freddie Roberts CCM on 12/13/24 08:32 UA Ketone Negative Last Edit by DARRELL Junior on 12/13/24 08:32 UA Bilirubin 0 mg/dL Last Edit by DARRELL Junior on 12/13/24 08:32 UA Glucose 0 mg/dL Last Edit by Freddie [facility] on 12/13/24 08:32 Results Reviewed Results Reviewed: Laboratory Last Values Urine pH (Auto) 6.0 12/13/24 08:29 Specific [place] (Auto) 1.015 12/13/24 08:29 Urine Protein (Auto) 0 mg/dL 12/13/24 08:29 Glucose (UA)(Auto) 0 mg/dL 12/13/24 08:29 Urine Ketones (Auto) Negative 12/13/24 08:29 Urine Blood (Auto) 25 Nick/uL 12/13/24 08:29 Urine Nitrite (Auto) Negative 12/13/24 08:29 Urine Bilirubin (Auto) 0 mg/dL 12/13/24 08:29 Urine Urobilinogen (Auto) 0.2 mg/dL 12/13/24 08:29 Leukocyte Esterase (Auto) 0 Dai/uL 12/13/24 08:29 Date of Service: 11/13/24 Procedure(s): US renal BI Findings: Bilateral kidneys are mildly small, right kidney measures 8.1 cm in length, left kidney 8.3 cm in length. No apparent cortical thinning, renal parenchyma is normal in echogenicity. No hydronephrosis, calculus or mass. There is mild right pelviectasis. Junctional parenchymal defect noted in the left kidney lower interpolar region. No abnormal vascular flow of bilateral kidneys. Impression: No nephrolithiasis. Assessment & Plan Assessment & Plan (1) Nephrolithiasis: Code(s): N20.0 - Calculus of kidney Category: Medical Plan In office urinalysis results reviewed with the patient today; as noted above. Recent 24 hour urine collection results reviewed with the patient today; as noted above. Recent renal imaging results reviewed with the patient today; as noted above. We did discussed adding 1 oz of lemon juice to water daily. All questions were answered. Will continue with surveillance monitoring. She currently denies any bothersome urinary issues or concerns. She reports be happy with current voiding parameters. Will obtain renal ultrasound in 6 months. Follow-up in 6 months with imaging; or sooner with any issues, concerns, and or questions. Orders: Orders Urine Cytology Today R31.29 - Other microscopic hematuria AMB Urinalysis Automated Today Z13.9 - Encounter for screening, unspecified US renal BI 6 Months N20.0 - Calculus of kidney Coding Level of Care Code Est Pt Level 3 (98829) Complex EM visit Add On G2211 Diagnoses Nephrolithiasis N20.0
--- OUTSIDE RECORDS SUMMARY | 2024-12-13 08:51 | XMS_ITS | Encounter Summary ---
Author Organization [facility] Address [address] [place] [address] Care Team Providers Care Story Writer Name Role Phone Unavailable Primary Care Provider Unavailabl e Encounter Details Date Type Department Care Team (Latest Contact Info) Description 08/22/2018 Abstract [facility] CONVERSIONS Dental, Provider, DDS Social History Tobacco [...] Description 01/21/2025 8:00 AM EST Office Visit [facility] ADULT DENTAL [address] [place] [address] Divya Rebollar documented as of this encounter Visit Diagnoses Not on filedocumented in this encounter
--- OUTSIDE RECORDS SUMMARY | 2024-12-13 08:52 | XMS_ITS | Clinical Summary ---
Author Organization [employer] Address [address] [place] [address] Care Team Providers Care Inside Sales Assistant Name Role Phone Unavailable Primary Care Provider [...] 11:00 AM EDT Office Visit [facility] ADULT DENTAL [address] [place] [address] Kate Zelaya DDS Dental caries (Primary Dx); Need for full coverage dental crown 10/19/2024 10:30 AM EDT Office Visit [facility] ADULT DENTAL [address] [place] [address] Kate Zelaya DDS Dental caries (Primary Dx); Need for full coverage dental crown 09/18/2024 1:00 PM EDT Office Visit [facility] ADULT DENTAL [address] [place] [address] Jerson Mariee DDS History of dental examination (Primary Dx) 09/18/2024 Telephone [facility] ADULT DENTAL [address] [place] [address] Kate Zelaya DDS 09/17/2024 10:00 AM EDT Office Visit [facility] ADULT DENTAL [address] [place] [address] Jerson Mariee DDS Gingival recession, localized (Primary [...] Description 01/21/2025 8:00 AM EST Office Visit [facility] ADULT DENTAL [address] [place] [address] RebollarDivya Health Maintenance Due Date Last Done [...] Phone Billing Address Personal/Family [address] [place] [address]
--- OUTSIDE RECORDS SUMMARY | 2024-12-13 08:52 | XMS_ITS | Encounter Summary ---
Author Organization [employer] [facility] Address [address] [place] [address] Care Team Providers Care Grocery Sacker Name Role Phone Unavailable Primary Care Provider Unavailabl e Encounter Details Date Type Department Care Team (Latest Contact Info) Description 05/12/2020 Abstract [facility] CONVERSIONS Dental, Provider, DDS Social [...] Description 01/21/2025 8:00 AM EST Office Visit [facility] ADULT DENTAL [address] [place] [address] Divya Rebollar documented as of this encounter Visit Diagnoses Not on filedocumented in this encounter
--- OUTSIDE RECORDS SUMMARY | 2024-12-13 08:52 | XMS_ITS | Encounter Summary ---
Author Organization [facility] Address [address] [place] [address] Care Team Providers Care Manager Multicultural Name Role Phone Unavailable Primary Care Provider Unavailabl e Encounter Details Date Type Department Care Team (Late Contact Info) Description 09/18/2024 Telephone [facility] ADULT DENTAL [address] [place] [address] Kate Zelaya DDS [address] [place], [place] [id number] Social History Tobacco Use Types Packs/Day Years [...] 8:00 AM EST Office Visit [facility] ADULT DENTAL [address] [place] [address] Divya Rebollar documented as of this encounter Visit Diagnoses Not on filedocumented in this encounter
== END 2024-12-13 08:54 | disposition home or self-care (01) ==
LOC: HO.HUSH 08:18
PROVIDERS: PCP Internal Medicine; Visit Provider Nurse Practitioner Family
DX: Z13.9 Encounter for screening, unspecified (principal); N20.0 Calculus of kidney
CPT/HCPCS: 99213; G2211

== ENCOUNTER 2024-12-21 10:21 | Outpatient (REF) | payer MEDICARE, MEDICAID, SELFPAY ==
--- NOTE | ~2024-12-21 | XR_ITS ---
EXAMINATION: XR KNEE, BILATERAL CLINICAL INFORMATION: Fall COMPARISON: None available. TECHNIQUE: 3 views of the bilateral knees FINDINGS: Bone alignment is normal. No acute fracture or dislocation. Slight cortical thickening and increased intramedullary lucency of the left proximal fibular shaft. This may represent changes from old trauma. Clinical correlation recommended. If there is not history of old trauma or pain in this region, further evaluation with cross-sectional imaging/MRI or bone scan would be recommended. Normal joint spaces. No joint effusion. Small osteophyte at the right quadriceps tendon insertion to the patella. Soft tissues otherwise unremarkable. XR/XR Knee Seun 3V IMPRESSION: No acute fracture or dislocation. Cortical thickening and increased intramedullary lucency in the left proximal femoral shaft. This may represent changes from old trauma. Clinical correlation recommended. If there is no history of trauma or pain in this region, further evaluation with elective bone scan or cross-sectional imaging, preferably MRI, would be recommended. Comparison with old outside exams if available would also be helpful. Electronically signed by: Jeanie Genao MD 12/21/2024 12:07 PM [facility]ERCE
--- NOTE | ~2024-12-21 | XR_ITS ---
EXAMINATION: XR CHEST CLINICAL INFORMATION: R07.9 - Chest pain, unspecified COMPARISON: May 13, 2024 TECHNIQUE: PA and lateral views. FINDINGS: Pulmonary reticular pattern. No consolidation, pleural effusion or pneumothorax. Hyperinflated lungs. Cardiomediastinal silhouette size is normal. Multilevel thoracolumbar spondylosis. Osteopenia versus osteoporosis. Patient's large body habitus. XR/XR chest 2V IMPRESSION: Chronic interstitial lung disease with the questionable mild interstitial lung edema versus acute small airway inflammatory processes. Electronically signed by: Wily Lewis MD 12/21/2024 11:58 AM KARUNA
--- NOTE | ~2024-12-21 | XR_ITS ---
EXAMINATION: XR SCAPULA, LEFT CLINICAL INFORMATION: W19.XXXA - Unspecified fall, initial encounter COMPARISON: None available. TECHNIQUE: AP and scapular Y views of the left scapula. FINDINGS: The bones and soft tissues are normal. No scapular fracture. Glenohumeral and acromioclavicular alignment is normal. XR/XR scapula LT IMPRESSION: Normal left scapula. Electronically signed by: Jeanie Genao MD 12/21/2024 11:57 AM KARUNA
== END 2024-12-21 10:22 | disposition home or self-care (01) ==
LOC: HO.XRAY 10:21
PROVIDERS: PCP Internal Medicine; Visit Provider Internal Medicine
DX: R07.9 Chest pain, unspecified (principal); R29.6 Repeated falls
CPT/HCPCS: 71046; 73010; 73562; 93005; 96127; 99212

== ENCOUNTER 2024-12-21 10:21 | Outpatient (AMB) | payer MEDICARE, MEDICAID, SELFPAY ==
[2024-12-21 10:28] VITALS: BP 146/78; PULSE 85; O2SAT 97; BMI 25.3
--- NOTE | 2024-12-21 10:28 | A.OFFPC_ITS ---
Vital Signs 12/21/24 10:28 Height 4 ft 11 in Weight 125 lb 5 oz BMI 25.3 BP 146/78 H Blood Pressure Location Lt brachial Position Sitting Pulse 85 Pulse Source Pulse Oximeter Pulse Oximetry (%) 97 Oxygen Delivery Method Room Air Intake Visit Reasons: fell outside [employer] Consultant Required: No Accompanied by: Self / Same As Patient Allergies Penicillins (PENICILLINS) Allergy (Intermediate, Verified 12/21/24 10:28) syncope Tobacco use date assessed: 12/21/24 Fall risk assessment: 1 Fall in past year Last assessed Fall Risk: 12/21/24 Dental Screening Dental Screen Date: 12/21/24 Did you have a dental visit in the last 12 months?: Yes Did you have a dental problem in the last 6 months where you did not have access to dental care?: No Was dental information given to patient?: Patient has dentist HPI HPI Comments History of Present Illness Details The patient is a 74-year-old female presenting for evaluation after a fall. She reports tripping and falling while walking into the building today, landing on her knees and chest. She denies any loss of consciousness, dizziness, or chest pain prior to the fall. The patient has a history of multiple falls. She sustained a significant fall in [place] previously, which resulted in a deep hip injury. She has a history of vertigo and takes meclizine, though it is reportedly not helping her symptoms. The prescription for this was from two years ago and is depleted. An EKG was performed prior to the consultation due to post-fall chest pain and the result was negative. [facility] Medical History Colon cancer screening declined [place] (hard of hearing) Pharyngitis Poor circulation Postmenopausal Chronic sinusitis Anxiety Abdominal pain BPPV (benign paroxysmal positional vertigo) (~03/2021) Anxiety Mild depression Sinusitis Long-term use of aspirin therapy Pure hypercholesterolemia Allergic rhinitis Hypothyroidism Surgical History History of esophagogastroduodenoscopy (EGD) (09/19/23) History of bilateral cataract extraction History of mastoidectomy History of 3 sections Family History Father No problems noted. Mother Vaginal cancer Brother Cancer Sister Skin cancer Son No problems noted. Son No problems noted. Daughter No problems noted. 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 1. Little interest or pleasure in doing things: not at all 2. Feeling down, depressed, or hopeless: not at all 3. Trouble falling or staying asleep, or sleeping too much: not at all 4. Feeling tired or having little energy: several days 5. Poor appetite or overeating: not at all 6. Feeling bad about yourself - or that you are a failure or have let yourself or your family down: not at all 7. Trouble concentrating on things, such as reading the newspaper or watching television: not at all 8. Moving or speaking so slowly that other people could have noticed. Or the opposite - being so fidgety or restless that you have been moving around a lot more than usual: not at all 9. Thoughts that you would be better off or of hurting yourself in some way: not at all Total score: 1 Source: Developed by Drs. Kalen Herring, Cristiana Garcia, Boyd Hubbard and colleagues, with an educational obinna from [employer]. Thrive Questionnaire Date Thrive assessed: 12/21/24 I am a: Patient What is your living situation today?: I have a steady place to live Within the past 12 months, did the food you bought not last and you didn't have the money to get more?: Never true Within the past 12 months, did you worry whether your food would run out before you got money to buy more?: Never true Do you have trouble paying for medicines?: No Do you have trouble getting transportation to medical appointments?: No Do you have trouble paying your heating and electricity bill?: No Do you have trouble taking care of your child, family member or friend?: No Do you have trouble with day-to-day activities such as bathing, preparing meals, shopping, managing finances, etc.?: No Are you currently unemployed and looking for a job?: No Are you interested in more education?: No Please select the resources that you would like help with: None Currently or been in a relationship where the following occur: No concerns reported THRIVE Score: 0 AUDIT C Alcohol Use Questionnaire (AUDIT-C) 1. How often do you have a drink containing alcohol?: Never 3. How often do you have six or more drinks on one occasion?: Never Total Score: 0 JORDAN-7 AMB Questionnaire JORDAN-7 Date JORDAN - 7 assessed: 12/21/24 Feeling nervous, anxious, or on edge: 0 = Not at all Not being able to stop or control worryin = Not at all Worrying too much about different things: 0 = Not at all Trouble relaxin = Not at all Being so restless that it is hard to sit still: 0 = Not at all Becoming easily annoyed or irritable: 0 = Not at all Feeling afraid as if something awful might happen: 0 = Not at all Total JORDAN-7 score (0-4 normal; 5-9 mild; 10-14 moderate; 15-21 severe): 0 Source: Developed by Drs. Kalen Herring, Cristiana Garcia, Boyd Hubbard and colleagues, with an educational obinna from [employer]. Review of Systems Const Details: Positives besides what was mentioned in HPI are in BOLD Constitutional: No Weight Change, No Fever, No Chills, No Night Sweats, No Fatigue, No Malaise ENT/Mouth: No Hearing Changes, No Ear Pain, No Nasal Congestion, No Sinus Pain, No Hoarseness, No sore throat, No Rhinorrhea, No Swallowing Difficulty Eyes: No Eye Pain, No Swelling, No Redness, No Foreign Body, No Discharge, No Vision Changes Cardiovascular: No Chest Pain, No SOB, No PND, No Dyspnea on Exertion, No Orthopnea, No Claudication, No Edema, No Palpitations Respiratory: No Cough, No Sputum, No Wheezing, No Smoke Exposure, No Dyspnea Gastrointestinal: No Nausea, No Vomiting, No Diarrhea, No Constipation, No Pain, No Heartburn, No Anorexia, No Dysphagia, No Hematochezia, No Melena, No Flatulence, No Jaundice Genitourinary: No Dysmenorrhea, No DUB, No Dyspareunia, No Dysuria, No Urinary Frequency, No Hematuria, No Urinary Incontinence, No Urgency, No Flank Pain, No Urinary Flow Changes, No Hesitancy Musculoskeletal: No Arthralgias, No Myalgias, No Joint Swelling, No Joint Stiffness, No Back Pain, No Neck Pain, No Injury History Skin: No Skin Lesions, No Pruritis, No Hair Changes, No Breast/Skin Changes, No Nipple Discharge Neuro: No Weakness, No Numbness, No Paresthesias, No Loss of Consciousness, No Syncope, No Dizziness, No Headache, No Coordination Changes, No Recent Falls Psych: No Anxiety/Panic, No Depression, No Insomnia, No Personality Changes, No Delusions, No Rumination, No SI/HI/AH/VH, No Social Issues, No Memory Bustamante es, No Violence/Abuse Hx., No Eating Concerns Heme/Lymph: No Bruising, No Bleeding, No Transfusions History, No Lymphadenopathy Endocrine: No Polyuria, No Polydipsia, No Temperature Intolerance Physical exam (Primary Care) Vital Signs: Last Vital Signs Pulse 85 12/21/24 10:28 BP 146/78 H 12/21/24 10:28 Pulse Ox 97 12/21/24 10:28 Oxygen Delivery Method Room Air 12/21/24 10:28 BMI result Body Mass Index 25.3 Tobacco/Smoking Status: Tobacco use Status Tobacco use date assessed 12/21/24 12/21/24 10:38 Patient Tobacco Use Status Never used Tobacco 12/21/24 10:38 e-Cigarette/Vaping Use Never Used 12/21/24 10:38 PHQ-9: PHQ-9 Score PHQ-9: Total score 1 12/21/24 10:38 Thrive Assessment: Date of Thrive Assessment Date Thrive assessed 12/21/24 12/21/24 10:38 Currently or been in a relationship where the following occur: No concerns reported Const Other: Pertinent findings are in BOLD GENERAL APPEARANCE NAD, activity normal for age, well developed/ well nourished, no cyanosis, pallor, or diaphoresis. EYES lids/conjunctiva normal. EARS/NOSE/THROAT Mucous membranes moist, nares normal, lips/teeth normal uvula midline without oral pharyngeal erythema, exudate or swelling TMs normal bilaterally. No lymphangitis/lymphedema. HEAD/NECK normocephalic atraumatic, no facial trauma, neck is supple. RESPIRATORY respiratory effort normal, speaks in full sentences, no tripod position, no accessory muscle use. Lungs clear to auscultation without rhonchi, wheezes, rales CARDIAC Regular rate and rhythm, no edema. ABDOMINAL Soft, ND/NT. No evidence of fluid wave. No pulsatile masses on exam, rebound tenderness, Ulloa sign or pain over Mcburney's point. MUSCLES/EXTREMITIES No abnormal range of motion, no swelling. Tenderness in left scapula, bilateral knees and chest. SKIN Warm, pink and dry. No rashes, dermatoses, petechiae or lesions. Left knee abrasion. NEUROLOGICAL Speech is clear and appropriate. Normal level of consciousness. Gait and coordination are normal. 5/5 strength in all extremities. PSYCH Normal mood and affect. Judgement/competence is appropriate Coding Level of Care Code Est Pt Level 3 (36307) Diagnoses Fall, initial encounter W19.XXXA Encounter type: initial encounter Time Spent (min) 30 Assessment & Plan Assessment & Plan (1) Fall: Code(s): W19.XXXA - Unspecified fall, initial encounter Category: Medical Qualifiers: Encounter type: initial encounter Qualified Code(s): W19.XXXA - Unspecified fall, initial encounter Plan: - The patient presents after an accidental trip and fall, landing on her knees and chest. - There was no loss of consciousness or pre-syncopal symptoms. - The primary concern is for a potential fracture. - An EKG was performed due to chest pain and was negative. - X-rays of the knees, back, and chest will be obtained to rule out fractures. - Return precautions were provided for any new or worsening symptoms. - Abrasions on her left knee was cleaned and covered with band aid. Plan I discussed with the patient and her son that the primary concern after her fall is ruling out any fractures, which is why we will obtain X-rays of her knees, back, and chest. I reassured them that it is a positive sign that she did not hit her head and that her EKG was negative. I provided clear instructions to monitor for any changes, such as the development of severe pain, headache, confusion, fever, or chills, and to return to the clinic or go to the emergency department if these symptoms occur. Orders: Orders XR scapula LT Today W19.XXXA - Unspecified fall, initial encounter XR chest 2V Today R07.9 - Chest pain, unspecified ECG 12 lead EKG Today R07.9 - Chest pain, unspecified XR Knee Seun 3V Today W19.XXXA - Unspecified fall, initial encounter
--- OUTSIDE RECORDS SUMMARY | 2024-12-21 12:11 | XMS_ITS | Encounter Summary ---
Author Organization [employer] [facility] Address [address] [place] [address] Care Team Providers Care Front Office Assistant Name Role Phone Unavailable Primary Care Provider Unavailabl e Encounter Details Date Type Department Care Team (Latest Contact Info) Description 05/12/2020 Abstract [facility] CONVERSIONS Dental, Provider, DDS Social History Tobacco [...] Description 01/21/2025 8:00 AM EST Office Visit [facility] ADULT DENTAL [address] [place] [address] Divya Rebollar documented as of this encounter Visit Diagnoses Not on filedocumented in this encounter
--- OUTSIDE RECORDS SUMMARY | 2024-12-21 12:11 | XMS_ITS | Encounter Summary ---
Author Organization [facility] Address [address] [place] [address] Care Team Providers Care Entertainment Usher Name Role Phone Unavailable Primary Care Provider [...] [facility] AD[facility] [address] [place] [address] Divya Rebollar documented as of this encounter Visit Diagnoses Not on filedocumented in this encounter
--- OUTSIDE RECORDS SUMMARY | 2024-12-21 12:11 | XMS_ITS | Encounter Summary ---
Author Organization [facility] [facility] Address [address] [facility] 7t [place] [address] Care Team Providers Care Associate Account Director Name Role Phone Unavailable Primary Care Provider Unavailabl e Encounter Details Date Type Department Care Team (Late Contact Info) Description 09/18/2024 Telephone [facility] ADULT D[facility]AL [address] [place] [address] Kate Zelaya DDS [address] [place], [place] [phone] Social History Tobacco Use Types Packs/Day Years [...] 8:00 AM EST Office Visit [facility]ULT [facility] [address] [place] [address] Divya Rebollar documented as of this encounter Visit Diagnoses Not on filedocumented in this encounter
--- OUTSIDE RECORDS SUMMARY | 2024-12-21 12:11 | XMS_ITS | Clinical Summary ---
Author Organization [employer] Address [address] [facility] 7t [place] [address] Care Team Providers Care Front End Java Developer Name Role Phone Unavailable Primary Care Provider [...] Description 11/07/2024 11:00 AM EDT Office Visit [facility] ADULT DENTAL [address] [place] [address] Kate Zelaya, DDBarbara Dental caries (Primary Dx); Need for full coverage dental crown 10/19/2024 10:30 AM EDT Office Visit [facility] ADULT [facility] [address] [place] [address] Kate Zelaya, DDS Dental caries (Primary Dx); Need for full coverage dental crown from Last 3 Months Immunizations Immunization Administration [...] Description 01/21/2025 8:00 AM EST Office Visit [facility]ULT [facility] [address] [place] [address] Divya Rebollar Health Maintenance Due Date Last [...] caries Need for full coverage dental crown PANORAMIC RADIOGRAPHIC IMAGE Routine 08/16/2024 1:00 PM [...] Patient Date of Phone Billing Address Personal/Family [address] [place] [id number]
== END 2024-12-21 11:21 | disposition home or self-care (01) ==
LOC: HO.HMCH 10:21
PROVIDERS: PCP Internal Medicine; Visit Provider Internal Medicine
DX: M25.561 Pain in right knee (principal); M25.562 Pain in left knee; R07.9 Chest pain, unspecified; M25.512 Pain in left shoulder; W19.XXXA Unspecified fall, initial encounter

== ENCOUNTER → 2024-12-21 11:18 | Outpatient (BNV) | payer MEDICARE, MEDICAID, SELFPAY | PROVIDERS: PCP Internal Medicine; Visit Provider Radiology Diagnostic Radiology | DX: J84.9 Interstitial pulmonary disease, unspecified (principal); Z04.3 Encounter for examination and observation following other accident | CPT/HCPCS: 71046; 73010; 73562 ==

== ENCOUNTER 2025-02-13 07:52 | Outpatient (AMB) | payer MEDICARE, MEDICAID, SELFPAY ==
--- OUTSIDE RECORDS SUMMARY | 2025-02-13 07:55 | XMS_ITS | Encounter Summary ---
Author Organization [employer] [facility] Address [address] [facility] 7t [place] [address] Care Team Providers Care Family Preservation Caseworker Name Role Phone Unavailable Primary Care Provider Unavailabl e Encounter Details Date Type Department Care Team (Latest Contact Info) Description 08/22/[address] [facility] CONVERSIONS Dental, Provider, DDS Social History [...] Care Team ( st Contact Info) Description 07/23/2025 9:30 AM EDT Office Visit [facility] ADULT DENTAL [address] [place] [address] Divya Rebollar documented as of this encounter Visit Diagnoses Not on filedocumented in this encounter
--- OUTSIDE RECORDS SUMMARY | 2025-02-13 07:55 | XMS_ITS | Clinical Summary ---
Author Organization [employer] Address [address] [facility] 7t [place] [address] Care Team Providers Care Automatic Silk Screen Printer Name Role Phone Unavailable Primary Care Provider [...] chew, or split. 5 tablet 09/17/2024 Active aspirin 81 MG chewable tablet Chew 1 tablet at bed time. 02/18/2017 Active Active Problems Problem Noted Date Diagnosed [...] Encounters Date Type Department Care Team Description 01/21/2025 8:00 AM EST Office Visit [facility] ADULT DENTAL [address] [place] [address] Divya Rebollar Encounter for dental examination (Primary Dx); Dental calculus; Bruxism; Dental plaque; Retained dental root from Last 3 Months Immunizations Immunization Administration [...] Sign Reading Time Taken Comments Blood Pressure 136/78 01/21/2025 8:17 AM EST Pulse 70 09/17/2024 9:54 AM EDT Temperature - - Respiratory Rate - - Oxygen Saturation - - Inhaled Oxygen Concentration - - Weight - - Height - - Body Mass Index - - Plan of Treatment Upcoming Encounters Date Type Department Care Team (Late st Contact Info) Description 07/23/2025 9:30 AM EDT Office Visit [facility] ADULT DENTAL [address] [place] [address] Divya Rebollar Health Maintenance Due Date Last Done Comments CT Colonography 1952 Colonoscopy 1952 Colorectal Cancer Screening 1952 Depression Screening 1952 FIT DNA/Cologuard 1952 FIT 1952 FOBT 1952 Lipid Panel 1952 SDOH Screening 1952 Sigmoidoscopy 1952 Alcohol/Substance Use Screening 1964 Hepatitis C Screening 02/04/1970 Mammogram 1992 Zoster Vaccines (1 of 2) 02/04/2002 Pneumococcal Vaccine: 50+ Years (2 of 2 - PCV20 or PCV21) 02/18/2018 02/18/2017 COVID-19 Vaccine (1 - season) 2024 Influenza Vaccine (#1) 2024 02/18/2017 Dental X-Ray: Bitewings 04/18/2025 04/18/19 25, 04/28/2023, 03/23/2022 Dental Oral Exam 07/23/2025 01/21/2025, , 04/28/2023, Additional history exists Dental Prophylaxis 07/23/2025 01/21/2025, 0 04/17/2024, 04/28/2023, Additional history exists Tobacco Screening 01/21/2026 01/21/2025 RSV Patients and Patients Aged 60 years or older (1 - 1-dose 75+ series) 02/04/2027 DTaP/Tdap/Td Vaccines (2 - Td or Tdap) 02/22/2027 02/22/2017 Dental X-Ray: Full Mouth 08/18/2027 08/16/2024, 0208/2022 HIB Vaccines Aged Out No longer eligi [...] PRESENTATION, DETAILED AND EXTENSIVE TREATMENT PLANNING Routine 01/21/2025 8:00 AM EST ORAL HYGIENE INSTRUCTIONS Routine 2024 8:00 AM EST Dental calculus Dental plaque Full PROPHYLAXIS - ADULT Routine 025 8:00 AM EST Dental calculus Dental plaque INTRAORAL - PERIAPICAL FIRST RADIOGRAPHIC IMAGE Routine 01/21/2025 8:00 AM EST COMPREHENSIVE PERIODONTAL EVALUATION - NEW OR ESTABLISHED PATIENT Routine 01/21/2025 8:00 AM EST Encounter for dental examination Dental calculus Bruxism Dental plaque Retained dental root PERIODIC ORAL EVALUATION - ESTABLISHED PATIENT Routine 01/21/2025 8:00 AM EST Encounter for dental examination Dental calculus Bruxism Dental plaque Retained dental root PANORAMIC RADIOGRAPHIC IMAGE Routine 08/16/2024 1:00 PM EDT BITEWINGS - 3 RADIOGRAPHIC IMAGES Routine 04/17/2024 2:30 PM EST from Last 3 Months or Most Recently Relevant to Health Maintenance Insurance DENTAL - HSN FULL (MEDICAID) * Guarantor: DALY ONTIVEROS Account Type Relation to Patient Date of Phone Billing Address Personal/Family [address] [place] [address]
--- OUTSIDE RECORDS SUMMARY | 2025-02-13 07:55 | XMS_ITS | Encounter Summary ---
Author Organization [employer] [facility] Address [address] [facility] 7t [place] [address] Care Team Providers Care Health Care Manager Name Role Phone Unavailable Primary Care Provider Unavailabl e Encounter Details Date Type Department Care Team (Late st Contact Info) Description 09/18/2024 Telephone [facility] ADULT DENTAL [address] [place] [address] Kate Zelaya DDS [address] [place], [place] [phone] Social History Tobacco Use Types Packs/Day Years [...] Description 07/23/2025 9:30 AM EDT Office Visit [facility] ADULT DENTAL [address] [place] [address] Divya Rebollar documented as of this encounter Visit Diagnoses Not on filedocumented in this encounter
--- OUTSIDE RECORDS SUMMARY | 2025-02-13 07:55 | XMS_ITS | Encounter Summary ---
Author Organization [facility] Address [address] [facility] [address] [place] [address] Care Team Providers Care Milieu Manager Name Role Phone Unavailable Primary Care Provider Unavailabl e Encounter Details Date Type Department Care Team (Latest Contact Info) Description 05/12/2020 Abstract [facility] CONVERSIONS Dental, Provider, DDS Social [...] Description 07/23/2025 9:30 AM EDT Office Visit [facility] ADULT DENTAL [address] [place] [address] Divya Rebollar documented as of this encounter Visit Diagnoses Not on filedocumented in this encounter
[2025-02-13 07:59] VITALS: BP 142/72; PULSE 82; O2SAT 96; BMI 24.9
--- NOTE | 2025-02-13 07:59 | A.OFFVIS_ITS ---
Vital Signs 02/13/25 07:59 Height 4 ft 11 in Weight 123 lb 6 oz BMI 24.9 BP 142/72 H Blood Pressure Location Lt brachial Position Sitting Pulse 82 Pulse Source Pulse Oximeter Pulse Oximetry (%) 96 Oxygen Delivery Method Room Air Intake Visit Reasons: Hand OA Intake Note: Patient presents for follow up on osteoarthritis of bilateral hands. She was last seen by Dr. Panda on 12/01/2023. Patient is requesting refill of Diclofenac today. Contracts Law Professor Required: No Contracts Law Professor Services: Contracts Law Professor Offered & Declined Contracts Law Professor Name: Celso Carlin Accompanied by: Son Allergies Penicillins (PENICILLINS) Allergy (Intermediate, Verified 02/13/25 08:04) syncope HPI Comments Details: This Is a 75-year-old female with a history of erosive OA, hypothyroidism, hyperlipidemia presenting to me as a new patient for the management of her osteoarthritis. She is a known patient at this practice, she last saw Dr. Keegan ford in 2023. She states that her joint pain is mostly pronounced in the hands. It is getting progressively worse. She uses Voltaren gel as needed for the hand pain due to osteoarthritis. She does not use Tylenol or NSAIDs for pain control. Her son is with her and says that she does not like to take any pain medication. She also uses a hand massager, and does hand exercises to keep get provider relations representative strength. Otherwise she denies any other joint pain. She does endorse some muscular pain between the shoulder blades which happens very infrequently, maybe once a month and she attributes it to anxiety. For that she uses a heating pad. Otherwise she denies any weight loss, fatigue, fever, bloody urine bloody diarrhea or skin rashes. No psoriasis FH: non contributory PHYSICAL EXAM General: Comfortable CVS: RRR Respiratory: clear to auscultation bilaterally. Good respiratory effort Skin: No lesions seen MSK: Patient is able to make a fist bilaterally. Patient has [place] nodes, she has enlarged 2nd and 3rd DIPs of the left hand, and she has an enlarged 3rd PIP of the right hand. These are tender on palpation. She does not have any swelling in the wrist. She has good range of motion in the shoulders, strength is 5/5 in both shoulders. She has good range of motion in the hips, she has crepitus noted in the knees on flexion extension. PFSH Medical History (Updated 02/13/25 @ 08:55 by Zeinab Mercado MD) Colon cancer screening declined [place] ([place] of [place]) Pharyngitis Poor circulation Postmenopausal Chronic sinusitis Anxiety Abdominal pain BPPV (benign paroxysmal positional vertigo) (~03/2021) Anxiety Mild depression Sinusitis Long-term use of aspirin therapy Pure hypercholesterolemia Allergic rhinitis Hypothyroidism Surgical History H/O colonoscopy History of esophagogastroduodenoscopy (EGD) (09/19/23) History of bilateral cataract extraction History of mastoidectomy History of 3 sections Family History Father No problems noted. Mother Vaginal cancer Brother Cancer Sister Skin cancer Son No problems noted. Son No problems noted. Daughter No problems noted. 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 Cognitive needs: No Hearing needs: No Vision needs: Yes Physical Exam Vital Signs: Last Vital Signs Pulse 82 02/13/25 07:59 BP 142/72 H 02/13/25 07:59 Pulse Ox 96 02/13/25 07:59 Oxygen Delivery Method Room Air 02/13/25 07:59 BMI result Body Mass Index 24.9 Assessment & Plan Assessment & Plan (1) Osteoarthritis of hands, bilateral: Code(s): M19.041 - Primary osteoarthritis, right hand; M19.042 - Primary osteoarthritis, left hand Category: Medical Qualifiers: Osteoarthritis type: primary Qualified Code(s): M19.041 - Primary osteoarthritis, right hand; M19.042 - Primary osteoarthritis, left hand (2) Muscle pain, myofascial: Code(s): M79.18 - Myalgia, other site Category: Medical Plan This Is a 75-year-old female with a history of erosive OA, hypothyroidism, hyperlipidemia presenting to me as a new patient for the management of her osteoarthritis, which seems to stable. Patient does not want to take any oral pain medications. At this time I will prescribe her Voltaren gel to use up to 4 times a day as needed on her hands for joint pain. I will also refer her today to OT for the management of bilateral hand pain. Patient is agreeable to this. In terms of her muscular pain between her shoulder blades, as this happens infrequently and is due to anxiety, we discussed various techniques to manage stress. Patient is actively exercising and walks 3 miles a day. She also uses heating pad for the muscular pain between her shoulder blades. She will continue this Follow up in 1 year Orders: Orders 2 OT Evaluation and Treatment Today M19.041 - Primary osteoarthritis, right hand, M19.042 - Primary osteoarthritis, left hand Medications: New diclofenac sodium 1% (Voltaren Arthritis Pain) apply to single elbow, wrist or hand; for hand includes palm/fingers/back of hand 2 grams topical QID 100 grams 6RF Coding Level of Care Code New Pt Level 3 (21300) Diagnoses Primary osteoarthritis of both hands M19.041; M19.042 Osteoarthritis type: primary Muscle pain, myofascial M79.18
== END 2025-02-13 08:46 | disposition home or self-care (01) ==
LOC: HO.RHES 07:53
PROVIDERS: PCP Internal Medicine; Visit Provider Student in an Organized Health Care Education/Training Program
DX: M19.041 Primary osteoarthritis, right hand (principal); M19.042 Primary osteoarthritis, left hand; M79.18 Myalgia, other site
CPT/HCPCS: 99203

== ENCOUNTER → 2025-02-13 07:52 | Outpatient (BNVA) | payer MEDICARE, MEDICAID, SELFPAY | PROVIDERS: PCP Internal Medicine; Visit Provider Student in an Organized Health Care Education/Training Program | DX: M19.041 Primary osteoarthritis, right hand (principal); M19.042 Primary osteoarthritis, left hand; M79.18 Myalgia, other site | CPT/HCPCS: 99202 ==